=== PATIENT | female | born 1990 | race Caucasian/White ===

== ENCOUNTER 2020-01-24 15:50 | Emergency (ER) | payer MEDICAID, SELFPAY ==
--- NOTE | 2020-01-24 | XR_ITS ---
EXAMINATION: XR FINGER, RIGHT CLINICAL INFORMATION: Pain and deformity of the third digit after trauma COMPARISON: None TECHNIQUE: 3 views of the right third finger. FINDINGS: The bones and soft tissues are normal. No fracture. Alignment is anatomic. Joint spaces are maintained. XR/XR finger RT min 2V IMPRESSION: Normal finger radiographs.
[2020-01-24 17:11] VITALS: BP 123/85; PULSE 91; RESP 16; TEMP 37.1; O2SAT 98; BMI 40.2
--- NOTE | 2020-01-24 17:12 | ED.EXTPRO ---
HPI - Extremity Problem General Chief complaint: Extremity Injury, Upper Stated complaint: finger injury Time Seen by Provider: 01/24/20 17:12 Source: family Mode of arrival: ambulatory Limitations: no limitations History of Present Illness HPI Narrative: Patient injured her finger 1 week ago still with pain right 2nd and 3rd digit Complaint: extremity pain Onset (ago): week(s) Pain Consistency: intermittent Related Data Previous Rx's Medication Instructions Recorded naproxen [Naprosyn] 500 mg PO BID #20 tab 01/24/20 Allergies Allergy/AdvReac Type Severity Reaction Status Date / Time No Known Allergies Allergy Unverified 12/18/19 16:16 Review of Systems Constitutional: Constitutional: Reports no additional constitutional complaints Eyes: Eyes: Reports no additional eye complaints ENT: Denies dizziness Cardiovascular: Cardiovascular: Reports no additional cardiovascular complaints Respiratory: Respiratory: Reports as per HPI Gastrointestinal: Gastrointestinal: Reports no additional gastrointestinal complaints Genitourinary: Genitourinary: Reports no additional female genitourinary complaints Musculoskeletal: Musculoskeletal: Reports no additional musculoskeletal complaints Integumentary/Breasts: Skin/Breast: Denies rash Neurologic: Reports system reviewed and no additional complaints, except as documented, Denies dizziness and Denies Sensory deficit (Neuro) Psychiatric: Psychiatric: Denies anxiety [facility] Past Medical History Medical History PCOS (polycystic ovarian syndrome) Pre-diabetes Social History Social History Advance Directives: No Advance Directives Information Provided: No Physical Exam Vital Signs: Vital Signs: Vital Signs Temp Pulse Resp BP Pulse Ox 01/24/20 17:11 98.7 F 91 16 123/85 98 Body Mass Index 40.2 Const: Nutritional Appearance: overweight Orientation/consciousness: oriented to person Limitations: no limitations HENMT: Head: Yes normal to inspection Ears: external ears normal General nose exam: Normal external nose present Mouth: Normal oral and palatal mucosa present and oropharynx normal Throat: Yes posterior oropharynx normal Eyes: General: appearance normal, both eyes and all related structures Neck: Other: supple Neck: Yes normal visual inspection Chest: Chest palpation & inspection: normal inspection of the chest Resp: Auscultation: clear to auscultation bilaterally Cardio: Jugular venous distension: no JVD Rate: regular rate Rhythm: regular rhythm Heart sounds: S1 normal heart sound present and S2 normal heart sound present GI: Inspection: Yes normal to inspection Palpation (GI): Soft to palpation, nontender and No hepatosplenomegaly present Auscultation: normal bowel sounds : General: Yes no CVA tenderness Back/Spine/Pelvis: Back: no CVA tenderness Skin: General skin exam: no rashes or lesions noted Neuro: General: oriented to person Cranial nerves: Yes CN's II-XII intact bilaterally Motor exam (neuro): 5/5 motor strength present throughout Sensory Exam: No Sensory deficit (Neuro) Extrem: General: Yes other (slight swelling and ecchymosis to finger) Psych: Appearance: grossly normal MDM - Extremity (Nontraumatic) MDM Narrative Medical decision making narrative: patient with sprain and contusion Discharge Plan Discharge Clinical Impression: Finger sprain Qualifiers: Encounter type: initial encounter Finger: ring finger Sprain of finger site: interphalangeal joint Laterality: right Qualified Code(s): S63.634A - Sprain of interphalangeal joint of right ring finger, initial encounter Patient Disposition: Home, Self-Care Instructions: Finger Sprain (ED) Prescriptions: New naproxen [Naprosyn] 500 mg tablet 500 mg PO BID Qty: 20 RF: 0
== END 2020-01-24 18:17 | disposition home or self-care (01) ==
PROVIDERS: Emergency Provider Emergency Medicine; PCP Internal Medicine
DX: S63.634A Sprain of interphalangeal joint of right ring finger, initial encounter (principal); M79.644 Pain in right finger(s); X58.XXXA Exposure to other specified factors, initial encounter; Y93.9 Activity, unspecified; Y92.9 Unspecified place or not applicable; Y99.9 Unspecified external cause status
CPT/HCPCS: 73140; 99283; 99284

== ENCOUNTER 2020-05-22 09:01 | Outpatient (REF) | payer MEDICAID, SELFPAY ==
[2020-05-22 09:58] LABS: Estimated Average Glucose 108 mg/dL; Hemoglobin A1c % 5.4 %
[2020-05-22 10:19] LABS: Alanine Aminotransferase 53 U/L (0-31); Albumin Level 3.9 g/dL (3.5-5.0); Alkaline Phosphatase 134 U/L (39-117); Anion Gap 16 (12-20); Aspartate Amino Transferase 55 U/L (5-31); Bilirubin Total 0.6 mg/dL (0.0-1.0); Blood Urea Nitrogen 9 mg/dL (9-16); Calcium 10.1 mg/dL (8.4-10.2); Carbon Dioxide 24 mmol/L (22-29); Chloride 103 mmol/L (96-108); Estimated Glomerular Filt Rate > 60; Glucose Random 84 mg/dL (60-115); Potassium 4.8 mmol/L (3.3-5.1); Sodium 138 mmol/L (135-145); Total Protein 7.7 g/dL (6.5-8.0)
== END 2020-05-22 09:02 | disposition home or self-care (01) ==
LOC: HO.LAB 09:01
PROVIDERS: PCP Internal Medicine; Visit Provider Internal Medicine
DX: E66.01 Morbid (severe) obesity due to excess calories (principal); J02.9 Acute pharyngitis, unspecified; R74.01 Elevation of levels of liver transaminase levels; Z68.37 Body mass index [BMI] 37.0-37.9, adult
CPT/HCPCS: 36415; 80053; 83036

== ENCOUNTER 2021-04-19 15:07 | Outpatient (REF) | payer MEDICAID, SELFPAY ==
[2021-04-19 15:57] LABS: Binax Internal Control QC Valid; Binax Now Covid-19 Ag Positive (Negative)
== END 2021-04-19 15:08 | disposition home or self-care (01) ==
LOC: HO.LAB 15:07
PROVIDERS: Visit Provider Internal Medicine
DX: Z20.822 Contact with and (suspected) exposure to COVID-19 (principal)
CPT/HCPCS: C9803

== ENCOUNTER 2021-05-06 14:36 | Outpatient (REF) | payer MEDICAID, SELFPAY ==
[2021-05-06 15:07] LABS: COVID-19 Test Negative (Negative); IDNOW Serial# 16C4AD1C
== END 2021-05-06 14:37 | disposition home or self-care (01) ==
LOC: HO.LAB 14:36
PROVIDERS: Visit Provider Internal Medicine
DX: Z20.822 Contact with and (suspected) exposure to COVID-19 (principal)
CPT/HCPCS: 87635; C9803

== ENCOUNTER 2021-05-27 09:17 | Outpatient (REF) | payer MEDICAID, SELFPAY ==
[2021-05-27 09:44] LABS: MANUAL DIFF FLAG NO
[2021-05-27 10:00] LABS: Basophils Percent Auto 0.3 % (0-2); Eosinophils Absolute Auto 0.1 X10*3/uL (0.0-0.4); Eosinophils Percent Auto 0.7 % (0-4); Hematocrit 44.1 % (37.0-47.0); Hemoglobin 14.4 g/dl (12.0-16.0); Imm Gran Abs Auto 0.02 X10*3/uL (0.00-0.03); Imm Gran Pct Auto 0.2 % (0.0-0.4); Lymphocytes Absolute Auto 3.7 X10*3/uL (1.2-4.9); Lymphocytes Percent Auto 35.6 % (20-40); Mean Corpuscular HGB Conc 32.7 g/dl (31.0-35.0); Mean Corpuscular Hemoglobin 28.7 pg (27.0-33.0); Mean Platelet Volume 10.7 fL (9.4-12.3); Monocytes Absolute Auto 0.7 X10*3/uL (0.1-1.2); Monocytes Percent Auto 6.2 % (2-11); Platelet Count 511 X10*3/uL (160-400); Red Blood Count 5.01 X10*6/uL (4.20-5.50); Red Cell Distribution Width 13.2 % (11.0-16.0); White Blood Count 10.5 X10*3/uL (4.8-10.8)
[2021-05-27 10:16] LABS: Estimated Average Glucose 111 mg/dL; Hemoglobin A1c % 5.5 %
[2021-05-27 10:25] LABS: Alanine Aminotransferase 227 U/L (0-31); Albumin Level 4.1 g/dL (3.5-5.0); Alkaline Phosphatase 166 U/L (39-117); Anion Gap 16 (12-20); Aspartate Amino Transferase 242 U/L (5-31); Bilirubin Total 0.8 mg/dL (0.0-1.0); Blood Urea Nitrogen 9 mg/dL (9-16); Calcium 10.8 mg/dL (8.4-10.2); Carbon Dioxide 24 mmol/L (22-29); Chloride 103 mmol/L (96-108); Estimated Glomerular Filt Rate > 60; Glucose Random 91 mg/dL (60-115); Potassium 4.4 mmol/L (3.3-5.1); Sodium 139 mmol/L (135-145); Total Protein 7.8 g/dL (6.5-8.0)
== END 2021-05-27 09:18 | disposition home or self-care (01) ==
LOC: HO.LAB 09:17
PROVIDERS: PCP Internal Medicine; Visit Provider Internal Medicine
DX: Z00.00 Encounter for general adult medical examination without abnormal findings (principal); Z13.31 Encounter for screening for depression; E28.2 Polycystic ovarian syndrome; R74.01 Elevation of levels of liver transaminase levels
CPT/HCPCS: 36415; 80053; 83036; 85025

== ENCOUNTER 2021-05-30 15:27 | Outpatient (REF) | payer MEDICAID, SELFPAY ==
[2021-05-30 16:37] LABS: Ferritin 79 ng/mL (10-122)
[2021-05-31 04:55] LABS: HBS Num1 0.59 mIU/mL (0-7.99); HBc Num1 0.08 S/CO (0.00-0.79); Hepatitis B Core Antibody Nonreactive (Nonreactive); ~HepC Num1 0.06 S/CO (0.00-0.79); ~Hepatitis B Surface Antibody NONREACTIVE (Nonreactive); ~Hepatitis C Antibody Nonreactive (Nonreactive)
[2021-05-31 04:59] LABS: HBsAGNum1 0.21 S/CO (0.00-0.99); Hepatitis B Surface Antigen Negative (Negative)
[2021-06-01 04:06] LABS: Hepatitis A Antibody IgM 0.22 Index (0-0.79); ~Hepatitis A Antibody IgM Nonreactive (Nonreactive)
[2021-06-01 13:06] LABS: Anti Nuclear Antibody Screen NEGATIVE (NEGATIVE)
[2021-06-01 13:37] LABS: Ceruloplasmin 51 mg/dL (18-53)
== END 2021-05-30 15:28 | disposition home or self-care (01) ==
LOC: HO.LAB 15:27
PROVIDERS: PCP Internal Medicine; Visit Provider Internal Medicine
DX: E66.9 Obesity, unspecified (principal); R74.01 Elevation of levels of liver transaminase levels
CPT/HCPCS: 36415; 82390; 82728; 86038; 86039; 86704; 86706; 86709; 86803; 87340

== ENCOUNTER 2021-09-14 15:20 | Outpatient (REF) | payer MEDICAID, SELFPAY ==
[2021-09-14 15:41] LABS: MANUAL DIFF FLAG NO
[2021-09-14 15:48] LABS: Basophils Percent Auto 0.3 % (0-2); Eosinophils Absolute Auto 0.1 X10*3/uL (0.0-0.4); Eosinophils Percent Auto 1.1 % (0-4); Hematocrit 40.2 % (37.0-47.0); Hemoglobin 13.2 g/dl (12.0-16.0); Imm Gran Abs Auto 0.04 X10*3/uL (0.00-0.03); Imm Gran Pct Auto 0.3 % (0.0-0.4); Lymphocytes Absolute Auto 4.5 X10*3/uL (1.2-4.9); Lymphocytes Percent Auto 36.5 % (20-40); Mean Corpuscular HGB Conc 32.8 g/dl (31.0-35.0); Mean Corpuscular Hemoglobin 28.6 pg (27.0-33.0); Mean Corpuscular Volume 87.2 fL (80.0-98.0); Mean Platelet Volume 10.5 fL (9.4-12.3); Monocytes Absolute Auto 0.8 X10*3/uL (0.1-1.2); Monocytes Percent Auto 6.4 % (2-11); Neutrophils Absolute Auto 6.8 x10*3/uL (2.0-8.3); Neutrophils Percent Auto 55.4 % (45-73); Platelet Count 463 X10*3/uL (160-400); Red Blood Count 4.61 X10*6/uL (4.20-5.50); Red Cell Distribution Width 13.1 % (11.0-16.0); White Blood Count 12.3 X10*3/uL (4.8-10.8)
[2021-09-14 16:00] LABS: INTERNATIONAL NORM RATIO 0.9 (0.9-1.1); Prothrombin Time 10.3 SEC (9.9-13.0)
[2021-09-14 16:35] LABS: Alanine Aminotransferase 101 U/L (0-31); Albumin Level 3.9 g/dL (3.5-5.0); Alkaline Phosphatase 127 U/L (39-117); Aspartate Amino Transferase 96 U/L (5-31); Bilirubin Direct < 0.2 mg/dL (0.0-0.5); Bilirubin Total 0.3 mg/dL (0.0-1.0); Total Protein 7.4 g/dL (6.5-8.0)
[2021-09-16 15:33] LABS: Alpha 1 Anti-trypsin 228 mg/dL (83-199)
[2021-09-19 17:10] LABS: Mitochondrial Antibodies NEGATIVE (NEGATIVE)
[2021-09-20 00:16] LABS: FIB-ALT 85 U/L (6-29); FIB-Alpha-2-Macroglobulin 277 mg/dL (106-279); FIB-Apolipoprotein A1 202 mg/dL (101-198); FIB-GGT 49 U/L (3-40); FIB-Haptoglobin 261 mg/dL (43-212); FIB-Total Bilirubin 0.3 mg/dL (0.2-1.2); Liver Fibrosis Score 0.06; Liver Fibrosis Stage F0; Nec Inflam Act Grade A1-A2; Nec Inflam Act Score 0.41
[2021-09-20 23:26] LABS: Smooth Muscle Antibody <20 U (<20)
== END 2021-09-14 15:21 | disposition home or self-care (01) ==
LOC: HO.LAB 15:20
PROVIDERS: PCP Internal Medicine; Visit Provider Internal Medicine
DX: R94.5 Abnormal results of liver function studies (principal); K76.0 Fatty (change of) liver, not elsewhere classified
CPT/HCPCS: 36415; 80076; 81596; 82103; 85025; 85610; 86015; 86255; 86256

== ENCOUNTER 2021-10-27 13:05 | Outpatient (REF) | payer MEDICAID, SELFPAY ==
--- NOTE | ~2021-10-27 | US_ITS ---
EXAMINATION: US COMPLETE ABDOMEN WITH LIVER ELASTOGRAPHY CLINICAL INFORMATION: Elevated liver function tests COMPARISON: November 2019 abdominal ultrasound TECHNIQUE: Real-time imaging of the abdominal viscera. Noninvasive ultrasound liver fibrosis assessment is performed using Tiff ElastPQ point quantification shear wave elastography (2D-SWE) with a C5-2 MHz transducer. Multiple elastography samples are obtained. FINDINGS: PANCREAS: The visualized pancreatic head and body are normal in appearance. The remainder of the pancreas is obscured from visualization by the overlying bowel gas. ABDOMINAL AORTA: The proximal, middle, and distal aortic segments are normal in caliber. INFERIOR VENA CAVA: Visualized portions are normal. LIVER: Liver echotexture is increased. There is a 1.51 x 1.4 cm peripheral hypoechoic area in the right lobe of the liver. There is a second 1.1 x 0.9 x 1.2 cm hypoechoic area in the central right lobe of the liver. The liver is slightly enlarged. The liver is normal in contour. No intrahepatic biliary duct dilatation. The right lobe measures 19 cm in length. The left lobe measures 11 cm in length. Portal flow is normal/hepatopedal Shear wave liver elastography median stiffness is 1.05 m/s (reference: normal median stiffness is 1.3 m/s or less). IQR/median stiffness to assess sampling precision is 0.22 (reference: good quality data set is IQR/median stiffness of 0.15 or less). GALLBLADDER: Normal. The gallbladder is physiologically distended without evidence of stones, sludge, polyps, wall thickening or pericholecystic fluid. COMMON BILE DUCT: Normal in caliber measuring 0.3 cm in diameter. RIGHT KIDNEY: Normal. No hydronephrosis. No renal calculi or focal parenchymal lesions. The kidney measures 10.7 cm in maximum dimension. LEFT KIDNEY: Normal. No hydronephrosis. No renal calculi or focal parenchymal lesions. The kidney measures 10.7 cm in maximum dimension. SPLEEN: Normal. The spleen measures 10 cm in maximum dimension. FREE FLUID: None. US/US abdomen comp w elastography IMPRESSION: 1. Impression: Slightly enlarged echogenic liver. 2 hypoechoic areas, question representing atypical appearance of fatty infiltration versus true liver lesions. These were not appreciated on prior exam November 2019. This could be best characterized with liver MRI. 2. Liver elastography: Limited due to sampling error. REFERENCE: Society of Radiologists in Ultrasound Liver Stiffness Thresholds (2020): LIVER STIFFNESS THRESHOLDS: *Liver Stiffness equal or less than 1.3 m/s: High probability of being normal. *Liver Stiffness less than 1.7 m/s: In the absence of other known clinical signs, rules out compensated advanced chronic liver disease. *Liver Stiffness 1.7-2.1 m/s: Suggestive of compensated advanced chronic liver disease but need further test for confirmation. *Liver Stiffness over 2.1 m/s: Rules in compensated advanced chronic liver disease. *Liver Stiffness over 2.4 m/s: Suggestive of clinically significant portal hypertension. QUALITY OF DATA SET: *IQR/Median value equal or less than 0.15 implies a quality data set. *IQR/Median value over 0.15 implies a poor quality data set. SIGNIFICANT CHANGE FROM PRIOR EXAM: Significant change if liver stiffness measurement is 10% or greater from prior exam. OTHER CONSIDERATIONS: The stage of liver fibrosis may be overestimated in the setting of acute hepatitis, liver inflammation, elevated liver function tests, hepatic vascular congestion, obstructive cholestasis, non-fasting state, and infiltrative diseases such as amyloidosis and lymphoma. In some patients with NAFLD, the liver stiffness thresholds for compensated advanced chronic liver disease may be lower. In causes other than viral hepatitis and NAFLD, liver stiffness thresholds are not well established.
== END 2021-10-27 13:06 | disposition home or self-care (01) ==
LOC: HO.US 13:05
PROVIDERS: Visit Provider Internal Medicine
DX: R94.5 Abnormal results of liver function studies (principal)
CPT/HCPCS: 76705; 76981

== ENCOUNTER 2022-01-31 11:21 | Outpatient (REF) | payer MEDICAID, SELFPAY ==
--- NOTE | ~2022-01-31 | MR_ITS ---
EXAMINATION: MR ABDOMEN WITHOUT AND WITH CONTRAST CLINICAL INFORMATION: Elevated liver function tests. Abnormal liver ultrasound COMPARISON: Ultrasound 10/27/2021 TECHNIQUE: MR abdomen was performed without and with use of 10 mL intravenous Gadavist gadolinium contrast. Postcontrast images are performed in multiphase dynamic sequences. Imaging was performed in 3 planes. FINDINGS: LUNG BASES: The visualized lung bases are unremarkable. LIVER, GALLBLADDER, AND BILIARY TREE: The liver is enlarged measuring 22 cm craniocaudal. There is diffuse loss of signal on opposed phase gradient echo T1-weighted images consistent with diffuse hepatic steatosis. There are 2 regions of focal fatty sparing in segment 5 of the liver measuring 1.3 cm in series 5 image 25/37 and 1.3 cm in image 26, likely accounting for the findings on prior ultrasound. The more anterior lesion has patchy arterial phase hyperenhancement, series 100 image 78/120. It fades in conspicuity but remains hyperenhancing even on delayed postcontrast images. There is subtle bright T2 signal on T2 fat-saturated series 7 image 23/37 but no T2 abnormality on nonfat saturated T2 images. The more medial lesion has no associated abnormal enhancement or T2 signal. No additional liver lesions seen. No biliary ductal dilatation. The gallbladder is unremarkable with no evidence of gallbladder wall thickening, or obvious pericholecystic inflammatory changes. PANCREAS: Unremarkable. SPLEEN: Normal. ADRENAL GLANDS: Normal. KIDNEYS AND URETERS: The kidneys are normal in size, shape, and enhance symmetrically. No hydronephrosis. No perinephric stranding. GASTROINTESTINAL TRACT: No bowel obstruction. No ascites or fluid collection. ABDOMINAL WALL: No significant hernia is appreciated. LYMPH NODES: No lymphadenopathy. VASCULAR: Unremarkable. OSSEOUS STRUCTURES: Marrow signal normal. MR/MR abdomen wo/w con IMPRESSION: A background of severe diffuse hepatic steatosis, 2 focal liver lesions, each 1.3 cm in diameter, are seen in segment 5 of the right lobe of liver. One has no associated abnormal enhancement or T2 signal and is consistent with focal fatty sparing. The other is seen along the periphery of the liver and has arterial phase hyperenhancement that persists on later phases and perhaps subtle T2 signal. This is not the expected appearance of a cyst or hemangioma. It could represent a perfusion abnormality with concomitant focal fatty sparing. An arterial enhancing mass such as focal nodular hyperplasia or less likely an adenoma are possible as well. Consider 6 month follow-up MRI to confirm stability. Consider utilizing Eovist at that time to assess if the lesion is of hepatocyte origin.
[2022-01-31 13:11] LABS: Alanine Aminotransferase 66 U/L (0-31); Albumin Level 4.2 g/dL (3.5-5.0); Alkaline Phosphatase 159 U/L (39-117); Aspartate Amino Transferase 75 U/L (5-31); Bilirubin Direct 0.3 mg/dL (0.0-0.5); Bilirubin Total 0.4 mg/dL (0.0-1.0); Blood Urea Nitrogen 8 mg/dL (9-16); Estimated Glomerular Filt Rate > 60
[2022-02-01 13:47] LABS: Alpha Fetoprotein 0.8 ng/mL
== END 2022-01-31 11:22 | disposition home or self-care (01) ==
LOC: HO.MRI 11:21
PROVIDERS: Visit Provider Internal Medicine
DX: R79.89 Other specified abnormal findings of blood chemistry (principal); R93.2 Abnormal findings on diagnostic imaging of liver and biliary tract
CPT/HCPCS: 36415; 74183; 80076; 82105; 82378; 82565; 84520; A9585

== ENCOUNTER 2022-04-08 08:16 | Outpatient (REF) | payer MEDICAID, SELFPAY ==
[2022-04-08 08:37] LABS: MANUAL DIFF FLAG NO
[2022-04-08 09:34] LABS: Basophils Percent Auto 0.3 % (0-2); Eosinophils Percent Auto 0.3 % (0-4); Hematocrit 42.4 % (37.0-47.0); Hemoglobin 13.6 g/dl (12.0-16.0); Imm Gran Abs Auto 0.03 X10*3/uL (0.00-0.03); Imm Gran Pct Auto 0.3 % (0.0-0.4); Lymphocytes Absolute Auto 4.4 X10*3/uL (1.2-4.9); Lymphocytes Percent Auto 38.3 % (20-40); Mean Corpuscular HGB Conc 32.1 g/dl (31.0-35.0); Mean Corpuscular Hemoglobin 28.5 pg (27.0-33.0); Mean Corpuscular Volume 88.9 fL (80.0-98.0); Monocytes Absolute Auto 0.7 X10*3/uL (0.1-1.2); Neutrophils Absolute Auto 6.3 x10*3/uL (2.0-8.3); Neutrophils Percent Auto 54.8 % (45-73); Platelet Count 494 X10*3/uL (160-400); Red Blood Count 4.77 X10*6/uL (4.20-5.50); Red Cell Distribution Width 12.5 % (11.0-16.0); White Blood Count 11.6 X10*3/uL (4.8-10.8)
[2022-04-08 09:37] LABS: INTERNATIONAL NORM RATIO 0.9 (0.9-1.1); Prothrombin Time 10.3 SEC (10.0-13.1)
[2022-04-08 09:39] LABS: Partial Thromboplastin Time 26.1 SEC (26.0-36.4)
[2022-04-08 10:18] LABS: Alanine Aminotransferase 49 U/L (0-31); Albumin Level 4.1 g/dL (3.5-5.0); Alkaline Phosphatase 164 U/L (39-117); Aspartate Amino Transferase 49 U/L (5-31); Bilirubin Direct 0.3 mg/dL (0.0-0.5); Bilirubin Total 0.7 mg/dL (0.0-1.0); Total Protein 7.7 g/dL (6.5-8.0)
== END 2022-04-08 08:17 | disposition home or self-care (01) ==
LOC: HO.LAB 08:16
PROVIDERS: PCP Internal Medicine; Visit Provider Internal Medicine
DX: R94.5 Abnormal results of liver function studies (principal); K76.0 Fatty (change of) liver, not elsewhere classified
CPT/HCPCS: 36415; 80076; 85025; 85610; 85730

== ENCOUNTER 2022-04-17 08:35 | Day surgery (SDC) | payer MEDICAID, SELFPAY ==
[2022-04-17] VITALS (10 sets, daily range): BP systolic 106–129; BP diastolic 62–84; PULSE 89–108; RESP 16–18; TEMP 36.4–37.2; O2SAT 94–98; BMI 38.5
--- NOTE | ~2022-04-17 | US_ITS ---
EXAMINATION: ULTRASOUND LIVER BIOPSY CLINICAL INFORMATION: Elevated liver enzymes. COMPARISON: None TECHNIQUE: Following explaining ultrasound-guided liver biopsy procedure, benefits and risk to the patient and patient's mother, a written consent was obtained from the patient. Patient was placed supine and preliminary ultrasound imaging was performed. An optimal site was selected along the right anterolateral subcostal region and marked on the skin with a marker. The marked site was cleaned and draped in the usual sterile manner with 2% chlorhexidine solution and a sterile drape. 1% lidocaine was injected puncture site. Through a small skin incision a 20-gauge long guide needle was advanced into the right hepatic lobe and 3 pass core biopsy performed with the biopsy gun. Postprocedure the guide needle was withdrawn and complete hemostasis achieved at puncture site. Sterile dressing applied at puncture site. Conscious sedation was given during the exam and patient monitored for 15 minutes by the IR nurse and radiologist. FINDINGS: On preliminary ultrasound imaging there is diffuse hepatic steatosis without focal lesion. Ultrasound guided 3 core biopsies were performed of the liver without immediate complications. US/US biopsy liver IMPRESSION: Successful ultrasound-guided core biopsy of the liver was obtained.
[2022-04-17 09:16] LABS: MANUAL DIFF FLAG NO
[2022-04-17 09:20] LABS: Basophils Percent Auto 0.3 % (0-2); Eosinophils Absolute Auto 0.1 X10*3/uL (0.0-0.4); Eosinophils Percent Auto 0.5 % (0-4); Hemoglobin 13.5 g/dl (12.0-16.0); Imm Gran Abs Auto 0.04 X10*3/uL (0.00-0.03); Imm Gran Pct Auto 0.3 % (0.0-0.4); Lymphocytes Absolute Auto 3.9 X10*3/uL (1.2-4.9); Mean Corpuscular HGB Conc 32.9 g/dl (31.0-35.0); Mean Platelet Volume 10.1 fL (9.4-12.3); Monocytes Absolute Auto 0.6 X10*3/uL (0.1-1.2); Monocytes Percent Auto 5.4 % (2-11); Neutrophils Absolute Auto 7.2 x10*3/uL (2.0-8.3); Neutrophils Percent Auto 60.5 % (45-73); Platelet Count 501 X10*3/uL (160-400); Red Blood Count 4.66 X10*6/uL (4.20-5.50); Red Cell Distribution Width 12.6 % (11.0-16.0); White Blood Count 11.9 X10*3/uL (4.8-10.8)
[2022-04-17 09:27] LABS: INTERNATIONAL NORM RATIO 0.9 (0.9-1.1); Prothrombin Time 10.2 SEC (10.0-13.1)
[2022-04-17 09:30] LABS: Partial Thromboplastin Time 32.9 SEC (26.0-36.4)
== END 2022-04-17 14:30 | disposition home or self-care (01) ==
PROVIDERS: PCP Internal Medicine; Visit Provider Radiology Diagnostic Radiology
DX: R74.8 Abnormal levels of other serum enzymes (principal); K75.81 Nonalcoholic steatohepatitis (NASH); K74.00 Hepatic fibrosis, unspecified; J45.909 Unspecified asthma, uncomplicated; R73.03 Prediabetes; E28.2 Polycystic ovarian syndrome
CPT/HCPCS: 36415; 47000; 76942; 85025; 85610; 85730; 88307; 88313; 99152; J2250; J3010

== ENCOUNTER 2022-05-13 08:36 | Outpatient (REF) | payer MEDICAID, SELFPAY ==
[2022-05-13 08:58] LABS: MANUAL DIFF FLAG NO
[2022-05-13 09:19] LABS: Basophils Absolute Auto 0.1 X10*3/uL (0.0-0.2); Basophils Percent Auto 0.5 % (0-2); Eosinophils Percent Auto 0.4 % (0-4); Hematocrit 42.8 % (37.0-47.0); Hemoglobin 13.9 g/dl (12.0-16.0); Imm Gran Abs Auto 0.04 X10*3/uL (0.00-0.03); Imm Gran Pct Auto 0.4 % (0.0-0.4); Lymphocytes Absolute Auto 3.7 X10*3/uL (1.2-4.9); Lymphocytes Percent Auto 34.8 % (20-40); Mean Corpuscular HGB Conc 32.5 g/dl (31.0-35.0); Mean Corpuscular Hemoglobin 28.5 pg (27.0-33.0); Mean Corpuscular Volume 87.9 fL (80.0-98.0); Mean Platelet Volume 10.6 fL (9.4-12.3); Monocytes Absolute Auto 0.6 X10*3/uL (0.1-1.2); Monocytes Percent Auto 5.2 % (2-11); Neutrophils Absolute Auto 6.3 x10*3/uL (2.0-8.3); Neutrophils Percent Auto 58.7 % (45-73); Platelet Count 500 X10*3/uL (160-400); Red Blood Count 4.87 X10*6/uL (4.20-5.50); Red Cell Distribution Width 12.4 % (11.0-16.0); White Blood Count 10.7 X10*3/uL (4.8-10.8)
[2022-05-13 09:44] LABS: Alanine Aminotransferase 39 U/L (0-31); Alkaline Phosphatase 140 U/L (39-117); Anion Gap 17 (12-20); Aspartate Amino Transferase 43 U/L (5-31); Bilirubin Total 0.8 mg/dL (0.0-1.0); Blood Urea Nitrogen 9 mg/dL (9-16); Carbon Dioxide 23 mmol/L (22-29); Chloride 105 mmol/L (96-108); Cholesterol 217 mg/dL; Estimated Glomerular Filt Rate > 60; Glucose Random 89 mg/dL (60-115); HDL Cholesterol 59 mg/dL; LDL Cholesterol Calculated 118 mg/dl; Potassium 4.7 mmol/L (3.3-5.1); Sodium 140 mmol/L (135-145); Total Protein 7.5 g/dL (6.5-8.0); Triglycerides 204 mg/dL
== END 2022-05-13 08:37 | disposition home or self-care (01) ==
LOC: HO.LAB 08:36
PROVIDERS: PCP Internal Medicine; Visit Provider Internal Medicine
DX: E66.9 Obesity, unspecified (principal); M25.571 Pain in right ankle and joints of right foot; R74.01 Elevation of levels of liver transaminase levels; R07.0 Pain in throat
CPT/HCPCS: 36415; 80053; 80061; 85025

== ENCOUNTER 2022-08-18 12:47 | Outpatient (REF) | payer MEDICAID, SELFPAY ==
--- NOTE | ~2022-08-18 | MR_ITS ---
EXAMINATION: MR ABDOMEN WITHOUT AND WITH CONTRAST CLINICAL INFORMATION: Elevated liver function tests. Fatty liver. Follow-up abnormal MRI COMPARISON: Previous abdominal MRI January 2022 and abdominal ultrasound most recent September 2021 TECHNIQUE: MR abdomen was performed without and with use of 10 mL intravenous EOVIST contrast. Postcontrast images are performed in multiphase dynamic sequences. Imaging was performed in 3 planes. FINDINGS: LUNG BASES: The visualized lung bases are unremarkable. LIVER, GALLBLADDER, AND BILIARY TREE: The liver is slightly enlarged. The liver loses signal on out of phase sequences suggestive of fatty infiltration. There are 2 areas that do not lose signal on out of phase sequences suggestive suggestive of focal fatty sparing in the right lobe measuring 1.2 cm axial image 23 series 5 that is unchanged and new area measuring up to 2 x 4 cm axial image 27 series 5 that is triangular in shape. These are normal in signal on other sequences and do not demonstrate abnormal enhancement. Areas are suggestive of focal fatty sparing. There is a third area/lesion in the right lobe of the liver measuring 1.3 cm that is stable. This does not lose signal with respect to the remainder of the liver on out of phase sequences for example axial image 21 series 5, is slightly high signal on T2-weighted sequences and demonstrates early patchy arterial phase enhancement axial image 78 series 100. This fades gradually on later postcontrast sequences but remains slightly enhanced with respect to the remainder of the liver following EOVIST IV contrast on delayed sequences for example coronal reconstructed image 35 series 9. This is similar in size, signal and enhancement characteristics to previous exam January 2022 and is characteristic of focal nodular hyperplasia The gallbladder is normal. There is no biliary duct dilatation. PANCREAS: Unremarkable. SPLEEN: Normal. ADRENAL GLANDS: Normal. KIDNEYS AND URETERS: The kidneys are normal in size, shape, and enhance symmetrically. No hydronephrosis. No perinephric stranding. GASTROINTESTINAL TRACT: No bowel obstruction. No ascites or fluid collection. ABDOMINAL WALL: No significant hernia is appreciated. LYMPH NODES: No lymphadenopathy. VASCULAR: Unremarkable. Small umbilical hernia containing fat. OSSEOUS STRUCTURES: Marrow signal normal. Loss of bright T2 disc signal at L5-S1. MR/MR abdomen wo/w con IMPRESSION: Enlarged fatty liver. Stable area of focal fatty sparing in the right lobe and new larger triangular-shaped area in the inferior right lobe. Stable 1.2 cm lesion in the anterior segment of the right lobe consistent with benign focal nodular hyperplasia.
[2022-08-18] MEDS: Gadoxetate Disodium 10 ML VIAL IVPUSH (13:58)
== END 2022-08-18 12:48 | disposition home or self-care (01) ==
LOC: HO.MRI 12:47
PROVIDERS: PCP Internal Medicine; Visit Provider Internal Medicine
DX: R94.5 Abnormal results of liver function studies (principal); K76.0 Fatty (change of) liver, not elsewhere classified; R93.2 Abnormal findings on diagnostic imaging of liver and biliary tract
CPT/HCPCS: 74183; A9581

== ENCOUNTER 2022-10-17 13:55 | Outpatient (REF) | payer MEDICAID, SELFPAY ==
[2022-10-17 14:27] LABS: MANUAL DIFF FLAG NO
[2022-10-17 15:19] LABS: Basophils Absolute Auto 0.1 X10*3/uL (0.0-0.2); Basophils Percent Auto 0.6 % (0-2); Eosinophils Absolute Auto 0.1 X10*3/uL (0.0-0.4); Eosinophils Percent Auto 0.5 % (0-4); Hematocrit 40.8 % (37.0-47.0); Hemoglobin 13.2 g/dl (12.0-16.0); Imm Gran Abs Auto 0.04 X10*3/uL (0.00-0.03); Imm Gran Pct Auto 0.3 % (0.0-0.4); Lymphocytes Absolute Auto 4.5 X10*3/uL (1.2-4.9); Lymphocytes Percent Auto 38.2 % (20-40); Mean Corpuscular HGB Conc 32.4 g/dl (31.0-35.0); Mean Corpuscular Hemoglobin 28.4 pg (27.0-33.0); Mean Corpuscular Volume 87.7 fL (80.0-98.0); Mean Platelet Volume 10.9 fL (9.4-12.3); Monocytes Absolute Auto 0.7 X10*3/uL (0.1-1.2); Monocytes Percent Auto 5.5 % (2-11); Neutrophils Absolute Auto 6.5 x10*3/uL (2.0-8.3); Neutrophils Percent Auto 54.9 % (45-73); Platelet Count 479 X10*3/uL (160-400); Red Blood Count 4.65 X10*6/uL (4.20-5.50); Red Cell Distribution Width 12.6 % (11.0-16.0); White Blood Count 11.9 X10*3/uL (4.8-10.8)
== END 2022-10-17 13:56 | disposition home or self-care (01) ==
LOC: HO.LAB 13:55
PROVIDERS: PCP Internal Medicine; Visit Provider Internal Medicine Medical Oncology
DX: D45 Polycythemia vera (principal); D75.839 Thrombocytosis, unspecified
CPT/HCPCS: 36415; 81219; 81270; 81279; 81339; 85025

== ENCOUNTER 2022-12-01 10:09 | Emergency (ER) | payer MEDICAID, SELFPAY ==
[2022-12-01 10:12] VITALS: BP 152/95; PULSE 110; RESP 16; TEMP 36.8; O2SAT 99; BMI 36.6
[2022-12-01 10:29] LABS: IDNOW Serial# 08D9AD1C
[2022-12-01 10:30] LABS: Strep A Nucleic Acid Negative (Negative)
[2022-12-01 10:38] LABS: COVID-19 Test Negative (Negative); IDNOW Serial# BCCEAD1C
--- NOTE | 2022-12-01 10:46 | ED_ITS ---
HPI - URI/Sore Throat General Chief Complaint: Upper Respiratory Symptoms Stated Complaint: sore throat , nausea Time Seen by Provider: 12/01/22 10:37 Source: patient Mode of arrival: ambulatory Limitations: no limitations History of Present Illness HPI Narrative: 32-year-old female presents to the ER for evaluation of sore throat, itchy eyes, nasal congestion this started yesterday along with nausea and vomiting that started today. No known sick got attacks. No abdominal pain, shortness of breath, chest pain. She took a COVID test at home and was negative. She tried [id number] cold and flu medications yesterday along with allergy medications yesterday with some improvement in her symptoms. No fever but she has had chills. MD elicited complaint: sore throat, nasal congestion and other ( Nausea vomiting) Pertinent past history: seasonal allergies Onset (ago): day(s) (1) Consistency: progressively worsening Severity: moderate Description of mucous: clear Able to tolerate fluids by mouth: Yes Exacerbating factors: changing head position and supine positioning Relieving factors: OTC cold medicine Associated symptoms: nasal congestion, sore throat, nausea and vomiting Treatments prior to arrival: none Related Data Previous Rx's Medication Instructions Recorded naproxen 500 mg tablet (Naprosyn) 500 mg PO BID #20 tabs 01/24/20 Allergies Allergy/AdvReac Type Severity Reaction Status Date / Time No Known Allergies Allergy Unverified 12/18/19 16:16 Review of Systems Review of Systems: Yes all other systems are reviewed and are negative [facility] Past Medical History Medical History PCOS (polycystic ovarian syndrome) Pre-diabetes Social History Social History Alcohol intake: never Advance Directives: No Advance Directives Information Provided: Yes Physical Exam Vital Signs: Vital Signs: Last Vital Signs Temp 98.3 F 12/01/22 10:12 Pulse 110 H 12/01/22 10:12 Resp 16 12/01/22 10:12 BP 152/95 H 12/01/22 10:12 Pulse Ox 99 12/01/22 10:12 O2 Del Method Room Air 12/01/22 10:12 BMI result Body Mass Index 36.6 Appearance: Alert. Oriented X3. No acute distress. Head: normocephalic, atraumatic. Eyes: Pupils equal, round and reactive to light. ENT: Pharynx normal. No tonsillar swelling or exudate. Normal Tms bilaterally Neck: Normal inspection. Neck supple. No LAD CVS: Normal heart rate and rhythm. Pulses normal. Respiratory: No respiratory distress. Breath sounds normal. Abdomen: Soft and nontender. +BS x4 Skin: Skin warm and dry. Normal skin color. Normal skin turgor. No rashes. Extremities: No lower extremity edema. No joint swelling. Neuro/psych: Oriented X 3. Grossly nonfocal. Medical Decision Making Medical Decision Making [facility] Narrative: 32-year-old female presenting to the ER for evaluation of sore throat, itchy, watery eyes, nasal congestion and 1 episode of nausea vomiting today. Symptoms most likely viral in etiology. She is negative for COVID negative for strep throat. Her physical exam is unremarkable. Her vital signs are stable. Patient was counseled on probable viral diagnosis along with symptomatic management. We discussed return precautions. She is stable for discharge home. Differential Diagnosis Differential Diagnoses: The differential diagnosis associated with the presentation includes strep, covid, flu, rsv, other viral syndrome, bronchitis, pneumonia, no evidence of peritonsillar abcsess or retropharyngeal abscess Lab Data [facility] Lab Attestation statement: I reviewed the patient's lab results. Labs: Lab Results 12/01/22 12/01/22 Range/Units 10:15 10:15 COVID-19 (LIGIA) Negative (Negative) COVID-19 Clin Com See Note S. pyogenes GrpA JIMMIE Negative (Negative) Independent Historian Clinical information obtained from an independent historian. History obtained from or confirmed by: Parent External Record Review External record reviewed: Prior outpatient labs Prescription Management I considered prescription management with: Antibiotic Critical Care Time Critical Care Time Critical Care Time: No Discharge Plan Discharge Clinical Impression: Viral infection Patient Disposition: Home, Self-Care Instructions: Viral Syndrome (ED) Additional Instructions: You tested negative for COVID and Strep throat today. Your symptoms most likely due to viral illness. Treatment is supportive care. Rest and drink plenty of fluids. Stick to a bland diet where not feeling well. Take [id number] cold and flu medications as needed for your symptoms. Follow-up with your doctor as needed. If you develop new or worsening symptoms call 911 or come back to the ER for further evaluation. Prescriptions: No Action naproxen [Naprosyn] 500 mg tablet 500 mg PO BID Qty: 20 0RF Interventions: ED Discharge Assessment Last Done: 12/01/22 11:38 Discharge Date/Time: 12/01/22 11:39
== END 2022-12-01 11:39 | disposition home or self-care (01) ==
PROVIDERS: Emergency Provider Emergency Medicine; PCP Internal Medicine
DX: J02.8 Acute pharyngitis due to other specified organisms (principal); R11.2 Nausea with vomiting, unspecified; Z20.822 Contact with and (suspected) exposure to COVID-19; Z20.828 Contact with and (suspected) exposure to other viral communicable diseases
CPT/HCPCS: 87635; 87651; 99282; 99283

== ENCOUNTER 2023-01-27 09:19 | Outpatient (REF) | payer MEDICAID, SELFPAY ==
[2023-01-27 10:32] LABS: Alanine Aminotransferase 35 U/L (0-31); Albumin Level 3.7 g/dL (3.5-5.0); Alkaline Phosphatase 138 U/L (39-117); Aspartate Amino Transferase 50 U/L (5-31); Bilirubin Direct 0.2 mg/dL (0.0-0.5); Bilirubin Total 0.6 mg/dL (0.0-1.0); Total Protein 7.6 g/dL (6.5-8.0)
== END 2023-01-27 09:20 | disposition home or self-care (01) ==
LOC: HO.LAB 09:19
PROVIDERS: PCP Internal Medicine; Visit Provider Internal Medicine
DX: R94.5 Abnormal results of liver function studies (principal); K76.0 Fatty (change of) liver, not elsewhere classified
CPT/HCPCS: 36415; 80076

== ENCOUNTER 2023-02-26 15:06 | Outpatient (REF) | payer MEDICAID, SELFPAY ==
[2023-02-26 15:21] LABS: MANUAL DIFF FLAG NO
[2023-02-26 16:28] LABS: Basophils Absolute Auto 0.1 X10*3/uL (0.0-0.2); Basophils Percent Auto 0.5 % (0-2); Eosinophils Absolute Auto 0.1 X10*3/uL (0.0-0.4); Eosinophils Percent Auto 0.5 % (0-4); Hematocrit 43.2 % (37.0-47.0); Imm Gran Abs Auto 0.03 X10*3/uL (0.00-0.03); Imm Gran Pct Auto 0.2 % (0.0-0.4); Lymphocytes Absolute Auto 4.7 X10*3/uL (1.2-4.9); Lymphocytes Percent Auto 37.4 % (20-40); Mean Corpuscular HGB Conc 32.4 g/dl (31.0-35.0); Mean Corpuscular Hemoglobin 28.3 pg (27.0-33.0); Mean Corpuscular Volume 87.3 fL (80.0-98.0); Mean Platelet Volume 11.2 fL (9.4-12.3); Monocytes Absolute Auto 0.6 X10*3/uL (0.1-1.2); Monocytes Percent Auto 5.1 % (2-11); Neutrophils Percent Auto 56.3 % (45-73); Platelet Count 521 X10*3/uL (160-400); Red Blood Count 4.95 X10*6/uL (4.20-5.50); Red Cell Distribution Width 13.1 % (11.0-16.0); White Blood Count 12.5 X10*3/uL (4.8-10.8)
== END 2023-02-26 15:07 | disposition home or self-care (01) ==
LOC: HO.LAB 15:06
PROVIDERS: PCP Internal Medicine Medical Oncology; Visit Provider Internal Medicine Medical Oncology
DX: D45 Polycythemia vera (principal); D47.3 Essential (hemorrhagic) thrombocythemia
CPT/HCPCS: 36415; 85025

== ENCOUNTER 2023-04-27 15:31 | Outpatient (REF) | payer MEDICAID, SELFPAY ==
[2023-04-27 17:55] LABS: Basophils Percent Auto 0.3 % (0-2); Eosinophils Absolute Auto 0.1 X10*3/uL (0.0-0.4); Eosinophils Percent Auto 0.7 % (0-4); Hematocrit 41.5 % (37.0-47.0); Hemoglobin 13.7 g/dl (12.0-16.0); Imm Gran Abs Auto 0.05 X10*3/uL (0.00-0.03); Imm Gran Pct Auto 0.4 % (0.0-0.4); Lymphocytes Absolute Auto 5.4 X10*3/uL (1.2-4.9); Lymphocytes Percent Auto 40.9 % (20-40); MANUAL DIFF FLAG SCAN; Mean Corpuscular Hemoglobin 28.3 pg (27.0-33.0); Mean Corpuscular Volume 85.7 fL (80.0-98.0); Mean Platelet Volume 12.5 fL (9.4-12.3); Monocytes Absolute Auto 0.7 X10*3/uL (0.1-1.2); Monocytes Percent Auto 5.5 % (2-11); Neutrophils Absolute Auto 6.9 x10*3/uL (2.0-8.3); Neutrophils Percent Auto 52.2 % (45-73); Red Blood Count 4.84 X10*6/uL (4.20-5.50); Red Cell Distribution Width 13.1 % (11.0-16.0); SCAN SMEAR FLAG 1; White Blood Count 13.2 X10*3/uL (4.8-10.8)
[2023-04-27 18:20] LABS: Alanine Aminotransferase 64 U/L (0-31); Albumin Level 3.8 g/dL (3.5-5.0); Alkaline Phosphatase 136 U/L (39-117); Anion Gap 21 (12-20); Aspartate Amino Transferase 65 U/L (5-31); Bilirubin Total 0.2 mg/dL (0.0-1.0); Blood Urea Nitrogen 16 mg/dL (9-16); Calcium 10.1 mg/dL (8.4-10.2); Carbon Dioxide 24 mmol/L (22-29); Chloride 102 mmol/L (96-108); Estimated Glomerular Filt Rate > 60; Glucose Random 91 mg/dL (60-115); Potassium 3.6 mmol/L (3.3-5.1); Sodium 143 mmol/L (135-145); Total Protein 7.9 g/dL (6.5-8.0)
[2023-04-27 18:24] LABS: Platelet Count 219 X10*3/uL (160-400); SLIDE REVIEW VERIFIED
== END 2023-04-27 15:32 | disposition home or self-care (01) ==
LOC: HO.LAB 15:31
PROVIDERS: PCP Internal Medicine; Visit Provider Internal Medicine Medical Oncology
DX: Q02 Microcephaly (principal)
CPT/HCPCS: 36415; 80053; 85025

== ENCOUNTER 2023-06-14 11:10 | Outpatient (AMB) | payer MEDICAID, SELFPAY ==
--- NOTE | 2023-06-14 11:20 | A.OFFVIS_ITS ---
Intake Vital Signs 06/14/23 11:25 Height 5 ft 2 in Weight 220 lb BMI 40.2 BP 122/70 Intake Visit Reasons: PCOS Coronary Clinical Specialist Required: No Information Interpreted: clinical only Clerical Supervisor: Clerical Supervisor Present Allergies No Known Allergies Allergy (Unverified 06/14/23 11:21) Is last menstrual period known: Yes Last menstrual period: 05/28/23 Do you need a note to return to daycare/school/sports/work: No HPI PCOS HPI Details Patient is here for a new control systems designer visit accompanied by her mother who shared a lot of her history. Her mother states that her daughter is developmentally delayed and has a family independence case manager through the [employer] [facility] who insisted on her having an appointment in a control systems designer practice for her Pap smear and exam. The patient's primary care provider is the same as the mother's Dr. Bess, who she said offered and was definitely able to do a pelvic exam and control systems designer but she says the the family independence case manager insisted that she have a separate appointment at control systems designer. The patient has been cared for by her PCC for quite some time previous to that her mother shared that she had been diagnosed with PCOS when she was a teenager and we had very sporadic periods and was prescribed control pills at that time and has been on them ever since and her PCC prescribe some for her and they serve her well. The patient on inquiry, shook her head emphatically that she has never been sexually active. And she is a bit nervous about the exam and just wants to see all of the things that I am going to be using during the visit. [facility] Medical History (Updated 06/14/23 @ 13:02 by Echo Massey CNM) Pre-diabetes PCOS (polycystic ovarian syndrome) Social History Alcohol intake: never Female Reproductive History Menstrual Age of Menarche: 11 Duration of menses: 3-5 days Date of last menstrual period: 05/28/23 control method: pills Total pregnancies: 0 Full term: 0 History of abnormal pap smear: No (no previous pap) Physical Exam Vital Signs: Last Vital Signs BP 122/70 06/14/23 11:25 BMI result Body Mass Index 40.2 Const General: cooperative, healthy appearing, comfortable, no acute distress, well developed and alert Nutritional Appearance: average body habitus Orientation/consciousness: patient oriented x3 Limitations: no limitations and other limitations (Has a speech limitation, developmental lead delayed with microcephaly per m) HEENT Head: Yes normocephalic Neck Neck: Yes normal visual inspection Chest Chest palpation & inspection: normal inspection of the chest Breast/axilla inspection: normal inspection of the breasts and normal inspection of the axillae Breast/axilla palpation: normal palpation of the breasts and normal palpation of the axillae Resp Effort & Inspection: normal respiratory effort GI Inspection: Yes normal to inspection, No Abdominal wall edema and No distended Palpation (GI): Soft to palpation and nontender General: Yes bladder normal to palpation External Female Exam: normal external appearance and normal appearance of the urethra Speculum Exam - Vagina: normal appearance of the vagina, normal palpation and normal vaginal discharge Speculum Exam - Cervix: normal appearance of the cervix, normal palpation and nontender Bimanual exam- vagina & uterus: normal bimanual exam, normal palpation, uterine size normal, bladder normal to palpation, consistency normal, normal palpation, uterine mobility normal, uterine shape normal, No Cervical tenderness present, non-tender and no cervical motion tenderness Bimanual Exam- Adnexa, other: normal adnexae, no masses, normal and No adnexal tenderness Neuro General: patient oriented x3 Assessment & Plan Assessment & Plan (1) Well woman exam with routine gynecological exam: Code(s): Z01.419 - Encounter for gynecological examination (general) (routine) without abnormal findings (2) PCOS (polycystic ovarian syndrome): Comment: Has been on OCPs since diagnosis by pediatric endocrinology at [facility]. continuing on them managed by [facility] Code(s): E28.2 - Polycystic ovarian syndrome (3) Developmental delay, moderate: Code(s): R62.50 - Unspecified lack of expected normal physiological development in childhood (4) Cervical cancer screening: Code(s): Z12.4 - Encounter for screening for malignant neoplasm of cervix (5) Microcephalic: Comment: with Developmental delay per mother Code(s): Q02 - Microcephaly Plan -----Discussed in this visit the following: healthy balanced diet, regular and consistent exercise, getting recommended health screens, doing the best she can for her particular health concerns, kegel exercises, pap smear screening and followup recommendations, mammography screening and SBE, normal changes in cycles in her life stage--- . First Pap and pelvic done cultures deferred as patient and mother very clear that she has never had sexual activity and she had no concerns. Patient mother states she is well managed by her PCC Dr. Bess with her control pills and she wants to continue with that plan discussed that Pap smears in her age group would be every 5 years but she may return as she needs to. Orders: Orders Pap Smear Today Z01.419 - Encounter for gynecological examination (general) (routine) without abnormal findings Coding Level of Care Code New Pt Prev Care 18-39yr([id number] Diagnoses Well woman exam with routine gynecological exam Z01.419 PCOS (polycystic ovarian syndrome) E28.2 Developmental delay, moderate R62.50 Cervical cancer screening Z12.4 Microcephalic Q02
[2023-06-14 11:25] VITALS: BP 122/70; BMI 40.2
== END 2023-06-14 12:36 | disposition home or self-care (01) ==
PROVIDERS: PCP Internal Medicine; Visit Provider Advanced Practice Midwife
DX: Z01.419 Encounter for gynecological examination (general) (routine) without abnormal findings (principal); E28.2 Polycystic ovarian syndrome; R62.50 Unspecified lack of expected normal physiological development in childhood; Z12.4 Encounter for screening for malignant neoplasm of cervix; Q02 Microcephaly
CPT/HCPCS: 99385

== ENCOUNTER 2023-06-14 11:10 | Outpatient (REF) | payer MEDICAID, SELFPAY | END 2023-06-14 11:11 | disposition home or self-care (01) | LOC: HO.LAB 11:10 | PROVIDERS: PCP Internal Medicine; Visit Provider Advanced Practice Midwife | DX: Z01.419 Encounter for gynecological examination (general) (routine) without abnormal findings (principal); E28.2 Polycystic ovarian syndrome; R62.50 Unspecified lack of expected normal physiological development in childhood; Q02 Microcephaly | CPT/HCPCS: 88142; 99385 ==

== ENCOUNTER 2023-08-18 09:23 | Outpatient (REF) | payer MEDICAID, SELFPAY ==
[2023-08-18 09:37] LABS: MANUAL DIFF FLAG NO
[2023-08-18 10:26] LABS: Basophils Absolute Auto 0.1 X10*3/uL (0.0-0.2); Basophils Percent Auto 0.5 % (0-2); Eosinophils Absolute Auto 0.1 X10*3/uL (0.0-0.4); Eosinophils Percent Auto 0.9 % (0-4); Hematocrit 43.6 % (37.0-47.0); Hemoglobin 14.2 g/dl (12.0-16.0); Imm Gran Abs Auto 0.02 X10*3/uL (0.00-0.03); Imm Gran Pct Auto 0.2 % (0.0-0.4); Lymphocytes Absolute Auto 3.5 X10*3/uL (1.2-4.9); Lymphocytes Percent Auto 35.8 % (20-40); Mean Corpuscular HGB Conc 32.6 g/dl (31.0-35.0); Mean Corpuscular Hemoglobin 28.1 pg (27.0-33.0); Mean Corpuscular Volume 86.2 fL (80.0-98.0); Mean Platelet Volume 12.9 fL (9.4-12.3); Monocytes Absolute Auto 0.6 X10*3/uL (0.1-1.2); Monocytes Percent Auto 6.5 % (2-11); Neutrophils Absolute Auto 5.4 x10*3/uL (2.0-8.3); Neutrophils Percent Auto 56.1 % (45-73); Platelet Count 213 X10*3/uL (160-400); Red Blood Count 5.06 X10*6/uL (4.20-5.50); Red Cell Distribution Width 13.2 % (11.0-16.0); White Blood Count 9.7 X10*3/uL (4.8-10.8)
[2023-08-18 11:15] LABS: Alanine Aminotransferase 95 U/L (0-31); Alkaline Phosphatase 142 U/L (39-117); Aspartate Amino Transferase 117 U/L (5-31); Bilirubin Direct 0.2 mg/dL (0.0-0.5); Bilirubin Total 0.6 mg/dL (0.0-1.0)
== END 2023-08-18 09:24 | disposition home or self-care (01) ==
LOC: HO.LAB 09:23
PROVIDERS: PCP Internal Medicine; Visit Provider Internal Medicine
DX: R94.5 Abnormal results of liver function studies (principal); K76.0 Fatty (change of) liver, not elsewhere classified; Q02 Microcephaly; E78.5 Hyperlipidemia, unspecified
CPT/HCPCS: 36415; 80076; 85025

== ENCOUNTER 2023-10-02 13:37 | Outpatient (REF) | payer MEDICAID, SELFPAY ==
[2023-10-02 14:38] LABS: Alanine Aminotransferase 17 U/L (0-31); Albumin Level 3.8 g/dL (3.5-5.0); Alkaline Phosphatase 124 U/L (39-117); Aspartate Amino Transferase 19 U/L (5-31); Bilirubin Direct 0.1 mg/dL (0.0-0.5); Bilirubin Total 0.3 mg/dL (0.0-1.0); Blood Urea Nitrogen 8 mg/dL (9-16); Estimated Glomerular Filt Rate > 60; Total Protein 7.7 g/dL (6.5-8.0)
[2023-10-03 13:09] LABS: Alpha Fetoprotein 0.6 ng/mL
== END 2023-10-02 13:38 | disposition home or self-care (01) ==
LOC: HO.LAB 13:37
PROVIDERS: PCP Internal Medicine; Visit Provider Internal Medicine
DX: K76.0 Fatty (change of) liver, not elsewhere classified (principal); R94.5 Abnormal results of liver function studies; R93.2 Abnormal findings on diagnostic imaging of liver and biliary tract
CPT/HCPCS: 36415; 80076; 82105; 82565; 84520

== ENCOUNTER 2023-10-03 14:27 | Outpatient (REF) | payer MEDICAID, SELFPAY ==
--- NOTE | ~2023-10-03 | MR_ITS ---
EXAMINATION: MR ABDOMEN WITHOUT AND WITH CONTRAST CLINICAL INFORMATION: Hepatic steatosis. Elevated LFTs. COMPARISON: 08/18/2022 and 01/31/2022 TECHNIQUE: MR abdomen was performed without and with use of 10 mL intravenous Gadavist gadolinium contrast. Postcontrast images are performed in multiphase dynamic sequences. Imaging was performed in 3 planes. FINDINGS: LUNG BASES: No pleural or pericardial effusion. LIVER, GALLBLADDER, AND BILIARY TREE: The liver measures 21.7 cm in sagittal dimension. Hepatic steatosis. The previously demonstrated 1.3 cm lesion in the right hepatic lobe suggestive of focal nodular hyperplasia is not conspicuous on the current study. No biliary ductal dilatation. The gallbladder is contracted. PANCREAS: No ductal dilatation. SPLEEN: Not enlarged. ADRENAL GLANDS: No adrenal mass. KIDNEYS AND URETERS: The kidneys are normal in size, shape, and enhance symmetrically. No hydronephrosis. No perinephric stranding. GASTROINTESTINAL TRACT: No bowel obstruction. No ascites or fluid collection. LYMPH NODES: No bulky lymphadenopathy. VASCULAR: Normal caliber abdominal aorta. MR/MR abdomen wo/w con IMPRESSION: Hepatomegaly and hepatic steatosis. Of note previously demonstrated 1.3 cm lesion in the right hepatic lobe characteristic of focal nodular hyperplasia is not conspicuous on the current study.
[2023-10-03] MEDS: gadobutroL 10 ML VIAL IVPUSH (15:57)
== END 2023-10-03 14:28 | disposition home or self-care (01) ==
LOC: HO.MRI 14:27
PROVIDERS: PCP Internal Medicine; Visit Provider Internal Medicine
DX: K76.0 Fatty (change of) liver, not elsewhere classified (principal); R94.5 Abnormal results of liver function studies; R93.2 Abnormal findings on diagnostic imaging of liver and biliary tract
CPT/HCPCS: 74183; A9585

== ENCOUNTER 2023-12-08 09:09 | Outpatient (REF) | payer MEDICAID, SELFPAY ==
[2023-12-08 09:28] LABS: MANUAL DIFF FLAG NO
[2023-12-08 10:17] LABS: Basophils Absolute Auto 0.1 X10*3/uL (0.0-0.2); Basophils Percent Auto 0.4 % (0-2); Eosinophils Absolute Auto 0.1 X10*3/uL (0.0-0.4); Eosinophils Percent Auto 0.8 % (0-4); Hematocrit 42.1 % (37.0-47.0); Hemoglobin 13.9 g/dl (12.0-16.0); Imm Gran Abs Auto 0.03 X10*3/uL (0.00-0.03); Imm Gran Pct Auto 0.3 % (0.0-0.4); Lymphocytes Absolute Auto 4.4 X10*3/uL (1.2-4.9); Lymphocytes Percent Auto 39.7 % (20-40); Mean Corpuscular Hemoglobin 28.7 pg (27.0-33.0); Mean Corpuscular Volume 86.8 fL (80.0-98.0); Mean Platelet Volume 12.5 fL (9.4-12.3); Monocytes Absolute Auto 0.6 X10*3/uL (0.1-1.2); Monocytes Percent Auto 5.3 % (2-11); Neutrophils Percent Auto 53.5 % (45-73); Platelet Count 197 X10*3/uL (160-400); Red Blood Count 4.85 X10*6/uL (4.20-5.50); Red Cell Distribution Width 13.4 % (11.0-16.0); White Blood Count 11.2 X10*3/uL (4.8-10.8)
[2023-12-08 11:02] LABS: Alanine Aminotransferase 55 U/L (0-31); Albumin Level 3.9 g/dL (3.5-5.0); Alkaline Phosphatase 138 U/L (39-117); Anion Gap 15 (12-20); Aspartate Amino Transferase 53 U/L (5-31); Bilirubin Total 0.6 mg/dL (0.0-1.0); Blood Urea Nitrogen 11 mg/dL (9-16); Calcium 10.1 mg/dL (8.4-10.2); Carbon Dioxide 24 mmol/L (22-29); Chloride 106 mmol/L (96-108); Estimated Glomerular Filt Rate > 60; Glucose Random 100 mg/dL (60-115); Potassium 3.8 mmol/L (3.3-5.1); Sodium 141 mmol/L (135-145); Total Protein 7.7 g/dL (6.5-8.0)
== END 2023-12-08 09:10 | disposition home or self-care (01) ==
LOC: HO.LAB 09:09
PROVIDERS: PCP Internal Medicine; Visit Provider Internal Medicine Medical Oncology
DX: Q02 Microcephaly (principal)
CPT/HCPCS: 36415; 80053; 85025

== ENCOUNTER 2023-12-23 18:35 | Emergency (ER) | payer MEDICAID, SELFPAY ==
--- NOTE | ~2023-12-23 | XR_ITS ---
EXAMINATION: RIGHT ANKLE, RIGHT FOOT CLINICAL INFORMATION: Ankle and foot pain COMPARISON: None available. TECHNIQUE: 3 views right ankle, 3 views right foot FINDINGS: No significant bone, joint or soft tissue abnormality is seen. XR/XR foot RT 2V IMPRESSION: Negative radiographs of the right ankle and foot. Electronically signed by: Ceasar Solorzano MD 12/23/2023 07:48 PM EDT RP
--- NOTE | ~2023-12-23 | XR_ITS ---
EXAMINATION: RIGHT ANKLE, RIGHT FOOT CLINICAL INFORMATION: Ankle and foot pain COMPARISON: None available. TECHNIQUE: 3 views right ankle, 3 views right foot FINDINGS: No significant bone, joint or soft tissue abnormality is seen. XR/XR ankle RT 2V IMPRESSION: Negative radiographs of the right ankle and foot. Electronically signed by: Ceasar Solorzano MD 12/23/2023 07:48 PM EDT RP
[2023-12-23 18:39] VITALS: BP 142/85; PULSE 93; RESP 18; TEMP 36.2; O2SAT 94; BMI 39.4
--- NOTE | 2023-12-23 18:48 | ED.GENADULT ---
HPI - General Adult General Chief complaint: Extremity Problem Stated complaint: RT ankle pain Time Seen by Provider: 12/23/23 19:05 Source: patient, family, RN notes reviewed and old records reviewed Mode of arrival: ambulatory Limitations: no limitations History of Present Illness ED Provider: Gisele WHEELER narrative: 33-year-old female with past medical history significant for developmental delay, PCOS presents for evaluation of right ankle pain. Patient denies any falls or injury. She reports right ankle pain that she describes as the front of her ankle for the last month and a half She does report walking a lot. She denies any pain to her foot or calf Denies any swelling to the area. Denies any redness, fevers, chills Her pain is an 11/09 Related Data Home Medications ?Medication ?Instructions ?Recorded ?Confirmed anagrelide 0.5 mg capsule 0.5 mg PO Q12H 06/14/23 aspirin 81 mg capsule 81 mg PO DAILY 06/14/23 metformin 750 mg tablet,extended 750 mg PO BID 06/14/23 release 24 hr Previous Rx's ?Medication ?Instructions ?Recorded ibuprofen 600 mg tablet 600 mg PO QID PRN pain #20 tabs 12/23/23 Allergies Allergy/AdvReac Type Severity Reaction Status Date / Time No Known Allergies Allergy Verified 12/23/23 18:41 Review of Systems Constitutional: Constitutional: Denies body ache(s), Denies chills and Denies headache(s) Eyes: Eyes: Denies blurry vision ENT: Denies headache(s) Cardiovascular: Cardiovascular: Denies chest pain and Denies dyspnea Respiratory: Respiratory: Denies cough and Denies dyspnea Gastrointestinal: Gastrointestinal: Denies abdominal pain Musculoskeletal: Musculoskeletal: Denies back pain, Reports arthralgias, Denies joint swelling and Denies limited range of motion Integumentary/Breasts: Skin/Breast: Denies rash Neurologic: Denies headache(s) [facility] Past Medical History Medical History (Updated 12/24/23 @ 00:01 by Lilliam Williamson) Pre-diabetes PCOS (polycystic ovarian syndrome) Social History Social History Alcohol intake: never Advance Directives: No Advance Directives Information Provided: No Physical Exam ED Vital Signs: Vital Signs - 24 hr 12/23/23 18:39 12/23/23 20:20 Temperature 97.2 F 97.2 F Pulse Rate 93 93 Respiratory Rate 18 18 Blood Pressure 142/85 H 142/85 H Pulse Oximetry 94 94 Oxygen Delivery Method Room Air Room Air BMI result Body Mass Index 39.4 Const General: healthy appearing, comfortable, no acute distress, alert and awake Nutritional Appearance: well nourished Orientation/consciousness: patient oriented x3 HENMT Head: Yes normocephalic and Yes atraumatic Eyes Eyelids: Yes eyelids normal Conjunctivae: conjunctivae normal Sclerae: sclerae normal Corneas: corneas normal Pupils: Equal, round and reactive pupils present EOM: EOMs intact bilaterally Neck Neck: Yes full ROM Resp Effort & Inspection: normal respiratory effort, able to speak in complete sentences and not labored GI Inspection: No distended Palpation (GI): Soft to palpation, not firm, nontender, no guarding and not rigid Skin General skin exam: elasticity normal Neuro General: patient oriented x3 Cranial nerves: Yes Equal, round and reactive pupils present and Yes Bilaterally intact EOM present Cognition (Neuro): normal cognition Extrem Other: There is no visual or palpable deformity to the right ankle. There is no edema, no erythema, no increased warmth. There is no calf tenderness, there is no tenderness to the foot. The patient does have global subjective tenderness to the right ankle. Course Course Course Narrative: RME: Done by ZARA Weems. patient presents to the ED for right ankle/foot pain. Patient denies any trauma. Lower extremities negative for swelling, pitting edema, or calf pain. X-ray ordered Medications Administered Discontinued Medications Generic Name Dose Route Start Last Admin Trade Name Quocq PRN Reason Stop Dose Admin Ibuprofen 600 mg 12/23/23 19:46 12/23/23 19:53 Ibuprofen 600 Mg Tablet PO 12/23/23 19:47 600 mg ONCE ONE Administration Medical Decision Making Medical Decision Making MDM Narrative: 33-year-old female presents for evaluation of atraumatic right ankle pain. Her physical exam is reassuring, she is ambulatory, her pain started 1 month ago. Denies any leg or foot swelling. She has no calf tenderness, no palpable cords. I have a low suspicion for DVT. There is no evidence of infection. She denies any traumatic injuries. X-ray show no significant osseous abnormalities. Will treat the patient with ibuprofen for symptomatic acre Differential Diagnosis Differential Diagnoses: The differential diagnosis associated with the presentation includes Ankle sprain Ankle fracture Dislocation Contusion Gout less likely Independent Interpretation I performed an independent interpretation of an: Plain X-Ray (No obvious fracture of the right ankle or foot) Radiology Impression Discussion of test interpretation with radiology: I have reviewed the radiologist's reading. Radiologist Impression: FINDINGS: No significant bone, joint or soft tissue abnormality is seen. XR/XR ankle RT 2V IMPRESSION: Negative radiographs of the right ankle and foot. Discharge Plan Discharge Clinical Impression: Acute right ankle pain Patient Disposition: Home, Self-Care Instructions: Arthralgia (ED) Additional Instructions: Your x-ray did not show any fracture or significant arthritic changes to the right ankle or foot. You may have an ankle sprain. Use ibuprofen 60 mg every 6 hours for the next 5 days Take with food to prevent heartburn Follow-up with your primary doctor, return for new or worsening symptoms Prescriptions: New ibuprofen 600 mg tablet 600 mg PO QID PRN (Reason: pain) Qty: 20 0RF No Action metformin 750 mg tablet extended release 24 hr 750 mg PO BID anagrelide 0.5 mg capsule 0.5 mg PO Q12H aspirin 81 mg capsule 81 mg PO DAILY Interventions: ED Discharge Assessment Last Done: 12/23/23 20:20 Discharge Date/Time: 12/23/23 20:21 Print Language: Croatian
[2023-12-23] MEDS: Ibuprofen 600 MG TABLET PO (19:53)
[2023-12-23 20:20] VITALS: BP 142/85; PULSE 93; RESP 18; TEMP 36.2; O2SAT 94
== END 2023-12-23 20:21 | disposition home or self-care (01) ==
PROVIDERS: Emergency Provider Emergency Medicine; PCP Internal Medicine
DX: M25.571 Pain in right ankle and joints of right foot (principal)
CPT/HCPCS: 73600; 73620; 99283

== ENCOUNTER 2024-02-16 09:05 | Outpatient (REF) | payer MEDICAID, SELFPAY ==
[2024-02-16 11:23] LABS: Alanine Aminotransferase 21 U/L (0-31); Albumin Level 3.9 g/dL (3.5-5.0); Alkaline Phosphatase 131 U/L (39-117); Aspartate Amino Transferase 21 U/L (5-31); Bilirubin Direct 0.2 mg/dL (0.0-0.5); Bilirubin Total 0.5 mg/dL (0.0-1.0); Total Protein 7.8 g/dL (6.5-8.0)
== END 2024-02-16 09:06 | disposition home or self-care (01) ==
LOC: HO.LAB 09:05
PROVIDERS: PCP Internal Medicine; Visit Provider Internal Medicine
DX: K76.0 Fatty (change of) liver, not elsewhere classified (principal); R94.5 Abnormal results of liver function studies; R93.2 Abnormal findings on diagnostic imaging of liver and biliary tract
CPT/HCPCS: 36415; 80076

== ENCOUNTER 2024-02-16 09:46 | Emergency (ER) | payer MEDICAID, SELFPAY ==
--- NOTE | ~2024-02-16 | XR_ITS ---
EXAMINATION: XR ANKLE, LEFT CLINICAL INFORMATION: Left ankle pain. COMPARISON: Left ankle radiographs dated 07/05/2010. TECHNIQUE: AP, lateral, and mortise views of the left ankle. FINDINGS: No fracture. Alignment is anatomic. No erosions. Joint spaces are maintained. Soft tissues are normal. XR/XR ankle LT min 3V IMPRESSION: Unremarkable examination. Electronically signed by: Lucien Choi MD 02/16/2024 10:56 AM ANNIKA
[2024-02-16 09:52] VITALS: BP 124/73; PULSE 106; RESP 20; TEMP 36.8; O2SAT 97; BMI 39.6
--- NOTE | 2024-02-16 11:13 | ED_ITS ---
HPI - Extremity Problem General Chief complaint: Extremity Problem Stated complaint: L ankle sprain ? Time Seen by Provider: 02/16/24 11:12 Source: patient and RN notes reviewed Mode of arrival: ambulatory Limitations: no limitations History of Present Illness ED Provider: Padmini De Dios PA-C HPI Narrative: This is a 33-year-old female, with a history of PCOS and developmental delay, who presents emergency department with complaints of left ankle pain x2 days. Patient states that while she was walking, she misstepped and inverted her left ankle. She denies hearing a crack or pop at that time. She was able to bear weight on the ankle. She states that she has some soreness in the ankle however has still been able to walk on it. She tried Naprosyn which provided her with some relief. She denies falling to the ground or hitting her head. Denies previous injury to this ankle in the past. No other complaints or concerns at this time. MD Complaint: extremity pain and joint pain Pain Consistency: constant Location: left and lower extremity Quality: aching Radiation: none Relieving factors: nothing Associated symptoms: denies other symptoms Related Data Home Medications ?Medication ?Instructions ?Recorded ?Confirmed anagrelide 0.5 mg capsule 0.5 mg PO Q12H 06/14/23 aspirin 81 mg capsule 81 mg PO DAILY 06/14/23 metformin 750 mg tablet,extended 750 mg PO BID 06/14/23 release 24 hr Previous Rx's ?Medication ?Instructions ?Recorded ibuprofen 600 mg tablet 600 mg PO QID PRN pain #20 tabs 12/23/23 Allergies Allergy/AdvReac Type Severity Reaction Status Date / Time No Known Allergies Allergy Verified 02/16/24 09:53 Review of Systems Review of Systems: Yes all other systems are reviewed and are negative Constitutional: Constitutional: Reports as per [facility] Past Medical History Attestation statement: The following information was validated with the patient. Medical History Pre-diabetes PCOS (polycystic ovarian syndrome) Social History Social History Alcohol intake: never Advance Directives: No Advance Directives Information Provided: Yes Physical Exam Vital Signs: Vital Signs: Last Vital Signs Temp 98 F 02/16/24 13:27 Pulse 101 H 02/16/24 13:27 Resp 16 02/16/24 13:27 BP 123/66 02/16/24 13:27 Pulse Ox 98 02/16/24 13:27 O2 Del Method Room Air 02/16/24 13:27 BMI result Body Mass Index 39.6 Const: General: cooperative, comfortable and no acute distress Orientation/consciousness: patient oriented x3 Limitations: no limitations HEENT: Head: Yes normal to inspection, Yes normocephalic and Yes atraumatic Ears: hearing grossly normal bilaterally General nose exam: Normal external nose present Face and sinus: Yes normal facial exam Mouth: Normal oral and palatal mucosa present, oropharynx normal and moist mucous membranes Throat: Yes posterior oropharynx normal Eyes: General: appearance normal, both eyes and all related structures Eyelids: Yes eyelids normal Conjunctivae: conjunctivae normal Sclerae: sclerae normal Pupils: Equal, round and reactive pupils present EOM: EOMs intact bilaterally Neck: Neck: Yes normal visual inspection, Yes full ROM and Yes no lymphadenopathy Lymphatic: no lymphadenopathy noted Chest: Chest palpation & inspection: normal inspection of the chest Resp: Effort & Inspection: normal respiratory effort and able to speak in complete sentences Auscultation: clear to auscultation bilaterally, no crackles, no rales, no rhonchi and no wheezes Cardio: Rate: regular rate Rhythm: regular rhythm Heart sounds: S1 normal heart sound present and S2 normal heart sound present GI: Inspection: Yes normal to inspection Skin: General skin exam: no rashes or lesions noted Trauma: no lacerations or abrasions Wounds: no wounds Neuro: General: patient oriented x3 and moves all extremities Cranial nerves: Yes Equal, round and reactive pupils present Extrem: Other: Left ankle with minimal edema noted to the lateral malleolus. Mild tenderness palpation along the lateral malleolus. Full range of motion of the ankle, full plantar and dorsiflexion. Strong DP pulse. No overlying bruises, skin changes or warmth. No calf tenderness. Patient able to bear weight without any antalgic gait. General: Yes normal to inspection Right upper extremity: normal to inspection Left upper extremity: normal to inspection Right lower extremity: normal to inspection Left lower extremity: normal to inspection Medical Decision Making Medical Decision Making MDM Narrative: This is a 33-year-old female who presents emergency department with complaints of left ankle pain x2 days. On arrival, patient mildly tachycardic at 106, all other vital signs within normal limits. She is speaking in full sentences under no acute distress. She has tenderness palpation along the lateral aspect of the left ankle. Differential diagnoses include fracture, sprain, strain, contusion. DVT less likely as she has no calf tenderness. X-rays were performed revealing no acute bony abnormalities. Discussed findings with patient and mother at bedside. Given strict return precautions. Also given referral to public transit specialist should she continue to have pain and symptoms in her left ankle. Patient understands agrees with plan. Patient stable for discharge Differential Diagnosis Differential Diagnoses: The differential diagnosis associated with the presentation includes See above Radiology Impression Discussion of test interpretation with radiology: I have reviewed the radiologist's reading. Radiologist Impression: EXAMINATION: XR ANKLE, LEFT CLINICAL INFORMATION: Left ankle pain. COMPARISON: Left ankle radiographs dated 07/05/2010. TECHNIQUE: AP, lateral, and mortise views of the left ankle. FINDINGS: No fracture. Alignment is anatomic. No erosions. Joint spaces are maintained. Soft tissues are normal. XR/XR ankle LT min 3V IMPRESSION: Unremarkable examination. Electronically signed by: Lucien Choi MD 02/16/2024 10:56 AM EST Dictated By: Lucien Choi MD EXAMINATION: RIGHT ANKLE, RIGHT FOOT CLINICAL INFORMATION: Ankle and foot pain COMPARISON: None available. TECHNIQUE: 3 views right ankle, 3 views right foot FINDINGS: No significant bone, joint or soft tissue abnormality is seen. XR/XR foot RT 2V IMPRESSION: Negative radiographs of the right ankle and foot. Electronically signed by: Ceasar Solorzano MD 12/23/2023 07:48 PM EDT Dictated By: Ceasar Solorzano MD Discharge Plan Discharge Clinical Impression: Sprain of ankle, left Patient Disposition: Home, Self-Care Instructions: Ankle Sprain (ED) Additional Instructions: You were seen in the emergency department due to ankle pain. Your x-ray does not show any bony abnormalities. You have a ankle sprain, it is very important that you rest, ice, elevate, and use Tony wrap as needed. Alternate between ibuprofen and Tylenol as needed for pain and symptoms. If any new or worsening symptoms occur including but not limited to worsening pain, please seek emergent care. Prescriptions: No Action ibuprofen 600 mg tablet 600 mg PO QID PRN (Reason: pain) Qty: 20 0RF metformin 750 mg tablet extended release 24 hr 750 mg PO BID anagrelide 0.5 mg capsule 0.5 mg PO Q12H aspirin 81 mg capsule 81 mg PO DAILY Interventions: ED Discharge Assessment Last Done: 02/16/24 13:27 Discharge Date/Time: 02/16/24 13:30 Print Language: Comoran
[2024-02-16 11:55] VITALS: BP 127/78; PULSE 94; RESP 18; TEMP 36.6; O2SAT 96
[2024-02-16 13:27] VITALS: BP 123/66; PULSE 101; RESP 16; TEMP 36.6; O2SAT 98
== END 2024-02-16 13:30 | disposition home or self-care (01) ==
PROVIDERS: Emergency Provider Emergency Medicine; PCP Internal Medicine
DX: S93.402A Sprain of unspecified ligament of left ankle, initial encounter (principal); X50.1XXA Overexertion from prolonged static or awkward postures, initial encounter; R00.0 Tachycardia, unspecified; Y93.01 Activity, walking, marching and hiking; Y92.480 Sidewalk as the place of occurrence of the external cause; Y99.9 Unspecified external cause status
CPT/HCPCS: 73610; 99283; 99284

== ENCOUNTER 2024-03-23 08:24 | Emergency (ER) | payer MEDICAID, SELFPAY ==
[2024-03-23 08:27] VITALS: BP 144/87; PULSE 100; RESP 9; TEMP 36.6; O2SAT 97; BMI 38.8
--- NOTE | 2024-03-23 08:44 | ED_ITS ---
HPI - URI/Sore Throat General Chief Complaint: Upper Respiratory Symptoms Stated Complaint: throat pain Time Seen by Provider: 03/23/24 08:43 Source: patient Mode of arrival: ambulatory Limitations: no limitations History of Present Illness ED Provider: Karen Galicia NP HPI Narrative: Patient is a 34-year-old female with past medical history of glucose intolerance, PCOS who presents emergency department with mother for evaluation. She states of the past 3 days she has been experiencing a sore throat and a dry nonproductive cough. She reports that a friend has recently been ill with similar symptoms. She is not a cigarette smoker though she does live in a house with her father who is. Denies fevers, chills, headache, dizziness, neck pain, neck stiffness, chest pain, shortness of breath, difficulty breathing, nausea, vomiting, abdominal pain, numbness or tingling of the extremities, genitourinary symptoms. Related Data Home Medications ?Medication ?Instructions ?Recorded ?Confirmed anagrelide 0.5 mg capsule 0.5 mg PO Q12H 06/14/23 aspirin 81 mg capsule 81 mg PO DAILY 06/14/23 metformin 750 mg tablet,extended 750 mg PO BID 06/14/23 release 24 hr Previous Rx's ?Medication ?Instructions ?Recorded ibuprofen 600 mg tablet 600 mg PO QID PRN pain #20 tabs 12/23/23 Allergies Allergy/AdvReac Type Severity Reaction Status Date / Time No Known Allergies Allergy Verified 03/23/24 08:29 Review of Systems Review of Systems: Yes all other systems are reviewed and are negative PMFSH Past Medical History Attestation statement: The following information was validated with the patient. Source: old records reviewed Medical History Pre-diabetes PCOS (polycystic ovarian syndrome) Social History Social History Alcohol intake: never Advance Directives: No Advance Directives Information Provided: Yes Do you have a plan to hurt others: No Plan Physical Exam Vital Signs: Vital Signs: Last Vital Signs Temp 98 F 03/23/24 08:27 Pulse 100 03/23/24 08:27 Resp 9 L 03/23/24 08:27 BP 144/87 H 03/23/24 08:27 Pulse Ox 97 03/23/24 08:27 O2 Del Method Room Air 03/23/24 08:27 BMI result Body Mass Index 38.8 Appearance: Alert.?Oriented to person, place and time. No acute distress.?Normal affect. Eyes: Pupils equal, round and reactive to light.? ENT: TM normal bilaterally. Pharynx is erythematous without hypertrophy or exudates. Uvula is midline. No trismus. No drooling. Neck: Normal inspection.? Neck supple.??No cervical adenopathy. Full range of motion CVS: Heart sounds normal. Normal heart rate and rhythm.? Pulses normal.?? Respiratory: No respiratory distress.? Lung sounds clear to auscultation bilaterally?? Abdomen: Soft and non-tender. Normoactive bowel sounds. Skin: Skin warm and dry.? Normal skin color.? ? Extremities: No lower extremity edema.? Neuro: Moves all extremities spontaneously. Sensation intact bilaterally. No motor deficits. Ambulates with normal steady gait. Medical Decision Making Medical Decision Making [facility] Narrative: Patient is a 34-year-old female with past medical history of glucose intolerance, PCOS who presents emergency department for evaluation of sore throat and cough as per HPI. COVID-19/influenza/RSV testing is negative. Group a strep testing is negative. Exam not consistent with RPA/MARINE ELECTRONICS TECHNICIAN. At this time history and physical exam not consistent with ACS/PE/pneumonia. Well-appearing, nontoxic, afebrile, no tachycardia or tachypnea/hypoxia. Speaking clear full sentences, ambulatory with steady gait. Discussed conservative treatment in cluding rest, hydration, Tylenol/ibuprofen as needed for fever and body aches, saline nasal spray, humidifier, zsxa-umd-yjbfsmq cold medication. Advised to follow-up with primary care provider as needed, discussed reasons to return back to the emergency department. All questions were answered. Patient discharged home in stable condition. Differential Diagnosis Differential Diagnoses: The differential diagnosis associated with the presentation includes ( See narrative above) Admission/Observation Consideration of admission/observation: Escalation of care including admission/observation considered ( see narrative above) Lab Data [facility] Lab Attestation statement: I reviewed the patient's lab results. ( see narrative above) Labs: Lab Results 03/23/24 03/23/24 Range/Units 08:40 08:41 Influenza Type A (PCR) NEGATIVE (Negative) Influenza Type B (PCR) NEGATIVE (Negative) RSV RNA Qual (PCR) NEGATIVE (Negative) SARS-CoV-2 RNA (RT-PCR) NEGATIVE (Negative) S. pyogenes GrpA JIMMIE Negative (Negative) Prescription Management I considered prescription management with: Pain Medication ( acetaminophen/ibuprofen) Discharge Plan Discharge Clinical Impression: Upper respiratory infection Patient Disposition: Home, Self-Care Instructions: Upper Respiratory Infection (ED), Pharyngitis (ED) Additional Instructions: Testing for strep throat, COVID, flu, and RSV were negative. Be sure to rest, stay well hydrated drinking plenty of fluids, eat small frequent meals. Tylenol/ibuprofen can be used as needed for fever/pain. Lapf-chp-aszaugw cold medications may be helpful as well for symptoms. Saline nasal spray, humidifier may be helpful for nasal congestion. Chloraseptic throat spray and throat lozenges can be helpful for the sore throat as well. You may return to the emergency department with any new or worsening symptoms or concerns. Follow-up with your primary care provider as needed. Should remain out of school/ work until symptoms have resolved and have been without a fever for 24 hours without the use of Tylenol or ibuprofen. Prescriptions: No Action ibuprofen 600 mg tablet 600 mg PO QID PRN (Reason: pain) Qty: 20 0RF metformin 750 mg tablet extended release 24 hr 750 mg PO BID anagrelide 0.5 mg capsule 0.5 mg PO Q12H aspirin 81 mg capsule 81 mg PO DAILY Referrals: Jennifer Naranjo MD [Primary Care Provider] - Print Language: Japanese
--- OUTSIDE RECORDS SUMMARY | 2024-03-23 08:46 | XMS_ITS ---
Author Organization [facility] Address [address] [place] [address] Care Team Providers Care Universal Grinder Tool Name Role Phone Laviniacastillo Jennifer Primary Care Provider Delano Cesar Unavailable [phone] ALLERGIES No Known Allergies REASON FOR VISIT Patient presents today for elevtaed lft's MEDICATIONS Medication SIG (Take, Route, Frequency, Duration) Notes Start Date End Date Status metFORMIN HCl 500 MG 1 tablet with a karan l Orally Once a day for 30 day(s) Active Drospirenone-Ethinyl Estradiol 3-0.03 MG TAKE ONE TABLET BY MOUTH EVERY DAY Oral for 28 Active Anagrelide HCl 1 MG TAKE 1 CAPSULE BY MO UTH DAILY Oral for 30 Active Ibuprofen 400 MG TAKE ONE TABLET BY M OUTH THREE TIMES A DAY Oral for 30 Active Ursodiol 500 MG 1 tablet Orally Take 1 tablet daily for 2 weeks and start using it twice a day for 30 day(s) 08/24/2023 Active Aspirin 81 81 MG 1 tablet Orally Once a day for 30 day(s) Active SOCIAL HISTORY Tobacco Use: Social History Observation Description Date Details (start date - stop date) Never Smoker NA - NA Sex Assigned At : Social History Observation Description Sex Assigned At Unknown Tobacco Use/Smoking Question Answer Notes Patient is a nonsmoker Alcohol Screen Question Answer Notes Did you have a drink contain ing alcohol in the past year? Yes How often did you have a dri nk containing alcohol in the past year? Monthly or less (1 point) How many drinks did you have on a typical day when you were drinking in the past year? 1 or 2 drinks (0 point) How often did you have 6 or more drinks on one occasion in the past year? Never (0 point) Points 1 Interpretation Negative VITAL SIGNS BMI 40.12 kg/m2 02/22/2024 Blood pressure systolic 000 mm Hg 02/22/20 24 Blood pressure diastolic 00 mm Hg 024 Height 62 in 02/22/2024 Temperature 97.5 degrees Fahrenheit 02/22/20 24 Weight 219 lb 6 oz lbs 02/22/2024 Encounters Encounter Location Date Provider Diagnosis [facility] [address] [place] [address] 02/22/2024 Delano Johnson Elevated liver function tests R94.5 and Fatty liver K76.0 ASSESSMENTS Encounter Date Diagnosis Assessment Notes Treatment Notes Treatment Clinical Notes 02/22/2024 Elevated liver function tests (ICD-10 - R94.5) Continue the Ursodiol 500 mg twice a day Eat as healthy as possible, avoid fatty foods 02/22/2024 Fatty liver (ICD-10 - K76.0) PLAN OF TREATMENT Treatment Notes Assessment Notes Elevated liver function tests Continue the Ursodiol 500 mg twice a day Eat as healthy as possible, avoid fatty foods Pending Test Test Name Order Date LIVER PROFILE 02/22/2024 Next Appt Details Follow Up: 1 Year, Reason: Provider Name:Delano Johnson , 02/24/2025 01:00:00 PM, [address], [address], [place], [address], Progress Notes * Examination Category Sub-Category Detail Notes General Examination GENERAL APPEARANCE: pleasant , well nourished, well developed, in no acute distress HEAD: EYES: sclera non-icteric EARS: NOSE: THROAT: NECK/THYROID: no cervical lymphade nopathy, neck supple HEART: S1, S2 normal CHEST: LUNGS: clear to auscultatio n bilaterally ABDOMEN: normal bowel sounds, no guarding or rigidity, no guarding or rigidity, no masses palpable, soft, nontender, nondistended NEUROLOGIC: alert and oriented SKIN: nonjaundiced, no spi gianluca angiomata EXTREMITIES: no edema PERIPHERAL PULSES: BACK: BREASTS: MUSCULOSKELETAL: MALE GENITOURINARY: LYMPH NODES: RECTAL EXAM: FEMALE GENITOURINARY: ORAL CAVITY: mucosa moist
--- OUTSIDE RECORDS SUMMARY | 2024-03-23 08:47 | XMS_ITS ---
Author Organization [facility] Address [address] [place] [address] Care Team Providers Care Investigator Vice Name Role Phone Michelleezekiel Jennifer Primary Care Provider Delano Cesar Unavailable [phone] ALLERGIES No Known Allergies REASON FOR VISIT Patient presents today for elevated lft's MEDICATIONS Medication SIG (Take, Route, Frequency, Duration) Notes Start Date End Date Status metFORMIN HCl 500 MG 1 tablet with a karan l Orally Once a day for 30 day(s) Active Drospirenone-Ethinyl Estradiol 3-0.03 MG TAKE ONE TABLET BY MOUTH EVERY DAY Oral for 28 Active Ibuprofen 400 MG TAKE ONE TABLET BY M OUTH THREE TIMES A DAY Oral for 30 Active Aspirin 81 81 MG 1 tablet [...] Answer Notes Did you have a drink containing alcohol in the p ast year? No Points 0 Interpretation Negative VITAL SIGNS BMI 38.79 kg/m2 01/24/2023 Blood pressure systolic 000 mm Hg 01/25/20 23 Blood pressure diastolic 00 mm Hg 023 Height 62 in 01/24/2023 Temperature 98.6 degrees Fahrenheit 01/25/20 23 Weight 212 lb 2 oz lbs 01/24/2023 Encounters Encounter Location Date Provider Diagnosis [facility] [address] [place] [address] 01/24/2023 Delano Johnson Elevated liver function tests R94.5 ; Fatty liver K76.0 and Abnormal MRI, liver R93.2 ASSESSMENTS Encounter Date Diagnosis Assessment Notes Treatment Notes Treatment Clinical Notes 01/24/2023 Elevated liver function tests (ICD-10 - R94.5) 01/24/2023 Fatty liver (ICD-10 - K76.0) 01/24/2023 Abnormal MRI, liver (ICD-10 - R93.2) PLAN OF TREATMENT Pending Test Test Name Order Date LIVER PROFILE 01/24/2023 Next Appt Details Follow Up: 08/2023, Reason: Provider Name:Delano Johnson , 02/24/2025 01:00:00 PM, [address], [address], [place], [address], Progress Notes * Examination Category Sub-Category Detail [...]
--- OUTSIDE RECORDS SUMMARY | 2024-03-23 08:47 | XMS_ITS ---
Author Organization [facility] Address [address] [place] [address] Care Team Providers Care Comic Illustrator Name Role Phone Laviniacastillo Jennifer Primary Care Provider Delano Cesar Unavailable [phone] ALLERGIES No Known Allergies REASON FOR VISIT Patient presents today for elevated lft's MEDICATIONS Medication SIG (Take, Route, Frequency, Duration) Notes Start Date End Date Status Anagrelide HCl 1 MG TAKE 1 CAPSULE BY MO UTH DAILY Oral for 30 Active Ibuprofen 400 MG TAKE ONE TABLET BY M OUTH THREE TIMES A DAY Oral for 30 Active Drospirenone-Ethinyl Estradiol 3-0.03 MG TAKE ONE TABLET BY MOUTH EVERY DAY Oral for 28 Active metFORMIN HCl 500 MG 1 tablet with a karan l Orally Once a day for 30 day(s) Active Aspirin 81 81 MG 1 tablet Orally Once a day for 30 day(s) Active Ursodiol 500 MG 1 tablet Orally Take 1 tablet daily for 2 weeks and start using it twice a day for 30 day(s) 08/24/2023 Active SOCIAL HISTORY Tobacco Use: Social History [...] Points 0 Interpretation Negative VITAL SIGNS BMI 40.05 kg/m2 08/24/2023 Blood pressure systolic 000 mm Hg 08/24/19 24 Blood pressure diastolic 00 mm Hg 024 Height 62 in 08/24/2023 Temperature 97.8 degrees Fahrenheit 08/24/19 Weight 219 lbs 08/24/2023 Encounters Encounter Location Date Provider Diagnosis [facility] [address] [place] [address] 08/24/2023 Delano Johnson Elevated liver function tests R94.5 ; Fatty liver K76.0 and Abnormal MRI, liver R93.2 ASSESSMENTS Encounter Date Diagnosis Assessment Notes Treatment Notes Treatment Clinical Notes 08/24/2023 Elevated liver function tests (ICD-10 - R94.5) 08/24/2023 Fatty liver (ICD-10 - K76.0) 08/24/2023 Abnormal MRI, liver (ICD-10 - R93.2) PLAN OF TREATMENT Medication Medication Name Sig Start Date Stop Date Notes Ursodiol 500 MG 1 tablet Orally Take 1 tablet daily for 2 weeks and start using it twice a day for 30 day(s) 08/24/2023 Pending Test Test Name Order Date BUN 08/24/2023 LIVER PROFILE 08/24/2023 ALPHA-FETOPROTEIN,TUMOR MARKER MRI ABD W&WO CONTRAST 08/24/2023 Creatinine 08/24/2023 Next Appt Details Follow Up: 6 Months, Reason: Provider Name:Delano Johnson , 02/24/2025 01:00:00 PM, [address], [address], [place], [address], Progress Notes * Examination Category Sub-Category Detail [...]
--- OUTSIDE RECORDS SUMMARY | 2024-03-23 08:47 | XMS_ITS ---
Author Organization Delano Vallejo III, MD Address [address] [address] Care Team Providers Care Winch Runner Name Role Phone Marcella CROCKER, [facility] Primary Care Provider Delano Crawford [phone] REASON FOR VISIT lab results Social History Sex Assigned At : Social History Observation Description Sex Assigned At Female Encounters Encounter Location Date Provider Diagnosis Delano Vallejo III, MD [address] [place] [address] [place] [address] 05/09/2023 Delano Vallejo Plan Of Treatment Next Appt Details Provider Name:Delano Vallejo, 05/02/2024 03:45:00 PM, [address] [place] [address] [place], [address], Progress Notes * ALEXIS LOVEOB:1989 (33 yo F)Acc No.[id number]:05/09/2023 Patient:?CECIL LOVE :1990???Age:33 Y???Sex:Female Address:[address] [place], [address] * true * Date:? Generated for Printi ng/Favidhig/eTransmitting on:?03/23/2024 08:47 AM EST
--- OUTSIDE RECORDS SUMMARY | 2024-03-23 08:47 | XMS_ITS | Patient Health Record ---
Author Organization [facility] Address [address] [place] [address] Care Team Providers Care Production Expert Name Role Phone Jennifer Naranjo Primary Care Provider Unavailab Delano Stapleton Unavailable [phone] ALLERGIES No Known Allergies RESULTS Component Value Reference Range Notes Complete Blood Count Auto Di ff Reviewed date:08/20/2023 09:34:17 PM Interpretation: Performing Lab:[facility], [address] [place] [phone] Notes/Report: White Blood Count 9.7 4.8-10.8 X10*3/uL Red Blood Count 5.06 4.20-5.50 X10*6/uL Hemoglobin 14.2 12.0-16.0 g/dl Hematocrit 43.6 37.0-47.0 % Mean Corpuscular Volume 86.2 80.0-98.0 fL Mean Corpuscular Hemoglobin 28.1 27.0-33.0 pg Mean Corpuscular HGB Conc 32.6 31.0-35.0 g/dl Red Cell Distribution Width 13.2 11.0-16.0 % Platelet Count 213 160-400 X10*3/uL Mean Platelet Volume 12.9 9.4-12.3 fL Neutrophils Percent Auto 56.1 45-73 % Imm Gran Pct Auto 0.2 0.0-0.4 % Lymphocytes Percent Auto 35.8 20-40 % Monocytes Percent Auto 6.5 2-11 % Eosinophils Percent Auto 0.9 0-4 % Basophils Percent Auto 0.5 0-2 % NRBC Pct Auto 0.0 0.0-0.2 /100WBC Neutrophils Absolute Auto 5.4 2.0-8.3 x10*3/u L Imm Gran Abs Auto 0.02 0.00-0.03 X10*3/uL Lymphocytes Absolute Auto 3.5 1.2-4.9 X10*3/u L Monocytes Absolute Auto 0.6 0.1-1.2 X10*3/uL Eosinophils Absolute Auto 0.1 0.0-0.4 X10*3/u L Basophils Absolute Auto 0.1 0.0-0.2 X10*3/uL NRBC Abs Auto 0.000 0.0-0.012 X10*3/uL Liver Panel Reviewed date:08/20/2023 09:34:45 PM Interpretation: Performing Lab:[facility], [address] [place] [address] Notes/Report: Bilirubin Total 0.6 0.0-1.0 mg/dL Bilirubin Direct 0.2 0.0-0.5 mg/dL Aspartate Amino Transferase 117 5-31 U/L Alanine Aminotransferase 95 0-31 U/L Total Protein 8.0 6.5-8.0 g/dL Albumin Level 4.0 3.5-5.0 g/dL Alkaline Phosphatase 142 39-117 U/L Liver Panel Reviewed date:02/22/2024 01:34:17 PM Interpretation: Performing Lab:[address] [address] Notes/Report: Bilirubin Total 0.3 0.0-1.0 mg/dL Bilirubin Direct 0.1 0.0-0.5 mg/dL Aspartate Amino Transferase 19 5-31 U/L Alanine Aminotransferase 17 0-31 U/L Total Protein 7.7 6.5-8.0 g/dL Albumin Level 3.8 3.5-5.0 g/dL Alkaline Phosphatase 124 39-117 U/L Blood Urea Nitrogen Reviewed date:10/02/2023 05:27:12 PM Interpretation: Performing Lab:[address] [address] Notes/Report: Blood Urea Nitrogen 8 9-16 mg/dL Creatinine Reviewed date:10/02/2023 05:27:22 PM Interpretation: Performing Lab:[address] [address] Notes/Report: Creatinine 0.71 0.5-1.4 mg/dL Estimated Glomerular Filt Rate > 60 NOTE: For -[place] individuals, multiply the result by 1.210. Chronic Kidney Disease: Estimated GFR < 60 mL/min/1.73m2 Severe Kidney Disease: Estimated GFR < 15 mL/min/1.73m2 Alpha Fetoprotein Reviewed date:10/03/2023 02:23:38 PM Interpretation: Performing Lab:[address] [address] Notes/Report: Alpha Fetoprotein 0.6 Reference Range: <6.1 The use of AFP as a tumor marker in females is not recommended. This test was performed using the Endy Tico chemiluminescent method. Values obtained from different assay methods cannot be used interchangeably. AFP levels, regardless of value, should not be interpreted as absolute evidence of the presence or absence of disease. THIS TEST WAS PERFORMED AT: [facility] [address] [place] [phone] MARU BENEDICT MD MR abdomen wo/w con (Not yet reviewed by provider) Interpretation: Performing Lab: Notes/Report: [address] [address] Magnetic Resonance Report Signed Patient: Cecil Giang MR#: [id number] : 1990 Acct:[id number] Age/Sex: 33 / F ADM Date: 10/03/23 Loc: HO.MRI Attending Dr: Delano Gallegos MD Ordering Physician: Delano Gallegos MD Date of Service: 10/03/23 Procedure(s): MR abdomen wo/w con Accession Number(s): [id number] cc: Jennifer Naranjo MD; Delaon Gallegos MD EXAMINATION: MR ABDOMEN WITHOUT AND WITH CONTRAST CLINICAL INFORMATION: Hepatic steatosis. Elevated LFTs. COMPARISON: 08/18/2022 and 01/31/2022 TECHNIQUE: MR abdomen was performed without and with use of 10 mL intravenous Gadavist gadolinium contrast. Postcontrast images are performed in multiphase dynamic sequences. Imaging was performed in 3 planes. FINDINGS: LUNG BASES: No pleural or pericardial effusion. LIVER, GALLBLADDER, AND BILIARY TREE: The liver measures 21.7 cm in sagittal dimension. Hepatic steatosis. The previously demonstrated 1.3 cm lesion in the right hepatic lobe suggestive of focal nodular hyperplasia is not conspicuous on the current study. No biliary ductal dilatation. The gallbladder is contracted. PANCREAS: No ductal dilatation. SPLEEN: Not enlarged. ADRENAL GLANDS: No adrenal mass. KIDNEYS AND URETERS: The kidneys are normal in size, shape, and enhance symmetrically. No hydronephrosis. No perinephric stranding. GASTROINTESTINAL TRACT: No bowel obstruction. No ascites or fluid collection. LYMPH NODES: No bulky lymphadenopathy. VASCULAR: Normal caliber abdominal aorta. MR/MR abdomen wo/w con IMPRESSION: Hepatomegaly and hepatic steatosis. Of note previously demonstrated 1.3 cm lesion in the right hepatic lobe characteristic of focal nodular hyperplasia is not conspicuous on the current study. Dictated By: Eulalio Smith MD Signed By: <Electronically signed by Eulalio Smith MD in OV> 10/31/23 0823 DD/ 1605 TD/TT: Optical Instrument Inspector: Liver Panel Reviewed date:02/16/2024 11:25:47 AM Interpretation: Performing Lab:[facility], [address] [place] [phone] Notes/Report: Bilirubin Total 0.5 0.0-1.0 mg/dL Bilirubin Direct 0.2 0.0-0.5 mg/dL Aspartate Amino Transferase 21 5-31 U/L Alanine Aminotransferase 21 0-31 U/L Total Protein 7.8 6.5-8.0 g/dL Albumin Level 3.9 3.5-5.0 g/dL Alkaline Phosphatase 131 39-117 U/L REASON FOR REFERRAL Referring Provider First Name Jennifer Referring Provider Last Name Marcella Referring Provider Speciality Internal M edicine Referred Organization [facility] Referred Provider Delano Gallegos Referred Address [address] [place] [address],[place] [address],[place], [place],[address],[place] Referred Provider Specialty Gastroentero logy General Notes Radha Lombardi 024 02:13:32 PM EDT > requested a [facility] ref from dr louis office for visit with dr gallegos om Referral Priority Routine MEDICATIONS Medication SIG (Take, Route, Frequency, Duration) [...] a day for 30 day(s) 08/24/2023 Active IMMUNIZATIONS Vaccine Route Administration Date Status Comme nts Influenza Unknown 01/18/2021 Administered Influenza Unknown 01/31/2022 Administered Influenza Unknown 12/19/2022 Administered Influenza Unknown 02/07/2024 Administered SOCIAL HISTORY Tobacco Use: Social History Observation [...] Never (0 point) Points 1 Interpretation Negative PROBLEMS Problem Type ICD Code Onset Dates Problem Status W/U Status Risk SNOMED Code Notes Problem Elevated liver function tests (R94.5) Active confirmed Elevated liver enzymes level (049792182) Problem Fatty liver (K76.0) Active confirmed Fatty liver (212520742) Problem Iron deficiency anemia due to chronic blood loss (D50.0) Active confirmed Iron deficiency anemia due to chronic blood loss (125177964) Problem Elevated liver function tests (R79.89) Active confirmed Elevated liver enzymes level (448423573) Problem Abnormal liver ultrasound (R93.2) Active confirmed Abnormal findings diagnostic imaging of liver and biliary tract (470014453) Problem Abnormal MRI, liver (R93.2) Active confirmed 153585609 VITAL SIGNS Temperature 97.5 degrees Fahrenheit 02/22/2024 Blood pressure diastolic 00 mm Hg 02/22/2024 Height 62 in 02/22/2024 Blood pressure systolic 000 mm Hg 02/22/2024 Weight 219 lb 6 oz lbs 02/22/2024 BMI 40.12 kg/m2 02/22/2024 Encounters Encounter Location Date Provider Diagnosis [facility] [address] [place] [address] 08/24/2023 Delano Gallegos Elevated liver function tests R94.5 ; Fatty liver K76.0 and Abnormal MRI, liver R93.2 [facility] [address] [place] [address] 02/22/2024 Delano Gallegos Elevated liver function tests R94.5 and Fatty liver K76.0 ASSESSMENTS Encounter Date Diagnosis Assessment Notes Treatment Notes Treatment Clinical Notes 08/24/2023 Fatty liver (ICD-10 - K76.0) 08/24/2023 Elevated liver function tests (ICD-10 - R94.5) 02/22/2024 Fatty liver (ICD-10 - K76.0) 02/22/2024 Elevated liver function tests (ICD-10 - R94.5) Continue the Ursodiol 500 mg twice a day Eat as healthy as possible, avoid fatty foods 08/24/2023 Abnormal MRI, liver (ICD-10 - R93.2) PLAN OF TREATMENT Pending Test Test Name Order Date BUN 09/24/2021 BUN 08/24/2023 BUN 07/25/2022 LIVER PROFILE 09/14/2021 LIVER PROFILE 01/24/2023 LIVER PROFILE 04/20/2022 LIVER PROFILE 02/15/2022 LIVER PROFILE 09/24/2021 LIVER PROFILE 02/22/2024 LIVER PROFILE 08/24/2023 LIVER PROFILE 07/25/2022 CEA 09/24/2021 CBC w DIFF 09/14/2021 CBC w DIFF 02/15/2022 PROTHROMBIN TIME (PT, INR) 09/14/2021 [id number] (A1A) 09/14/2021 ALPHA-FETOPROTEIN,TUMOR MARKER ALPHA-FETOPROTEIN,TUMOR MARKER MRI ABD W&WO CONTRAST 07/25/2022 MRI ABD W&WO CONTRAST 09/24/2021 MRI ABD W&WO CONTRAST 08/24/2023 US LIVER BIOPSY CORE GUIDE 02/15/2022 US ABDOMEN COMP WITH ELASTOGRAPHY 2021 Prothrombin Time INR 02/15/2022 Partial Thromboplastin Time 02/15/2022 Liver Panel 09/14/2021 Creatinine 07/25/2022 Creatinine 08/24/2023 Creatinine 09/24/2021 MR abdomen wo/w con 10/03/2023 Next Appt Details Provider Name:Delano Gallegos , 02/24/2025 01:00:00 PM, [address], [address], [place], [address], Insurance Providers Payer Name Payer Address Payer Phone Subscriber Number Group Number Insured Name Patient Relationship to Insured Coverage Start Date Coverage End Date MED[employer] [place] [address] [place] [phone] [id number] DIANACECIL STANFORD Self - patient is the insured MEDICAL (GENERAL) HISTORY Medical History History ICD Code Asthma Prediabetes Denies [place],CVA,renal disease Elevated liver tests due to presumed fatty liver. In May of 2021 she had negative hepatitis serologies, normal ceruloplasmin, normal ferritin level, and negative KRISS. She is having the remainder of her liver w/u in summer 2021, including a liver ultrasound. The remainder of her liver workup was negative including autoimmune studies, alpha-1 antitrypsin level, and a normal ferritin level. Her abdominal ultrasound and MRI of the abdomen were negative for any sign of cirrhosis, splenomegaly, ascites, nor varices. The liver elastography was normal on the ultrasound. There were questionable liver lesions but they were ultimately felt to represent changes from probable fatty liver. A CEA level and alpha-fetoprotein level were normal. She was started on Ursodiol in 08/2023 with normalization of her liver enzymes. Microencephaly with cognitiv e delays, but able to sign consent for herself, etc Hyperlipidemia Obesity Liver biopsy in April revealed a mild to moderate steatohepatitis and mild fibrosis, stage I MRI of liver in January of 2022 revealed two 1.3 cm liver lesions that were felt to be benign although the radiologist recommended a followup scan in 6 months with Eovist contrast Elevated platelet count that is followed by Dr. Vallejo. She was started on a low-dose aspirin for that. Surgical History Surgery Date(Month/Year) Fractured legs @ 18 months---just had to be set---no hardware
--- OUTSIDE RECORDS SUMMARY | 2024-03-23 08:47 | XMS_ITS ---
Author Organization Delano Vallejo III, MD Address [address] [place] [address] Care Team Providers Care Cathode Ray Tube Salvage Processor Name Role Phone Marcella CROCKER, [facility] Primary Care Provider Delano Crawford [phone] Allergies Allergen (clinical drug ingredient) Drug/Non Drug [...] Date Provider Diagnosis Delano Vallejo III, MD [address] [place] [address] [place] [address] 08/28/2023 Delano Vallejo Microcephaly Q02 ; Thrombocytosis [...] She will remain under the care of ORTHODONTIST ASSISTANT. 08/28/2023 Mild cognitive impairment of uncertain or [...] 4 Months, Reason: OV Provider Name:Delano Vallejo, 05/02/2024 03:45:00 PM, [address] [place] [address] DR, [place] [address], [place], [address], Progress Notes * COLTONALEXIS WASHINGTONOB:1989 (33 yo F)Acc No.[id number]:08/28/2023 Progress Notes Patient:?CECIL GIANG Provider:?Delano Vallejo MD :1990???Age:33 Y???Sex:Female D ate:08/28/2023 Address:[address] [place] [address] , [address] Pcp:Jennifer Naranjo MD Subjective: * Chief Complaints: * ???ThrombocytosisPolycystic ovarian syndromeCognitive impairmentHyperthyroid * HPI: ???COVID-19 Screening:? 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 She has been compliant with the anagrelide. Her platelet count is in the normal range. No change in his therapy was made. Continue followup was arranged. Blood work that was done August 18, 2023 showed white count 9.7, hematocrit 43.6 platelets 213, neutrophils 56% lymphocytes, 36%. ?Questions?Have you experienced fever, chills, cough, sore throat, shortness of breath, difficulty breathing, muscle aches, loss of taste or smell??No ?Have you been exposed to the virus within the last 10 days??No ?Have you travelled internationally in the last 10 days??No ?Have you been exposed to COVID-19 in the past??Yes * ROS:?General/Constitutional:?pain?only normal aches and pains.?Chills?denies.?Fatigue?admits.?Fever?denies.?ENT:?Decreased hearing?denies.?Respiratory:?Cough?denies.?Cardiovascular:?Chest pain with exertion?denies.?Dyspnea on exertion?denies.?Shortness of breath?denies.?Gastrointestinal:?Constipation?occasional.?Decreased appetite?denies.?Diarrhea?denies.?Heartburn?denies.?Nausea?denies.?Rectal bleeding?denies.?Vomiting?denies.?Hematology:?bruising?denies.?petechiae?denies.?Swollen glands?none have been noted.?Genitourinary:?Frequent urination?a small amount.?Musculoskeletal:?Muscle aches?denies.?Painful joints?denies.?Sciatica?denies.?Weakness?denies.?Skin:?Itching?denies.?Rash?denies.?Skin lesion(s)?denies.?Neurologic:?Difficulty speaking?denies.?Dizziness?denies.?Headache?denies.?Low back pain?denies.?Psychiatric:?Depressed mood?denies.? * Medical History:? * Surgical History:?Bx liver 0 04/2022 * Hospitalization/Major Diagno stic Procedure:?Denies Past Hospitalization * Family History:?Father: mariely johnson, diagnosed with DM, Hyperlipidemia, HTN.?Mother: alive, anemia, diagnosed with Hyperlipidemia, HTN.?2 brother(s) , 1 sister(s) . .? Sister had breast cancer. * Social History:?Tobacco Use:?Tobacco Use/Smoking?Patient is a?nonsmoker ?Additional Findings: Tobacco Non-User?Aggressive non-smoker * Medications:?TakingDrospiren one-Ethinyl Estradiol 3-0.03 MG Tablet TAKE ONE TABLET [...] reviewed and reconciled with the patient * Allergies:?No Known Drug All ergyno[Allergies Verified] Objective: * Vitals:?Ht: 5 ft 2 in, Wt: 2 17, BMI:39.69, BP: 147/94, HR: 99, Temp: 97.2, Wt- k.43. * Examination: ???General Examination: ?GENERAL APPEARANCE:?pleasant, well nourished, well developed, in no acute distress, calm and relaxed , overweight , woman.?HEAD:?atraumatic, normocephalic.?EYES:?eomi, perrla, anicteric, conjugate.?EARS:?normal.?NOSE:?septum intact.?ORAL CAVITY:?normal, unremarkable.?NECK/THYROID:?no jugular venous distention, no carotid bruit, thyroid normal.?LYMPH NODES:?no enlarged lymph nodes,spleen normal.?SKIN:?no suspicious lesions, anicteric.?HEART:?no clicks, gallops, murmurs, or rubs, regular rhythm, S1, S2 normal, no s3, or vascular bruits.?LUNGS:?clear to auscultation .?BREASTS:?not examined.?ABDOMEN:?centripital obesity.?RECTAL EXAM:?not examined.?MUSCULOSKELETAL:?extremities unremarkable, no clubbing, cyanosis or edema.?PERIPHERAL PULSES:?normal.?NEUROLOGIC:?alert and oriented, cranial nerves 2-12 grossly intact, deep tendon reflexes 2+ symmetrical, motor strength normal upper and lower extremities, sensory exam intact.?PSYCH:?alert, oriented, Delayed development.? Assessment: * Assessment: 1.?Microcephaly - Q02 (Prima ry), Informed consent was obtained from the patient as well as from the mother for the use of anagrelide.?2.?Thrombocytosis - D47.3, Her platelets are now normal at 213,000 with 1 mg of anagrelide daily. She has had no side effects and the medication will be continued unchanged.?3.?Polycystic ovarian syndrome - E28.2, She will remain under the care of ORTHODONTIST ASSISTANT.?4.?Mild cognitive impairment of uncertain or unknown etiology - G31.84, She was pleasant and seems to understand the discussion. Her change in her regimen other than the aspirin was needed?5.?Asthma - J45.909, She had no wheezing today and felt well.? Plan: * Treatment: 2.?Others? Continue Drospirenone-Ethinyl Estradiol Tablet, 3-0.03 MG, TAKE ONE TABLET BY MOUTH EVERY DAY, Oral;?Continue Flovent HFA Aerosol, 110 MCG/ACT, INHALE 1 PUFF TWICE DAILY., Inhalation;?Continue Ibuprofen Tablet, 400 MG, TAKE ONE TABLET BY MOUTH THREE TIMES A DAY, Oral;?Continue Ventolin HFA Aerosol Solution, 108 (90 Base) MCG/ACT, INHALE TWO PUFFS BY MOUTH FOUR TIMES A DAY NEEDED FOR ASTHMA, Inhalation;?Continue metFORMIN HCl ER Tablet Extended Release 24 Hour, 750 MG, TAKE ONE TABLET BY MOUTH TWICE A DAY, Oral.?? * Procedure Codes:? * Preventive Medicine:? ??Counseling:?Care goal follow-up plan:?Counseling for abnormal BMI given?Yes ?Above Normal BMI Follow-up?Dietary management education, guidance, and counseling, Dietary needs education, Exercise promotion: strength training, Exercise promotion: stretching, Feeding regime, Giving encouragement to exercise, Lifestyle education regarding diet, Nutrition / feeding management, Nutrition therapy, Prescribed activity/exercise education, Prescribed diet education, Prescribed dietary intake, Special diet education, Weight monitoring , Intervention, Order not done: Medical or Other reason not done ???). * Follow Up:?4 Months (Reason: OV) * Images: * Sign off status: Completed true * Provider:?Delano Vallejo MD Date:?08/01 Generated for Anuradha garvey/Gordon/eTkulwindersmitting on:?03/23/2024 08:47 AM EST History and Physical Notes * HPI (History of Present Illness) Category Sub-Category Detail Notes COVID-19 Screening Questions Have you had any new onset fever, chills, cough, congestion, sore throat, shortness of breath, muscle aches?: No Have you been exposed to the virus withi n the last 10 days?: No Have you travelled internationally in [facility] last 10 days?: No Have [...]
--- OUTSIDE RECORDS SUMMARY | 2024-03-23 08:47 | XMS_ITS ---
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 12/31/2023 Mild cognitive impairment of uncertain or [...] 400 MG TAKE ONE TABLET BY M OUT THREE TIMES A DAY Oral Pending Test Test Name Order Date PROFILE, RANDOM (COMPREHENSIVE METABOLIC ) 12/31/2023 CBC WITH AUTO DIFF 12/31/2023 Next Appt Details Follow Up: 4 Months, Reason: OV Provider Name:Delano Vallejo, 05/02/2024 03:45:00 PM, [address] [place] [address], [facility] [address], [place], [address], Progress Notes * ALEXIS GIANGOB:1989 (33 yo F)Acc No.[id number]:12/31/2023 Progress Notes Patient:?CECIL GIANG Provider:?Delano Vallejo MD :1990???Age:33 Y???Sex:Female D ate:12/31/2023 Address:[address] [place] [address] , [address] [id number] Pcp:Jennifer Naranjo MD Subjective: * Chief Complaints: * ???ThrombocytosisPolycystic ovarian syndromeAsthmaHypothyroidismHyperlipidemiaMicrocephaly * HPI: ???COVID-19 Screening:?r ankle sprain one obuprorfen.? He returns for management of her elevated platelet count.? Since her last visit she has sprained her right ankle and is taking ibuprofen.? Examination of the ankle showed no serious abnormality and it was healing.? Her blood work is available and was reviewed with her and her mother.? The platelet count is in the mid normal range and no change in her medications was needed. ?Questions?Have you experienced fever, chills, cough, sore [...] pain with exertion?denies.?Dyspnea on exertion?denies.?Shortness of breath?denies.?Gastrointestinal:?Constipation?occasional.?Decreased appetite?denies.?Diarrhea?denies.?Heartburn?occasional.?Nausea?denies.?Rectal bleeding?denies.?Vomiting?denies.?Hematology:?bruising?denies.?petechiae?denies.?Swollen glands?none have been noted.?Genitourinary:?Frequent urination?denies.?Musculoskeletal:?Muscle aches?denies.?Painful joints?denies.?Sciatica?denies.?Weakness?denies.?Skin:?Itching?denies.?Rash?denies.?Skin lesion(s)?denies.?Neurologic:?Difficulty speaking?denies.?Dizziness?denies.?Headache?denies.?Low back pain?denies.?Psychiatric:?Depressed mood?denies.? * Medical History:? * Surgical History:?Bx liver 0 04/2022 * Hospitalization/Major Diagno stic Procedure:?Denies Past Hospitalization * Family History:?Father: mariely johnson, diagnosed with HTN, Hyperlipidemia, DM.?Mother: alive, anemia, diagnosed with HTN, Hyperlipidemia.?2 brother(s) , 1 sister(s) . .? Sister [...] MG Capsule 1 capsule Orally daily Taking Drospirenone-Ethinyl Estradiol 3-0.03 MG Tablet TAKE ONE [...] Vitals:?Ht: 5 ft 2 in, Wt: 2 13, BMI:38.95, BP: 108/80, HR: 86, Temp: 97.0, Wt- k.62. * ???Past Orders: Lab:Comprehensive Met. Panel * Collection Date 12/08/2023 04/27/2023 Collection Time 09:27 AM 03:45 PM Order Date 12/08/2023 04/27/2023 Sodium 141 (Ref Range: 135-145 mmol/L) 143 (Ref Range: 135-145 mmol/L) Bilirubin Total 0.6 (Ref Range: 0.0-1.0 mg/dL) 0.2 (Ref Range: 0.0-1.0 mg/dL) Aspartate Amino Transferase 53?H (Ref Range: 5-31 U/L) 65?H (Ref Range: 5-31 U/L) Alanine Aminotransferase 55?H (Ref Range: 0-31 U/L) 64?H (Ref Range: 0-31 U/L) Total Protein 7.7 (Ref Range: 6.5-8.0 g/dL) 7.9 (Ref Range: 6.5-8.0 g/dL) Albumin Level 3.9 (Ref Range: 3.5-5.0 g/dL) 3.8 (Ref Range: 3.5-5.0 g/dL) Alkaline Phosphatase 138?H (Ref Range: 39-117 U/L) 136?H (Ref Range: 39-117 U/L) Potassium 3.8 (Ref Range: 3.3-5.1 mmol/L) 3.6 (Ref Range: 3.3-5.1 mmol/L) Chloride 106 (Ref Range: 96-108 mmol/L) 102 (Ref Range: 96-108 mmol/L) Carbon Dioxide 24 (Ref Range: 22-29 mmol/L) 24 (Ref Range: 22-29 mmol/L) Anion Gap 15 (Ref Range: 12-20) 21?H (Ref Range: 12-20) Blood Urea Nitrogen 11 [...] Date 12/08/2023 04/27/2023 02/26/2023 White Blood Count 11.2?H (Ref Range: 4.8-10.8 X10*3/uL) 13.2?H (Ref Range: 4.8-10.8 X10*3/uL) 12.5?H (Ref Range: 4.8-10.8 X10*3/uL) Red Blood Count [...] 160-400 X10*3/uL) 219 (Ref Range: 160-400 X10*3/uL) 521?H (Ref Range: 160-400 X10*3/uL) Mean Platelet Volume 12.5?H (Ref Range: 9.4-12.3 fL) 12.5?H (Ref Range: 9.4-12.3 fL) 11.2 (Ref Range: 9.4-12.3 fL) Neutrophils Percent Auto 53.5 (Ref Range: 45-73 %) 52.2 (Ref Range: 45-73 %) 56.3 (Ref Range: 45-73 %) Imm Gran Pct Auto 0.3 (Ref Range: 0.0-0.4 %) 0.4 (Ref Range: 0.0-0.4 %) 0.2 (Ref Range: 0.0-0.4 %) Lymphocytes Percent Auto 39.7 (Ref Range: 20-40 %) 40.9?H (Ref Range: 20-40 %) 37.4 (Ref Range: [...] Abs Auto 0.03 (Ref Range: 0.00-0.03 X10*3/uL) 0.05?H (Ref Range: 0.00-0.03 X10*3/uL) 0.03 (Ref Range: 0.00-0.03 X10*3/uL) Lymphocytes Absolute Auto 4.4 (Ref Range: 1.2-4.9 X10*3/uL) 5.4?H (Ref Range: 1.2-4.9 X10*3/uL) 4.7 (Ref Range: [...] 0.000 (Ref Range: 0.0-0.012 X10*3/uL) * Examination: ???General Examination: ?GENERAL APPEARANCE:?pleasant, well nourished, well developed, in no acute distress, calm and relaxed, obese, woman.?HEAD:?atraumatic, normocephalic.?EYES:?eomi, perrla, anicteric, conjugate.?EARS:?normal.?NOSE:?septum intact.?ORAL CAVITY:?normal, unremarkable.?NECK/THYROID:?no jugular venous distention, no carotid bruit, thyroid normal.?LYMPH NODES:?no enlarged lymph nodes,spleen normal.?SKIN:?no suspicious lesions, anicteric.?HEART:?no clicks, gallops, murmurs, or rubs, regular rhythm, S1, S2 normal, no s3, or vascular bruits.?LUNGS:?clear to auscultation .?BREASTS:??no masses palpable bilaterally.?ABDOMEN:?bowel sounds normal, no ascites, no organomegaly, no mass, centripital obesity.?RECTAL EXAM:?not examined.?MUSCULOSKELETAL:?extremities unremarkable, no clubbing, cyanosis or edema.?PERIPHERAL PULSES:?normal.?NEUROLOGIC:?alert and oriented, cranial nerves 2-12 grossly intact, deep tendon reflexes 2+ symmetrical, motor strength normal upper and lower extremities, sensory exam intact.?PSYCH:?alert, oriented, speech clear, cooperative with exam, Learning disability.? Assessment: * Assessment: 1.?Thrombocytosis - D47.3 (P rimary)???Notes :Her platelets are now normal with 1 mg of anagrelide daily. She has had no side effects and the medication will be continued unchanged.???2.?Microcephaly - Q02???Notes :Informed consent was obtained from the patient as well as from the mother for the use of anagrelide.???3.?Polycystic ovarian syndrome - E28.2???Notes :She will remain under the care of HYPO SPLASHER.???4.?Mild cognitive impairment of uncertain or unknown etiology - G31.84???Notes :She was pleasant and seems to understand the discussion. Her change in her regimen other than the aspirin was needed???5.?Asthma - J45.909???Notes :She had no wheezing today and felt well.??? Plan: * Treatment: 2.?Others? Continue Drospirenone-Ethinyl Estradiol [...] or Other reason not done * Follow Up:?4 Months (Reason: OV) * Images: * Sign off status: Completed true * Provider:?Delano Vallejo MD Date:?12/03 Generated for Anuradha garvey/Gordon/Jahitting on:?03/23/2024 08:46 AM EST History and Physical Notes * HPI (History of Present Illness) Category Sub-Category Detail Notes COVID-19 Screening Questions Have you had any new onset fever, chills, cough, congestion, sore throat, shortness of breath, muscle aches?: No Have you been exposed to the virus with n the last 10 days?: No Have you travelled internationally in smallpox hospital last 10 days?: No Have you [...]
--- OUTSIDE RECORDS SUMMARY | 2024-03-23 08:47 | XMS_ITS | Patient Health Record ---
Author Organization Delano Vallejo III, MD Address [address] [place] [address] Care Team Providers Care Vp Analytics Name Role Phone Marcella CROCKER, [facility] Primary Care Provider Delano Crawford [phone] Allergies Allergen (clinical drug ingredient) Drug/Non Drug Allergy documented on EMR Reaction Allergy Type Onset Date Status No Known Drug Allergy Unknown Drug Allergy Active Results Component Value Reference Range Notes Complete Blood Count Auto Di ff Reviewed date:04/28/2023 02:54:32 PM Interpretation: Performing Lab:[facility], [address] [place] [phone] Notes/Report: White Blood Count 13.2 4.8-10.8 X10*3/uL Red Blood Count 4.84 4.20-5.50 X10*6/uL Hemoglobin 13.7 12.0-16.0 g/dl Hematocrit 41.5 37.0-47.0 % Mean Corpuscular Volume 85.7 80.0-98.0 fL Mean Corpuscular Hemoglobin 28.3 27.0-33.0 pg Mean Corpuscular HGB Conc 33.0 31.0-35.0 g/dl Red Cell Distribution Width 13.1 11.0-16.0 % Platelet Count 219 160-400 X10*3/uL VERIFIED VIA SLIDE VERIFIED VIA SLIDE Mean Platelet Volume 12.5 9.4-12.3 fL Neutrophils Percent Auto 52.2 45-73 % Imm Gran Pct Auto 0.4 0.0-0.4 % Lymphocytes Percent Auto 40.9 20-40 % Monocytes Percent Auto 5.5 2-11 % Eosinophils Percent Auto 0.7 0-4 % Basophils Percent Auto 0.3 0-2 % NRBC Pct Auto 0.0 0.0-0.2 /100WBC Neutrophils Absolute Auto 6.9 2.0-8.3 x10*3/u L Imm Gran Abs Auto 0.05 0.00-0.03 X10*3/uL Lymphocytes Absolute Auto 5.4 1.2-4.9 X10*3/ uL Monocytes Absolute Auto 0.7 0.1-1.2 X10*3/uL Eosinophils Absolute Auto 0.1 0.0-0.4 X10*3/u L Basophils Absolute Auto 0.0 0.0-0.2 X10*3/uL NRBC Abs Auto 0.000 0.0-0.012 X10*3/uL White Blood Count 13.2 4.8-10.8 X10*3/uL Red Blood Count 4.84 4.20-5.50 X10*6/uL Hemoglobin 13.7 12.0-16.0 g/dl Hematocrit 41.5 37.0-47.0 % Mean Corpuscular Volume 85.7 80.0-98.0 fL Mean Corpuscular Hemoglobin 28.3 27.0-33.0 pg Mean Corpuscular HGB Conc 33.0 31.0-35.0 g/dl Red Cell Distribution Width 13.1 11.0-16.0 % Platelet Count 219 160-400 X10*3/uL VERIFIED VIA SLIDE VERIFIED VIA SLIDE Mean Platelet Volume 12.5 9.4-12.3 fL Neutrophils Percent Auto 52.2 45-73 % Imm Gran Pct Auto 0.4 0.0-0.4 % Lymphocytes Percent Auto 40.9 20-40 % Monocytes Percent Auto 5.5 2-11 % Eosinophils Percent Auto 0.7 0-4 % Basophils Percent Auto 0.3 0-2 % NRBC Pct Auto 0.0 0.0-0.2 /100WBC Neutrophils Absolute Auto 6.9 2.0-8.3 x10*3/u L Imm Gran Abs Auto 0.05 0.00-0.03 X10*3/uL Lymphocytes Absolute Auto 5.4 1.2-4.9 X10*3/u L Monocytes Absolute Auto 0.7 0.1-1.2 X10*3/uL Eosinophils Absolute Auto 0.1 0.0-0.4 X10*3/u L Basophils Absolute Auto 0.0 0.0-0.2 X10*3/uL NRBC Abs Auto 0.000 0.0-0.012 X10*3/uL CORRECTED REPORT CORRECTED REPORT Comprehensive Met. Panel Reviewed date:04/28/2023 02:54:32 PM Interpretation: Performing Lab:[facility], [address] [place] [phone] Notes/Report: Sodium 143 135-145 mmol/L Potassium 3.6 3.3-5.1 mmol/L Chloride 102 96-108 mmol/L Carbon Dioxide 24 22-29 mmol/L Anion Gap 21 12-20 Blood Urea Nitrogen 16 9-16 mg/dL Creatinine 0.94 0.5-1.4 mg/dL Estimated Glomerular Filt Rate > 60 NOTE: For -Canadian individuals, multiply the result by 1.210. Chronic Kidney Disease: Estimated GFR < 60 mL/min/1.73m2 Severe Kidney Disease: Estimated GFR < 15 mL/min/1.73m2 Glucose Random 91 60-115 mg/dL Calcium 10.1 8.4-10.2 mg/dL Bilirubin Total 0.2 0.0-1.0 mg/dL Aspartate Amino Transferase 65 5-31 U/L Alanine Aminotransferase 64 0-31 U/L Total Protein 7.9 6.5-8.0 g/dL Albumin Level 3.8 3.5-5.0 g/dL Alkaline Phosphatase 136 39-117 U/L SLIDE REVIEW Reviewed date:04/28/2023 02:54:32 PM Interpretation: Performing Lab:[facility], [address] [place] [phone] Notes/Report: SLIDE REVIEW VERIFIED Complete Blood Count Auto Di ff Reviewed date:12/31/2023 06:06:48 AM Interpretation: Performing Lab:[facility], [address] [place] [phone] Notes/Report: White Blood Count 11.2 4.8-10.8 X10*3/uL Red Blood Count 4.85 4.20-5.50 X10*6/uL Hemoglobin 13.9 12.0-16.0 g/dl Hematocrit 42.1 37.0-47.0 % Mean Corpuscular Volume 86.8 80.0-98.0 fL Mean Corpuscular Hemoglobin 28.7 27.0-33.0 pg Mean Corpuscular HGB Conc 33.0 31.0-35.0 g/dl Red Cell Distribution Width 13.4 11.0-16.0 % Platelet Count 197 160-400 X10*3/uL Mean Platelet Volume 12.5 9.4-12.3 fL Neutrophils Percent Auto 53.5 45-73 % Imm Gran Pct Auto 0.3 0.0-0.4 % Lymphocytes Percent Auto 39.7 20-40 % Monocytes Percent Auto 5.3 2-11 % Eosinophils Percent Auto 0.8 0-4 % Basophils Percent Auto 0.4 0-2 % NRBC Pct Auto 0.0 0.0-0.2 /100WBC Neutrophils Absolute Auto 6.0 2.0-8.3 x10*3/u L Imm Gran Abs Auto 0.03 0.00-0.03 X10*3/uL Lymphocytes Absolute Auto 4.4 1.2-4.9 X10*3/u L Monocytes Absolute Auto 0.6 0.1-1.2 X10*3/uL Eosinophils Absolute Auto 0.1 0.0-0.4 X10*3/u L Basophils Absolute Auto 0.1 0.0-0.2 X10*3/uL NRBC Abs Auto 0.000 0.0-0.012 X10*3/uL Comprehensive Met. Panel Reviewed date:12/31/2023 06:06:49 AM Interpretation: Performing Lab:[facility], [address] [place] [phone] Notes/Report: Sodium 141 135-145 mmol/L Potassium 3.8 3.3-5.1 mmol/L Chloride 106 96-108 mmol/L Carbon Dioxide 24 22-29 mmol/L Anion Gap 15 12-20 Blood Urea Nitrogen 11 9-16 mg/dL Creatinine 0.77 0.5-1.4 mg/dL Estimated Glomerular Filt Rate > 60 NOTE: For -Canadian individuals, multiply the result by 1.210. Chronic Kidney Disease: Estimated GFR < 60 mL/min/1.73m2 Severe Kidney Disease: Estimated GFR < 15 mL/min/1.73m2 Glucose Random 100 60-115 mg/dL Calcium 10.1 8.4-10.2 mg/dL Bilirubin Total 0.6 0.0-1.0 mg/dL Aspartate Amino Transferase 53 5-31 U/L Alanine Aminotransferase 55 0-31 U/L Total Protein 7.7 6.5-8.0 g/dL Albumin Level 3.9 3.5-5.0 g/dL Alkaline Phosphatase 138 39-117 U/L Reason For Referral No Information Medications Medication SIG (Take, Route, Frequency, Duration) Notes Start Date End Date Status Ursodiol 500 MG TAKE 1 TABLET BY FLO TH DAILY FOR 2 WEEKS, AND THEN START USING IT TWICE A DAY. Oral Active Aspir-81 Active Ventolin HFA 108 (90 Base) MCG/ACT INHALE TWO PUFFS BY MOUTH FOUR TIMES A DAY NEEDED FOR ASTHMA Inhalation Active metFORMIN HCl ER 750 MG TAKE ONE TABLET BY MOUTH TWICE A DAY Oral Active Flovent HFA 110 MCG/ACT INHALE 1 PUFF TW ICE DAILY. Inhalation Active Ibuprofen 400 MG TAKE ONE TABLET BY M OUTH THREE TIMES A DAY Oral Active Anagrelide HCl 1 MG TAKE 1 CAPSULE BY MO UTH DAILY for 30 Active Drospirenone-Ethinyl Estradiol 3-0.03 MG TAKE ONE TABLET BY MOUTH EVERY DAY Oral Active Social History Tobacco Use: Social History Observation Description Date Details (start date - stop date) Never Smoker NA - NA Sex Assigned At : Social History Observation Description Sex Assigned At Female Tobacco Use/Smoking Question Answer Notes Patient is a nonsmoker Additional Findings: Tobacco Non-User Aggressive non-smoker Alcohol Screen Question Answer Notes Did you have a drink containing alcohol in the p ast year? No Points 0 Interpretation Negative Problems Problem Type SNOMED Code ICD Code Onset Dates Problem Status W/U Status Risk Notes Problem Obesity (082252786) Obesity (E66.9) Active confirmed I recomm end that she undergo aggressive weight loss with diet restriction fat calories, oriented, straight speech. Problem Asthma (114119507) Asthma (J45.909) Active confirmed She had no wheezing today and felt well. Problem Thrombocytosis (7514006) Thrombocytosis (D47.3) Active confirmed Her platelets are now normal with 1 mg of anagrelide daily. She has had no side effects and the medication will be continued unchanged. Problem Polycystic ovarian syndrome (E28.2) Active confirmed She will remain under the care of PSYCHIATRIC ASSISTANT. Problem Microcephaly (3651119665) Microcephaly (Q02) Active confirmed Informed consent was obtained from the patient as well as from the mother for the use of anagrelide. Problem Hypothyroid (16797876) Hypothyroid (E03.9) Active confirmed She was continued on current medication. Problem Dyslipidemia (350254199) Dyslipidemia (E78.5) Active confirmed Her fasting lipids will be reviewed. I recommended they be checked 3 times a year. Problem Elevated liver enzymes level (401482305) Elevated liver enzymes (R74.8) Active confirmed She has had a liver biopsy and had myelofibrosis with steatosis. I have advised weight loss and careful surveillance. Problem Mild cognitive disorder (560782220) Mild cognitive impairment of uncertain or unknown etiology (G31.84) Active confirmed She was pleasant and seems to understand the discussion. Her change in her regimen other than the aspirin was needed Vital Signs Heart Rate 86 /min 12/31/2023 Temperature 97.0 degrees Fahrenheit 12/31/2023 Blood pressure diastolic 80 mm Hg 12/31/2023 Height 5 ft 2 in in 12/31/2023 Blood pressure systolic 108 mm Hg 12/31/2023 Weight 213 lbs 12/31/2023 BMI 38.95 kg/m2 12/31/2023 Encounters Encounter Location Date Provider Diagnosis Delano Vallejo III, MD [address] [place] [address] [address] [place] [phone] 04/27/2023 Delano Vallejo Microcephaly Q02 ; Thrombocytosis D47.3 ; Polycystic ovarian syndrome E28.2 ; Mild cognitive impairment of uncertain or unknown etiology G31.84 ; Asthma J45.909 and Elevated liver enzymes R74.8 Delano Vallejo III, MD [address] [place] [address] [address] [place] [phone] 08/28/2023 Delano Vallejo Microcephaly Q02 ; Thrombocytosis D47.3 ; Polycystic ovarian syndrome E28.2 ; Mild cognitive impairment of uncertain or unknown etiology G31.84 and Asthma J45.909 Delano Vallejo III, MD [address] [place] [address] [address] [place] [phone] 12/31/2023 Delano Vallejo Microcephaly Q02 ; Thrombocytosis D47.3 ; Polycystic ovarian syndrome E28.2 ; Mild cognitive impairment of uncertain or unknown etiology G31.84 and Asthma J45.909 Delano Vallejo III, MD [address] [place] [address] [address] [place] [address] 05/09/2023 Delano Vallejo Assessments Encounter Date Diagnosis (ICD Code) Assessment Notes Treat ment Notes Treatment Clinical Notes 04/27/2023 Thrombocytosis (ICD-10 - D47.3) Her platelets are now normal at 219,000 with 1 mg of anagrelide daily. She has had no side effects and the medication will be continued unchanged. 04/27/2023 Microcephaly (ICD-10 - Q02) Informed consent was obtained from the patient as well as from the mother for the use of anagrelide. 08/28/2023 Thrombocytosis (ICD-10 - D47.3) Her platelets are now normal at 213,000 with 1 mg of anagrelide daily. She has had no side effects and the medication will be continued unchanged. 08/28/2023 Microcephaly (ICD-10 - Q02) Informed consent was obtained from the patient as well as from the mother for the use of anagrelide. 12/31/2023 Thrombocytosis (ICD-10 - D47.3) Her platelets are now normal with 1 mg of anagrelide daily. She has had no side effects and the medication will be continued unchanged. 12/31/2023 Microcephaly (ICD-10 - Q02) Informed consent was obtained from the patient as well as from the mother for the use of anagrelide. 04/27/2023 Polycystic ovarian syndrome (ICD-10 - E28.2) She will remain under the care of PSYCHIATRIC ASSISTANT. 08/28/2023 Polycystic ovarian syndrome (ICD-10 - E28.2) She will remain under the care of PSYCHIATRIC ASSISTANT. 12/31/2023 Polycystic ovarian syndrome (ICD-10 - E28.2) She will remain under the care of PSYCHIATRIC ASSISTANT. 04/27/2023 Mild cognitive impairment of uncertain or unknown etiology (ICD-10 - G31.84) She was pleasant and seems to understand the discussion. Her change in her regimen other than the aspirin was needed 08/28/2023 Mild cognitive impairment of uncertain or unknown etiology (ICD-10 - G31.84) She was pleasant and seems to understand the discussion. Her change in her regimen other than the aspirin was needed 12/31/2023 Mild cognitive impairment of uncertain or unknown etiology (ICD-10 - G31.84) She was pleasant and seems to understand the discussion. Her change in her regimen other than the aspirin was needed 04/27/2023 Asthma (ICD-10 - J45.909) She had no wheezing today and felt well. 08/28/2023 Asthma (ICD-10 - J45.909) She had no wheezing today and felt well. 12/31/2023 Asthma (ICD-10 - J45.909) She had no wheezing today and felt well. 04/27/2023 Elevated liver enzymes (ICD-10 - R74.8) She has had a liver biopsy and had myelofibrosis with steatosis. I have advised weight loss and careful surveillance. Plan Of Treatment Pending Test Test Name Order Date PROFILE, RANDOM (COMPREHENSIVE METABOLIC ) 04/27/2023 PROFILE, RANDOM (COMPREHENSIVE METABOLIC ) 08/28/2023 PROFILE, RANDOM (COMPREHENSIVE METABOLIC ) 12/31/2023 CBC w DIFF 10/17/2022 CBC w DIFF 10/31/2022 JAK2 MUTATION PCR 10/17/2022 CBC WITH AUTO DIFF 12/31/2023 CBC WITH AUTO DIFF 04/27/2023 CBC WITH AUTO DIFF 08/28/2023 CBC WITH AUTO DIFF 03/02/2023 Next Appt Details Provider Name:Delano Vallejo, 05/02/2024 03:45:00 PM, [address] [place] [address] , [place], [place], [phone], Insurance Providers Payer Name Payer Address Payer Phone Subscriber Number Group Number Insured Name Patient Relationship to Insured Coverage Start Date Coverage End Date MEDICAID [address] IVA [place] [id number] CECIL BRITT Self - patient is the insured Medical (General) History Medical History History ICD Code Asthma J45.909 Elevated liver enzymes R74.8 Microcephaly Q02 Dyslipidemia E78.5 Obesity E66.9 Hypothyroid E03.9 Thrombocytosis D47.3 Surgical History Surgery Date(Month/Year) Bx liver 04/2022
[2024-03-23 09:03] LABS: IDNOW Serial# 08D9AD1C; Strep A Nucleic Acid Negative (Negative)
[2024-03-23 09:42] LABS: Influenza A PCR NEGATIVE (Negative); Influenza B PCR NEGATIVE (Negative); Resp Syncy Virus RNA Qual PCR NEGATIVE (Negative); SARS COV2 PCR INHOUSE NEGATIVE (Negative)
[2024-03-23 09:55] VITALS: BP 144/87; PULSE 100; RESP 16; TEMP 36.6; O2SAT 97
== END 2024-03-23 09:56 | disposition home or self-care (01) ==
PROVIDERS: Emergency Provider Emergency Medicine Emergency Medical Services; PCP Internal Medicine
DX: J06.9 Acute upper respiratory infection, unspecified (principal); J02.9 Acute pharyngitis, unspecified; R05.9 Cough, unspecified; Z79.899 Other long term (current) drug therapy; Z03.818 Encounter for observation for suspected exposure to other biological agents ruled out
CPT/HCPCS: 0241U; 87651; 99282; 99283

== ENCOUNTER 2024-04-14 11:32 | Outpatient (REF) | payer MEDICAID, SELFPAY ==
[2024-04-14 11:55] LABS: MANUAL DIFF FLAG NO
[2024-04-14 12:32] LABS: Basophils Percent Auto 0.3 % (0-2); Eosinophils Percent Auto 0.3 % (0-4); Hematocrit 42.2 % (37.0-47.0); Hemoglobin 13.7 g/dl (12.0-16.0); Imm Gran Abs Auto 0.07 X10*3/uL (0.00-0.03); Imm Gran Pct Auto 0.6 % (0.0-0.4); Lymphocytes Absolute Auto 4.2 X10*3/uL (1.2-4.9); Lymphocytes Percent Auto 33.4 % (20-40); Mean Corpuscular HGB Conc 32.5 g/dl (31.0-35.0); Mean Corpuscular Hemoglobin 28.1 pg (27.0-33.0); Mean Corpuscular Volume 86.7 fL (80.0-98.0); Mean Platelet Volume 12.6 fL (9.4-12.3); Monocytes Absolute Auto 0.6 X10*3/uL (0.1-1.2); Monocytes Percent Auto 4.8 % (2-11); Neutrophils Absolute Auto 7.5 x10*3/uL (2.0-8.3); Neutrophils Percent Auto 60.6 % (45-73); Platelet Count 199 X10*3/uL (160-400); Red Blood Count 4.87 X10*6/uL (4.20-5.50); Red Cell Distribution Width 13.3 % (11.0-16.0); White Blood Count 12.4 X10*3/uL (4.8-10.8)
[2024-04-14 12:39] LABS: Estimated Average Glucose 111 mg/dL; Hemoglobin A1C 128.2191 umol/L; Hemoglobin A1c % 5.5 % (<6.0); Total Hemoglobin (HGBA1C) 3525.0718 umol/L
[2024-04-14 13:07] LABS: Alanine Aminotransferase 17 U/L (0-31); Albumin Level 3.9 g/dL (3.5-5.0); Alkaline Phosphatase 122 U/L (39-117); Anion Gap 11 (12-20); Aspartate Amino Transferase 22 U/L (5-31); Bilirubin Total 0.4 mg/dL (0.0-1.0); Blood Urea Nitrogen 12 mg/dL (9-16); Calcium 9.6 mg/dL (8.4-10.2); Carbon Dioxide 26 mmol/L (22-29); Chloride 106 mmol/L (96-108); Estimated Glomerular Filt Rate > 60; Glucose Random 88 mg/dL (60-115); Potassium 4.3 mmol/L (3.3-5.1); Sodium 139 mmol/L (135-145)
[2024-04-14 13:22] LABS: TSH reflex Free T4 3.52 uIU/mL (0.32-4.0)
--- OUTSIDE RECORDS SUMMARY | 2024-04-14 13:39 | XMS_ITS | Patient Health Record ---
Author Organization [facility] Address [address] [place] [address] Care Team Providers Care Workforce Services Representative Name Role Phone Jennifer Naranjo Primary Care Provider Unavailab Delano Stapleton Unavailable [phone] ALLERGIES No Known Allergies RESULTS Component Value Reference Range Notes Complete Blood Count Auto Di ff Reviewed date:08/20/2023 09:34:17 PM Interpretation: Performing Lab:[facility], [address] [place] [phone] Notes/Report: White Blood Count 9.7 4.8-10.8 X10*3/uL [...] Panel Reviewed date:08/20/2023 09:34:45 PM Interpretation: Performing Lab:[facility], [address] [place] [address] Notes/Report: Bilirubin Total 0.6 0.0-1.0 mg/dL Bilirubin Direct 0.2 0.0-0.5 mg/dL Aspartate Amino Transferase 117 5-31 U/L Alanine Aminotransferase 95 0-31 U/L Total Protein 8.0 6.5-8.0 g/dL Albumin Level 4.0 3.5-5.0 g/dL Alkaline Phosphatase 142 39-117 U/L Liver Panel Reviewed date:02/22/2024 01:34:17 PM Interpretation: Performing Lab:[address] [address] Notes/Report: Bilirubin Total 0.3 0.0-1.0 mg/dL Bilirubin Direct 0.1 0.0-0.5 mg/dL Aspartate Amino Transferase 19 5-31 U/L Alanine Aminotransferase 17 0-31 U/L Total Protein 7.7 6.5-8.0 g/dL Albumin Level 3.8 3.5-5.0 g/dL Alkaline Phosphatase 124 39-117 U/L Blood Urea Nitrogen Reviewed date:10/02/2023 05:27:12 PM Interpretation: Performing Lab:[address] [address] Notes/Report: Blood Urea Nitrogen 8 9-16 mg/dL Creatinine Reviewed date:10/02/2023 05:27:22 PM Interpretation: Performing Lab:[address] [address] Notes/Report: Creatinine 0.71 0.5-1.4 mg/dL Estimated Glomerular Filt Rate > 60 NOTE: For -Taiwanese individuals, multiply the result by 1.210. Chronic Kidney Disease: Estimated GFR < 60 mL/min/1.73m2 Severe Kidney Disease: Estimated GFR < 15 mL/min/1.73m2 Alpha Fetoprotein Reviewed date:10/03/2023 02:23:38 PM Interpretation: Performing Lab:[address] [address] Notes/Report: Alpha Fetoprotein 0.6 Reference Range: <6.1 The use of AFP as a tumor marker in females is not recommended. This test was performed using the Endy Patterson chemiluminescent method. Values obtained from different assay methods cannot be used interchangeably. AFP levels, regardless of value, should not be interpreted as absolute evidence of the presence or absence of disease. THIS TEST WAS PERFORMED AT: [facility] [address] [place] [phone] MARU BENEDICT MD MR abdomen wo/w con (Not yet reviewed by provider) Interpretation: Performing Lab: Notes/Report: [address] [address] Magnetic Resonance Report Signed Patient: Cecil Giang MR#: [id number] : 1990 Acct:[id number] Age/Sex: 33 / F ADM Date: 10/03/23 Loc: HO.MRI Attending Dr: Delano Gallegos MD Ordering Physician: Delano Gallegos MD Date of Service: 10/03/23 Procedure(s): MR abdomen wo/w con Accession Number(s): [id number] cc: Jennifer Naranjo MD; Delano Gallegos MD EXAMINATION: MR ABDOMEN WITHOUT AND [...] in OV> 10/31/23 0823 DD/ 1605 TD/TT: Construction Flagger: Liver Panel Reviewed date:02/16/2024 11:25:47 AM Interpretation: Performing Lab:[facility], [address] [place] [address] Notes/Report: Bilirubin Total 0.5 0.0-1.0 mg/dL Bilirubin Direct 0.2 0.0-0.5 mg/dL Aspartate Amino Transferase 21 5-31 U/L Alanine Aminotransferase 21 0-31 U/L Total Protein 7.8 6.5-8.0 g/dL Albumin Level 3.9 3.5-5.0 g/dL Alkaline Phosphatase 131 39-117 U/L REASON FOR REFERRAL Referring Provider First Name Jennifer Referring Provider Last Name Marcella Referring Provider Speciality Internal M edicine Referred Organization [facility] Referred Provider Delano Gallegos Referred Address [address] [place] [address],[place] [address],[place], [place],[address],[place] Referred Provider Specialty Gastroentero logy General Notes Radha Lombardi 024 02:13:32 PM EDT > requested a [facility] ref from dr [facility] for visit with dr gallegos om Referral Priority Routine MEDICATIONS Medication SIG (Take, Route, Frequency, Duration) Notes Start Date End Date Status metFORMIN HCl 500 MG 1 tablet with a karan l Orally Once a day for 30 day(s) Active Ursodiol 500 MG 1 tablet Orally Twic e a day for 30 day(s) 04/05/2024 Active Aspirin 81 81 MG 1 tablet Orally Once a day for 30 day(s) Active Drospirenone-Ethinyl Estradiol 3-0.03 MG TAKE ONE TABLET BY MOUTH EVERY DAY Oral for 28 Active Anagrelide HCl 1 MG TAKE 1 CAPSULE BY [facility] DAILY Oral for 30 Active Ibuprofen 400 MG TAKE ONE TABLET BY [facility] THREE TIMES A DAY Oral for 30 [...] (R94.5) Active confirmed Elevated liver enzymes level (248257225) Problem Fatty liver (K76.0) Active confirmed Fatty liver (387495197) Problem Iron deficiency anemia due to chronic blood loss (D50.0) Active confirmed Iron deficiency anemia due to chronic blood loss (837571246) Problem Elevated liver function tests (R79.89) Active confirmed Elevated liver enzymes level (480403835) Problem Abnormal liver ultrasound (R93.2) Active confirmed Abnormal findings diagnostic imaging of liver and biliary tract (408638253) Problem Abnormal MRI, liver (R93.2) Active confirmed 066084956 VITAL SIGNS Temperature 97.5 degrees Fahrenheit 02/22/2024 Blood pressure diastolic 00 mm Hg 02/22/2024 Height 62 in 02/22/2024 Blood pressure systolic 000 mm Hg 02/22/2024 Weight 219 lb 6 oz lbs 02/22/2024 BMI 40.12 kg/m2 02/22/2024 Encounters Encounter Location Date Provider Diagnosis [facility] [address] [place] [address] 08/24/2023 Delano Gallegos Elevated liver function tests R94.5 ; Fatty liver K76.0 and Abnormal MRI, liver R93.2 [facility] [address] [place] [address] 02/22/2024 Delano Gallegos Elevated liver function tests R94.5 [address] Fat[address] liver [address].0 [facility] [address] [place] [address] 04/05/2024 Delano Gallegos ASSESSMENTS Encounter Date Diagnosis Assessment Notes Treatment [...] DIFF 02/15/2022 PROTHROMBIN TIME (PT, INR) 09/14/2021 CXHAQ-[id number] (A1A) 09/14/2021 ALPHA-FETOPROTEIN,TUMOR MARKER 2 ALPHA-FETOPROTEIN,TUMOR MARKER 4 MRI ABD W&WO CONTRAST 07/25/2022 MRI ABD W&WO CONTRAST 09/24/2021 MRI ABD W&WO CONTRAST 08/24/2023 US LIVER BIOPSY CORE GUIDE 02/15/2022 US ABDOMEN COMP WITH ELASTOGRAPHY 2021 Prothrombin Time INR 02/15/2022 Partial Thromboplastin Time 02/15/2022 Liver Panel 09/14/2021 Creatinine 07/25/2022 Creatinine 09/24/2021 Creatinine 08/24/2023 MR abdomen wo/w con 10/03/2023 Next Appt Details Provider Name:Delano Gallegos , 02/24/2025 01:00:00 PM, [address] [place] [address], [address], [place], [address], Insurance Providers Payer Name Payer Address Payer Phone Subscriber Number Group Number Insured Name Patient Relationship to Insured Coverage Start Date Coverage End Date MEDICAID OF [employer] [address] [place] [address] [id number] HUMBERTO ZUNIAGCECIL Self - patient is the insured MEDICAL (GENERAL) HISTORY Medical History History ICD Code Asthma Prediabetes Denies [place],CVA,renal disease Elevated liver tests due to presumed [...] etc Hyperlipidemia Obesity Liver biopsy in April 023 revealed a mild to moderate steatohepatitis and [...]
--- OUTSIDE RECORDS SUMMARY | 2024-04-14 13:39 | XMS_ITS ---
Author Organization [facility] Address [address] [place] [address] Care Team Providers Care Head And Neck Surgeon Name Role Phone Laviniacastillo Jennifer Primary Care Provider Delano Cesar Unavailable [phone] ALLERGIES No Known Allergies REASON FOR VISIT [...] 02/22/2024 Encounters Encounter Location Date Provider Diagnosis [facility] [address] [place] [address] 02/22/2024 Delano Johnson Elevated liver function tests [...] 01:00:00 PM, [address], [address], [place], [address], Progress Notes * Examination Category Sub-Category Detail [...]
--- OUTSIDE RECORDS SUMMARY | 2024-04-14 13:39 | XMS_ITS ---
Author Organization [facility] Address [address] [place] [address] Care Team Providers Care Structural Steel Erector Name Role Phone Laviniacastillo Jennifer Primary Care Provider Delano Cesar Unavailable [phone] ALLERGIES No Known Allergies REASON FOR VISIT [...] 08/24/2023 Encounters Encounter Location Date Provider Diagnosis [facility] [address] [place] [address] 08/24/2023 Delano Johnson Elevated liver function tests [...] 01:00:00 PM, [address], [address], [place], [address], Progress Notes * Examination Category Sub-Category Detail [...]
--- OUTSIDE RECORDS SUMMARY | 2024-04-14 13:40 | XMS_ITS ---
Author Organization Delano Vallejo III, MD Address [address] [place] [address] Care Team Providers Care Locker Room Attendant Name Role Phone Marcella CROCKER, [place] Primary Care Provider Delano Crawford [phone] REASON FOR VISIT lab results Social History Sex Assigned At : Social History Observation Description Sex Assigned At Female Encounters Encounter Location Date Provider Diagnosis Delano Vallejo III, MD [address] [place] [address] [place] [address] 05/09/2023 Delano Vallejo Plan Of Treatment Next Appt Details Provider Name:Delano Vallejo, 05/02/2024 03:45:00 PM, [address] [place] [address] [place], [address], Progress Notes * ALEXIS LOVEOB:1989 (33 yo F)Acc No.[id number]:05/09/2023 Patient:?CECIL LOVE :1990???Age:33 Y???Sex:Female Address:[address] [place], [address] * true * Date:? Generated for Printi ng/Favidhig/eTransmitting on:?04/14/2024 01:40 PM EST
--- OUTSIDE RECORDS SUMMARY | 2024-04-14 13:40 | XMS_ITS | Patient Health Record ---
Author Organization Delano Vallejo III, MD Address [address] [address] Care Team Providers Care Photo Lab Specialist Name Role Phone Marcella CROCKER, [facility] Primary Care Provider Delano Crawford [phone] Allergies Allergen (clinical drug ingredient) Drug/Non Drug Allergy documented on EMR Reaction Allergy Type Onset Date Status No Known Drug Allergy Unknown Drug Allergy Active Results Component Value Reference Range Notes Complete Blood Count Auto Di ff Reviewed date:04/28/2023 02:54:32 PM Interpretation: Performing Lab:[facility], [address] [place] [address] Notes/Report: White Blood Count 13.2 4.8-10.8 X10*3/uL [...] Panel Reviewed date:04/28/2023 02:54:32 PM Interpretation: Performing Lab:[facility], [address] [place] [address] Notes/Report: Sodium 143 135-145 mmol/L Potassium 3.6 3.3-5.1 mmol/L Chloride 102 96-108 mmol/L Carbon Dioxide 24 22-29 mmol/L Anion Gap 21 12-20 Blood Urea Nitrogen 16 9-16 mg/dL Creatinine 0.94 0.5-1.4 mg/dL Estimated Glomerular Filt Rate > 60 NOTE: For -Italian individuals, multiply the result by 1.210. Chronic [...] REVIEW Reviewed date:04/28/2023 02:54:32 PM Interpretation: Performing Lab:[facility], [address] [place] [address] Notes/Report: SLIDE REVIEW VERIFIED Complete Blood Count Auto Di ff Reviewed date:12/31/2023 06:06:48 AM Interpretation: Performing Lab:[facility], [address] [place] [address] Notes/Report: White Blood Count 11.2 4.8-10.8 X10*3/uL [...] Panel Reviewed date:12/31/2023 06:06:49 AM Interpretation: Performing Lab:[facility], [address] [place] [address] Notes/Report: Sodium 141 135-145 mmol/L Potassium 3.8 3.3-5.1 mmol/L Chloride 106 96-108 mmol/L Carbon Dioxide 24 22-29 mmol/L Anion Gap 15 12-20 Blood Urea Nitrogen 11 9-16 mg/dL Creatinine 0.77 0.5-1.4 mg/dL Estimated Glomerular Filt Rate > 60 NOTE: For -Italian individuals, multiply the result by 1.210. Chronic [...] Status W/U Status Risk Notes Problem Obesity (481349334) Obesity (E66.9) Active confirmed I recomm end that she undergo aggressive weight loss with diet restriction fat calories, oriented, straight speech. Problem Asthma (861486418) Asthma (J45.909) Active confirmed She had no wheezing today and felt well. Problem Thrombocytosis (1267321) Thrombocytosis (D47.3) Active confirmed Her platelets are now normal with 1 mg of anagrelide daily. She has had no side effects and the medication will be continued unchanged. Problem Polycystic ovarian syndrome (E28.2) Active confirmed She will remain under the care of RN MDS. Problem Microcephaly (7663099147) Microcephaly (Q02) Active confirmed Informed consent was obtained from the patient as well as from the mother for the use of anagrelide. Problem Hypothyroid (28209980) Hypothyroid (E03.9) Active confirmed She was continued on current medication. Problem Dyslipidemia (180323642) Dyslipidemia (E78.5) Active confirmed Her fasting lipids will be reviewed. I recommended they be checked 3 times a year. 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 I have advised weight loss and careful surveillance. Problem Mild cognitive disorder (206481008) Mild cognitive impairment of uncertain or unknown [...] Date Provider Diagnosis Delano Vallejo III, MD [address] [place] [address] [address] [place] [address] 04/27/2023 Delano Vallejo Microcephaly Q02 ; Thrombocytosis D47.3 ; Polycystic ovarian syndrome E28.2 ; Mild cognitive impairment of uncertain or unknown etiology G31.84 ; Asthma J45.909 and Elevated liver enzymes R74.8 Delano Vallejo III, MD [address] [place] [address] [address] [place] [address] 08/28/2023 Delano Vallejo Microcephaly Q02 ; Thrombocytosis D47.3 ; Polycystic ovarian syndrome E28.2 ; Mild cognitive impairment of uncertain or unknown etiology G31.84 and Asthma J45.909 Delano Vallejo III, MD [address] [place] [address] [address] [place] [address] 12/31/2023 Delano Vallejo Microcephaly Q02 ; Thrombocytosis D47.3 ; Polycystic ovarian syndrome E28.2 ; Mild cognitive impairment of uncertain or unknown etiology G31.84 and Asthma J45.909 Delano Vallejo III, MD [address] [place] [address] [address] [place] [address] 05/09/2023 Delano Vallejo Assessments Encounter Date Diagnosis [...] She will remain under the care of RN MDS. 08/28/2023 Polycystic ovarian syndrome (ICD-10 - E28.2) She will remain under the care of RN MDS. 12/31/2023 Polycystic ovarian syndrome (ICD-10 - E28.2) She will remain under the care of RN MDS. 04/27/2023 Mild cognitive impairment of uncertain or [...] Details Provider Name:Delano Vallejo, 05/02/2024 03:45:00 PM, [address] [place] [address] , [place], [place], [address], Insurance Providers Payer Name Payer Address Payer Phone Subscriber Number Group Number Insured Name Patient Relationship to Insured Coverage Start Date Coverage End Date MEDICAID [address] [place] [id number] CECIL BRITT Self - patient is the insured Medical (General) History Medical History History ICD Code Asthma J45.909 Elevated liver enzymes R74.8 Microcephaly Q02 Dyslipidemia E78.5 Obesity E66.9 Hypothyroid E03.9 Thrombocytosis D47.3 Surgical History Surgery Date(Month/Year) Bx liver 04/2022
--- OUTSIDE RECORDS SUMMARY | 2024-04-14 13:40 | XMS_ITS ---
Author Organization Delano Vallejo III, MD Address [address] [place] [address] Care Team Providers Care Bridge Ironworker Helper Name Role Phone Marcella CROCKER, [facility] Primary Care Provider Delano Crawford [phone] Allergies Allergen (clinical drug ingredient) Drug/Non Drug [...] Date Provider Diagnosis Delano Vallejo III, MD [address] [place] [address] [place] [address] 12/31/2023 Delano Vallejo Microcephaly Q02 ; Thrombocytosis [...] She will remain under the care of PARADI TENDER. 12/31/2023 Mild cognitive impairment of uncertain or [...] OV Provider Name:Delano Vallejo, 05/02/2024 03:45:00 PM, [address] [place] [address], [facility] [address], [place], [address], Progress Notes * ALEXIS GIANGOB:1989 (33 yo F)Acc No.[id number]:12/31/2023 Progress Notes Patient:?CECIL GIANG Provider:?Delano Vallejo MD :1990???Age:33 Y???Sex:Female D ate:12/31/2023 Address:[address] [place] [address] , [address] [id number] Pcp:Jennifer Naranjo MD Subjective: * Chief Complaints: [...] :She will remain under the care of PARADI TENDER.???4.?Mild cognitive impairment of uncertain or unknown etiology [...] Vallejo MD Date:?12/03 Generated for Anuradha garvey/Gordon/Jahitting on:?04/14/2024 01:39 PM EST History and Physical Notes * HPI (History of Present Illness) Category Sub-Category Detail Notes COVID-19 Screening Questions Have you had any new onset fever, chills, cough, congestion, sore throat, shortness of breath, muscle aches?: No Have you been exposed to the virus with n the last 10 days?: No Have you travelled internationally in [facility] last 10 days?: No Have you been [...]
--- OUTSIDE RECORDS SUMMARY | 2024-04-14 13:40 | XMS_ITS ---
Author Organization Delano Vallejo III, MD Address [address] [place] [address] Care Team Providers Care Russet Repairer Name Role Phone Marcella CROCKER, [facility] Primary Care Provider Delano Crawford [phone] Allergies Allergen (clinical drug ingredient) Drug/Non Drug [...] Date Provider Diagnosis Delano Vallejo III, MD [address] [place] [address] [place] [address] 08/28/2023 Delano Vallejo Microcephaly Q02 ; Thrombocytosis [...] She will remain under the care of BIOMETRICS HEAD. 08/28/2023 Mild cognitive impairment of uncertain or [...] OV Provider Name:Delano Vallejo, 05/02/2024 03:45:00 PM, [address] [place] [address] [address], [place] [address], [place], [address], Progress Notes * COLTONALEXIS WASHINGTONOB:1989 (33 yo F)Acc No.[id number]:08/28/2023 Progress Notes Patient:?CECIL GIANG Provider:?Delano Vallejo MD :1990???Age:33 Y???Sex:Female D ate:08/28/2023 Address:[address] [place] [address] , [address] Pcp:Jennifer Naranjo MD Subjective: * Chief Complaints: [...] She will remain under the care of BIOMETRICS HEAD.?4.?Mild cognitive impairment of uncertain or unknown etiology [...] Vallejo MD Date:?08/01 Generated for Anuradha garvey/Gordon/eTkulwindersmitting on:?04/14/2024 01:39 PM EST History and Physical Notes * HPI (History of Present Illness) Category Sub-Category Detail Notes COVID-19 Screening Questions Have you had any new onset fever, chills, cough, congestion, sore throat, shortness of breath, muscle aches?: No Have you been exposed to the virus withi n the last 10 days?: No Have you travelled internationally in [facility] last 10 days?: No Have you [...]
== END 2024-04-14 11:33 | disposition home or self-care (01) ==
LOC: HO.LAB 11:32
PROVIDERS: PCP Internal Medicine; Visit Provider Internal Medicine
DX: Z00.00 Encounter for general adult medical examination without abnormal findings (principal); D75.838 Other thrombocytosis; E28.2 Polycystic ovarian syndrome; E66.9 Obesity, unspecified; R74.01 Elevation of levels of liver transaminase levels
CPT/HCPCS: 36415; 80053; 83036; 84443; 85025

== ENCOUNTER 2024-04-26 08:10 | Outpatient (REF) | payer MEDICAID, SELFPAY ==
[2024-04-26 08:21] LABS: MANUAL DIFF FLAG NO
[2024-04-26 08:42] LABS: Basophils Absolute Auto 0.1 X10*3/uL (0.0-0.2); Basophils Percent Auto 0.6 % (0-2); Eosinophils Absolute Auto 0.1 X10*3/uL (0.0-0.4); Eosinophils Percent Auto 0.8 % (0-4); Hematocrit 42.8 % (37.0-47.0); Imm Gran Abs Auto 0.04 X10*3/uL (0.00-0.03); Imm Gran Pct Auto 0.3 % (0.0-0.4); Lymphocytes Absolute Auto 4.4 X10*3/uL (1.2-4.9); Mean Corpuscular HGB Conc 32.7 g/dl (31.0-35.0); Mean Corpuscular Hemoglobin 28.6 pg (27.0-33.0); Mean Corpuscular Volume 87.3 fL (80.0-98.0); Mean Platelet Volume 12.7 fL (9.4-12.3); Monocytes Absolute Auto 0.8 X10*3/uL (0.1-1.2); Monocytes Percent Auto 6.5 % (2-11); Neutrophils Absolute Auto 7.1 x10*3/uL (2.0-8.3); Neutrophils Percent Auto 56.8 % (45-73); Platelet Count 169 X10*3/uL (160-400); Red Cell Distribution Width 13.2 % (11.0-16.0); White Blood Count 12.6 X10*3/uL (4.8-10.8)
[2024-04-26 09:14] LABS: Alanine Aminotransferase 38 U/L (0-31); Albumin Level 3.9 g/dL (3.5-5.0); Alkaline Phosphatase 128 U/L (39-117); Anion Gap 13 (12-20); Aspartate Amino Transferase 46 U/L (5-31); Bilirubin Total 0.6 mg/dL (0.0-1.0); Blood Urea Nitrogen 13 mg/dL (9-16); Calcium 9.8 mg/dL (8.4-10.2); Carbon Dioxide 24 mmol/L (22-29); Chloride 107 mmol/L (96-108); Estimated Glomerular Filt Rate > 60; Glucose Random 98 mg/dL (60-115); Potassium 4.2 mmol/L (3.3-5.1); Sodium 140 mmol/L (135-145)
== END 2024-04-26 08:11 | disposition home or self-care (01) ==
LOC: HO.LAB 08:10
PROVIDERS: PCP Internal Medicine; Visit Provider Internal Medicine Medical Oncology
DX: Q02 Microcephaly (principal)
CPT/HCPCS: 36415; 80053; 85025

== ENCOUNTER 2024-07-05 09:34 | Outpatient (REF) | payer MEDICAID, SELFPAY ==
--- OUTSIDE RECORDS SUMMARY | 2024-07-05 09:36 | XMS_ITS | Patient Health Record ---
Author Organization Delano Vallejo III, MD Address [address] [place] [address] Care Team Providers Care Commercial Illustrator Name Role Phone Marcella CROCKER, [facility] Primary Care Provider Delano Crawford [phone] Allergies Allergen (clinical drug ingredient) Drug/Non Drug Allergy documented on EMR Reaction Allergy Type Onset Date Status No Known Drug Allergy Unknown Drug Allergy Active Results Component Value Reference Range Notes Complete Blood Count Auto Di ff Reviewed date:12/31/2023 06:06:48 AM Interpretation: Performing Lab:[facility], [address] [place] [id number] Notes/Report: White Blood Count 11.2 4.8-10.8 X10*3/uL [...] Panel Reviewed date:12/31/2023 06:06:49 AM Interpretation: Performing Lab:[address] [phone] Notes/Report: Sodium 141 135-145 mmol/L Potassium 3.8 3.3-5.1 mmol/L Chloride 106 96-108 mmol/L Carbon Dioxide 24 22-29 mmol/L Anion Gap 15 12-20 Blood Urea Nitrogen 11 9-16 mg/dL Creatinine 0.77 0.5-1.4 mg/dL Estimated Glomerular Filt Rate > 60 NOTE: For -Cymro individuals, multiply the result by 1.210. Chronic Kidney Disease: Estimated GFR < 60 mL/min/1.73m2 Severe Kidney Disease: Estimated GFR < 15 mL/min/1.73m2 Glucose Random 100 60-115 mg/dL Calcium 10.1 8.4-10.2 mg/dL Bilirubin Total 0.6 0.0-1.0 mg/dL Aspartate Amino Transferase 53 5-31 U/L Alanine Aminotransferase 55 0-31 U/L Total Protein 7.7 6.5-8.0 g/dL Albumin Level 3.9 3.5-5.0 g/dL Alkaline Phosphatase 138 39-117 U/L Complete Blood Count Auto Di ff Reviewed date:04/27/2024 04:42:22 PM Interpretation: Performing Lab:[facility], [address] [place] [phone] Notes/Report: White Blood Count 12.6 4.8-10.8 X10*3/uL Red Blood Count 4.90 4.20-5.50 X10*6/uL Hemoglobin 14.0 12.0-16.0 g/dl Hematocrit 42.8 37.0-47.0 % Mean Corpuscular Volume 87.3 80.0-98.0 fL Mean Corpuscular Hemoglobin 28.6 27.0-33.0 pg Mean Corpuscular HGB Conc 32.7 31.0-35.0 g/dl Red Cell Distribution Width 13.2 11.0-16.0 % Platelet Count 169 160-400 X10*3/uL Mean Platelet Volume 12.7 9.4-12.3 fL Neutrophils Percent Auto 56.8 45-73 % Imm Gran Pct Auto 0.3 0.0-0.4 % Lymphocytes Percent Auto 35.0 20-40 % Monocytes Percent Auto 6.5 2-11 % Eosinophils Percent Auto 0.8 0-4 % Basophils Percent Auto 0.6 0-2 % NRBC Pct Auto 0.0 0.0-0.2 /100WBC Neutrophils Absolute Auto 7.1 2.0-8.3 x10*3/u L Imm Gran Abs Auto 0.04 0.00-0.03 X10*3/uL Lymphocytes Absolute Auto 4.4 1.2-4.9 X10*3/u L Monocytes Absolute Auto 0.8 0.1-1.2 X10*3/uL Eosinophils Absolute Auto 0.1 0.0-0.4 X10*3/u L Basophils Absolute Auto 0.1 0.0-0.2 X10*3/uL NRBC Abs Auto 0.000 0.0-0.012 X10*3/uL Comprehensive Met. Panel Reviewed date:04/27/2024 04:42:22 PM Interpretation: Performing Lab:[facility], [address] [place] [phone] Notes/Report: Sodium 140 135-145 mmol/L Potassium 4.2 3.3-5.1 mmol/L Chloride 107 96-108 mmol/L Carbon Dioxide 24 22-29 mmol/L Anion Gap 13 12-20 Blood Urea Nitrogen 13 9-16 mg/dL Creatinine 0.68 0.5-1.4 mg/dL Estimated Glomerular Filt Rate > 60 Chronic Kidney Disease: Estimated GFR < 60 mL/min/1.73m2 Severe Kidney Disease: Estimated GFR < 15 mL/min/1.73m2 Glucose Random 98 60-115 mg/dL Calcium 9.8 8.4-10.2 mg/dL Bilirubin Total 0.6 0.0-1.0 mg/dL Aspartate Amino Transferase 46 5-31 U/L Alanine Aminotransferase 38 0-31 U/L Total Protein 8.0 6.5-8.0 g/dL Albumin Level 3.9 3.5-5.0 g/dL Alkaline Phosphatase 128 39-117 U/L Reason For Referral No Information [...] BY MOUTH TWICE A DAY Oral Active Aspir-81 Active Ursodiol 500 MG TAKE 1 TABLET BY FLO DAILY FOR 2 WEEKS, AND THEN START USING IT TWICE A DAY. Oral Active Social History Tobacco Use: Social [...] Problem Status W/U Status Risk Notes Problem Asthma (216426420) Asthma (J45.909) Active confirmed She had no wheezing today and felt well. Problem Thrombocytosis (8635661) Thrombocytosis (D47.3) Active confirmed Her platelets are now normal with 1 mg of anagrelide daily. She has had no side effects and the medication will be continued unchanged. Problem Polycystic ovary syndrome (disorder) (825964084) Polycystic ovarian syndrome (E28.2) Active confirmed She will remain under the care of AGRICULTURAL INSPECTOR. Problem Microcephaly (1307121117) Microcephaly (Q02) Active confirmed No changes in her neurologic or psychiatric status have been noted. She is awake and alert, pleasant, friendly antireticuli n. Problem Hypothyroid (25484755) Hypothyroid (E03.9) Active confirmed She has been compliant with her medication. Thyroid function test have been ordered and will be done periodically . Problem Dyslipidemia (023176532) Dyslipidemia (E78.5) Active confirmed Her fasting lipids will be reviewed. I recommended they be checked 3 times a year. Problem 345722657 Morbid obesity (E66.01) Active confirmed She has gained 10 pounds. Her body mass index is now slightly over 40. She falls into the morbidly obese range. We have discussed diet and nutrition. She and her mother will consider a referral to the weight loss program at [facility]. Problem Elevated liver enzymes level (953748989) Elevated liver enzymes (R74.8) Active confirmed There remains slight elevation of the enzymes but there generally improving. They will be observed without treatment at this time. Problem 4596144 Thrombocytosis (D75.839) Active confirmed Her platelet count remains over 169,000. She will continue anagrelide at the current dose to prevent thrombosis. Problem Mild cognitive disorder (227960436) Mild cognitive impairment of uncertain or unknown etiology (G31.84) Active confirmed She was pleasant and seems to understand the discussion. Her change in her regimen other than the aspirin was needed Vital Signs Heart Rate 80 /min 05/02/2024 Temperature 96.9 degrees Fahrenheit 05/02/2024 Blood pressure diastolic 85 mm Hg 05/02/2024 Height 5 ft 2 in in 05/02/2024 Blood pressure systolic 116 mm Hg 05/02/2024 Weight 223 lbs 05/02/2024 BMI 40.78 kg/m2 05/02/2024 Encounters Encounter Location Date Provider Diagnosis Delano Vallejo III, MD [address] [place] [address] [address] [place] [address] 08/28/2023 Delano Vallejo Microcephaly Q02 ; Thrombocytosis D47.3 ; Polycystic ovarian syndrome E28.2 ; Mild cognitive impairment of uncertain or unknown etiology G31.84 and Asthma J45.909 Delano Vallejo III, MD [address] [place] [address] [address] [place] [address] 12/31/2023 Delano Vallejo Microcephaly Q02 ; Thrombocytosis D47.3 ; Polycystic ovarian syndrome E28.2 ; Mild cognitive impairment of uncertain or unknown etiology G31.84 and Asthma J45.909 Delano Vallejo III, MD [address] [place] [address] [address] [place] [address] 05/02/2024 Delano Vallejo Morbid obesity E66.0 1 ; Thrombocytosis D75.839 ; Microcephaly Q02 ; Elevated liver enzymes R74.8 ; Hypothyroid E03.9 ; Mild cognitive impairment of uncertain or unknown etiology G31.84 and Polycystic ovarian syndrome E28.2 Assessments Encounter Date Diagnosis (ICD Code) Assessment Notes Treat ment Notes Treatment Clinical Notes 08/28/2023 Thrombocytosis (ICD-10 - D47.3) Her platelets [...] the mother for the use of anagrelide. 05/02/2024 Morbid obesity (ICD-10 - E66.01) She has gained 10 pounds. Her body mass index is now slightly over 40. She falls into the morbidly obese range. We have discussed diet and nutrition. She and her mother will consider a referral to the weight loss program at [facility]. 05/02/2024 Thrombocytosis (ICD-10 - D75.839) Her platelet count remains over 169,000. She will continue anagrelide at the current dose to prevent thrombosis. 08/28/2023 Polycystic ovarian syndrome (ICD-10 - E28.2) She will remain under the care of AGRICULTURAL INSPECTOR. 12/31/2023 Polycystic ovarian syndrome (ICD-10 - E28.2) She will remain under the care of AGRICULTURAL INSPECTOR. 05/02/2024 Microcephaly (ICD-10 - Q02) No changes in her neurologic or psychiatric status have been noted. She is awake and alert, pleasant, friendly antireticulin. 08/28/2023 Mild cognitive impairment of uncertain or [...] other than the aspirin was needed 05/02/2024 Elevated liver enzymes (ICD-10 - R74.8) There remains slight elevation of the enzymes but there generally improving. They will be observed without treatment at this time. 08/28/2023 Asthma (ICD-10 - J45.909) She had no wheezing today and felt well. 12/31/2023 Asthma (ICD-10 - J45.909) She had no wheezing today and felt well. 05/02/2024 Hypothyroid (ICD-10 - E03.9) She has [...] She will remain under the care of AGRICULTURAL INSPECTOR. Plan Of Treatment Pending Test Test Name Order Date PROFILE, RANDOM (COMPREHENSIVE METABOLIC ) 05/02/2024 PROFILE, RANDOM (COMPREHENSIVE METABOLIC ) 08/28/2023 PROFILE, RANDOM (COMPREHENSIVE METABOLIC ) 12/31/2023 PROFILE, RANDOM (COMPREHENSIVE METABOLIC ) 04/27/2023 TSH (THYROID STIMULATING HORMONE) 2024 CBC w DIFF 10/17/2022 CBC w DIFF 10/31/2022 JAK2 MUTATION PCR 10/17/2022 CBC WITH AUTO DIFF 04/27/2023 CBC WITH AUTO DIFF 05/02/2024 CBC WITH AUTO DIFF 08/28/2023 CBC WITH AUTO DIFF 03/02/2023 CBC WITH AUTO DIFF 12/31/2023 Free T4 (Free Thyroxine) 05/02/2024 Next Appt Details Provider Name:Delano Vallejo, 08/01/2024 04:00:00 PM, [address] [place] [address] [address], [address], [place], [address], Insurance Providers Payer Name Payer Address Payer Phone Subscriber Number Group Number Insured Name Patient Relationship to Insured Coverage Start Date Coverage End Date [employer] [place] [address] [place], [place] [id number] CECIL BRITT Self - patient is the insured Medical (General) History Medical History History ICD Code Asthma J45.909 Elevated liver enzymes R74.8 Microcephaly Q02 Dyslipidemia E78.5 Obesity E66.9 Hypothyroid E03.9 Thrombocytosis D47.3 Surgical History Surgery Date(Month/Year) Bx liver 04/2022
--- OUTSIDE RECORDS SUMMARY | 2024-07-05 09:37 | XMS_ITS ---
Author Organization Delano Vallejo III, MD Address [address] [place] [address] Care Team Providers Care Linotyper Name Role Phone Marcella CROCKER, [facility] Primary Care Provider Delano Crawford [phone] Allergies Allergen (clinical drug ingredient) Drug/Non Drug [...] Date Provider Diagnosis Delano Vallejo III, MD [address] [place] [address] [place] [address] 12/31/2023 Delano Vallejo Microcephaly Q02 ; Thrombocytosis [...] She will remain under the care of TAX EVALUATOR. 12/31/2023 Mild cognitive impairment of uncertain or [...] 4 Months, Reason: OV Provider Name:Delano Vallejo, 08/01/2024 04:00:00 PM, [address] [place] [address], [facility] [address], [place], [address], Progress Notes * ALEXIS GIANGOB:1989 (33 yo F)Acc No.[id number]:12/31/2023 Progress Notes Patient:?CECIL GIANG Provider:?Delano Vallejo MD :1990???Age:33 Y???Sex:Female D ate:12/31/2023 Address:[address] [place] [address] , [address] [facility] Pcp:Jennifer Naranjo MD Subjective: * Chief Complaints: [...] :She will remain under the care of TAX EVALUATOR.???4.?Mild cognitive impairment of uncertain or unknown etiology [...] Vallejo MD Date:?12/03 Generated for Anuradha garvey/Gordon/Jahitting on:?07/05/2024 09:36 AM EDT History and Physical Notes * HPI (History of Present Illness) Category Sub-Category Detail Notes COVID-19 Screening Questions Have you had any new onset fever, chills, cough, congestion, sore throat, shortness of breath, muscle aches?: No Have you been exposed to the virus with n the last 10 days?: No Have you travelled internationally in last 10 days?: No Have you been [...]
--- OUTSIDE RECORDS SUMMARY | 2024-07-05 09:37 | XMS_ITS ---
Author Organization [facility] Address [address] [place] [address] Care Team Providers Care Inclusion Internship Name Role Phone Laviniacastillo Jennifer Primary Care Provider Delano Cesar Unavailable [phone] Allergies No Known Allergies REASON FOR VISIT Patient presents today for elevated lft's Medications Medication SIG (Take, Route, Frequency, Duration) [...] a day for 30 day(s) 08/24/2023 Active Social History Tobacco Use: Social History Observation Description Date Details (start date - stop date) Never Smoker NA - NA Tobacco Use/Smoking Question Answer Notes Patient is a nonsmoker Alcohol Screen Question Answer Notes Did you have a drink containing alcohol in the p ast year? No Points 0 Interpretation Negative Section Notes: She is a nonsmoker and does not use any alcohol. Vital Signs Temperature 97.8 degrees Fahrenheit 08/24/19 24 Blood pressure systolic 000 mm Hg 08/24/19 24 Blood pressure diastolic 00 mm Hg 024 Height 62 in 08/24/2023 Weight 219 lbs 08/24/2023 BMI 40.05 kg/m2 08/24/2023 Encounters Encounter Location Date Provider Diagnosis [facility] [address] [place] [address] 08/24/2023 Delano Johnson Elevated liver function tests R94.5 ; Fatty liver K76.0 and Abnormal MRI, liver R93.2 Assessments Encounter Date Diagnosis (ICD Code) Assessment Notes Treatment Notes Treatment Clinical Notes Section Notes 08/24/2023 Elevated liver function tests (ICD-10 - R94.5) Overall, Cecil appears well and is not having any worrisome signs or symptoms to suggest progressive liver disease. Nonetheless, I am concerned about her rising LFTs as compared to last year's values. We did review that her fatty liver is certainly related to her diet and weight. Obviously, the best thing for this would be to have her eat healthy and carefully but given the circumstances that may not be completely feasible. At this point I recommended that we put her on a trial of some ursodiol just to see if we can lower the LFTs and minimize inflammation from the fatty liver so as to hopefully decrease risk of any progressive liver damage. I shall check a liver profile in October and December to follow things on the ursodiol and then see her in January for a followup visit. I did encourage her and her mother to try to eat healthy and to lose some weight. I shall also schedule her for a followup MRI of the liver given the underlying fatty liver and questionable lesions seen on July of 2022's MRI. I shall also check an alpha-fetoprotein level. Cecil and her mother seemed comfortable with this plan. Thank you again for allowing me to participate in Cecil's care. I shall continue to keep you advised of her progress. 08/24/2023 Fatty liver (ICD-10 - K76.0) Overall, Cecil appears well and is not having any worrisome signs or symptoms to suggest progressive liver disease. Nonetheless, I am concerned about her rising LFTs as compared to last year's values. We did review that her fatty liver is certainly related to her diet and weight. Obviously, the best thing for this would be to have her eat healthy and carefully but given the circumstances that may not be completely feasible. At this point I recommended that we put her on a trial of some ursodiol just to see if we can lower the LFTs and minimize inflammation from the fatty liver so as to hopefully decrease risk of any progressive liver damage. I shall check a liver profile in October and December to follow things on the ursodiol and then see her in January for a followup visit. I did encourage her and her mother to try to eat healthy and to lose some weight. I shall also schedule her for a followup MRI of the liver given the underlying fatty liver and questionable lesions seen on July of 2022's MRI. I shall also check an alpha-fetoprotein level. Cecil and her mother seemed comfortable with this plan. Thank you again for allowing me to participate in Cecil's care. I shall continue to keep you advised of her progress. 08/24/2023 Abnormal MRI, liver (ICD-10 - R93.2) Overall, Cecil appears well and is not having any worrisome signs or symptoms to suggest progressive liver disease. Nonetheless, I am concerned about her rising LFTs as compared to last year's values. We did review that her fatty liver is certainly related to her diet and weight. Obviously, the best thing for this would be to have her eat healthy and carefully but given the circumstances that may not be completely feasible. At this point I recommended that we put her on a trial of some ursodiol just to see if we can lower the LFTs and minimize inflammation from the fatty liver so as to hopefully decrease risk of any progressive liver damage. I shall check a liver profile in October and December to follow things on the ursodiol and then see her in January for a followup visit. I did encourage her and her mother to try to eat healthy and to lose some weight. I shall also schedule her for a followup MRI of the liver given the underlying fatty liver and questionable lesions seen on July of 2022's MRI. I shall also check an alpha-fetoprotein level. Cecil and her mother seemed comfortable with this plan. Thank you again for allowing me to participate in Cecil's care. I shall continue to keep you advised of her progress. Plan Of Treatment Medication Medication Name Sig [...] Follow Up: 6 Months, Reason: Provider Name:Delano Fernandes Alex , 02/24/2025 01:00:00 PM, [address], [address], [place], [address], Progress Notes * ALEXIS LOVEOB:1989 (33 yo F)Acc No.[id number]:08/24/2023 Progress Notes Patient:?CECIL LOVE Provider:?Delano Johnson MD :1990???Age:33 Y???Sex:Female D ate:08/24/2023 Address:[address] [place], [place] [id number] Pcp:Jennifer Naranjo Subjective: * Chief Complaints: * ???Patient presents today fo r elevated lft's * HPI: ???incontinence:? I saw Cecil in followup today in regard to her underlying history of fatty liver, elevated LFTs, and abnormal MRI of the liver. She is accompanied by her mother. ?I last saw Cecil in December 2022. Since that time she has reportedly been feeling well. She does have occasional right-sided upper abdominal discomfort but no other particular abdominal pains. She has not had any signs of jaundice, nausea, nor vomiting. There has been no reported diarrhea nor any signs of bleeding. She has not been able to really stick to any type of healthy diet and has gained at least 5- 10 pounds since she was here last. There has been no reported anorexia, pruritus, increasing abdominal girth, edema, Nor any fatigue. ?Her laboratories from July revealed a normal CBC with platelet count. However, her liver profile did show elevations with an AST of 117 and ALT of 95, as compared to an AST of 50 and ALT of 35 last December. * ROS:?General/Constitutional:?Change in appetite?denies.?Chills?denies.?Fatigue?denies.?Ophthalmologic:?Comments?all negative.?ENT:?Comments?all negative.?Respiratory:?hemoptysis?denies.?Cough?denies.?Cardiovascular:?Chest pain?denies.?Orthopnea?denies.?Gastrointestinal:?Comments?See HPI for details.?Genitourinary:?Hematuria?denies.?Dysuria?denies.?Musculoskeletal:?Painful joints?denies.?Weakness?denies.?Skin:?Itching?denies.?Rash?denies.?Neurologic:?Headache?denies.?Seizures?denies.?Psychiatric:?Comments?all negative.? * Medical History:? * Surgical History:?Fractured legs @ 18 months---just had to be set---no hardware * Hospitalization/Major Diagno stic Procedure:?No Hospitalization History. * Family History:?Father: mariely johnson, diagnosed with Diabetes, HTN (hypertension).?Mother: alive, diagnosed with HTN (hypertension).?Maternal Grand Father: diagnosed with Diabetes.?Paternal uncle: diagnosed with Diabetes.? No family history of colon cancer or liver disease. * Social History:?Tobacco Use:?Tobacco Use/Smoking?Patient is a?nonsmoker.?Drugs/Alcohol:?Alcohol Screen?Did you have a drink containing alcohol in the past year??No,?Points?0,?Interpretation?Negative.?Miscellaneous:?Marital status: Single. 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 ???She is a nonsmoker and does not use any alcohol. * Medications:?TakingAspirin 8 1 81 MG Tablet Delayed Release 1 tablet Orally Once a daymetFORMIN HCl 500 MG Tablet 1 tablet with a meal Orally Once a dayDrospirenone-Ethinyl Estradiol 3-0.03 MG Tablet TAKE ONE TABLET BY MOUTH EVERY DAY Oral Ibuprofen 400 MG Tablet TAKE ONE TABLET BY MOUTH THREE TIMES A DAY Oral Anagrelide HCl 1 MG Capsule TAKE 1 CAPSULE BY MOUTH DAILY Oral Medication List reviewed and reconciled with the patientTaking Aspirin 81 81 MG Tablet Delayed Release 1 tablet Orally Once a dayTaking metFORMIN HCl 500 MG Tablet 1 tablet with a meal Orally Once a dayTaking Drospirenone-Ethinyl Estradiol 3-0.03 MG Tablet TAKE ONE TABLET BY MOUTH EVERY DAY Oral Taking Ibuprofen 400 MG Tablet TAKE ONE TABLET BY MOUTH THREE TIMES A DAY Oral Taking Anagrelide HCl 1 MG Capsule TAKE 1 CAPSULE BY MOUTH DAILY Oral Medication List reviewed and reconciled with the patient * Allergies:?N.K.D.A.yes[Aller gies Verified] Objective: * Vitals:?Wt: 219 lbs, Ht: 62 in, BMI:40.05 Index, BP: 000/00 mm Hg, Temp: 97.8. * Examination: ???General Examination: ?GENERAL APPEARANCE:?pleasant, well nourished, well developed, in no acute distress.?EYES:?sclera non-icteric.?ORAL CAVITY:?mucosa moist.?NECK/THYROID:?no cervical lymphadenopathy, neck supple.?SKIN:?nonjaundiced, no spider angiomata.?HEART:?S1, S2 normal.?LUNGS:?clear to auscultation bilaterally.?ABDOMEN:?normal bowel sounds, no guarding or rigidity, no guarding or rigidity, no masses palpable, soft, nontender, nondistended.?EXTREMITIES:?no edema.?NEUROLOGIC:?alert and oriented.? Assessment: * Assessment: 1.?Fatty liver - K76.0 (Prim antionette)?2.?Elevated liver function tests - R94.5?3.?Abnormal MRI, liver - R93.2? Overall, Cecil appears well and is not having any worrisome signs or symptoms to suggest progressive liver disease. Nonetheless, I am concerned about her rising LFTs as compared to last year's values. We did review that her fatty liver is certainly related to her diet and weight. Obviously, the best thing for this would be to have her eat healthy and carefully but given the circumstances that may not be completely feasible. At this point I recommended that we put her on a trial of some ursodiol just to see if we can lower the LFTs and minimize inflammation from the fatty liver so as to hopefully decrease risk of any progressive liver damage. I shall check a liver profile in October and December to follow things on the ursodiol and then see her in January for a followup visit. I did encourage her and her mother to try to eat healthy and to lose some weight. I shall also schedule her for a followup MRI of the liver given the underlying fatty liver and questionable lesions seen on July of 2022's MRI. I shall also check an alpha-fetoprotein level. Cecil and her mother seemed comfortable with this plan. Thank you again for allowing me to participate in Cecil's care. I shall continue to keep you advised of her progress. Plan: * Treatment: ?LAB: ALPHA-FETOPROTEIN,TUMOR MARKER ?LAB: Creatinine ?Imaging: MRI ABD W&WO CONTRAST* Ref # [id number] 308/26/2 -08/26/24Colon,Stephanie 08/28/2023 09:33:20 AM EDT >order faxed w/ ref for scheduling * 2.?Elevated liver function tests?LAB: BUN ?LAB: LIVER PROFILE* Do the liver profile lab in 11/2023 and 01/2024 ?LAB: ALPHA-FETOPROTEIN,TUMOR MARKER ?LAB: Creatinine ?Imaging: MRI ABD W&WO CONTRAST* Ref # [id number] 308/26/2 -08/26/24Colon,Stephanie 08/28/2023 09:33:20 AM EDT >order faxed w/ ref for scheduling * 3.?Abnormal MRI, liver?LAB: BUN ?LAB: LIVER PROFILE* Do the liver profile lab in 11/2023 and 01/2024 ?LAB: ALPHA-FETOPROTEIN,TUMOR MARKER ?LAB: Creatinine ?Imaging: MRI ABD W&WO CONTRAST* Ref # [id number] 3vis 4-08/26/24Stephanie Khan 08/28/2023 09:33:20 AM EDT >order faxed w/ ref for scheduling * * Procedure Codes:?1036F TOBAC CO NON-[id number] BP SCR NOT PRFRM REC REASON NOS * Preventive Medicine:? ??Counseling:?Care goal follow-up plan:?Above Normal BMI Follow-up?Giving encouragement to exercise,?BMI management provided?Yes.? * Follow Up:?6 Months * * Sign off status: Completed true * Provider:?Delano Johnson MD Date:? 024 Generated for Printi ng/Syedg/eTransmitting on:?07/05/2024 09:36 AM EDT History and Physical Notes * HPI (History of Present Illness) Category Sub-Category Detail Notes Category Not es incontinence I saw Cecil in followup today in regard to her underlying history of fatty liver, elevated LFTs, and abnormal MRI of the liver. She is accompanied by her mother. I last saw Cecil in December 2022. Since that time she has reportedly been feeling well. She does have occasional right-sided upper abdominal discomfort but no other particular abdominal pains. She has not had any signs of jaundice, nausea, nor vomiting. There has been no reported diarrhea nor any signs of bleeding. She has not been able to really stick to any type of healthy diet and has gained at least 5-10 pounds since she was here last. There has been no reported anorexia, pruritus, increasing abdominal girth, edema, Nor any fatigue. Her laboratories from July revealed a normal CBC with platelet count. However, her liver profile did show elevations with an AST of 117 and ALT of 95, as compared to an AST of 50 and ALT of 35 last December. Examination Category Sub-Category Detail Notes Category Not es General Examination GENERAL APPEARANCE: pleasant , well [...]
--- OUTSIDE RECORDS SUMMARY | 2024-07-05 09:37 | XMS_ITS | Patient Health Record ---
Author Organization [facility] Address [address] [place] [address] Care Team Providers Care Ship Captain Name Role Phone Jennifer Naranjo Primary Care Provider Unavailab Delano Stapleton Unavailable [phone] Allergies No Known Allergies Results Component Value Reference Range Notes Complete Blood Count Auto Di ff Reviewed date:08/20/2023 09:34:17 PM Interpretation: Performing Lab:[facility], [address] [place] [phone] Notes/Report: White Blood Count 9.7 4.8-10.8 X10*3/uL [...] Panel Reviewed date:08/20/2023 09:34:45 PM Interpretation: Performing Lab:[facility], [address] [place] [phone] Notes/Report: Bilirubin Total 0.6 0.0-1.0 mg/dL Bilirubin Direct 0.2 0.0-0.5 mg/dL Aspartate Amino Transferase 117 5-31 U/L Alanine Aminotransferase 95 0-31 U/L Total Protein 8.0 6.5-8.0 g/dL Albumin Level 4.0 3.5-5.0 g/dL Alkaline Phosphatase 142 39-117 U/L Liver Panel Reviewed date:02/22/2024 01:34:17 PM Interpretation: Performing Lab:[address] [address] Notes/Report: Bilirubin Total 0.3 0.0-1.0 mg/dL Bilirubin Direct 0.1 0.0-0.5 mg/dL Aspartate Amino Transferase 19 5-31 U/L Alanine Aminotransferase 17 0-31 U/L Total Protein 7.7 6.5-8.0 g/dL Albumin Level 3.8 3.5-5.0 g/dL Alkaline Phosphatase 124 39-117 U/L Blood Urea Nitrogen Reviewed date:10/02/2023 05:27:12 PM Interpretation: Performing Lab:[address] [address] Notes/Report: Blood Urea Nitrogen 8 9-16 mg/dL Creatinine Reviewed date:10/02/2023 05:27:22 PM Interpretation: Performing Lab:[address] [address] Notes/Report: Creatinine 0.71 0.5-1.4 mg/dL Estimated Glomerular Filt Rate > 60 NOTE: For -Cambodian individuals, multiply the result by 1.210. Chronic Kidney Disease: Estimated GFR < 60 mL/min/1.73m2 Severe Kidney Disease: Estimated GFR < 15 mL/min/1.73m2 Alpha Fetoprotein Reviewed date:10/03/2023 02:23:38 PM Interpretation: Performing Lab:[address] [address] Notes/Report: Alpha Fetoprotein 0.6 Reference Range: <6.1 [...] of disease. THIS TEST WAS PERFORMED AT: [facility] [address] [place] [phone] MARU BENEDICT MD MR abdomen wo/w con (Not yet reviewed by provider) Interpretation: Performing Lab: Notes/Report: [address] [address] Magnetic Resonance Report Signed Patient: Cecil Giang MR#: [id number] : 1990 Acct:[id number] Age/Sex: 33 / F ADM Date: 10/03/23 Loc: HO.MRI Attending Dr: Delano Gallegos MD Ordering Physician: Delano Gallegos MD Date of Service: 10/03/23 Procedure(s): MR abdomen wo/w con Accession Number(s): [id number] cc: Jennifer Naranjo MD; Delano Gallegos MD [...] in OV> 10/31/23 0823 DD/ 1605 TD/TT: Gang Boss: [place] [address] Magnetic Resonance Report Signed Patient: Cecil Giang MR#: [id number] : 1990 Acct:[id number] Age/Sex: 33 / F ADM Date: 10/03/23 Loc: HO.MRI Attending Dr: Delano Gallegos MD Ordering Physician: Delano Gallegos MD Date of Service: 10/03/23 Procedure(s): MR abd omen wo/w con Accession Number(s): [id number] cc: Jennifer Naranjo MD; Delano Gallegos MD EXAMINATION: MR ABDOMEN WITHOUT A ND WITH CONTRAST CLINICAL INFORMATION: Hepatic steatosis. Elevated LFTs. COMPARISON: 08/18/2022 and 01/31/2022 TECHNIQUE: MR abdomen was perfo rmed without and with use of 10 mL intravenous Gadavist gadolinium contrast. Postcontrast images are performed in multiphase dynamic sequences. Imaging was performed in 3 planes. FINDINGS: LUNG BASES: No pleur al or pericardial effusion. LIVER, GALLBLADDER, AND BILIARY TREE: The liver measures 21.7 cm in sagittal dimension. Hepatic steatosis. The previously demonstrated 1.3 cm lesion in the rig ht hepatic lobe suggestive of focal nodular hyperplasia is not conspicuous on the current study. No biliary ductal dilatation. The gallbladder is contracted. PANCREAS: No ductal dilatation. SPLEEN: Not enlarged. ADRENAL GLANDS: No adrenal mass. KIDNEYS AND URETERS: The kidneys are normal in size, shape, and enhance symmetrically. No hydronephrosis. No perinephric stranding. GASTROINTESTINAL TRA CT: No bowel obstruction. No ascites or fluid collection. LYMPH NODES: No bulk y lymphadenopathy. VASCULAR: Normal christi iber abdominal aorta. M R/MR abdomen wo/w con IMPRESSION: Hepatomegaly and hep atic steatosis. Of note previously demonstrated 1.3 cm lesion in the rig ht hepatic lobe characteristic of focal nodular hyperplasia is not conspicuous on the current study. Dictated By: Eulalio Smith MD Signed By: <Electronically signed by Eulalio Smith MD in OV> 10/31/23 0823 DD/ 1605 TD/TT: Gang Boss: Liver Panel Reviewed date:02/16/2024 11:25:47 AM Interpretation: Performing Lab:[facility], [address] [place] [phone] Notes/Report: Bilirubin Total 0.5 0.0-1.0 mg/dL Bilirubin Direct 0.2 0.0-0.5 mg/dL Aspartate Amino Transferase 21 5-31 U/L Alanine Aminotransferase 21 0-31 U/L Total Protein 7.8 6.5-8.0 g/dL Albumin Level 3.9 3.5-5.0 g/dL Alkaline Phosphatase 131 39-117 U/L Reason For Referral Referring Provider First Name Jennifer Referring Provider Last Name Marcella Referring Provider Speciality Internal M edicine Referred Organization [facility] Referred Provider Delano Gallegos Referred Address [address] [place] [address],[place] [address],[place], [place],[address],[place] Referred Provider Specialty Gastroentero logy General Notes Radha Lombardi 024 02:13:32 PM EDT > requested a SSN Funding ref from dr louis office for visit with dr gallegos om Referral Priority Routine Medications Medication SIG (Take, Route, Frequency, Duration) [...] a day for 30 day(s) 08/24/2023 Active Immunizations Vaccine Route Administration Date Status Comme nts Influenza Unknown 01/18/2021 Administered Influenza Unknown 01/31/2022 Administered Influenza Unknown 12/19/2022 Administered Influenza Unknown 02/07/2024 Administered Social History Tobacco Use: Social History Observation [...] Never (0 point) Points 1 Interpretation Negative Section Notes: She is a nonsmoker and does not use any alcohol. She is a nonsmoker and does not use any alcohol. She is a nonsmoker and does not use any alcohol. She is a nonsmoker and does not use any alcohol. She is a nonsmoker and does not use any alcohol. Problems Problem Type SNOMED Code ICD Code Onset Dates Problem Status W/U Status Risk Notes Problem Elevated liver enzymes level (102366714) Elevated liver function tests (R79.89) Active confirmed Problem Fatty liver (111935129) Fatty liver (K76.0) Active confirmed Problem Iron deficiency anemia due to chronic blood loss (797761183) Iron deficiency anemia due to chronic blood loss (D50.0) Active confirmed Problem Abnormal findings diagnostic imaging of liver and biliary tract (732143759) Abnormal liver ultrasound (R93.2) Active confirmed Problem 875116402 Abnormal MRI, liver (R93.2) Active confirmed Problem Elevated liver enzymes level (708379986) Elevated liver function tests (R94.5) Active confirmed Vital Signs Temperature 97.5 degrees Fahrenheit 02/22/2024 Blood pressure diastolic 00 mm Hg 02/22/2024 Height 62 in 02/22/2024 Blood pressure systolic 000 mm Hg 02/22/2024 Weight 219 lb 6 oz lbs 02/22/2024 BMI 40.12 kg/m2 02/22/2024 Encounters Encounter Location Date Provider Diagnosis [facility] [address] [place] [address] 08/24/2023 Delano Gallegos Elevated liver function tests R94.5 ; Fatty liver K76.0 and Abnormal MRI, liver R93.2 [facility] [address] [place] [phone] 02/22/2024 Delano Gallegos Elevated liver function tests R94.5 and Fatty liver K76.0 [facility] [address] [place] [phone] 04/05/2024 Delano Gallegos Assessments Encounter Date Diagnosis (ICD Code) Assessment Notes Treatment Notes Treatment Clinical Notes Section Notes 08/24/2023 Fatty liver (ICD-10 - K76.0) Overall, [...] keep you advised of her progress. 08/24/2023 Elevated liver function tests (ICD-10 - [...] to keep you advised of her progress. 02/22/2024 Fatty liver (ICD-10 - K76.0) Overall, Cecil appears quite well. She does not have any symptoms nor show any signs of progressive liver disease at this time. The normalization of her liver profile on the Ursodiol is also quite encouraging. We did review all of her studies over the past 6 months. At this time I advised her to continue the current regimen of the ursodiol as it does seem to be helping in regard to her previously elevated liver tests. We did review that obviously trying to lose weight and eating a healthy diet will help with the fatty liver as well. At this point I don't think any other intervention is required and I advised her to simply continue the ursodiol at 500 mg b.i.d.. I will plan to see her in 1 year for followup office visit. I have given her a lab slip to check a liver profile every 6 months between now and then. I did advise her and her mother to call if she has any problems or questions that I can be of assistance with in the interim. Cecil and her mother were comfortable with this plan. Thank you again for allowing me to participate in Cecil's care. I shall continue to keep you advised of her progress. 02/22/2024 Elevated liver function tests (ICD-10 - R94.5) Continue the Ursodiol 500 mg twice a day Eat as healthy as possible, avoid fatty foods Overall, Cecil appears quite well. She does not have any symptoms nor show any signs of progressive liver disease at this time. The normalization of her liver profile on the Ursodiol is also quite encouraging. We did review all of her studies over the past 6 months. At this time I advised her to continue the current regimen of the ursodiol as it does seem to be helping in regard to her previously elevated liver tests. We did review that obviously trying to lose weight and eating a healthy diet will help with the fatty liver as well. At this point I don't think any other intervention is required and I advised her to simply continue the ursodiol at 500 mg b.i.d.. I will plan to see her in 1 year for followup office visit. I have given her a lab slip to check a liver profile every 6 months between now and then. I did advise her and her mother to call if she has any problems or questions that I can be of assistance with in the interim. Cecil and her mother were comfortable with this plan. Thank you again [...] advised of her progress. Plan Of Treatment Pending Test Test Name Order Date BUN 07/25/2022 BUN 08/24/2023 BUN 09/24/2021 LIVER PROFILE 09/24/2021 LIVER PROFILE 04/20/2022 LIVER PROFILE 09/14/2021 LIVER PROFILE 01/24/2023 LIVER PROFILE 02/15/2022 LIVER PROFILE 02/22/2024 LIVER PROFILE 07/25/2022 LIVER PROFILE 08/24/2023 CEA 09/24/2021 CBC w DIFF 09/14/2021 CBC w DIFF 02/15/2022 PROTHROMBIN TIME (PT, INR) 09/14/2021 [id number] (A1A) 09/14/2021 ALPHA-FETOPROTEIN,TUMOR MARKER 2 ALPHA-FETOPROTEIN,TUMOR MARKER MRI ABD W&WO CONTRAST 08/24/2023 MRI ABD W&WO CONTRAST 09/24/2021 MRI ABD W&WO CONTRAST 07/25/2022 US LIVER BIOPSY CORE GUIDE 02/15/2022 US ABDOMEN COMP WITH ELASTOGRAPHY 2021 Prothrombin Time INR 02/15/2022 Partial Thromboplastin Time 02/15/2022 Liver Panel 09/14/2021 Creatinine 07/25/2022 Creatinine 08/24/2023 Creatinine 09/24/2021 MR abdomen wo/w con 10/03/2023 Next Appt Details Provider Name:Delano Gallegos , 02/24/2025 01:00:00 PM, [address] [place] [address], [address], [place], [address], Insurance Providers Payer Name Payer Address Payer Phone Subscriber Number Group Number Insured Name Patient Relationship to Insured Coverage Start Date Coverage End Date [email or web address] [address] [place] [phone] [id number] CECIL BRITT Self - patient is the insured Medical (General) History Medical History History ICD Code Asthma Prediabetes Denies NM,CVA,renal disease Elevated liver tests due to presumed [...]
--- OUTSIDE RECORDS SUMMARY | 2024-07-05 09:37 | XMS_ITS ---
Author Organization Delano Vallejo III, MD Address [address] [place] [address] Care Team Providers Care Veterinary Livestock Inspector Name Role Phone Marcella CROCKER, [facility] Primary Care Provider Delano Crawford [phone] Allergies Allergen (clinical drug ingredient) Drug/Non Drug [...] Problem Status W/U Status Risk Notes Problem 811005268 Morbid obesity (E66.01) Active confirmed She has gained 10 pounds. Her body mass index is now slightly over 40. She falls into the morbidly obese range. We have discussed diet and nutrition. She and her mother will consider a referral to the weight loss program at [facility]. Problem 1983921 Thrombocytosis (D75.839) Active confirmed Her platelet count remains over 169,000. She will continue anagrelide at the current dose to prevent thrombosis. Vital Signs Temperature 96.9 degrees Fahrenheit 05/02/19 25 Blood pressure systolic 116 mm Hg 05/02/19 25 Blood pressure diastolic 85 mm Hg 025 Heart Rate 80 /min 05/02/2024 Height 5 ft 2 in in 05/02/2024 Weight 223 lbs 05/02/2024 BMI 40.78 kg/m2 05/02/2024 Encounters Encounter Location Date Provider Diagnosis Delano Vallejo III, MD [address] [place] [address] [place] [address] 05/02/2024 Delano Vallejo Morbid obesity E66.0 1 [...] to the weight loss program at [facility]. 05/02/2024 Thrombocytosis (ICD-10 - D75.839) Her [...] She will remain under the care of COVERAGE SPECIALIST. Plan Of Treatment Medication Medication Name Sig [...] 3 Months, Reason: OV Provider Name:Delano Vallejo, 08/01/2024 04:00:00 PM, [address] [place] [address] DR, [place] [address], [place], [address], Progress Notes * ALEXIS GIANGOB:1989 (34 yo F)Acc No.[id number]:05/02/2024 Progress Notes Patient:?CECIL GIANG Provider:?Delano Vallejo MD :1990???Age:34 Y???Sex:Female D ate:05/02/2024 Address:[address] [place] [address] , [address] [id number] Pcp:Jennifer Naranjo MD Subjective: * Chief Complaints: * ???Essential thrombocytosisP olycystic ovarian syndromeCognitive impairmentHypothyroidismDyslipidemia * HPI: ???COVID-19 Screening:? She returns to the office for a scheduled visit to manage her medical issues.? She has had no new medical complaints or problems or allergies.? She has been compliant with all of her medications.? She comes to the office today with her mother who is her caregiver.? Her vital signs were stable.? No new problems were detected.? Current therapy was continued without change. ?Questions?Have you had any new onset fever, chills, cough, congestion, sore throat, shortness of breath, muscle aches??No * ROS:?General/Constitutional:?pain?only normal aches and pains.?Chills?denies.?Fatigue?admits.?Fever?denies.?ENT:?Decreased hearing?denies.?Respiratory:?Cough?denies.?Cardiovascular:?Chest pain with exertion?denies.?Dyspnea on exertion?denies.?Shortness of breath?denies.?Gastrointestinal:?Constipation?occasional.?Decreased appetite?denies.?Diarrhea?denies.?Heartburn?denies.?Nausea?denies.?Rectal bleeding?denies.?Vomiting?denies.?Hematology:?bruising?denies.?petechiae?denies.?Swollen glands?none have been noted.?Genitourinary:?Frequent urination?at night.?Musculoskeletal:?Muscle aches?denies.?Painful joints?denies.?Sciatica?denies.?Weakness?denies.?Skin:?Itching?denies.?Rash?denies.?Skin lesion(s)?denies.?Neurologic:?Difficulty speaking?denies.?Dizziness?denies.?Headache?denies.?Low back pain?denies.?Psychiatric:?Depressed mood?denies.? [...] and reconciled with the patientTaking Drospirenone-Ethinyl Estradiol 3- 0.03 MG Tablet TAKE ONE TABLET BY MOUTH [...] Vitals:?Ht: 5 ft 2 in, Wt: 2 23, BMI:40.78, BP: 116/85, HR: 80, Temp: 96.9, Wt- k.15. * ???Past Orders: Lab:Complete Blood Count Aut o Diff * Collection Date 04/26/2024 12/08/2023 04/27/2023 Collection Time 08:20 AM 09:27 AM 03:45 PM Order Date 04/26/2024 12/08/2023 04/27/2023 White Blood Count 12.6?H (Ref Range: 4.8-10.8 X10*3/uL) 11.2?H (Ref Range: 4.8-10.8 X10*3/uL) 13.2?H (Ref Range: 4.8-10.8 X10*3/uL) Red Blood Count [...] (Ref Range: 160-400 X10*3/uL) Mean Platelet Volume 12.7?H (Ref Range: 9.4-12.3 fL) 12.5?H (Ref Range: 9.4-12.3 fL) 12.5?H (Ref Range: 9.4-12.3 fL) Neutrophils Percent Auto 56.8 (Ref Range: 45-73 %) 53.5 (Ref Range: 45-73 %) 52.2 (Ref Range: 45-73 %) Imm Gran Pct Auto 0.3 (Ref Range: 0.0-0.4 %) 0.3 (Ref Range: 0.0-0.4 %) 0.4 (Ref Range: 0.0-0.4 %) Lymphocytes Percent Auto 35.0 (Ref Range: 20-40 %) 39.7 (Ref Range: 20-40 %) 40.9?H (Ref Range: 20-40 %) Monocytes Percent Auto [...] Range: 2.0-8.3 x10*3/uL) Imm Gran Abs Auto 0.04?H (Ref Range: 0.00-0.03 X10*3/uL) 0.03 (Ref Range: 0.00-0.03 X10*3/uL) 0.05?H (Ref Range: 0.00-0.03 X10*3/uL) Lymphocytes Absolute Auto 4.4 (Ref Range: 1.2-4.9 X10*3/uL) 4.4 (Ref Range: 1.2-4.9 X10*3/uL) 5.4?H (Ref Range: 1.2-4.9 X10*3/uL) Monocytes Absolute Auto [...] (Ref Range: 0.0-1.0 mg/dL) Aspartate Amino Transferase 46?H (Ref Range: 5-31 U/L) 53?H (Ref Range: 5-31 U/L) 65?H (Ref Range: 5-31 U/L) Alanine Aminotransferase 38?H (Ref Range: 0-31 U/L) 55?H (Ref Range: 0-31 U/L) 64?H (Ref Range: 0-31 U/L) Total Protein 8.0 (Ref Range: 6.5-8.0 g/dL) 7.7 (Ref Range: 6.5-8.0 g/dL) 7.9 (Ref Range: 6.5-8.0 g/dL) Albumin Level 3.9 (Ref Range: 3.5-5.0 g/dL) 3.9 (Ref Range: 3.5-5.0 g/dL) 3.8 (Ref Range: 3.5-5.0 g/dL) Alkaline Phosphatase 128?H (Ref Range: 39-117 U/L) 138?H (Ref Range: 39-117 U/L) 136?H (Ref Range: 39-117 U/L) Potassium 4.2 (Ref Range: 3.3-5.1 mmol/L) 3.8 (Ref Range: 3.3-5.1 mmol/L) 3.6 (Ref Range: 3.3-5.1 mmol/L) Chloride 107 (Ref Range: 96-108 mmol/L) 106 (Ref Range: 96-108 mmol/L) 102 (Ref Range: 96-108 mmol/L) Carbon Dioxide 24 (Ref Range: 22-29 mmol/L) 24 (Ref Range: 22-29 mmol/L) 24 (Ref Range: 22-29 mmol/L) Anion Gap 13 (Ref Range: 12-20) 15 (Ref Range: 12-20) 21?H (Ref Range: 12-20) Blood Urea Nitrogen 13 [...] 10.1 (Ref Range: 8.4-10.2 mg/dL) * Examination: ???General Examination: ?GENERAL APPEARANCE:?pleasant, well nourished, well developed, in no acute distress, calm and relaxed, morbidly obese, woman.?HEAD:?atraumatic, normocephalic.?EYES:?eomi, perrla, anicteric, conjugate.?EARS:?normal.?NOSE:?septum intact.?ORAL CAVITY:?normal, unremarkable.?NECK/THYROID:?no jugular venous distention, no carotid bruit, thyroid normal.?LYMPH NODES:?no enlarged lymph nodes,spleen normal.?SKIN:?no suspicious lesions, anicteric.?HEART:?no clicks, gallops, murmurs, or rubs, regular rhythm, S1, S2 normal, no s3, or vascular bruits.?LUNGS:?clear to auscultation .?BREASTS:?Not examined.?ABDOMEN:?bowel sounds normal, no ascites, no organomegaly, no mass, morbid obesity.?RECTAL EXAM:?not examined.?MUSCULOSKELETAL:?extremities unremarkable, no clubbing, cyanosis or edema.?PERIPHERAL PULSES:?normal.?NEUROLOGIC:?alert and oriented, cranial nerves 2-12 grossly intact, deep tendon reflexes 2+ symmetrical, motor strength normal upper and lower extremities, sensory exam intact, Moderate cognitive impairment.?PSYCH:?alert, oriented, Moderate cognitive impairment.? Assessment: * Assessment: 1.?Thrombocytosis - D75.839 (Primary)???Notes :Her platelet count remains over 169,000. She will continue anagrelide at the current dose? to prevent thrombosis.???2.?Morbid obesity - E66.01???Notes :She has gained 10 pounds.? Her body mass index is now slightly over 40.? She falls into the morbidly obese range.? We have discussed diet and nutrition.? She and her mother will consider a referral to the weight loss program at [facility].???3.?Microcephaly - Q02???Notes :No changes in her neurologic or psychiatric status have been noted.? She is awake and alert, pleasant, friendly antireticulin.???4.?Elevated liver enzymes - R74.8???Notes :There remains slight elevation of the enzymes but there generally improving.? They will be observed without treatment at this time.???5.?Hypothyroid - E03.9???Notes :She has been compliant with her medication.? Thyroid function test have been ordered and will be done periodically.???6.?Mild cognitive impairment of uncertain or unknown etiology - G31.84???Notes :She was pleasant and seems to understand the discussion. Her change in her regimen other than the aspirin was needed???7.?Polycystic ovarian syndrome - E28.2???Notes :She will remain under the care of [facility].??? Plan: * Treatment: 2.?Elevated liver enzymes?LAB: PROFILE, RANDOM (COMPREHENSIVE METABOLIC) ?LAB: TSH (THYROID STIMULATING HORMONE) ?LAB: CBC WITH AUTO DIFF ?LAB: Free T4 (Free Thyroxine) 3.?Hypothyroid?LAB: PROFILE, RANDOM (COMPREHENSIVE METABOLIC) ?LAB: TSH (THYROID STIMULATING HORMONE) ?LAB: CBC WITH AUTO DIFF ?LAB: Free T4 (Free Thyroxine) 4.?Others? Continue Drospirenone-Ethinyl Estradiol Tablet, 3-0.03 MG, TAKE [...] or Other reason not done * Follow Up:?3 Months (Reason: OV) * Images: * Sign off status: Completed true * Provider:?Delano Vallejo MD Date:?04/04 Generated for Printi ng/Faxing/eTransmitting on:?07/05/2024 09:37 AM EDT History and Physical Notes * [...]
--- OUTSIDE RECORDS SUMMARY | 2024-07-05 09:37 | XMS_ITS ---
Author Organization [facility] Address [address] [place] [address] Care Team Providers Care Reptile Keeper Name Role Phone Jennifer Naranjo Primary Care Provider Unavailab Delano Stapleton [phone] REASON FOR VISIT Ursodiol Rx Medications Medication SIG (Take, Route, Fr equency, Duration) Notes Start Date End Date Status Ursodiol 500 MG 1 tablet Orally Twic e a day for 30 day(s) 04/05/2024 Active Encounters Encounter Location Date Provider Diagnosis [facility] [address] [place] [address] 04/05/2024 Delano Johnson Plan Of Treatment Medication Medication Name Sig Start Date Stop Date Notes Ursodiol 500 MG 1 tablet Orally Twice a day for 30 day(s) 04/05/2024 Next Appt Details Provider Name:Delano Johnson , 02/24/2025 01:00:00 PM, [address] [place] [address], [address], [place], [address], Progress Notes * ALEXIS LOVEOB:1989 (34 yo F)Acc No.[id number]:04/05/2024 Patient:?CECIL LOVE :1990???Age:34 Y???Sex:Female Address:[address] , [place], [address] * Refills? Start Ursodiol Tablet, 500 MG, Orally, 60 Tablet, 1 tablet, Twice a day, 30 day(s), Refills=11 * true * Date:? Generated for Anuradha garvey/Gordon/[place] on:?07/05/2024 09:37 AM EDT
--- OUTSIDE RECORDS SUMMARY | 2024-07-05 09:37 | XMS_ITS ---
Author Organization Delano Vallejo III, MD Address [address] [place] [address] Care Team Providers Care Academic Support Specialist Name Role Phone Marcella CROCKER, [facility] Primary Care Provider Delano Crawford [phone] Allergies Allergen (clinical drug ingredient) Drug/Non Drug [...] Date Provider Diagnosis Delano Vallejo III, MD [address] [place] [address] [place] [address] 08/28/2023 Delano Vallejo Microcephaly Q02 ; Thrombocytosis [...] She will remain under the care of HIGH SCHOOL VICE PRINCIPAL. 08/28/2023 Mild cognitive impairment of uncertain or [...] OV Provider Name:Delano Vallejo, 08/01/2024 04:00:00 PM, [address] [place] [address] DR, [place] [address], [place], [address], Progress Notes * COLTONALEXIS WASHINGTONOB:1989 (33 yo F)Acc No.[id number]:08/28/2023 Progress Notes Patient:?CECIL GIANG Provider:?Delano Vallejo MD :1990???Age:33 Y???Sex:Female D ate:08/28/2023 Address:[address] [place] [address] , [address] Pcp:Jennifer Naranjo MD Subjective: * Chief Complaints: [...] She will remain under the care of HIGH SCHOOL VICE PRINCIPAL.?4.?Mild cognitive impairment of uncertain or unknown etiology [...] Vallejo MD Date:?08/01 Generated for Anuradha garvey/Gordon/eTkulwindersmitting on:?07/05/2024 09:36 AM EDT History and Physical Notes * HPI (History of Present Illness) Category Sub-Category Detail Notes COVID-19 Screening Questions Have you had any new onset fever, chills, cough, congestion, sore throat, shortness of breath, muscle aches?: No Have you been exposed to the virus withi n the last 10 days?: No Have you travelled internationally in [facility] last 10 days?: No Have you [...]
--- OUTSIDE RECORDS SUMMARY | 2024-07-05 09:37 | XMS_ITS ---
Author Organization [facility] Address [address] [place] [address] Care Team Providers Care Cover Assembler Name Role Phone Laviniacastillo Jennifer Primary Care Provider Delano Cesar Unavailable [phone] Allergies No Known Allergies REASON FOR VISIT Patient presents today for elevtaed lft's Medications Medication SIG (Take, Route, Frequency, [...] Once a day for 30 day(s) Active Social History Tobacco Use: Social History [...] not use any alcohol. Vital Signs Temperature 97.5 degrees Fahrenheit 02/22/20 24 Blood pressure systolic 000 mm Hg 02/22/20 24 Blood pressure diastolic 00 mm Hg 024 Height 62 in 02/22/2024 Weight 219 lb 6 oz lbs 02/22/2024 BMI 40.12 kg/m2 02/22/2024 Encounters Encounter Location Date Provider Diagnosis [facility] [address] [place] [address] 02/22/2024 Delano Johnson Elevated liver function tests R94.5 and Fatty liver K76.0 Assessments Encounter Date Diagnosis (ICD Code) Assessment Notes Treatment Notes Treatment Clinical Notes Section Notes 02/22/2024 Elevated liver function tests (ICD-10 [...] advised of her progress. Plan Of Treatment Treatment Notes Assessment Notes Elevated liver function tests Continue the Ursodiol 500 mg twice a day Eat as healthy as possible, avoid fatty foods Pending Test Test Name Order Date LIVER PROFILE 02/22/2024 Next Appt Details Follow Up: 1 Year, Reason: Provider Name:Delano Johnson , 02/24/2025 01:00:00 PM, [address] [place] [address], [address], [place], [address], Progress Notes * ALEXIS LOVEOB:1989 (33 yo F)Acc No.[id number]:02/22/2024 Progress Notes Patient:?CECIL LOVE Provider:?Delano Johnson MD :1990???Age:33 Y???Sex:Female D ate:02/22/2024 Address:[address] [place] [address] Pcp:Jennifer Naranjo Subjective: * Chief Complaints: * ???Patient presents today fo r elevtaed lft's * HPI: ???incontinence:? I saw Cecil in followup today in regard to her underlying history of fatty liver and elevated LFTs. She was accompanied by her mother. ?Since I last saw Cecil in July she did start her ursodiol and is presently on a regimen of 500 mg b.i.d.. She has been tolerating that and has been compliant with it. She has had no issues with jaundice, pruritus, significant fatigue, increasing abdominal girth, nor edema. She enjoys a good appetite and denies any significant heartburn or dysphagia. She denies any abdominal pain, fevers, nor unintentional weight loss. She describes her bowel movements have been regular and without any signs of bleeding. ?Her laboratories on the ursodiol have basically normalized and have remained stable. Other than very minimal elevations of her alkaline phosphatase, the remainder of her liver profile was normal in September and January. Prior to the initiation of the ursodiol the AST was 117 and ALT was 95 back in July. ?She did have a followup MRI of the liver in September which did not reveal any definitive lesion in the liver as had been suggested on the previous scan. There was no sign of any cirrhosis, splenomegaly, nor ascites. * ROS:?General/Constitutional:?Change in appetite?denies.?Chills?denies.?Fatigue?denies.?Ophthalmologic:?Comments?all negative.?ENT:?Comments?all negative.?Respiratory:?hemoptysis?denies.?Cough?denies.?Cardiovascular:?Chest pain?denies.?Orthopnea?denies.?Gastrointestinal:?Comments?See [...] a drink containing alcohol in the past year??Yes,?How often did you have a drink containing alcohol in the past year??Monthly or less (1 point), How many drinks did you have on a typical day when you were drinking in the past year??1 or 2 drinks (0 point),?How often did you have 6 or more drinks on one occasion in the past year??Never (0 point),?Points?1,?Interpretation?Negative.?Miscellaneous:?Marital status: Single. 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 * Examination: ???General Examination: ?GENERAL APPEARANCE:?pleasant, well nourished, well developed, in no acute distress.?EYES:?sclera non-icteric.?ORAL CAVITY:?mucosa moist.?NECK/THYROID:?no cervical lymphadenopathy, neck supple.?SKIN:?nonjaundiced, no spider angiomata.?HEART:?S1, S2 normal.?LUNGS:?clear to auscultation bilaterally.?ABDOMEN:?normal bowel sounds, no guarding or rigidity, no guarding or rigidity, no masses palpable, soft, nontender, nondistended.?EXTREMITIES:?no edema.?NEUROLOGIC:?alert and oriented.? Assessment: * Assessment: 1.?Fatty liver - K76.0 (Prim antionette)?2.?Elevated liver function tests - R94.5? Overall, Cecil appears quit e well. She does not have any symptoms [...] advised of her progress. Plan: * Treatment: 2.?Elevated liver function tests?LAB: LIVER PROFILE* Every 6 months starting on Notes: Continue the Ursodiol 500 mg twice a day Eat as healthy as possible, avoid fatty foods?? * Procedure Codes:?1036F TOBAC CO NON-[id number] BP SCR NOT PRFRM REC REASON NOS * Preventive Medicine:? ??Counseling:?Care goal follow-up plan:?Above Normal BMI Follow-up?Giving encouragement to exercise,?BMI management provided?Yes.? * Follow Up:?1 Year * * Sign off status: Completed true * Provider:?Delano Johnson MD Date:? 024 Generated for Anuradha garvey/Gordon/Jahitting on:?07/05/2024 09:37 AM EDT History and Physical Notes * HPI (History of Present Illness) Category Sub-Category Detail Notes Category Not es incontinence I saw Cecil in followup today in regard to her underlying history of fatty liver and elevated LFTs. She was accompanied by her mother. Since I last saw Cecil in July she did start her ursodiol and is presently on a regimen of 500 mg b.i.d.. She has been tolerating that and has been compliant with it. She has had no issues with jaundice, pruritus, significant fatigue, increasing abdominal girth, nor edema. She enjoys a good appetite and denies any significant heartburn or dysphagia. She denies any abdominal pain, fevers, nor unintentional weight loss. She describes her bowel movements have been regular and without any signs of bleeding. Her laboratories on the ursodiol have basically normalized and have remained stable. Other than very minimal elevations of her alkaline phosphatase, the remainder of her liver profile was normal in September and January. Prior to the initiation of the ursodiol the AST was 117 and ALT was 95 back in July. She did have a followup MRI of the liver in September which did not reveal any definitive lesion in the liver as had been suggested on the previous scan. There was no sign of any cirrhosis, splenomegaly, nor ascites. Examination Category Sub-Category Detail Notes Category Not [...]
[2024-07-05 10:58] LABS: Alanine Aminotransferase 20 U/L (0-31); Albumin Level 3.7 g/dL (3.5-5.0); Alkaline Phosphatase 112 U/L (39-117); Aspartate Amino Transferase 21 U/L (5-31); Bilirubin Direct 0.2 mg/dL (0.0-0.5); Bilirubin Total 0.5 mg/dL (0.0-1.0); Total Protein 7.4 g/dL (6.5-8.0)
== END 2024-07-05 09:35 | disposition home or self-care (01) ==
LOC: HO.LAB 09:34
PROVIDERS: PCP Internal Medicine; Visit Provider Internal Medicine
DX: R94.5 Abnormal results of liver function studies (principal); K76.0 Fatty (change of) liver, not elsewhere classified
CPT/HCPCS: 36415; 80076

== ENCOUNTER 2024-07-23 15:17 | Outpatient (REF) | payer MEDICAID, SELFPAY ==
[2024-07-23 15:30] LABS: MANUAL DIFF FLAG NO
[2024-07-23 15:47] LABS: Basophils Absolute Auto 0.1 X10*3/uL (0.0-0.2); Basophils Percent Auto 0.4 % (0-2); Eosinophils Absolute Auto 0.1 X10*3/uL (0.0-0.4); Eosinophils Percent Auto 0.4 % (0-4); Hematocrit 38.4 % (37.0-47.0); Hemoglobin 12.5 g/dl (12.0-16.0); Imm Gran Abs Auto 0.05 X10*3/uL (0.00-0.03); Imm Gran Pct Auto 0.4 % (0.0-0.4); Lymphocytes Absolute Auto 4.5 X10*3/uL (1.2-4.9); Lymphocytes Percent Auto 32.4 % (20-40); Mean Corpuscular HGB Conc 32.6 g/dl (31.0-35.0); Mean Corpuscular Hemoglobin 28.2 pg (27.0-33.0); Mean Corpuscular Volume 86.5 fL (80.0-98.0); Mean Platelet Volume 12.3 fL (9.4-12.3); Monocytes Absolute Auto 0.8 X10*3/uL (0.1-1.2); Monocytes Percent Auto 6.1 % (2-11); Neutrophils Absolute Auto 8.3 x10*3/uL (2.0-8.3); Neutrophils Percent Auto 60.3 % (45-73); Platelet Count 265 X10*3/uL (160-400); Red Blood Count 4.44 X10*6/uL (4.20-5.50); Red Cell Distribution Width 13.3 % (11.0-16.0); White Blood Count 13.7 X10*3/uL (4.8-10.8)
[2024-07-23 16:06] LABS: Alanine Aminotransferase 21 U/L (0-31); Albumin Level 3.7 g/dL (3.5-5.0); Anion Gap 15 (12-20); Aspartate Amino Transferase 15 U/L (5-31); Bilirubin Total 0.3 mg/dL (0.0-1.0); Blood Urea Nitrogen 10 mg/dL (9-16); Calcium 9.5 mg/dL (8.4-10.2); Carbon Dioxide 25 mmol/L (22-29); Chloride 105 mmol/L (96-108); Estimated Glomerular Filt Rate > 60; Glucose Random 98 mg/dL (60-115); Potassium 3.7 mmol/L (3.3-5.1); Sodium 141 mmol/L (135-145); Total Protein 7.2 g/dL (6.5-8.0)
[2024-07-23 16:23] LABS: Alkaline Phosphatase 115 U/L (39-117)
[2024-07-23 16:27] LABS: T4 Thyroxine 11.2 ug/dL (4.5-12.0); Thyroid Stimulating Hormone 2.33 uIU/mL (0.32-4.0)
--- OUTSIDE RECORDS SUMMARY | 2024-07-23 18:01 | XMS_ITS | Patient Health Record ---
Author Organization Delano Vallejo III, MD Address [address] [place] [address] Care Team Providers Care Blanket Maker Name Role Phone Marcella CROCKER, [facility] Primary Care Provider Delano Crawford [phone] Allergies Allergen (clinical drug ingredient) Drug/Non Drug Allergy documented on EMR Reaction Allergy Type Onset Date Status No Known Drug Allergy Unknown Drug Allergy Active Results Component Value Reference Range Notes Complete Blood Count Auto Di ff Reviewed date:12/31/2023 06:06:48 AM Interpretation: Performing Lab:[facility], [address] [place] [address] Notes/Report: White Blood Count 11.2 4.8-10.8 X10*3/uL [...] Reviewed date:12/31/2023 06:06:49 AM Interpretation: Performing Lab:[address] [address] Notes/Report: Sodium 141 135-145 mmol/L Potassium 3.8 3.3-5.1 mmol/L Chloride 106 96-108 mmol/L Carbon Dioxide 24 22-29 mmol/L Anion Gap 15 12-20 Blood Urea Nitrogen 11 9-16 mg/dL Creatinine 0.77 0.5-1.4 mg/dL Estimated Glomerular Filt Rate > 60 NOTE: For -Jamaican individuals, multiply the result by 1.210. Chronic [...] ff Reviewed date:04/27/2024 04:42:22 PM Interpretation: Performing Lab:[facility], [address] [place] [phone] Notes/Report: White Blood Count 12.6 4.8-10.8 X10*3/uL [...] Panel Reviewed date:04/27/2024 04:42:22 PM Interpretation: Performing Lab:[facility], [address] [place] [phone] Notes/Report: Sodium 140 135-145 mmol/L Potassium 4.2 [...] 3.5-5.0 g/dL Alkaline Phosphatase 128 39-117 U/L Complete Blood Count Auto Di ff (Not yet reviewed by provider) Interpretation: Performing Lab:[facility], [address] [place] [address] Notes/Report: White Blood Count 13.7 4.8-10.8 X10*3/uL Red Blood Count 4.44 4.20-5.50 X10*6/uL Hemoglobin 12.5 12.0-16.0 g/dl Hematocrit 38.4 37.0-47.0 % Mean Corpuscular Volume 86.5 80.0-98.0 fL Mean Corpuscular Hemoglobin 28.2 27.0-33.0 pg Mean Corpuscular HGB Conc 32.6 31.0-35.0 g/dl Red Cell Distribution Width 13.3 11.0-16.0 % Platelet Count 265 160-400 X10*3/uL Mean Platelet Volume 12.3 9.4-12.3 fL Neutrophils Percent Auto 60.3 45-73 % Imm Gran Pct Auto 0.4 0.0-0.4 % Lymphocytes Percent Auto 32.4 20-40 % Monocytes Percent Auto 6.1 2-11 % Eosinophils Percent Auto 0.4 0-4 % Basophils Percent Auto 0.4 0-2 % NRBC Pct Auto 0.0 0.0-0.2 /100WBC Neutrophils Absolute Auto 8.3 2.0-8.3 x10*3/u L Imm Gran Abs Auto 0.05 0.00-0.03 X10*3/uL Lymphocytes Absolute Auto 4.5 1.2-4.9 X10*3/u L Monocytes Absolute Auto 0.8 0.1-1.2 X10*3/uL Eosinophils Absolute Auto 0.1 0.0-0.4 X10*3/u L Basophils Absolute Auto 0.1 0.0-0.2 X10*3/uL NRBC Abs Auto 0.000 0.0-0.012 X10*3/uL Comprehensive Met. Panel (No t yet reviewed by provider) Interpretation: Performing Lab:[facility], [address] [place] [phone] Notes/Report: Sodium 141 135-145 mmol/L Potassium 3.7 3.3-5.1 mmol/L Chloride 105 96-108 mmol/L Carbon Dioxide 25 22-29 mmol/L Anion Gap 15 12-20 Blood Urea Nitrogen 10 9-16 mg/dL Creatinine 0.72 0.5-1.4 mg/dL Estimated Glomerular Filt Rate > 60 Chronic Kidney Disease: Estimated GFR < 60 mL/min/1.73m2 Severe Kidney Disease: Estimated GFR < 15 mL/min/1.73m2 Glucose Random 98 60-115 mg/dL Calcium 9.5 8.4-10.2 mg/dL Bilirubin Total 0.3 0.0-1.0 mg/dL Aspartate Amino Transferase 15 5-31 U/L Alanine Aminotransferase 21 0-31 U/L Total Protein 7.2 6.5-8.0 g/dL Albumin Level 3.7 3.5-5.0 g/dL Alkaline Phosphatase 115 39-117 U/L T4 Thyroxine (Not yet review ed by provider) Interpretation: Performing Lab:[facility], [address] [place] [phone] Notes/Report: T4 Thyroxine 11.2 4.5-12.0 ug/dL Thyroid Stimulating Hormone (Not yet reviewed by provider) Interpretation: Performing Lab:[facility], [address] [place] [phone] Notes/Report: Thyroid Stimulating Hormone 2.33 0.32-4.0 uIU/ mL TSH 3rd Generation ([facility]) Reason For Referral No Information Medications Medication [...] Status W/U Status Risk Notes Problem Asthma (404093045) Asthma (J45.909) Active confirmed She had no wheezing today and felt well. Problem Thrombocytosis (9186535) Thrombocytosis (D47.3) Active confirmed Her platelets are now normal with 1 mg of anagrelide daily. She has had no side effects and the medication will be continued unchanged. Problem Polycystic ovary syndrome (disorder) (199198906) Polycystic ovarian syndrome (E28.2) Active confirmed She will remain under the care of DYE COLORIST DYER. Problem Microcephaly (6445712679) Microcephaly (Q02) Active confirmed No changes in her neurologic or psychiatric status have been noted. She is awake and alert, pleasant, friendly antireticuli n. Problem Hypothyroid (36191951) Hypothyroid (E03.9) Active confirmed She has been compliant with her medication. Thyroid function test have been ordered and will be done periodically . Problem Dyslipidemia (954063998) Dyslipidemia (E78.5) Active confirmed Her fasting lipids will be reviewed. I recommended they be checked 3 times a year. Problem 554548804 Morbid obesity (E66.01) Active confirmed She has gained 10 pounds. Her body mass index is now slightly over 40. She falls into the morbidly obese range. We have discussed diet and nutrition. She and her mother will consider a referral to the weight loss program at [facility]. Problem Elevated liver enzymes level (600798744) Elevated liver enzymes (R74.8) Active confirmed There remains slight elevation of the enzymes but there generally improving. They will be observed without treatment at this time. Problem 9030550 Thrombocytosis (D75.839) Active confirmed Her platelet count remains over 169,000. She will continue anagrelide at the current dose to prevent thrombosis. Problem Mild cognitive disorder (197597644) Mild cognitive impairment of uncertain or unknown [...] Date Provider Diagnosis Delano Vallejo III, MD [address] [place] [address] [address] [place] [address] 08/28/2023 Delano Vallejo Microcephaly Q02 ; Thrombocytosis D47.3 ; Polycystic ovarian syndrome E28.2 ; Mild cognitive impairment of uncertain or unknown etiology G31.84 and Asthma J45.909 Delano Vallejo III, MD [address] [place] [address] [address] [place] [address] 12/31/2023 Delano Vallejo Microcephaly Q02 ; Thrombocytosis D47.3 ; Polycystic ovarian syndrome E28.2 ; Mild cognitive impairment of uncertain or unknown etiology G31.84 and Asthma J45.909 Delano Vallejo III, MD [address] [place] [address] [address] [place] [address] 05/02/2024 Delano Vallejo Morbid obesity E66.0 1 [...] referral to the weight loss program at [facility]. 05/02/2024 Thrombocytosis (ICD-10 - D75.839) Her platelet count remains over 169,000. She will continue anagrelide at the current dose to prevent thrombosis. 08/28/2023 Polycystic ovarian syndrome (ICD-10 - E28.2) She will remain under the care of DYE COLORIST DYER. 12/31/2023 Polycystic ovarian syndrome (ICD-10 - E28.2) She will remain under the care of DYE COLORIST DYER. 05/02/2024 Microcephaly (ICD-10 - Q02) No changes [...] She will remain under the care of DYE COLORIST DYER. Plan Of Treatment Pending Test Test Name [...] DIFF 03/02/2023 CBC WITH AUTO DIFF 12/31/2023 Complete Blood Count Auto Diff Comprehensive Met. Panel 07/23/2024 Free T4 (Free Thyroxine) 05/02/2024 T4 Thyroxine 07/23/2024 Thyroid Stimulating Hormone 07/23/2024 Next Appt Details Provider Name:Delano Vallejo, 08/01/2024 04:00:00 PM, [address], [place], [address], Insurance Providers Payer Name Payer Address Payer Phone Subscriber Number Group Number Insured Name Patient Relationship to Insured Coverage Start Date Coverage End Date MEDICAID [place] [address] IVA JAMES [id number] CECIL BRITT Self - patient is the insured Medical (General) History Medical History History ICD Code Asthma J45.909 Elevated liver enzymes R74.8 Microcephaly Q02 Dyslipidemia E78.5 Obesity E66.9 Hypothyroid E03.9 Thrombocytosis D47.3 Surgical History Surgery Date(Month/Year) Bx liver 04/2022
--- OUTSIDE RECORDS SUMMARY | 2024-07-23 18:01 | XMS_ITS ---
Author Organization [facility] Address [address] [place] [address] Care Team Providers Care Legal Assistant Name Role Phone Laviniacastillo Jennifer Primary Care Provider Delano Cesar Unavailable [phone] Allergies No Known Allergies REASON FOR VISIT [...] 08/24/2023 Encounters Encounter Location Date Provider Diagnosis [facility] [address] [place] [address] 08/24/2023 Delano Johnson Elevated liver function tests [...] 01:00:00 PM, [address], [address], [place], [address], Progress Notes * ALEXIS LOVEOB:1989 (33 yo F)Acc No.[id number]:08/24/2023 Progress Notes Patient:?CECIL LOVE Provider:?Delano Johnson MD :1990???Age:33 Y???Sex:Female D ate:08/24/2023 Address:[address] [place], [place] [address] Pcp:Jennifer Naranjo Subjective: * Chief Complaints: * [...] ?Imaging: MRI ABD W&WO CONTRAST* Ref # [id number] 308/26/2 -08/26/24Colon,Stephanie 08/28/2023 09:33:20 AM EDT >order faxed w/ ref for scheduling * 2.?Elevated liver function tests?LAB: BUN ?LAB: LIVER PROFILE* Do the liver profile lab in 11/2023 and 01/2024 ?LAB: ALPHA-FETOPROTEIN,TUMOR MARKER ?LAB: Creatinine ?Imaging: MRI ABD W&WO CONTRAST* Ref # [id number] 308/26/2 -08/26/24Colon,Stephanie 08/28/2023 09:33:20 AM EDT >order faxed w/ ref for scheduling * 3.?Abnormal MRI, liver?LAB: BUN ?LAB: LIVER PROFILE* Do the liver profile lab in 11/2023 and 01/2024 ?LAB: ALPHA-FETOPROTEIN,TUMOR MARKER ?LAB: Creatinine ?Imaging: MRI ABD W&WO CONTRAST* Ref # [id number] 3vis 4-08/26/24Stephanie Khan 08/28/2023 09:33:20 AM EDT >order faxed w/ ref for scheduling * * Procedure Codes:?1036F TOBAC CO NON-[id number] BP SCR NOT PRFRM REC REASON NOS * Preventive Medicine:? ??Counseling:?Care goal follow-up plan:?Above Normal BMI Follow-up?Giving encouragement to exercise,?BMI management provided?Yes.? * Follow Up:?6 Months * * Sign off status: Completed true * Provider:?Delano Johnson MD Date:? 024 Generated for Printi ng/Syedg/eTransmitting on:?07/23/2024 06:00 PM EDT History and Physical Notes * HPI [...]
--- OUTSIDE RECORDS SUMMARY | 2024-07-23 18:02 | XMS_ITS ---
Author Organization [facility] Address [address] [place] [address] Care Team Providers Care Production Control Planner Name Role Phone Laviniacastillo Jennifer Primary Care Provider Delano Cesar Unavailable [phone] Allergies No Known Allergies REASON FOR VISIT [...] 02/22/2024 Encounters Encounter Location Date Provider Diagnosis [facility] [address] [place] [address] 02/22/2024 Delano Johnson Elevated liver function tests [...] again for allowing me to participate in Cceil's care. I shall continue to keep you [...] Provider Name:Delano Johnson , 02/24/2025 01:00:00 PM, [address] [place] [address], [address], [place], [address], Progress Notes * ALEXIS LOVEOB:1989 (33 yo F)Acc No.[id number]:02/22/2024 Progress Notes Patient:?CECIL LOVE Provider:?Delano Johnson MD :1990???Age:33 Y???Sex:Female D ate:02/22/2024 Address:[address] [place] [address] Pcp:Jennifer Naranjo Subjective: * Chief Complaints: * [...] fatty foods?? * Procedure Codes:?1036F TOBAC CO NON-[id number] BP SCR NOT PRFRM REC REASON NOS * Preventive Medicine:? ??Counseling:?Care goal follow-up plan:?Above Normal BMI Follow-up?Giving encouragement to exercise,?BMI management provided?Yes.? * Follow Up:?1 Year * * Sign off status: Completed true * Provider:?Delano Johnson MD Date:? 024 Generated for Anuradha garvey/Gordon/Jahitting on:?07/23/2024 06:02 PM EDT History and Physical Notes * [...]
--- OUTSIDE RECORDS SUMMARY | 2024-07-23 18:02 | XMS_ITS ---
Author Organization Delano Vallejo III, MD Address [address] [place] [address] Care Team Providers Care Ethnographer Name Role Phone Marcella CROCKER, [facility] Primary Care Provider Delano Crawford [phone] Allergies Allergen (clinical drug ingredient) Drug/Non Drug [...] Date Provider Diagnosis Delano Vallejo III, MD [address] [place] [address] [place] [address] 08/28/2023 Delano Vallejo Microcephaly Q02 ; Thrombocytosis [...] She will remain under the care of IMPLEMENTATION SERVICES ANALYST. 08/28/2023 Mild cognitive impairment of uncertain or [...] OV Provider Name:Delano Vallejo, 08/01/2024 04:00:00 PM, [address] [place] [address] DR, [place] [address], [place], [address], Progress Notes * COLTONALEXIS WASHINGTONOB:1989 (33 yo F)Acc No.[id number]:08/28/2023 Progress Notes Patient:?CECIL GIANG Provider:?Delano Vallejo MD :1990???Age:33 Y???Sex:Female D ate:08/28/2023 Address:[address] [place] [address] , [address] Pcp:Jennifer Naranjo MD Subjective: * Chief Complaints: [...] She will remain under the care of IMPLEMENTATION SERVICES ANALYST.?4.?Mild cognitive impairment of uncertain or unknown etiology [...] Provider:?Delano Vallejo MD Date:?08/01 Generated for Anuradha garvey/Gordon/eTransmitting on:?07/23/2024 06:01 PM EDT History and Physical Notes * HPI (History of Present Illness) Category Sub-Category Detail Notes COVID-19 Screening Questions Have you had any new onset fever, chills, cough, congestion, sore throat, shortness of breath, muscle aches?: No Have you been exposed to the virus withi n the last 10 days?: No Have you travelled internationally in [facility] last 10 days?: No Have [...]
--- OUTSIDE RECORDS SUMMARY | 2024-07-23 18:02 | XMS_ITS ---
Author Organization Delano Vallejo III, MD Address [address] [place] [address] Care Team Providers Care Manager Ct Name Role Phone Marcella CROCKER, [facility] Primary Care Provider Delano Crawford [phone] Allergies Allergen (clinical drug ingredient) Drug/Non Drug [...] Problem Status W/U Status Risk Notes Problem 049274921 Morbid obesity (E66.01) Active confirmed She has gained 10 pounds. Her body mass index is now slightly over 40. She falls into the morbidly obese range. We have discussed diet and nutrition. She and her mother will consider a referral to the weight loss program at [facility]. Problem 9092873 Thrombocytosis (D75.839) Active confirmed Her platelet count [...] Date Provider Diagnosis Delano Vallejo III, MD [address] [place] [address] [place] [address] 05/02/2024 Delano Vallejo Morbid obesity E66.0 1 [...] referral to the weight loss program at [facility]. 05/02/2024 Thrombocytosis (ICD-10 - D75.839) Her [...] She will remain under the care of APPLICATION SPEC. Plan Of Treatment Medication Medication Name Sig [...] OV Provider Name:Delano Vallejo, 08/01/2024 04:00:00 PM, [address] [place] [address] DR, [place] [address], [place], [address], Progress Notes * ALEXIS GIANGOB:1989 (34 yo F)Acc No.[id number]:05/02/2024 Progress Notes Patient:?CECIL GIANG Provider:?Delano Vallejo MD :1990???Age:34 Y???Sex:Female D ate:05/02/2024 Address:[address] [place] [address] , [address] [id number] Pcp:Jennifer Naranjo MD Subjective: * Chief Complaints: [...] referral to the weight loss program at [facility].???3.?Microcephaly - Q02???Notes :No changes in her [...] :She will remain under the care of APPLICATION SPEC.??? Plan: * Treatment: 2.?Elevated liver enzymes?LAB: PROFILE, [...] Vallejo MD Date:?04/04 Generated for Printi ng/Faxing/eTransmitting on:?07/23/2024 06:02 PM EDT History and Physical [...]
--- OUTSIDE RECORDS SUMMARY | 2024-07-23 18:02 | XMS_ITS ---
Author Organization Delano Vallejo III, MD Address [address] [place] [address] Care Team Providers Care Denture Finisher Name Role Phone Marcella CROCKER, [facility] Primary Care Provider Delano Crawford [phone] Allergies Allergen (clinical drug ingredient) Drug/Non Drug [...] Date Provider Diagnosis Delano Vallejo III, MD [address] [place] [address] [place] [address] 12/31/2023 Delano Vallejo Microcephaly Q02 ; Thrombocytosis [...] She will remain under the care of COURT INTERPRETER. 12/31/2023 Mild cognitive impairment of uncertain or [...] OV Provider Name:Delano Vallejo, 08/01/2024 04:00:00 PM, [address] [place] [address], [facility] [address], [place], [address], Progress Notes * ALEXIS GIANGOB:1989 (33 yo F)Acc No.[id number]:12/31/2023 Progress Notes Patient:?CECIL GIANG Provider:?Delano Vallejo MD :1990???Age:33 Y???Sex:Female D ate:12/31/2023 Address:[address] [place] [address] , [address] Pcp:Jennifer Naranjo MD Subjective: * Chief Complaints: [...] :She will remain under the care of COURT INTERPRETER.???4.?Mild cognitive impairment of uncertain or unknown etiology [...] Vallejo MD Date:?12/03 Generated for Anuradha garvey/Gordon/Jahitting on:?07/23/2024 06:01 PM EDT History and Physical [...]
--- OUTSIDE RECORDS SUMMARY | 2024-07-23 18:02 | XMS_ITS ---
Author Organization [facility] Address [address] [place] [address] Care Team Providers Care Locomotive Inspector Name Role Phone Jennifer Naranjo Primary Care Provider Unavailab Delano Stapleton [phone] REASON FOR VISIT Ursodiol Rx Medications Medication SIG (Take, Route, Fr equency, Duration) Notes Start Date End Date Status Ursodiol 500 MG 1 tablet Orally Twic e a day for 30 day(s) 04/05/2024 Active Encounters Encounter Location Date Provider Diagnosis [facility] [address] [place] [address] [address] [place] [address] 04/05/2024 Delano Johnson Plan Of Treatment Medication Medication Name Sig Start Date Stop Date Notes Ursodiol 500 MG 1 tablet Orally Twice a day for 30 day(s) 04/05/2024 Next Appt Details Provider Name:Delano Johnson , 02/24/2025 01:00:00 PM, [address] [place] [address], [address], [place], [address], Progress Notes * ALEXIS LOVEOB:1989 (34 yo F)Acc No.[id number]:04/05/2024 Patient:?CECIL LOVE :1990???Age:34 Y???Sex:Female Address:[address] , [place], [address] * Refills? Start Ursodiol Tablet, 500 MG, Orally, 60 Tablet, 1 tablet, Twice a day, 30 day(s), Refills=11 * true * Date:? Generated for Anuradha garvey/Gordon/[place]awnee on:?07/23/2024 06:02 PM EDT
--- OUTSIDE RECORDS SUMMARY | 2024-07-23 18:02 | XMS_ITS | Patient Health Record ---
Author Organization [facility] Address [address] [place] [address] Care Team Providers Care Pot Reliner Name Role Phone Jennifer Naranjo Primary Care Provider Unavailab Delano Stapleton Unavailable [phone] Allergies No Known Allergies Results Component Value Reference Range Notes Complete Blood Count Auto Di ff Reviewed date:08/20/2023 09:34:17 PM Interpretation: Performing Lab:[facility], [address] [place] [phone] Notes/Report: White Blood Count 9.7 4.8-10.8 X10*3/uL [...] Panel Reviewed date:08/20/2023 09:34:45 PM Interpretation: Performing Lab:[facility], [address] [place] [phone] Notes/Report: Bilirubin Total 0.6 0.0-1.0 mg/dL Bilirubin Direct 0.2 0.0-0.5 mg/dL Aspartate Amino Transferase 117 5-31 U/L Alanine Aminotransferase 95 0-31 U/L Total Protein 8.0 6.5-8.0 g/dL Albumin Level 4.0 3.5-5.0 g/dL Alkaline Phosphatase 142 39-117 U/L Liver Panel Reviewed date:02/22/2024 01:34:17 PM Interpretation: Performing Lab:[address] [address] Notes/Report: Bilirubin Total 0.3 0.0-1.0 mg/dL Bilirubin Direct 0.1 0.0-0.5 mg/dL Aspartate Amino Transferase 19 5-31 U/L Alanine Aminotransferase 17 0-31 U/L Total Protein 7.7 6.5-8.0 g/dL Albumin Level 3.8 3.5-5.0 g/dL Alkaline Phosphatase 124 39-117 U/L Blood Urea Nitrogen Reviewed date:10/02/2023 05:27:12 PM Interpretation: Performing Lab:[address] [address] Notes/Report: Blood Urea Nitrogen 8 9-16 mg/dL Creatinine Reviewed date:10/02/2023 05:27:22 PM Interpretation: Performing Lab:[address] [address] Notes/Report: Creatinine 0.71 0.5-1.4 mg/dL Estimated Glomerular Filt Rate > 60 NOTE: For -[place]guill[place] individuals, multiply the result by 1.210. Chronic Kidney Disease: Estimated GFR < 60 mL/min/1.73m2 Severe Kidney Disease: Estimated GFR < 15 mL/min/1.73m2 Alpha Fetoprotein Reviewed date:10/03/2023 02:23:38 PM Interpretation: Performing Lab:[address] [address] Notes/Report: Alpha Fetoprotein 0.6 Reference Range: <6.1 [...] of disease. THIS TEST WAS PERFORMED AT: [facility] [address] [place] [phone] MARU BENEDICT MD MR abdomen wo/w con (Not yet reviewed by provider) Interpretation: Performing Lab: Notes/Report: [address] [address] Magnetic Resonance Report Signed Patient: Cecil Giang MR#: [id number] : 1990 Acct:[id number] Age/Sex: 33 / F ADM Date: 10/03/23 Loc: HO.MRI Attending Dr: Delano Gallegos MD Ordering Physician: Delano Gallegos MD Date of Service: 10/03/23 Procedure(s): MR abdomen wo/w con Accession Number(s): [id number] cc: Jennifer Naranjo MD; Delano Gallegos MD [...] in OV> 10/31/23 0823 DD/ 1605 TD/TT: Sodder: [place] [address] Magnetic Resonance Report Signed Patient: Cecil Giang MR#: [id number] : 1990 Acct:[id number] Age/Sex: 33 / F ADM Date: 10/03/23 Loc: HO.MRI Attending Dr: Delano Gallegos MD Ordering Physician: Delano Gallegos MD Date of Service: 10/03/23 Procedure(s): MR abd omen wo/w con Accession Number(s): [id number] cc: Jennifer Naranjo MD; Delano Gallegos MD [...] in OV> 10/31/23 0823 DD/ 1605 TD/TT: Sodder: Liver Panel Reviewed date:02/16/2024 11:25:47 AM Interpretation: Performing Lab:[facility], [address] [place] [phone] Notes/Report: Bilirubin Total 0.5 0.0-1.0 mg/dL Bilirubin Direct 0.2 0.0-0.5 mg/dL Aspartate Amino Transferase 21 5-31 U/L Alanine Aminotransferase 21 0-31 U/L Total Protein 7.8 6.5-8.0 g/dL Albumin Level 3.9 3.5-5.0 g/dL Alkaline Phosphatase 131 39-117 U/L Reason For Referral Referring Provider First Name Jennifer Referring Provider Last Name Marcella Referring Provider Speciality Internal M edicine Referred Organization [facility] Referred Provider Delano Gallegos Referred Address [address] [place] [address],[place] [address],[place],[address],[place] Referred Provider Specialty Gastroentero logy General Notes Radha Lombardi 024 02:13:32 PM EDT > requested a f4samurai ref from dr louis office for visit [...] Risk Notes Problem Elevated liver enzymes level (874083687) Elevated liver function tests (R79.89) Active confirmed Problem Fatty liver (089238102) Fatty liver (K76.0) Active confirmed Problem Iron deficiency anemia due to chronic blood loss (838548784) Iron deficiency anemia due to chronic blood loss (D50.0) Active confirmed Problem Abnormal findings diagnostic imaging of liver and biliary tract (848135449) Abnormal liver ultrasound (R93.2) Active confirmed Problem 734551907 Abnormal MRI, liver (R93.2) Active confirmed Problem Elevated liver enzymes level (196385613) Elevated liver function tests (R94.5) Active confirmed Vital Signs Temperature 97.5 degrees Fahrenheit 02/22/2024 Blood pressure diastolic 00 mm Hg 02/22/2024 Height 62 in 02/22/2024 Blood pressure systolic 000 mm Hg 02/22/2024 Weight 219 lb 6 oz lbs 02/22/2024 BMI 40.12 kg/m2 02/22/2024 Encounters Encounter Location Date Provider Diagnosis [facility] [address] [place] [address] 08/24/2023 Delano Gallegos Elevated liver function tests R94.5 ; Fatty liver K76.0 and Abnormal MRI, liver R93.2 [facility] [address] [place] [address] 02/22/2024 Delano Gallegos Elevated liver function tests R94.5 and Fatty liver K76.0 [facility] [address] [place] [address] 04/05/2024 Delano Gallegos Assessments Encounter Date Diagnosis [...] Test Name Order Date BUN 09/24/2021 BUN 07/25/2022 BUN 08/24/2023 LIVER PROFILE 02/22/2024 LIVER PROFILE 07/25/2022 LIVER PROFILE 08/24/2023 LIVER PROFILE 09/24/2021 LIVER PROFILE 04/20/2022 LIVER PROFILE 09/14/2021 LIVER PROFILE 01/24/2023 LIVER PROFILE 02/15/2022 CEA 09/24/2021 CBC w DIFF 02/15/2022 CBC w DIFF 09/14/2021 PROTHROMBIN TIME (PT, INR) 09/14/2021 UOKRB-3-EUDBHDEBUUJ (A1A) 09/14/2021 ALPHA-FETOPROTEIN,TUMOR MARKER 4 ALPHA-FETOPROTEIN,TUMOR MARKER 2 MRI ABD W&WO CONTRAST 09/24/2021 MRI ABD W&WO CONTRAST 07/25/2022 MRI ABD W&WO CONTRAST 08/24/2023 US LIVER BIOPSY CORE GUIDE 02/15/2022 US ABDOMEN COMP WITH ELASTOGRAPHY 2021 Prothrombin Time INR 02/15/2022 Partial Thromboplastin Time 02/15/2022 Liver Panel 09/14/2021 Creatinine 09/24/2021 Creatinine 07/25/2022 Creatinine 08/24/2023 MR abdomen wo/w con 10/03/2023 Next Appt Details Provider Name:Delano Gallegos , 02/24/2025 01:00:00 PM, [address] [place] [address], [address], [place], [address], Insurance Providers Payer Name Payer Address Payer Phone Subscriber Number Group Number Insured Name Patient Relationship to Insured Coverage Start Date Coverage End Date [place] [address] [place] [id number] CECIL BRITT Self - patient is the insured Medical (General) History Medical History History ICD Code Asthma Prediabetes Denies [place],CVA,renal disease Elevated liver tests due to presumed [...]
== END 2024-07-23 15:18 | disposition home or self-care (01) ==
LOC: HO.LAB 15:17
PROVIDERS: PCP Internal Medicine; Visit Provider Internal Medicine Medical Oncology
DX: Q02 Microcephaly (principal); R74.8 Abnormal levels of other serum enzymes; E03.9 Hypothyroidism, unspecified; E66.9 Obesity, unspecified
CPT/HCPCS: 36415; 80053; 84436; 84443; 85025

== ENCOUNTER 2024-08-16 07:47 | Emergency (ER) | payer MEDICAID, SELFPAY ==
[2024-08-16 07:51] VITALS: BP 125/77; PULSE 95; RESP 18; TEMP 36.6; O2SAT 97; BMI 40.7
--- OUTSIDE RECORDS SUMMARY | 2024-08-16 08:15 | XMS_ITS ---
Author Organization Delano Vallejo III, MD Address [address] [place] [address] Care Team Providers Care Wedding Florist Name Role Phone Marcella CROCKER, [facility] Primary Care Provider Delano Crawford [phone] Allergies Allergen (clinical drug ingredient) Drug/Non Drug [...] Date Provider Diagnosis Delano Vallejo III, MD [address] [place] [address] [place] [address] 12/31/2023 Delano Vallejo Microcephaly Q02 ; Thrombocytosis [...] She will remain under the care of [facility]. 12/31/2023 Mild cognitive impairment of uncertain or [...] 4 Months, Reason: OV Provider Name:Delano Vallejo, 12/09/2024 04:00:00 PM, [address] [place] [address], [facility] [address], [place], [address], Progress Notes * ALEXIS GIANGOB:1989 (33 yo F)Acc No.[id number]:12/31/2023 Progress Notes Patient:?CECIL GIANG Provider:?Delano Vallejo MD :1990???Age:33 Y???Sex:Female D ate:12/31/2023 Address:[address] [place] [address] , [address] Pcp:Jennifer Naranjo MD Subjective: * Chief Complaints: [...] :She will remain under the care of [facility].???4.?Mild cognitive impairment of uncertain or unknown etiology [...] Vallejo MD Date:?12/03 Generated for Anuradha garvey/Gordon/Jahitting on:?08/16/2024 08:15 AM EDT History and Physical Notes * [...]
--- OUTSIDE RECORDS SUMMARY | 2024-08-16 08:15 | XMS_ITS ---
Author Organization Delano Vallejo III, MD Address [address] [address] Care Team Providers Care Nursery Helper Name Role Phone Marcella CROCKER, [facility] Primary Care Provider Delano Crawford [phone] Allergies Allergen (clinical drug ingredient) Drug/Non Drug [...] Problem Status W/U Status Risk Notes Problem [id number] Essential thrombocytosis (D47.3) Active confirmed The disorder is well controlled with current medication at current dose. No changes were made. She will follow-up 3 times a year. Vital Signs Temperature 97.2 degrees Fahrenheit 08/02/19 25 Blood pressure systolic 117 mm Hg 08/02/19 25 Blood pressure diastolic 78 mm Hg 025 Heart Rate 82 /min 08/01/2024 Height 5 ft 2 in in 08/01/2024 Weight 222 lbs 08/01/2024 BMI 40.6 kg/m2 08/01/2024 Encounters Encounter Location Date Provider Diagnosis Delano Vallejo III, MD [address] [place] [address] [place] [address] 08/01/2024 Delano Vallejo Microcephaly Q02 ; Essential [...] OV Provider Name:Delano Vallejo, 12/09/2024 04:00:00 PM, [address] [place] [address] DR, [place] [address], [place], [address], Progress Notes * ALEXIS LOVEOB:1989 (34 yo F)Acc No.[id number]:08/01/2024 Progress Notes Patient:?CECIL LOVE Provider:?Delano Vallejo MD :1990???Age:34 Y???Sex:Female D ate:08/01/2024 Address:[address] [place] [address] , [address] [facility] Pcp:Jennifer Naranjo MD Subjective: * Chief Complaints: * ???Essential thrombocytosisC ognitive impairmentAsthmaMicrocephalyHypothyroidMorbid obesity * HPI: ???COVID-19 Screening:? She returns for ongoing management of her elevated platelet count.? She has been taking the anagrelide without fail.? Her platelet count is now 265,000, in the middle of the normal range.? No change in the dose was made.? She was continued on the medication and will be seen 3 times a year if stable. ?Questions?Have you had any new onset fever, chills, cough, congestion, sore throat, shortness of breath, muscle aches??No * ROS:?General/Constitutional:?pain?only normal aches and pains.?Chills?denies.?Fatigue?admits.?Fever?denies.?ENT:?Decreased hearing?denies.?Respiratory:?Cough?denies.?Cardiovascular:?Chest pain with exertion?denies.?Dyspnea on exertion?denies.?Shortness of breath?denies.?Gastrointestinal:?Constipation?occasional.?Decreased appetite?denies.?Diarrhea?denies.?Heartburn?occasional.?Nausea?denies.?Rectal bleeding?denies.?Vomiting?denies.?Hematology:?bruising?denies.?petechiae?denies.?Swollen glands?none have been noted.?Genitourinary:?Frequent urination?at night.?Musculoskeletal:?Muscle aches?denies.?Painful joints?denies.?Sciatica?denies.?Weakness?denies.?Skin:?Itching?denies.?Rash?denies.?Skin lesion(s)?denies.?Neurologic:?Difficulty speaking?denies.?Dizziness?denies.?Headache?denies.?Low back pain?denies.?Psychiatric:?Depressed mood?denies.? * Medical History:? * Surgical History:?Bx liver 0 04/2022 * Hospitalization/Major Diagno stic Procedure:?Denies Past Hospitalization * Family History:?Father: mariely johnson, diagnosed with Hyperlipidemia, DM, HTN.?Mother: alive, anemia, diagnosed with HTN, Hyperlipidemia.?2 brother(s) , 1 sister(s) . .? Sister had breast cancer. * Social History:?Tobacco Use:?Tobacco Use/Smoking?Patient is a?nonsmoker ?Additional Findings: Tobacco Non-User?Aggressive non-smoker * Medications:?TakingAnagrelid e HCl 1 MG Capsule TAKE 1 CAPSULE BY MOUTH DAILY Drospirenone-Ethinyl Estradiol 3-0.03 MG Tablet TAKE ONE [...] Vitals:?Ht: 5 ft 2 in, Wt: 2 22, BMI:40.6, BP: 117/78, HR: 82, Temp: 97.2, Wt-k.7. * ???Past Orders: Lab:Complete Blood Count Aut o Diff * Collection Date 07/23/2024 04/26/2024 12/08/2023 Collection Time 03:28 PM 08:20 AM 09:27 AM Order Date 07/23/2024 04/26/2024 12/08/2023 White Blood Count 13.7?H (Ref Range: 4.8-10.8 X10*3/uL) 12.6?H (Ref Range: 4.8-10.8 X10*3/uL) 11.2?H (Ref Range: 4.8-10.8 X10*3/uL) Red Blood Count [...] Platelet Volume 12.3 (Ref Range: 9.4-12.3 fL) 12.7?H (Ref Range: 9.4-12.3 fL) 12.5?H (Ref [...] Range: 2.0-8.3 x10*3/uL) Imm Gran Abs Auto 0.05?H (Ref Range: 0.00-0.03 X10*3/uL) 0.04?H (Ref Range: 0.00-0.03 X10*3/uL) 0.03 (Ref [...] Amino Transferase 15 (Ref Range: 5-31 U/L) 46?H (Ref Range: 5-31 U/L) 53?H (Ref Range: 5-31 U/L) Alanine Aminotransferase 21 (Ref Range: 0-31 U/L) 38?H (Ref Range: 0-31 U/L) 55?H (Ref Range: 0-31 U/L) Total Protein 7.2 (Ref Range: 6.5-8.0 g/dL) 8.0 (Ref Range: 6.5-8.0 g/dL) 7.7 (Ref Range: 6.5-8.0 g/dL) Albumin Level 3.7 (Ref Range: 3.5-5.0 g/dL) 3.9 (Ref Range: 3.5-5.0 g/dL) 3.9 (Ref Range: 3.5-5.0 g/dL) Alkaline Phosphatase 115 (Ref Range: 39-117 U/L) 128?H (Ref Range: 39-117 U/L) 138?H (Ref Range: 39-117 U/L) Potassium 3.7 (Ref [...] & Time - 07/23/2024 03:28 PM)?ValueReference Range?T4 Zsdtvhaaa87.24.5-12.0 - ug/dL ???Lab:Thyroid Stimulating Hormone (Order Date - 07/23/2024) (Collection Date & Time - 07/23/2024 03:28 PM)?ValueReference Range?Thyroid Stimulating Hormone2.330.32-4.0 - uIU/mL * Examination: ???General Examination: ?GENERAL APPEARANCE:?pleasant, well [...] lower extremities, sensory exam intact, Cognitive impairment, microcephaly.?PSYCH:?alert, oriented to person and place.? Assessment: * Assessment: 1.?Essential thrombocytosis - D47.3 (Primary)???Notes :The disorder is well controlled with current medication at current dose.? No changes were made.? She will follow-up 3 times a year.???2.?Microcephaly - Q02???Notes :No changes in her neurologic or psychiatric status have been noted. She is awake and alert, pleasant, friendly antireticulin.???3.?Mild cognitive impairment of uncertain or unknown etiology - G31.84???Notes :She was pleasant and seems to understand the discussion. Her change in her regimen other than the aspirin was needed???4.?Asthma - J45.909???Notes :She had no wheezing today and felt well.???5.?Hypothyroid - E03.9???Notes :She has been compliant with her medication. Thyroid function test have been ordered and will be done periodically.??? Plan: * Treatment: 2.?Others? Continue Drospirenone-Ethinyl Estradiol [...] status: Completed true * Provider:?Delano Vallejo MD Date:?05/2024 Generated for Anuradha garvey/Gordon/eTransmitting on:?08/16/2024 08:15 AM EDT History and Physical [...]
--- OUTSIDE RECORDS SUMMARY | 2024-08-16 08:15 | XMS_ITS ---
Author Organization [facility] Address [address] [place] [address] Care Team Providers Care Laborer Road Name Role Phone Laviniacastillo Jennifer Primary Care Provider Delano Cesar Unavailable [phone] Allergies No Known Allergies REASON FOR VISIT [...] 08/24/2023 Encounters Encounter Location Date Provider Diagnosis [facility] [address] [place] [address] 08/24/2023 Delano Johnson Elevated liver function tests [...] 01:00:00 PM, [address], [address], [place], [address], Progress Notes * ALEXIS LOVEOB:1989 (33 yo F)Acc No.[id number]:08/24/2023 Progress Notes Patient:?CECIL LOVE Provider:?Delano Johnson MD :1990???Age:33 Y???Sex:Female D ate:08/24/2023 Address:[address] [place], [place] [address] Pcp:Jennifer Naranjo Subjective: * Chief Complaints: * [...] ?Imaging: MRI ABD W&WO CONTRAST* Ref # [id number] 308/26/2 -08/26/24Colon,Stephanie 08/28/2023 09:33:20 AM EDT >order faxed w/ ref for scheduling * 2.?Elevated liver function tests?LAB: BUN ?LAB: LIVER PROFILE* Do the liver profile lab in 11/2023 and 01/2024 ?LAB: ALPHA-FETOPROTEIN,TUMOR MARKER ?LAB: Creatinine ?Imaging: MRI ABD W&WO CONTRAST* Ref # [id number] 308/26/2 -08/26/24Colon,Stephanie 08/28/2023 09:33:20 AM EDT >order faxed w/ ref for scheduling * 3.?Abnormal MRI, liver?LAB: BUN ?LAB: LIVER PROFILE* Do the liver profile lab in 11/2023 and 01/2024 ?LAB: ALPHA-FETOPROTEIN,TUMOR MARKER ?LAB: Creatinine ?Imaging: MRI ABD W&WO CONTRAST* Ref # [id number] 3vis 4-08/26/24Stephanie Khan 08/28/2023 09:33:20 AM EDT >order faxed w/ ref for scheduling * * Procedure Codes:?1036F TOBAC CO [id number] BP SCR NOT PRFRM REC REASON NOS * Preventive Medicine:? ??Counseling:?Care goal follow-up plan:?Above Normal BMI Follow-up?Giving encouragement to exercise,?BMI management provided?Yes.? * Follow Up:?6 Months * * Sign off status: Completed true * Provider:?Delano Johnson MD Date:? 024 Generated for Printi ng/Syedg/eTransmitting on:?08/16/2024 08:15 AM EDT History and Physical [...]
--- OUTSIDE RECORDS SUMMARY | 2024-08-16 08:15 | XMS_ITS | Patient Health Record ---
Author Organization Delano Vallejo III, MD Address [address] [place] [address] Care Team Providers Care Diesel Service Journeyman Name Role Phone Marcella CROCKER, [facility] Primary Care Provider Delano Crawford [phone] Allergies Allergen (clinical drug ingredient) Drug/Non Drug Allergy documented on EMR Reaction Allergy Type Onset Date Status No Known Drug Allergy Unknown Drug Allergy Active Results Component Value Reference Range Notes Complete Blood Count Auto Di ff Reviewed date:12/31/2023 06:06:48 AM Interpretation: Performing Lab:[facility], [address] [place] [phone] Notes/Report: White Blood Count 11.2 4.8-10.8 X10*3/uL [...] Panel Reviewed date:12/31/2023 06:06:49 AM Interpretation: Performing Lab:[address] [address] Notes/Report: Sodium 141 135-145 mmol/L Potassium 3.8 3.3-5.1 mmol/L Chloride 106 96-108 mmol/L Carbon Dioxide 24 22-29 mmol/L Anion Gap 15 12-20 Blood Urea Nitrogen 11 9-16 mg/dL Creatinine 0.77 0.5-1.4 mg/dL Estimated Glomerular Filt Rate > 60 NOTE: For -Nigerian individuals, multiply the result by 1.210. Chronic [...] ff Reviewed date:04/27/2024 04:42:22 PM Interpretation: Performing Lab:[facility], [address] [place] [phone] Notes/Report: White Blood Count 12.6 4.8-10.8 X10*3/uL [...] Panel Reviewed date:04/27/2024 04:42:22 PM Interpretation: Performing Lab:[facility], [address] [place] [phone] Notes/Report: Sodium 140 135-145 mmol/L Potassium 4.2 [...] Complete Blood Count Auto Di ff Reviewed date:07/28/2024 01:51:16 PM Interpretation: Performing Lab:[facility], [address] [place] [phone] Notes/Report: White Blood Count 13.7 4.8-10.8 X10*3/uL [...] 0.000 0.0-0.012 X10*3/uL Comprehensive Met. Panel Reviewed date:07/28/2024 01:51:16 PM Interpretation: Performing Lab:[address] [address] Notes/Report: Sodium 141 135-145 mmol/L Potassium 3.7 [...] Alkaline Phosphatase 115 39-117 U/L T4 Thyroxine Reviewed date:07/28/2024 01:51:16 PM Interpretation: Performing Lab:[address] [address] Notes/Report: T4 Thyroxine 11.2 4.5-12.0 ug/dL Thyroid Stimulating Hormone Reviewed date:07/28/2024 01:51:16 PM Interpretation: Performing Lab:[address] [address] Notes/Report: Thyroid Stimulating Hormone 2.33 0.32-4.0 uIU/ mL TSH 3rd Generation ([facility]) Reason For Referral No Information Medications Medication SIG (Take, Route, Frequency, Duration) Notes Start Date End Date Status Drospirenone-Ethinyl Estradiol 3-0.03 MG TAKE ONE TABLET BY MOUTH EVERY DAY Oral Active Anagrelide HCl 1 MG TAKE 1 CAPSULE BY MO UTH DAILY Active Ibuprofen 400 MG TAKE ONE TABLET BY M OUTH THREE TIMES A DAY Oral Active Flovent HFA 110 MCG/ACT INHALE 1 PUFF TW ICE DAILY. Inhalation Active metFORMIN HCl ER 750 MG TAKE ONE TABLET BY MOUTH TWICE A DAY Oral Active Ventolin HFA 108 (90 Base) MCG/ACT INHALE TWO PUFFS BY MOUTH FOUR TIMES A DAY NEEDED FOR ASTHMA Inhalation Active Ursodiol 500 MG TAKE 1 TABLET BY FLO TH DAILY FOR 2 WEEKS, AND THEN START USING IT TWICE A DAY. Oral Active Aspir-81 Active Social History Tobacco Use: Social History [...] Status W/U Status Risk Notes Problem Asthma (840924238) Asthma (J45.909) Active confirmed She had no wheezing today and felt well. Problem 038927591 Essential thrombocytosis (D47.3) Active confirmed The disorder is well controlled with current medication at current dose. No changes were made. She will follow-up 3 times a year. Problem Polycystic ovary syndrome (disorder) (624265314) Polycystic ovarian syndrome (E28.2) Active confirmed She will remain under the care of WASTE MACHINE TENDER. Problem Microcephaly (3951945208) Microcephaly (Q02) Active confirmed No changes in her neurologic or psychiatric status have been noted. She is awake and alert, pleasant, friendly antireticulin . Problem Hypothyroid (E03.9) Active confirmed She has been compliant with her medication. Thyroid function test have been ordered and will be done periodically. Problem Dyslipidemia (056692208) Dyslipidemia (E78.5) Active confirmed Her fasting lipids will be reviewed. I recommended they be checked 3 times a year. Problem 156108385 Morbid obesity (E66.01) Active confirmed She has gained 10 pounds. Her body mass index is now slightly over 40. She falls into the morbidly obese range. We have discussed diet and nutrition. She and her mother will consider a referral to the weight loss program at [facility]. Problem Elevated liver enzymes level (858317109) Elevated liver enzymes (R74.8) Active confirmed There remain s slight elevation of the enzymes but there generally improving. They will be observed without treatment at this time. Problem Mild cognitive disorder (627166343) Mild cognitive impairment of uncertain or unknown etiology (G31.84) Active confirmed She was pleasant and seems to understand the discussion. Her change in her regimen other than the aspirin was needed Vital Signs Heart Rate 82 /min 08/01/2024 Temperature 97.2 degrees Fahrenheit 08/01/2024 Blood pressure diastolic 78 mm Hg 08/01/2024 Height 5 ft 2 in in 08/01/2024 Blood pressure systolic 117 mm Hg 08/01/2024 Weight 222 lbs 08/01/2024 BMI 40.6 kg/m2 08/01/2024 Encounters Encounter Location Date Provider Diagnosis Delano Vallejo III, MD [address] [place] [address] [address] [place] [address] 08/28/2023 Delano Vallejo Microcephaly Q02 ; Thrombocytosis D47.3 ; Polycystic ovarian syndrome E28.2 ; Mild cognitive impairment of uncertain or unknown etiology G31.84 and Asthma J45.909 Delano Vallejo III, MD [address] [place] [address] [address] [place] [address] 12/31/2023 Delano Vallejo Microcephaly Q02 ; Thrombocytosis D47.3 ; Polycystic ovarian syndrome E28.2 ; Mild cognitive impairment of uncertain or unknown etiology G31.84 and Asthma J45.909 Delano Vallejo III, MD [address] [place] [address] [address] [place] [address] 05/02/2024 Delano Vallejo Morbid obesity E66.0 1 ; Thrombocytosis D75.839 ; Microcephaly Q02 ; Elevated liver enzymes R74.8 ; Hypothyroid E03.9 ; Mild cognitive impairment of uncertain or unknown etiology G31.84 and Polycystic ovarian syndrome E28.2 Delano Vallejo III, MD [address] [place] [address] [address] [place] [address] 08/01/2024 Delano Vallejo Microcephaly Q02 ; Essential [...] referral to the weight loss program at [facility]. 05/02/2024 Thrombocytosis (ICD-10 - D75.839) Her platelet count remains over 169,000. She will continue anagrelide at the current dose to prevent thrombosis. 08/01/2024 Essential thrombocytosis (ICD-10 - D47.3) The disorder is well controlled with current medication at current dose. No changes were made. She will follow-up 3 times a year. 08/01/2024 Microcephaly (ICD-10 - Q02) No changes in her neurologic or psychiatric status have been noted. She is awake and alert, pleasant, friendly antireticulin. 08/28/2023 Polycystic ovarian syndrome (ICD-10 - E28.2) She will remain under the care of WASTE MACHINE TENDER. 12/31/2023 Polycystic ovarian syndrome (ICD-10 - E28.2) She will remain under the care of WASTE MACHINE TENDER. 05/02/2024 Microcephaly (ICD-10 - Q02) No changes in her neurologic or psychiatric status have been noted. She is awake and alert, pleasant, friendly antireticulin. 08/01/2024 Mild cognitive impairment of uncertain or [...] be observed without treatment at this time. 08/01/2024 Asthma (ICD-10 - J45.909) She had no wheezing today and felt well. 08/28/2023 Asthma (ICD-10 - J45.909) She had no wheezing today and felt well. 12/31/2023 Asthma (ICD-10 - J45.909) She had no wheezing today and felt well. 05/02/2024 Hypothyroid (ICD-10 - E03.9) She has been compliant with her medication. Thyroid function test have been ordered and will be done periodically. 08/01/2024 Hypothyroid (ICD-10 - E03.9) She has [...] She will remain under the care of WASTE MACHINE TENDER. Plan Of Treatment Pending Test Test Name Order Date PROFILE, RANDOM (COMPREHENSIVE METABOLIC ) 04/27/2023 PROFILE, RANDOM (COMPREHENSIVE METABOLIC ) 05/02/2024 PROFILE, RANDOM (COMPREHENSIVE METABOLIC ) 08/28/2023 PROFILE, RANDOM (COMPREHENSIVE METABOLIC ) 12/31/2023 PROFILE, RANDOM (COMPREHENSIVE METABOLIC ) 08/01/2024 TSH (THYROID STIMULATING HORMONE) 2024 CBC w DIFF 08/01/2024 CBC w DIFF 10/17/2022 CBC w DIFF 10/31/2022 JAK2 MUTATION PCR 10/17/2022 CBC WITH AUTO DIFF 04/27/2023 CBC WITH AUTO DIFF 05/02/2024 CBC WITH AUTO DIFF 08/28/2023 CBC WITH AUTO DIFF 03/02/2023 CBC WITH AUTO DIFF 12/31/2023 Free T4 (Free Thyroxine) 05/02/2024 Next Appt Details Provider Name:Delano Verane, 12/09/2024 04:00:00 PM, [address] [place] [address] DR, [address], [place], [address], Insurance Providers Payer Name Payer Address Payer Phone Subscriber Number Group Number Insured Name Patient Relationship to Insured Coverage Start Date Coverage End Date [place] [address] [place] [id number] CECIL BRITT Self - patient is the insured Medical (General) History Medical History History ICD Code Asthma J45.909 Elevated liver enzymes R74.8 Microcephaly Q02 Dyslipidemia E78.5 Obesity E66.9 Hypothyroid E03.9 Thrombocytosis D47.3 Surgical History Surgery Date(Month/Year) Bx liver 04/2022
--- OUTSIDE RECORDS SUMMARY | 2024-08-16 08:16 | XMS_ITS ---
Author Organization [facility] Address [address] [place] [address] Care Team Providers Care Regional Sales Leader Name Role Phone Laviniacastillo Jennifer Primary Care Provider Delano Cesar Unavailable [phone] Allergies No Known Allergies REASON FOR VISIT [...] 02/22/2024 Encounters Encounter Location Date Provider Diagnosis [facility] [address] [place] [address] 02/22/2024 Delano Johnson Elevated liver function tests [...] Provider Name:Delano Johnson , 02/24/2025 01:00:00 PM, [address] [place] [address], [address], [place], [address], Progress Notes * ALEXIS LOVEOB:1989 (33 yo F)Acc No.[id number]:02/22/2024 Progress Notes Patient:?CECIL LOVE Provider:?Delano Johnson MD :1990???Age:33 Y???Sex:Female D ate:02/22/2024 Address:[address] [place] [address] Pcp:Jennifer Naranjo Subjective: * Chief Complaints: * [...] fatty foods?? * Procedure Codes:?1036F TOBAC CO [id number] BP SCR NOT PRFRM REC REASON NOS * Preventive Medicine:? ??Counseling:?Care goal follow-up plan:?Above Normal BMI Follow-up?Giving encouragement to exercise,?BMI management provided?Yes.? * Follow Up:?1 Year * * Sign off status: Completed true * Provider:?Delano Johnson MD Date:? 024 Generated for Anuradha garvey/Gordon/[place] on:?08/16/2024 08:16 AM EDT History and Physical Notes * [...]
--- OUTSIDE RECORDS SUMMARY | 2024-08-16 08:16 | XMS_ITS ---
Author Organization Delano Vallejo III, MD Address [address] [address] Care Team Providers Care Community Service Officer Coordinator Name Role Phone Marcella CROCKER, [facility] Primary Care Provider Delano Crawford [phone] Allergies Allergen (clinical drug ingredient) Drug/Non Drug [...] Problem Status W/U Status Risk Notes Problem 381703305 Morbid obesity (E66.01) Active confirmed She has gained 10 pounds. Her body mass index is now slightly over 40. She falls into the morbidly obese range. We have discussed diet and nutrition. She and her mother will consider a referral to the weight loss program at [facility]. Vital Signs Temperature 96.9 degrees Fahrenheit 05/02/19 25 Blood pressure systolic 116 mm Hg 05/02/19 25 Blood pressure diastolic 85 mm Hg 025 Heart Rate 80 /min 05/02/2024 Height 5 ft 2 in in 05/02/2024 Weight 223 lbs 05/02/2024 BMI 40.78 kg/m2 05/02/2024 Encounters Encounter Location Date Provider Diagnosis Delano Vallejo III, MD [address] [place] [address] [place] [address] 05/02/2024 Delano Vallejo Morbid obesity E66.0 1 [...] referral to the weight loss program at [facility]. 05/02/2024 Thrombocytosis (ICD-10 - D75.839) Her [...] She will remain under the care of [facility]. Plan Of Treatment Medication Medication Name Sig [...] 3 Months, Reason: OV Provider Name:Delano Vallejo, 12/09/2024 04:00:00 PM, [address] [place] [address], [phone], Progress Notes * ALEXIS GIANGOB:1989 (34 yo F)Acc No.[id number]:05/02/2024 Progress Notes Patient:?CECIL GIANG Provider:?Delano Vallejo MD :1990???Age:34 Y???Sex:Female D ate:05/02/2024 Address:[address] [place], [place] [id number] Pcp:Jennifer Naranjo MD Subjective: * Chief Complaints: [...] Procedure:?Denies Past Hospitalization * Family History:?Father: mariely e, diagnosed with HTN, Hyperlipidemia, DM.?Mother: alive, anemia, [...] referral to the weight loss program at [facility].???3.?Microcephaly - Q02???Notes :No changes in her [...] :She will remain under the care of [facility].??? Plan: * Treatment: 2.?Elevated liver enzymes?LAB: PROFILE, [...] * Provider:?Delano Vallejo MD Date:?04/04 Generated for Anuradha garvey/Gordon/Jah[place] on:?08/16/2024 08:15 AM [...]
--- OUTSIDE RECORDS SUMMARY | 2024-08-16 08:17 | XMS_ITS ---
Author Organization [facility] Address [address] [place] [address] Care Team Providers Care Rn Baby Name Role Phone Jennifer Naranjo Primary Care Provider Unavailab Delano Stapleton [phone] REASON FOR VISIT Ursodiol Rx Medications Medication SIG (Take, Route, Fr equency, Duration) Notes Start Date End Date Status Ursodiol 500 MG 1 tablet Orally Twic e a day for 30 day(s) 04/05/2024 Active Encounters Encounter Location Date Provider Diagnosis [facility] [address] [place] [address] 04/05/2024 Delano Johnson Plan Of Treatment Medication Medication Name Sig Start Date Stop Date Notes Ursodiol 500 MG 1 tablet Orally Twice a day for 30 day(s) 04/05/2024 Next Appt Details Provider Name:Delano Johnson , 02/24/2025 01:00:00 PM, [address] [place] [address], [address], [place], [address], Progress Notes * ALEXIS LOVEOB:1989 (34 yo F)Acc No.[id number]:04/05/2024 Patient:?CECIL LOVE :1990???Age:34 Y???Sex:Female Address:[address] , [place], [address] * Refills? Start Ursodiol Tablet, 500 MG, Orally, 60 Tablet, 1 tablet, Twice a day, 30 day(s), Refills=11 * true * Date:? Generated for Anuradha garvey/Gordon/[place] on:?08/16/2024 08:16 AM EDT
--- OUTSIDE RECORDS SUMMARY | 2024-08-16 08:17 | XMS_ITS | Patient Health Record ---
Author Organization [facility] Address [address] [place] [address] Care Team Providers Care Assistant Produce Manager Name Role Phone Jennifer Naranjo Primary Care Provider Unavailab Delano Stapleton Unavailable [phone] Allergies No Known Allergies Results Component Value Reference Range Notes Complete Blood Count Auto Di ff Reviewed date:08/20/2023 09:34:17 PM Interpretation: Performing Lab:[facility], [address] [place] [phone] Notes/Report: White Blood Count 9.7 4.8-10.8 X10*3/uL [...] date:08/20/2023 09:34:45 PM Interpretation: Performing Lab:[facility], [address] [place] [phone] Notes/Report: Bilirubin Total 0.6 0.0-1.0 mg/dL Bilirubin Direct 0.2 0.0-0.5 mg/dL Aspartate Amino Transferase 117 5-31 U/L Alanine Aminotransferase 95 0-31 U/L Total Protein 8.0 6.5-8.0 g/dL Albumin Level 4.0 3.5-5.0 g/dL Alkaline Phosphatase 142 39-117 U/L Liver Panel Reviewed date:02/22/2024 01:34:17 PM Interpretation: Performing Lab:[address] [address] Notes/Report: Bilirubin Total 0.3 0.0-1.0 mg/dL Bilirubin Direct 0.1 0.0-0.5 mg/dL Aspartate Amino Transferase 19 5-31 U/L Alanine Aminotransferase 17 0-31 U/L Total Protein 7.7 6.5-8.0 g/dL Albumin Level 3.8 3.5-5.0 g/dL Alkaline Phosphatase 124 39-117 U/L Blood Urea Nitrogen Reviewed date:10/02/2023 05:27:12 PM Interpretation: Performing Lab:[address] [address] Notes/Report: Blood Urea Nitrogen 8 9-16 mg/dL Creatinine Reviewed date:10/02/2023 05:27:22 PM Interpretation: Performing Lab:[address] [address] Notes/Report: Creatinine 0.71 0.5-1.4 mg/dL Estimated Glomerular Filt Rate > 60 NOTE: For -Libyan individuals, multiply the result by 1.210. Chronic Kidney Disease: Estimated GFR < 60 mL/min/1.73m2 Severe Kidney Disease: Estimated GFR < 15 mL/min/1.73m2 Alpha Fetoprotein Reviewed date:10/03/2023 02:23:38 PM Interpretation: Performing Lab:[address] [address] Notes/Report: Alpha Fetoprotein 0.6 Reference Range: <6.1 [...] of disease. THIS TEST WAS PERFORMED AT: [facility] [address] [place] [phone] MARU BENEDICT MD MR abdomen wo/w con (Not yet reviewed by provider) Interpretation: Performing Lab: Notes/Report: [address] [address] Magnetic Resonance Report Signed Patient: Cecil Giang MR#: [id number] : 1990 Acct:[id number] Age/Sex: 33 / F ADM Date: 10/03/23 Loc: HO.MRI Attending Dr: Delano Gallegos MD Ordering Physician: Delano Gallegos MD Date of Service: 10/03/23 Procedure(s): MR abdomen wo/w con Accession Number(s): [id number] cc: Jennifer Naranjo MD; Delano Gallegos MD [...] in OV> 10/31/23 0823 DD/ 1605 TD/TT: Photographic Platemaker: [place] [address] Magnetic Resonance Report Signed Patient: Cecil Giang MR#: [id number] : 1990 Acct:[id number] Age/Sex: 33 / F ADM Date: 10/03/23 Loc: HO.MRI Attending Dr: Delano Gallegos MD Ordering Physician: Delano Gallegos MD Date of Service: 10/03/23 Procedure(s): MR abd omen wo/w con Accession Number(s): [id number] cc: Jennifer Naranjo MD; Delano Gallegos MD [...] in OV> 10/31/23 0823 DD/ 1605 TD/TT: Photographic Platemaker: Liver Panel Reviewed date:02/16/2024 11:25:47 AM Interpretation: Performing Lab:[facility], [address] [place] [phone] Notes/Report: Bilirubin Total 0.5 0.0-1.0 mg/dL Bilirubin Direct 0.2 0.0-0.5 mg/dL Aspartate Amino Transferase 21 5-31 U/L Alanine Aminotransferase 21 0-31 U/L Total Protein 7.8 6.5-8.0 g/dL Albumin Level 3.9 3.5-5.0 g/dL Alkaline Phosphatase 131 39-117 U/L Reason For Referral Referring Provider First Name Jennifer Referring Provider Last Name Marcella Referring Provider Speciality Internal M edicine Referred Organization [facility] Referred Provider Delano Gallegos Referred Address [address] [place] [address],[place] [address],[place], [place],[address],[place] Referred Provider Specialty Gastroentero logy General Notes Radha Lombardi 024 02:13:32 PM EDT > requested a VocalizeLocal ref from [facility] for visit [...] Risk Notes Problem Elevated liver enzymes level (487891412) Elevated liver function tests (R79.89) Active confirmed Problem Fatty liver (943947126) Fatty liver (K76.0) Active confirmed Problem Iron deficiency anemia due to chronic blood loss (625645666) Iron deficiency anemia due to chronic blood loss (D50.0) Active confirmed Problem Abnormal findings diagnostic imaging of liver and biliary tract (605756129) Abnormal liver ultrasound (R93.2) Active confirmed Problem 228884459 Abnormal MRI, liver (R93.2) Active confirmed Problem Elevated liver enzymes level (541458294) Elevated liver function tests (R94.5) Active confirmed Vital Signs Temperature 97.5 degrees Fahrenheit 02/22/2024 Blood pressure diastolic 00 mm Hg 02/22/2024 Height 62 in 02/22/2024 Blood pressure systolic 000 mm Hg 02/22/2024 Weight 219 lb 6 oz lbs 02/22/2024 BMI 40.12 kg/m2 02/22/2024 Encounters Encounter Location Date Provider Diagnosis [facility] [address] [place] [address] 08/24/2023 Delano Gallegos Elevated liver function tests R94.5 ; Fatty liver K76.0 and Abnormal MRI, liver R93.2 [facility] [address] [place] [address] 02/22/2024 Delano Gallegos Elevated liver function tests R94.5 and Fatty liver K76.0 [facility] [address] [place] [address] 04/05/2024 Delano Gallegos Assessments Encounter Date Diagnosis [...] DIFF 02/15/2022 PROTHROMBIN TIME (PT, INR) 09/14/2021 [id number] (A1A) 09/14/2021 ALPHA-FETOPROTEIN,TUMOR MARKER 2 ALPHA-FETOPROTEIN,TUMOR MARKER [...] Provider Name:Delano Gallegos , 02/24/2025 01:00:00 PM, [address] [place] [address], [address], [place], [address], Insurance Providers Payer Name Payer Address Payer Phone Subscriber Number Group Number Insured Name Patient Relationship to Insured Coverage Start Date Coverage End Date [place] [address] [place] [id number] [id number] CECIL BRITT Self - patient is the insured Medical (General) History Medical History History ICD Code Asthma Prediabetes Denies [place],CVA,renal disease Elevated liver tests due to presumed [...]
--- NOTE | 2024-08-16 08:37 | PC.NURSE ---
pt c/o left elbow pain also sore throat, cough as well.
--- NOTE | 2024-08-16 09:05 | ED_ITS ---
HPI - General Adult General Chief complaint: Extremity Problem Stated complaint: Sore throat, elbow pain Time Seen by Provider: 08/16/24 08:57 Source: patient, family (mother), RN notes reviewed and old records reviewed Mode of arrival: ambulatory History of Present Illness ED Provider: Marcelle HPI narrative: Patient is a 34-year-old female with history of microcephaly, moderate developmental delay, PCOS presenting with complaint of sore throat for the past 2 days as well as left elbow pain for the past month. Mother states siblings at home are sick with similar symptoms of cough, sore throat. Denies fevers. Patient is right hand dominant, reports intermittent left elbow pain for the past month. 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 Patient has not tried any OTC pain medications for her symptoms. Denies fall or other known trauma. Cannot note any exacerbating or relieving activities. MD complaint: sore throat, left elbow pain Related Data Home Medications ?Medication ?Instructions ?Recorded ?Confirmed anagrelide 0.5 mg capsule 0.5 mg PO Q12H 06/14/23 aspirin 81 mg capsule 81 mg PO DAILY 06/14/23 metformin 750 mg tablet,extended 750 mg PO BID 06/14/23 release 24 hr Previous Rx's ?Medication ?Instructions ?Recorded ibuprofen 600 mg tablet 600 mg PO QID PRN pain #20 tabs 12/23/23 Allergies Allergy/AdvReac Type Severity Reaction Status Date / Time No Known Allergies Allergy Verified 08/16/24 07:54 Review of Systems Review of Systems: As per HPI Yes all other systems are reviewed and are negative Constitutional: Constitutional: Reports as per HPI REPLACED BY [facility] Past Medical History Medical History Pre-diabetes PCOS (polycystic ovarian syndrome) Social History Social History Alcohol intake: never Smoked in Last 30 Days: No Use of substances other than those prescribed or required for medical reasons: No Advance Directives: No Advance Directives Information Provided: No Patient : No Physical Exam ED Vital Signs: Vital Signs - 24 hr 08/16/24 07:51 08/16/24 10:16 Temperature 98 F 97.1 F Pulse Rate 95 88 Respiratory Rate 18 18 Blood Pressure 125/77 114/76 Pulse Oximetry 97 95 Oxygen Delivery Method Room Air Room Air BMI result Body Mass Index 40.7 Vital signs have been reviewed and appear to be correct. Blood pressure normal. Heart rate normal. Respiratory rate normal. Temperature normal. Oxygen saturation normal. Const General: cooperative, healthy appearing and no acute distress Orientation/consciousness: oriented to person, oriented to place, oriented to time and patient oriented x3 Limitations: no limitations HENMT Head: Yes normocephalic and Yes atraumatic Ears: external ears normal and TM's normal bilaterally General nose exam: Normal external nose present and Normal nasal mucous membranes and turbinates present Face and sinus: Yes face symmetric Mouth: oropharynx normal and moist mucous membranes Throat: Yes posterior oropharynx normal, Yes tonsils normal, Yes uvula midline, No peritonsillar mass, No uvular edema and No cobblestoning Eyes Pupils: Equal, round and reactive pupils present Neck Neck: Yes normal visual inspection, Yes no lymphadenopathy and Yes supple Resp Effort & Inspection: normal respiratory effort and able to speak in complete sentences Auscultation: clear to auscultation bilaterally Cardio Rate: regular rate Rhythm: regular rhythm Heart sounds: S1 normal heart sound present and S2 normal heart sound present GI Palpation (GI): Soft to palpation and nontender Auscultation: normoactive bowel sounds General: Yes no CVA tenderness Back/Spine/Pelvis Back: no CVA tenderness Skin General skin exam: elasticity normal and turgor normal Neuro General: oriented to person, oriented to place, oriented to time, patient oriented x3, moves all extremities, no focal motor deficits and CN's II-XI intact bilaterally Cranial nerves: Yes Equal, round and reactive pupils present Cognition (Neuro): normal cognition Extrem General: Yes full ROM, Yes no pedal edema and Yes no calf tenderness Left upper extremity: elbow/forearm Details: normal to inspection, normal ROM and distal pulses intact; no tenderness, no swelling, no crepitus and no deformity Psych Mental Status: mental status grossly normal Affect: normal affect Thought process: Normal thought process present Medical Decision Making Medical Decision Making MDM Narrative: Patient is a 34-year-old female with history of microcephaly, moderate developmental delay, PCOS presenting with complaint of sore throat for the past 2 days as well as left elbow pain for the past month. On exam patient is awake, A+Ox3, VS WNL, afebrile, normal neurological exam without focal deficits, physical exam findings as above. Given reported symptoms and physical exam findings, initial differential includes but is not limited to strep versus viral pharyngitis, flu, COVID, left elbow strain, sprain, lateral epicondylitis. Strep and viral swabs negative. Physical exam unremarkable. Considered x-ray, however, in the absence of trauma and without bony tenderness, full ROM present, feel not indicated at this time. Results discussed with patient and mother and all questions answered. Advised patient to use Tylenol or ibuprofen as she is feeling pain. Also discussed that she can use an atgt-wij-jagvsol elbow brace especially if she is going to be volunteering and lifting heavy items. Follow up with PCP as needed. Return precautions discussed. Patient and mother verbalized understanding of and agreement with plan. Differential Diagnosis Differential Diagnoses: The differential diagnosis associated with the presentation includes As per [facility] Admission/Observation Consideration of admission/observation: Escalation of care including admission/observation considered Patient would have been admitted to the hospital had their work up had any findings where hospital admission was appropriate and their clinical presentation warranted hospital admission. Lab Data [facility] Lab Attestation statement: I reviewed the patient's lab results. as per [facility] Labs: Lab Results 08/16/24 Range/Units 08:48 Influenza Type A (PCR) NEGATIVE (Negative) Influenza Type B (PCR) NEGATIVE (Negative) RSV RNA Qual (PCR) NEGATIVE (Negative) SARS-CoV-2 RNA (RT-PCR) NEGATIVE (Negative) S. pyogenes GrpA JIMMIE Negative (Negative) Independent Historian Clinical information obtained from an independent historian. History obtained from or confirmed by: Parent (mother) External Record Review External record reviewed: Inpatient record, Office record and Outpatient record Discharge Plan Discharge Clinical Impression: Strain of elbow, left, Acute viral pharyngitis Patient Disposition: Home, Self-Care Instructions: Muscle Strain (DC), Pharyngitis (ED), Elbow Strain (ED) Additional Instructions: You were evaluated in the emergency department today for a sore throat and left elbow pain. You tested negative for strep, flu, COVID. Your sore throat is likely due to a viral illness which will resolve on its own within the next 1-2 weeks. You can use Tylenol or ibuprofen per package instructions as needed for discomfort. You can also gargle with warm salt water several times daily. You were also evaluated for left elbow pain. Your evaluation is consistent with a muscle strain. We recommend that you use an eake-ofm-bnlscgp elbow brace if you are going to be lifting heavy items. You can also use bzxp-juy-kpygwbj Tylenol or ibuprofen if you are having discomfort to your elbow. Follow up with your primary care provider as needed. Return to the emergency department with new or concerning symptoms. Prescriptions: No Action ibuprofen 600 mg tablet 600 mg PO QID PRN (Reason: pain) Qty: 20 0RF metformin 750 mg tablet extended release 24 hr 750 mg PO BID anagrelide 0.5 mg capsule 0.5 mg PO Q12H aspirin 81 mg capsule 81 mg PO DAILY Print Language: Telugu
[2024-08-16 09:06] LABS: IDNOW Serial# 58CA691E; Strep A Nucleic Acid Negative (Negative)
[2024-08-16 09:35] LABS: Influenza A PCR NEGATIVE (Negative); Influenza B PCR NEGATIVE (Negative); Resp Syncy Virus RNA Qual PCR NEGATIVE (Negative); SARS COV2 PCR INHOUSE NEGATIVE (Negative)
[2024-08-16 10:16] VITALS: BP 114/76; PULSE 88; RESP 18; TEMP 36.2; O2SAT 95
[2024-08-16 11:00] VITALS: BP 114/76; PULSE 88; RESP 18; TEMP 36.2; O2SAT 95
== END 2024-08-16 11:01 | disposition home or self-care (01) ==
PROVIDERS: Emergency Provider Emergency Medicine Emergency Medical Services; PCP Internal Medicine
DX: J02.8 Acute pharyngitis due to other specified organisms (principal); S56.912A Strain of unspecified muscles, fascia and tendons at forearm level, left arm, initial encounter; X58.XXXA Exposure to other specified factors, initial encounter; Y93.9 Activity, unspecified; Y92.9 Unspecified place or not applicable; Y99.9 Unspecified external cause status
CPT/HCPCS: 0241U; 87651; 99283; 99284

== ENCOUNTER 2024-10-03 08:58 | Emergency (ER) | payer MEDICAID, SELFPAY ==
[2024-10-03 09:02] VITALS: BP 120/60; PULSE 87; RESP 20; TEMP 36.4; O2SAT 96; BMI 26.5
--- OUTSIDE RECORDS SUMMARY | 2024-10-03 09:10 | XMS_ITS | Patient Health Record ---
Author Organization Delano Vallejo III, MD Address [address] [place] [address] Care Team Providers Care Cash Register Servicer Name Role Phone Marcella CROCKER, [facility] Primary Care Provider Delano Crawford [phone] Allergies Allergen (clinical drug ingredient) Drug/Non Drug Allergy documented on EMR Reaction Allergy Type Onset Date Status No Known Drug Allergy Unknown Drug Allergy Active Results Component Value Reference Range Notes Complete Blood Count Auto Di ff Reviewed date:12/31/2023 06:06:48 AM Interpretation: Performing Lab:[facility], [address] [place] [phone] Notes/Report: White Blood Count 11.2 4.8-10.8 X10*3/uL [...] Panel Reviewed date:12/31/2023 06:06:49 AM Interpretation: Performing Lab:[address] [phone] Notes/Report: Sodium 141 135-145 mmol/L Potassium 3.8 3.3-5.1 mmol/L Chloride 106 96-108 mmol/L Carbon Dioxide 24 22-29 mmol/L Anion Gap 15 12-20 Blood Urea Nitrogen 11 9-16 mg/dL Creatinine 0.77 0.5-1.4 mg/dL Estimated Glomerular Filt Rate > 60 NOTE: For -Togolese individuals, multiply the result by 1.210. Chronic [...] ff Reviewed date:04/27/2024 04:42:22 PM Interpretation: Performing Lab:[facility], [address] [place] [phone] Notes/Report: White Blood Count 12.6 4.8-10.8 X10*3/uL [...] Panel Reviewed date:04/27/2024 04:42:22 PM Interpretation: Performing Lab:[facility], [address] [place] [phone] Notes/Report: Sodium 140 135-145 mmol/L Potassium 4.2 [...] ff Reviewed date:07/28/2024 01:51:16 PM Interpretation: Performing Lab:[facility], [address] [place] [phone] Notes/Report: White Blood Count 13.7 4.8-10.8 X10*3/uL [...] Panel Reviewed date:07/28/2024 01:51:16 PM Interpretation: Performing Lab:[address] [phone] Notes/Report: Sodium 141 135-145 mmol/L Potassium 3.7 [...] Thyroxine Reviewed date:07/28/2024 01:51:16 PM Interpretation: Performing Lab:[address] [address] Notes/Report: T4 Thyroxine 11.2 4.5-12.0 ug/dL Thyroid Stimulating Hormone Reviewed date:07/28/2024 01:51:16 PM Interpretation: Performing Lab:[address] [address] Notes/Report: Thyroid Stimulating Hormone 2.33 0.32-4.0 uIU/ [...] Status W/U Status Risk Notes Problem Asthma (217213039) Asthma (J45.909) Active confirmed She had no wheezing today and felt well. Problem 276887178 Essential thrombocytosis (D47.3) Active confirmed The disorder is well controlled with current medication at current dose. No changes were made. She will follow-up 3 times a year. Problem Polycystic ovary syndrome (disorder) (286852839) Polycystic ovarian syndrome (E28.2) Active confirmed She will remain under the care of [facility] [employer] [facility]NA[facility]. Problem Microcephaly (2196314492) Microcephaly (Q02) Active confirmed No changes in her neurologic or psychiatric status have been noted. She is awake and alert, pleasant, friendly antireticulin . Problem Hypothyroid (88288564) Hypothyroid (E03.9) Active confirmed She has been compliant with her medication. Thyroid function test have been ordered and will be done periodically. Problem Dyslipidemia (506968620) Dyslipidemia (E78.5) Active confirmed Her fasting lipids will be reviewed. I recommended they be checked 3 times a year. Problem 239645694 Morbid obesity (E66.01) Active confirmed She has gained 10 pounds. Her body mass index is now slightly over 40. She falls into the morbidly obese range. We have discussed diet and nutrition. She and her mother will consider a referral to the weight loss program at [facility]. Problem Elevated liver enzymes level (054463645) Elevated liver enzymes (R74.8) Active confirmed There remain s slight elevation of the enzymes but there generally improving. They will be observed without treatment at this time. Problem Mild cognitive disorder (365376424) Mild cognitive impairment of uncertain or unknown [...] Provider Diagnosis Delano Vallejo III, MD [address] [place] [address] [address] [place] [address] 12/31/2023 Delano Vallejo Microcephaly Q02 ; Thrombocytosis D47.3 ; Polycystic ovarian syndrome E28.2 ; Mild cognitive impairment of uncertain or unknown etiology G31.84 and Asthma J45.909 Delano Vallejo III, MD [address] [place] [address] [address] [place] [address] 05/02/2024 Delano Vallejo Morbid obesity E66.0 1 ; Thrombocytosis D75.839 ; Microcephaly Q02 ; Elevated liver enzymes R74.8 ; Hypothyroid E03.9 ; Mild cognitive impairment of uncertain or unknown etiology G31.84 and Polycystic ovarian syndrome E28.2 Delano Vallejo III, MD [address] [place] [address] [address] [place] [address] 08/01/2024 Delano Vallejo Microcephaly Q02 ; Essential thrombocytosis D47.3 ; Mild cognitive impairment of uncertain or unknown etiology G31.84 ; Asthma J45.909 and Hypothyroid E03.9 Assessments Encounter Date Diagnosis (ICD Code) Assessment Notes Treat ment Notes Treatment Clinical Notes 12/31/2023 Thrombocytosis (ICD-10 - D47.3) Her platelets [...] referral to the weight loss program at [facility]. 05/02/2024 Thrombocytosis (ICD-10 - D75.839) Her [...] is awake and alert, pleasant, friendly antireticulin. 12/31/2023 Polycystic ovarian syndrome (ICD-10 - E28.2) She will remain under the care of [facility] [facility] MANAGER. 05/02/2024 Microcephaly (ICD-10 - Q02) No changes [...] She will remain under the care of [facility] [facility] [facility]NAGER. Plan Of Treatment Pending Test Test Name [...] DIFF 08/28/2023 CBC WITH AUTO DIFF 03/02/2023 Free T4 (Free Thyroxine) 05/02/2024 Next Appt Details Provider Name:Delano Sheffieldrne, 12/09/2024 04:00:00 PM, [address], [place], [address], Insurance Providers Payer Name Payer Address Payer Phone Subscriber Number Group Number Insured Name Patient Relationship to Insured Coverage Start Date Coverage End Date [place] [address] [place] [id number] [phone] [id number] CECIL BRITT Self - patient is the insured Medical (General) History Medical History History ICD Code Asthma J45.909 Elevated liver enzymes R74.8 Microcephaly Q02 Dyslipidemia E78.5 Obesity E66.9 Hypothyroid E03.9 Thrombocytosis D47.3 Surgical History Surgery Date(Month/Year) Bx liver 04/2022
--- OUTSIDE RECORDS SUMMARY | 2024-10-03 09:10 | XMS_ITS | Patient Health Record ---
Author Organization [facility] Address [address] [place] [address] Care Team Providers Care Hand Buffer Name Role Phone Marcella Jennifer Primary Care Provider Unavailab Delano Stapleton Unavailable [phone] Allergies No Known Allergies Results Component Value Reference Range Notes Liver Panel Reviewed date:02/16/2024 11:25:47 AM Interpretation: Performing Lab:[facility], [address] [place] [phone] Notes/Report: Bilirubin Total 0.5 0.0-1.0 mg/dL Bilirubin Direct 0.2 0.0-0.5 mg/dL Aspartate Amino Transferase 21 5-31 U/L Alanine Aminotransferase 21 0-31 U/L Total Protein 7.8 6.5-8.0 g/dL Albumin Level 3.9 3.5-5.0 g/dL Alkaline Phosphatase 131 39-117 U/L Reason For Referral Referring Provider First Name Jennifer Referring Provider Last Name Marcella Referring Provider Speciality Internal M edicine Referred Organization [facility] Referred Provider Delano Gallegos Referred Address [address],[place], [place],[address], Referred Provider Specialty Gastroentero logy General Notes Radha Lombardi 024 02:13:32 PM EDT > requested a [facility] ref from [facility] for visit [...] Risk Notes Problem Elevated liver enzymes level (449976509) Elevated liver function tests (R79.89) Active confirmed Problem Fatty liver (795985967) Fatty liver (K76.0) Active confirmed Problem Iron deficiency anemia due to chronic blood loss (321851822) Iron deficiency anemia due to chronic blood loss (D50.0) Active confirmed Problem Abnormal findings diagnostic imaging of liver and biliary tract (540134605) Abnormal liver ultrasound (R93.2) Active confirmed Problem 932810701 Abnormal MRI, liver (R93.2) Active confirmed Problem Elevated liver enzymes level (237435834) Elevated liver function tests (R94.5) Active confirmed Vital Signs Temperature 97.5 degrees Fahrenheit 02/22/2024 Blood pressure diastolic 00 mm Hg 02/22/2024 Height 62 in 02/22/2024 Blood pressure systolic 000 mm Hg 02/22/2024 Weight 219 lb 6 oz lbs 02/22/2024 BMI 40.12 kg/m2 02/22/2024 Encounters Encounter Location Date Provider Diagnosis [facility] [address] [place] [address] 02/22/2024 Delano Gallegos Elevated liver function tests R94.5 and Fatty liver K76.0 [facility] [address] [place] [address] 04/05/2024 Delano Gallegos Assessments Encounter Date Diagnosis (ICD Code) Assessment Notes Treatment Notes Treatment Clinical Notes Section Notes 02/22/2024 Fatty liver (ICD-10 - K76.0) Overall, [...] DIFF 02/15/2022 PROTHROMBIN TIME (PT, INR) 09/14/2021 [id number] (A1A) 09/14/2021 ALPHA-FETOPROTEIN,TUMOR MARKER 2 ALPHA-FETOPROTEIN,TUMOR MARKER 4 MRI ABD W&WO CONTRAST 08/24/2023 MRI ABD W&WO CONTRAST 09/24/2021 MRI ABD W&WO CONTRAST 07/25/2022 US LIVER BIOPSY CORE GUIDE 02/15/2022 US ABDOMEN COMP WITH ELASTOGRAPHY 2021 Prothrombin Time INR 02/15/2022 Partial Thromboplastin Time 02/15/2022 Liver Panel 09/14/2021 Creatinine 07/25/2022 Creatinine 08/24/2023 Creatinine 09/24/2021 MR abdomen wo/w con 10/03/2023 Next Appt Details Provider Name:Delano Gallegos , 02/24/2025 01:00:00 PM, [address], [address], [place], [address], Insurance Providers Payer Name Payer Address Payer Phone Subscriber Number Group Number Insured Name Patient Relationship to Insured Coverage Start Date Coverage End Date MEDICA[employer] [address] [place] [phone] [id number] CECIL BRITT Self - patient is the insured Medical (General) History Medical History History ICD Code Asthma Prediabetes Denies RI,CVA,renal disease Elevated liver tests due to presumed [...]
[2024-10-03] MEDS: Tetracaine HCl/PF 0.5% Oph Sol 4 ML DROPS 1 DROP EYE-RIGHT (11:10)
[2024-10-03] MEDS: Fluorescein Sodium STRIP 1 STRIP EYE-RIGHT (11:10)
--- NOTE | 2024-10-03 11:16 | ED.EYEPROB ---
HPI - Eye Problem General Chief complaint: Eye Problems Stated complaint: pink eye Time Seen by Provider: 10/03/24 10:56 Source: patient Mode of arrival: ambulatory Limitations: no limitations History of Present Illness ED Provider: ESEQUIEL EASON PA-C HPI Narrative: 34 year old female with pmhx significant for PCOS, developmental delay presents to the ED today with right eye irritation x2 days. Reports waking up with her right eye feeling itchy, scratchy, and tearful. Denies any crusting or purulent drainage. Does not recall getting anything in her eye. She does not recall scratching her eye at all. Denies any foreign body sensation. Has not used any eye drops/ facial creams/washes that may have gotten in the eye. Reports associated rhinorrhea, headache. She does not wear corrective lenses. Denies fever, chills, ear pain, hearing loss, sore throat. Related Data Home Medications ?Medication ?Instructions ?Recorded ?Confirmed anagrelide 0.5 mg capsule 0.5 mg PO Q12H 06/14/23 aspirin 81 mg capsule 81 mg PO DAILY 06/14/23 metformin 750 mg tablet,extended 750 mg PO BID 06/14/23 release 24 hr Previous Rx's ?Medication ?Instructions ?Recorded ibuprofen 600 mg tablet 600 mg PO QID PRN pain #20 tabs 12/23/23 cetirizine 0.24 % eye drops in a 1 drp ophthalmic-Right BID 1 week 10/03/24 dropperette #30 ea Allergies Allergy/AdvReac Type Severity Reaction Status Date / Time No Known Allergies Allergy Verified 10/03/24 09:04 Review of Systems Review of Systems: Yes all other systems are reviewed and are negative [facility] Past Medical History Attestation statement: The following information was validated with the patient. Source: old records reviewed and nursing notes reviewed Medical History Pre-diabetes PCOS (polycystic ovarian syndrome) Social History Social History Alcohol intake: never Advance Directives: No Advance Directives Information Provided: Yes Physical Exam Vital Signs: Vital Signs: Last Vital Signs Temp 97.6 F 10/03/24 09:02 Pulse 87 10/03/24 09:02 Resp 20 10/03/24 09:02 BP 120/60 10/03/24 09:02 Pulse Ox 96 10/03/24 09:02 O2 Del Method Room Air 10/03/24 09:02 BMI result Body Mass Index 26.5 Vital signs stable, afebrile General: Well appearing, in no acute distress. Skin: Warm, dry, intact. No rashes or lesions. Head: Normocephalic, atraumatic. EENT: Hearing is intact b/l. Moist mucous membranes.?No periorbital swelling. No enophthalmous or exopthalmous. EOMs intact without pain or entrapment. PERRLA. Positive photophobia. No obvious foreign body or abrasion. Mild conjunctival injection to right eye. No ecchymosis. No hazy cornea. Visual acuity OD 20/50, OS 20/40, bilateral 20/40. IOP OD 19, IOP OS 20. On tetracaine exam, no reuptake to suggest abrasion or fb. No ulceration. No dendritic lesions. Neck: Supple without LAD Cardiac: Chest wall symmetric. RRR Lungs: Normal respiratory effort without accessory muscle use. CTA bilaterally. No rales, rhonchi, or wheezes.? Neuro: AOx3. Normal speech. Ambulating with steady gait. Course Course Course Narrative: Exam consistent with a viral conjunctivitis. Cetirizine eyedrops sent to pharmacy. Patient has remained stable throughout ED visit today. Discussed worrisome signs and symptoms and when to return to the ED. All questions answered at this time. Patient is agreeable with disposition and stable for discharge. Medications Administered Discontinued Medications Generic Name Dose Route Start Last Admin Trade Name Krzysztof PRN Reason Stop Dose Admin Fluorescein Sodium 1 strip 10/03/24 10:56 10/03/24 11:10 Fluorescein Sodium Strip EYE-RIGHT 10/03/24 10:57 1 strip ONCE ONE Administration Tetracaine HCl 1 drop 10/03/24 10:56 10/03/24 11:10 Tetracaine Hcl/Pf 0.5% Oph Terese 4 Ml Drops EYE-RIGHT 10/03/24 10:57 1 drop ONCE ONE Administration Medical Decision Making Medical Decision Making MDM Narrative: 34 year old female with pmhx significant for PCOS, developmental delay presents to the ED today with right eye irritation x2 days. Vital signs stable. Afebrile. She is well-appearing and in no acute distress. On exam, No periorbital swelling. No enophthalmous or exopthalmous. EOMs intact without pain or entrapment. PERRLA. Positive photophobia. No obvious foreign body or abrasion. Mild conjunctival injection to right eye. No ecchymosis. No hazy cornea. Visual acuity OD 20/50, OS 20/40, bilateral 20/40. IOP OD 19, IOP OS 20. On tetracaine exam, no reuptake to suggest abrasion or fb. No ulceration. No dendritic lesions. Differential diagnosis includes corneal abrasion, corneal foreign body, viral vs allergic vs bacterial conjunctivitis. Unlikely preseptal or orbital cellulitis, acute angle closure glaucoma, iritis, keratitis, scleritis, uveitis, herpes ophthalmicus. Plan for visual acuity, tetracaine/fluorescein exam, intra-ocular pressures, disposition. Differential Diagnosis Differential Diagnoses: The differential diagnosis associated with the presentation includes As above Admission/Observation Not indicated Independent Historian Clinical information obtained from an independent historian. History obtained from or confirmed by: Parent (mom) Prescription Management I considered prescription management with: Other (Cetirizine eyedrops) Social Determinants Patient?s care significantly limited by Social Determinants of Health including: Other Social Determinant of Health Critical Care Time Critical Care Time Critical Care Time: No Discharge Plan Discharge Clinical Impression: Acute viral conjunctivitis Patient Disposition: Home, Self-Care Instructions: Conjunctivitis (ED) Additional Instructions: You were evaluated in the ED today for right eye irritation. Your exam is reassuring. There are no scratches or foreign bodies in your right eye. Your eye pressures are normal. Your symptoms are concerning for a viral conjunctivitis. Please see home instructions. I am sending eye drops to your pharmacy. Instill 1 drop into your right eye twice daily (8 hours apart) for the next week. Do not use these eye drops more than 1 week as this can cause a rebound reaction/eye redness. Apply cool compresses. Follow up with your primary care provider. Return with any new or worsening symptoms. In the case of an emergency call 911. Prescriptions: New cetirizine 0.24 % dropperette 1 drp ophthalmic-Right BID 7 Days Qty: 30 0RF No Action ibuprofen 600 mg tablet 600 mg PO QID PRN (Reason: pain) Qty: 20 0RF metformin 750 mg tablet extended release 24 hr 750 mg PO BID anagrelide 0.5 mg capsule 0.5 mg PO Q12H aspirin 81 mg capsule 81 mg PO DAILY Referrals: Jennifer Naranjo MD [Primary Care Provider, Internal Medicine] Print Language: Kyrgyz
[2024-10-03 12:12] VITALS: BP 120/60; PULSE 87; RESP 20; TEMP 36.4; O2SAT 96
== END 2024-10-03 12:13 | disposition home or self-care (01) ==
PROVIDERS: Emergency Provider Emergency Medicine Emergency Medical Services; PCP Internal Medicine
DX: B30.9 Viral conjunctivitis, unspecified (principal); H10.021 Other mucopurulent conjunctivitis, right eye; Z79.899 Other long term (current) drug therapy
CPT/HCPCS: 99283

== ENCOUNTER 2024-12-13 08:42 | Outpatient (REF) | payer MEDICAID, SELFPAY ==
--- OUTSIDE RECORDS SUMMARY | 2023-08-28 11:30 | XMS_ITS ---
Author Organization Delano Vallejo III, MD Address [address] [place] [address] Care Team Providers Care Nurse Emergency Name Role Phone Marcella CROCKER, [facility] Primary Care Provider Delano Crawford [phone] Allergies Allergen (clinical drug ingredient) Drug/Non Drug [...] Date Provider Diagnosis Delano Vallejo III, MD [address] [place] [address] [place] [address] 08/28/2023 Delano Vallejo Microcephaly Q02 ; Thrombocytosis [...] She will remain under the care of SLURRY PLANT OPERATOR. 08/28/2023 Mild cognitive impairment of uncertain or [...] Up: 4 Months, Reason: OV Provider Name:Delano Vallejo, 04/14/2025 03:30:00 PM, [address] [place] [address], [place] [address], [place], [address], Progress Notes * ALEXIS GIANGOB:1989 (33 yo F)Acc No.[id number]:08/28/2023 Progress Notes Patient: CECIL RUSSELL Provider: Brittaney Vallejo MD :1990 A ge:33 Y S ex:Female Date:08/28/2023 Address:[address] [place] [address] , [address] Pcp:Jennifer Naranjo MD Subjective: * Chief Complaints: [...] She will remain under the care of SLURRY PLANT OPERATOR. 4 . M ild cognitive impairment of [...] MD Date: 0 08/28/2023 Generated for Anuradha garvey/Gordon/[place] on: 0 12/13/2024 08:45 AM EDT History and Physical Notes * HPI (History of Present Illness) Category Sub-Category Detail Notes COVID-19 Screening Questions Have you had any new onset fever, chills, cough, congestion, sore throat, shortness of breath, muscle aches?: No Have you been exposed to the virus withi n the last 10 days?: No Have you travelled internationally in [facility] last 10 days?: No Have you [...]
--- OUTSIDE RECORDS SUMMARY | 2023-12-31 11:45 | XMS_ITS ---
Author Organization Delano Vallejo III, MD Address [address] [place] [address] Care Team Providers Care Cotton Stripper Name Role Phone Marcella CROCKER, [facility] Primary Care Provider Delano Crawford [phone] Allergies Allergen (clinical drug ingredient) Drug/Non Drug [...] non-smoker Vital Signs Temperature 97.0 degrees Fahrenheit 09/30/20 24 Blood pressure systolic 108 mm Hg 12/31/19 24 Blood pressure diastolic 80 mm Hg 024 Heart Rate 86 /min 12/31/2023 Height 5 ft 2 in in 12/31/2023 Weight 213 lbs 12/31/2023 BMI 38.95 kg/m2 12/31/2023 Encounters Encounter Location Date Provider Diagnosis Delano Vallejo III, MD [address] [place] [address] [place] [address] 12/31/2023 Delano Vallejo Microcephaly Q02 ; Thrombocytosis [...] She will remain under the care of STILL PUMP OPERATOR. 12/31/2023 Mild cognitive impairment of uncertain or [...] OV Provider Name:Delano Vallejo, 04/14/2025 03:30:00 PM, [address] [place] [address], [place] [address], [place], [address], Progress Notes * ALEXIS GIANGOB:1989 (33 yo F)Acc No.[id number]:12/31/2023 Progress Notes Patient: CECIL RUSSELL Provider: Brittaney Vallejo MD :1990 A ge:33 Y S ex:Female Date:12/31/2023 Address:[address] [place] [address] , [address] Pcp:Jennifer Naranjo MD Subjective: * Chief Complaints: [...] :She will remain under the care of STILL PUMP OPERATOR. 4 . M ild cognitive impairment [...] Vallejo MD Date: 0 12/31/2023 Generated for Ankiti ng/Syedg/eTransmitting on: 0 12/13/2024 08:45 AM EDT History and Physical Notes * HPI (History of Present Illness) Category Sub-Category Detail Notes COVID-19 Screening Questions Have you had any new onset fever, chills, cough, congestion, sore throat, shortness of breath, muscle aches?: No Have you been exposed to the virus withi n the last 10 days?: No Have you travelled internationally in [facility] last 10 days?: No Have you been [...]
--- OUTSIDE RECORDS SUMMARY | 2024-05-02 11:45 | XMS_ITS ---
Author Organization Delano Vallejo III, MD Address [address] [place] [address] Care Team Providers Care Tutor Coordinator Name Role Phone Marcella CROCKER, [facility] Primary Care Provider Delano Crawford [phone] Allergies Allergen (clinical drug ingredient) Drug/Non Drug [...] Problem Status W/U Status Risk Notes Problem [id number] Morbid obesity (E66.01) Active confirmed She has gained 10 pounds. Her body mass index is now slightly over 40. She falls into the morbidly obese range. We have discussed diet and nutrition. She and her mother will consider a referral to the weight loss program at [facility]. Vital Signs Temperature 96.9 degrees Fahrenheit 05/02/19 25 Blood pressure systolic 116 mm Hg 05/02/19 25 Blood pressure diastolic 85 mm Hg 025 Heart Rate 80 /min 05/02/2024 Height 5 ft 2 in in 05/02/2024 Weight 223 lbs 05/02/2024 BMI 40.78 kg/m2 05/02/2024 Encounters Encounter Location Date Provider Diagnosis Delano Vallejo III, MD [address] [place] [address] [place] [address] 05/02/2024 Delano Vallejo Morbid obesity E66.0 1 [...] referral to the weight loss program at [facility]. 05/02/2024 Thrombocytosis (ICD-10 - D75.839) Her platelet [...] She will remain under the care of [facility]. Plan Of Treatment Medication Medication Name Sig [...] Up: 3 Months, Reason: OV Provider Name:Delano Vallejo, 04/14/2025 03:30:00 PM, [address] [place] [address], [phone], Progress Notes * ALEXIS GIANGOB:1989 (34 yo F)Acc No.[id number]:05/02/2024 Progress Notes Patient: Lizzie ALTACECIL LYMAN Provider: Brittaney Vallejo MD :1990 A ge:34 Y S ex:Female Date:05/02/2024 Address:[address] [place], [place] [id number] Pcp:Jennifer Naranjo MD Subjective: * Chief Complaints: [...] referral to the weight loss program at [facility]. 3 . M icrocephaly - Q02 N [...] :She will remain under the care of [facility]. Plan: * Treatment: 2. E levated liver [...] 0 05/02/2024 Generated for Printi ng/Faxing/eTransmitting on: 0 12/13/2024 08:45 AM EDT History [...]
--- OUTSIDE RECORDS SUMMARY | 2024-08-01 12:00 | XMS_ITS ---
Author Organization Delano Vallejo III, MD Address [address] [place] [address] Care Team Providers Care Lozenge Dough Mixer Name Role Phone Marcella CROCKER, [facility] Primary Care Provider Delano Crawford [phone] Allergies Allergen (clinical drug ingredient) Drug/Non Drug [...] Problem Status W/U Status Risk Notes Problem [id number] Essential thrombocytosis (D47.3) Active confirmed Her blood [...] Date Provider Diagnosis Delano Vallejo III, MD [address] [place] [address] [place] [address] 08/01/2024 Delano Vallejo Microcephaly Q02 ; Essential [...] OV Provider Name:Delano Vallejo, 04/14/2025 03:30:00 PM, [address] [place] [address], [address] [place], [address], Progress Notes * ALEXIS LOVEOB:1989 (34 yo F)Acc No.[id number]:08/01/2024 Progress Notes Patient: Lizzie CECIL VALENCIA Provider: Brittaney Vallejo MD :1990 A ge:34 Y S ex:Female Date:08/01/2024 Address:[address] [place], [place] [id number] Pcp:Jennifer Naranjo MD Subjective: * Chief Complaints: [...] & Time - 07/23/2024 03:28 PM)?ValueReference Range?T4 Wlwcntqma89.24.5-12.0 - ug/dL ???Lab:Thyroid Stimulating Hormone (Order Date [...] 08/01/2024 Generated for Anuradha garvey/Gordon/Jahitting on: 0 12/13/2024 [...]
--- OUTSIDE RECORDS SUMMARY | 2024-12-09 12:00 | XMS_ITS ---
Author Organization Dleano Vallejo III, MD Address [address] [place] [address] Care Team Providers Care Engineering Tech Name Role Phone Marcella CROCKER, [facility] Primary Care Provider Delano Crawford [phone] Allergies Allergen (clinical drug ingredient) Drug/Non Drug [...] 1 MG TAKE 1 CAPSULE BY MO H DAILY Active Aspir-81 Active Ursodiol 500 MG [...] Date Provider Diagnosis Delano Vallejo III, MD [address] [place] [address] [place] [address] 12/09/2024 Delano Vallejo Microcephaly Q02 ; Essential [...] She will remain under the care of TYPING BOOKKEEPER. 12/09/2024 Asthma (ICD-10 - J45.909) She had [...] referral to the weight loss program at [facility]. Plan Of Treatment Medication Medication Name [...] Months, Reason: OV review labs Provider Name:Delano Vallejo, 04/14/2025 03:30:00 PM, [address] [place] [address] [place], [address], Progress Notes * ALEXIS GIANGOB:1989 (34 yo F)Acc No.[id number]:12/09/2024 Progress Notes Patient: Lizzie ALTACECIL LYMAN Provider: Brittaney Vallejo MD :1990 A ge:34 Y S ex:Female Date:12/09/2024 Address:[address] [place], [place] [id number] Pcp:Jennifer Naranjo MD Subjective: * Chief Complaints: [...] :She will remain under the care of TYPING BOOKKEEPER. 4 . A sthma - J45.909 N [...] referral to the weight loss program at [facility]. Plan: * Treatment: 2. M icrocephaly [...] 0 12/09/2024 Generated for Anuradha garvey/Gordon/Tracysmitting on: 12/13/2024 08:45 AM EDT History and Physical [...]
--- OUTSIDE RECORDS SUMMARY | 2024-12-13 08:45 | XMS_ITS | Patient Health Record ---
Author Organization Delano Vallejo III, MD Address [address] [place] [address] Care Team Providers Care Shipwright Name Role Phone Marcella CROCKER, [facility] Primary Care Provider Delano Crawford [phone] Allergies Allergen (clinical drug ingredient) Drug/Non Drug Allergy documented on EMR Reaction Allergy Type Onset Date Status No Known Drug Allergy Unknown Drug Allergy Active Results Component Value Reference Range Notes Complete Blood Count Auto Di ff Reviewed date:04/27/2024 04:42:22 PM Interpretation: Performing Lab:[facility], [address] [place] [address] Notes/Report: White Blood Count 12.6 4.8-10.8 X10*3/uL [...] Panel Reviewed date:04/27/2024 04:42:22 PM Interpretation: Performing Lab:[address] [address] Notes/Report: Sodium 140 135-145 mmol/L Potassium 4.2 [...] ff Reviewed date:07/28/2024 01:51:16 PM Interpretation: Performing Lab:[address] [address] Notes/Report: White Blood Count 13.7 4.8-10.8 X10*3/uL [...] Panel Reviewed date:07/28/2024 01:51:16 PM Interpretation: Performing Lab:[facility], [address] [place] [address] Notes/Report: Sodium 141 135-145 mmol/L Potassium 3.7 [...] Thyroxine Reviewed date:07/28/2024 01:51:16 PM Interpretation: Performing Lab:[facility], [address] [place] [address] Notes/Report: T4 Thyroxine 11.2 4.5-12.0 ug/dL Thyroid Stimulating Hormone Reviewed date:07/28/2024 01:51:16 PM Interpretation: Performing Lab:[facility], [address] [place] [address] Notes/Report: Thyroid Stimulating Hormone 2.33 0.32-4.0 uIU/ [...] Status W/U Status Risk Notes Problem Asthma (732215458) Asthma (J45.909) Active confirmed She had no wheezing today and felt well. Problem 992384812 Essential thrombocytosis (D47.3) Active confirmed Her blood work is pending. Her platelet count will be reviewed and if necessary her medications adjusted. Her father and she herself states that she has been compliant with her anagrelide. Problem Polycystic ovary syndrome (disorder) (584420631) Polycystic ovarian syndrome (E28.2) Active confirmed She will remain under the care of BANK OPERATIONS OFFICER. Problem Microcephaly (5652062662) Microcephaly (Q02) Active confirmed No changes in her neurologic or psychiatric status have been noted. She is awake and alert, pleasant, friendly and verbal. Problem Hypothyroid (28513813) Hypothyroid (E03.9) Active confirmed She has been compliant with her medication. Thyroid function test have been ordered and will be done periodically. Problem Dyslipidemia (428665469) Dyslipidemia (E78.5) Active confirmed Her fasting lipids will be reviewed. I recommended they be checked 3 times a year. Problem 257352396 Morbid obesity (E66.01) Active confirmed She has gained 10 pounds. Her body mass index is now slightly over 40. She falls into the morbidly obese range. We have discussed diet and nutrition. She and her mother will consider a referral to the weight loss program at [facility]. Problem Elevated liver enzymes level (369635787) Elevated liver enzymes (R74.8) Active confirmed There remain s slight elevation of the enzymes but there generally improving. They will be observed without treatment at this time. Problem Mild cognitive disorder (862786236) Mild cognitive impairment of uncertain or unknown etiology (G31.84) Active confirmed She was pleasant and seems to understand the discussion. Her change in her regimen other than the aspirin was needed Vital Signs Heart Rate 91 /min 12/09/2024 Temperature 97.1 degrees Fahrenheit 12/09/2024 Blood pressure diastolic 87 mm Hg 12/09/2024 Height 5 ft 2 in in 12/09/2024 Blood pressure systolic 133 mm Hg 12/09/2024 Weight 227 lbs 12/09/2024 BMI 41.51 kg/m2 12/09/2024 Encounters Encounter Location Date Provider Diagnosis Delano Vallejo III, MD [address] [place] [address] [address] [place] [address] 12/31/2023 Delano Vallejo Microcephaly Q02 ; Thrombocytosis D47.3 ; Polycystic ovarian syndrome E28.2 ; Mild cognitive impairment of uncertain or unknown etiology G31.84 and Asthma J45.909 Delano Vallejo III, MD [address] [place] [address] [place] [address] 05/02/2024 Delano Vallejo Morbid obesity E66.0 1 ; Thrombocytosis D75.839 ; Microcephaly Q02 ; Elevated liver enzymes R74.8 ; Hypothyroid E03.9 ; Mild cognitive impairment of uncertain or unknown etiology G31.84 and Polycystic ovarian syndrome E28.2 Delano Vallejo III, MD [address] [place] [address] [address] [place] [address] 08/01/2024 Delano Vallejo Microcephaly Q02 ; Essential thrombocytosis D47.3 ; Mild cognitive impairment of uncertain or unknown etiology G31.84 ; Asthma J45.909 and Hypothyroid E03.9 Delano Vallejo III, MD [address] [place] [address] [place] [address] 12/09/2024 Delano Vallejo Microcephaly Q02 ; Essential [...] referral to the weight loss program at [facility]. 05/02/2024 Thrombocytosis (ICD-10 - D75.839) Her [...] is awake and alert, pleasant, friendly antireticulin. 12/09/2024 Essential thrombocytosis (ICD-10 - D47.3) Her blood work is pending. Her platelet count will be reviewed and if necessary her medications adjusted. Her father and she herself states that she has been compliant with her anagrelide. 12/09/2024 Microcephaly (ICD-10 - Q02) No changes in her neurologic or psychiatric status have been noted. She is awake and alert, pleasant, friendly and verbal. 12/31/2023 Polycystic ovarian syndrome (ICD-10 - E28.2) She will remain under the care of BANK OPERATIONS OFFICER. 05/02/2024 Microcephaly (ICD-10 - Q02) No changes in her neurologic or psychiatric status have been noted. She is awake and alert, pleasant, friendly antireticulin. 08/01/2024 Mild cognitive impairment of uncertain or unknown etiology (ICD-10 - G31.84) She was pleasant and seems to understand the discussion. Her change in her regimen other than the aspirin was needed 12/09/2024 Polycystic ovarian syndrome (ICD-10 - E28.2) She will remain under the care of BANK OPERATIONS OFFICER. 12/31/2023 Mild cognitive impairment of uncertain or [...] no wheezing today and felt well. 12/09/2024 Asthma (ICD-10 - J45.909) She had [...] ordered and will be done periodically. 12/09/2024 Hypothyroid (ICD-10 - E03.9) She has been compliant with her medication. Thyroid function test have been ordered and will be done periodically. 05/02/2024 Mild cognitive impairment of uncertain or unknown etiology (ICD-10 - G31.84) She was pleasant and seems to understand the discussion. Her change in her regimen other than the aspirin was needed 12/09/2024 Morbid obesity (ICD-10 - E66.01) She has gained 10 pounds. Her body mass index is now slightly over 40. She falls into the morbidly obese range. We have discussed diet and nutrition. She and her mother will consider a referral to the weight loss program at [facility]. 05/02/2024 Polycystic ovarian syndrome (ICD-10 - E28.2) She will remain under the care of BANK OPERATIONS OFFICER. Plan Of Treatment Pending Test Test Name Order Date PROFILE, RANDOM (COMPREHENSIVE METABOLIC ) 04/27/2023 PROFILE, RANDOM (COMPREHENSIVE METABOLIC ) 05/02/2024 PROFILE, RANDOM (COMPREHENSIVE METABOLIC ) 12/09/2024 PROFILE, RANDOM (COMPREHENSIVE METABOLIC ) 08/28/2023 PROFILE, RANDOM (COMPREHENSIVE METABOLIC ) 12/31/2023 PROFILE, RANDOM (COMPREHENSIVE METABOLIC ) 08/01/2024 TSH (THYROID STIMULATING HORMONE) 2024 CBC w DIFF 08/01/2024 CBC w DIFF 10/17/2022 CBC w DIFF 12/09/2024 CBC w DIFF 10/31/2022 JAK2 MUTATION PCR 10/17/2022 CBC WITH AUTO DIFF 12/31/2023 CBC WITH AUTO DIFF 04/27/2023 CBC WITH AUTO DIFF 05/02/2024 CBC WITH AUTO DIFF 08/28/2023 CBC WITH AUTO DIFF 03/02/2023 Free T4 (Free Thyroxine) 05/02/2024 Next Appt Details Provider Name:Delano Vallejo, 04/14/2025 03:30:00 PM, [address] [place] [address] [address], [address], [place], [address], Insurance Providers Payer Name Payer Address Payer Phone Subscriber Number Group Number Insured Name Patient Relationship to Insured Coverage Start Date Coverage End Date MEDICAID [place] [address] [place] [id number] [phone] [id number] CECIL BRITT Self - patient is the insured Medical (General) History Medical History History ICD Code Asthma J45.909 Elevated liver enzymes R74.8 Microcephaly Q02 Dyslipidemia E78.5 Obesity E66.9 Hypothyroid E03.9 Thrombocytosis D47.3 Surgical History Surgery Date(Month/Year) Bx liver 04/2022
--- OUTSIDE RECORDS SUMMARY | 2024-12-13 08:46 | XMS_ITS | Patient Health Record ---
Author Organization [facility] Address [address] [place] [address] Care Team Providers Care Skin Therapist Name Role Phone Marcella Jennifer Primary Care Provider Unavailab Delano Stapleton Unavailable [phone] Allergies No Known Allergies Results Component Value Reference Range Notes Liver Panel Reviewed date:02/16/2024 11:25:47 AM Interpretation: Performing Lab:[facility], [address] [place] [address] Notes/Report: Bilirubin Total 0.5 0.0-1.0 mg/dL Bilirubin Direct 0.2 0.0-0.5 mg/dL Aspartate Amino Transferase 21 5-31 U/L Alanine Aminotransferase 21 0-31 U/L Total Protein 7.8 6.5-8.0 g/dL Albumin Level 3.9 3.5-5.0 g/dL Alkaline Phosphatase 131 39-117 U/L Reason For Referral Referring Provider First Name Jennifer Referring Provider Last Name Marcella Referring Provider Speciality Internal M edicine Referred Organization [facility] Referred Provider Delano Gallegos Referred Address [address],[place], [place],[address], Referred Provider Specialty Gastroentero logy General Notes Radha Lombardi 024 02:13:32 PM EDT > requested [facility] ref from [facility] for [...] Risk Notes Problem Elevated liver enzymes level (221744516) Elevated liver function tests (R79.89) Active confirmed Problem Fatty liver (453811532) Fatty liver (K76.0) Active confirmed Problem Iron deficiency anemia due to chronic blood loss (982645181) Iron deficiency anemia due to chronic blood loss (D50.0) Active confirmed Problem Abnormal findings diagnostic imaging of liver and biliary tract (327016723) Abnormal liver ultrasound (R93.2) Active confirmed Problem 437530704 Abnormal MRI, liver (R93.2) Active confirmed Problem Elevated liver enzymes level (482839845) Elevated liver function tests (R94.5) Active confirmed Vital Signs Temperature 97.5 degrees Fahrenheit 02/22/2024 Blood pressure diastolic 00 mm Hg 02/22/2024 Height 62 in 02/22/2024 Blood pressure systolic 000 mm Hg 02/22/2024 Weight 219 lb 6 oz lbs 02/22/2024 BMI 40.12 kg/m2 02/22/2024 Encounters Encounter Location Date Provider Diagnosis [facility] [address] [place] [address] 02/22/2024 Delano Gallegos Elevated liver function tests R94.5 and Fatty liver K76.0 [facility] [address] [place] [address] 04/05/2024 Delano Gallegos Assessments Encounter Date Diagnosis [...] DIFF 02/15/2022 PROTHROMBIN TIME (PT, INR) 09/14/2021 [id number] (A1A) 09/14/2021 ALPHA-FETOPROTEIN,TUMOR MARKER 2 ALPHA-FETOPROTEIN,TUMOR MARKER [...] Name:Delano Gallegos , 02/24/2025 01:00:00 PM, [address] [facility] [facility], [address], [place], [address], Insurance Providers Payer Name Payer Address Payer Phone Subscriber Number Group Number Insured Name Patient Relationship to Insured Coverage Start Date Coverage End Date [facility] [address] [place] [address] [id number] CECIL BRITT Self - patient is the insured Medical (General) History Medical History History ICD Code Asthma Prediabetes Denies HI,CVA,renal disease Elevated liver tests due to presumed [...]
[2024-12-13 08:50] LABS: MANUAL DIFF FLAG NO
[2024-12-13 09:52] LABS: Hematocrit 41.0 % (37.0-47.0); Hemoglobin 13.4 g/dl (12.0-16.0); Imm Gran Abs Auto 0.04 X10*3/uL (0.00-0.03); Imm Gran Pct Auto 0.3 % (0.0-0.4); Lymphocytes Absolute Auto 4.2 X10*3/uL (1.2-4.9); Mean Corpuscular HGB Conc 32.7 g/dl (31.0-35.0); Mean Corpuscular Hemoglobin 28.5 pg (27.0-33.0); Mean Corpuscular Volume 87.2 fL (80.0-98.0); NRBC Abs Auto 0.000 X10*3/uL (0.0-0.012); NRBC Pct Auto 0.0 /100WBC (0.0-0.2); Platelet Count 209 X10*3/uL (160-400); Red Blood Count 4.70 X10*6/uL (4.20-5.50); White Blood Count 12.2 X10*3/uL (4.8-10.8)
[2024-12-13 10:19] LABS: Alanine Aminotransferase 25 U/L (0-31); Albumin Level 3.9 g/dL (3.5-5.0); Alkaline Phosphatase 137 U/L (39-117); Anion Gap 15 (12-20); Aspartate Amino Transferase 26 U/L (5-31); Blood Urea Nitrogen 11 mg/dL (9-16); Calcium 9.8 mg/dL (8.4-10.2); Carbon Dioxide 23 mmol/L (22-29); Chloride 106 mmol/L (96-108); Estimated Glomerular Filt Rate > 60; Potassium 4.0 mmol/L (3.3-5.1); Sodium 140 mmol/L (135-145); Total Protein 7.6 g/dL (6.5-8.0)
== END 2024-12-13 08:43 | disposition home or self-care (01) ==
LOC: HO.LAB 08:42
PROVIDERS: PCP Internal Medicine; Visit Provider Internal Medicine Medical Oncology
DX: D47.3 Essential (hemorrhagic) thrombocythemia (principal)
CPT/HCPCS: 36415; 80053; 85025

== ENCOUNTER 2024-12-13 08:59 | Emergency (ER) | payer MEDICAID, SELFPAY ==
--- NOTE | ~2024-12-13 | XR_ITS ---
CLINICAL HISTORY: pain 4 view right wrist Comparison: None provided Findings: Bones intact. No dislocations. No significant arthritic change or erosions. No radiopaque foreign body. IMPRESSION: 1. No acute findings This document has been electronically signed by: Terry Lyn MD on 12/13/2024 09:54:50
[2024-12-13 09:15] VITALS: BP 126/62; PULSE 98; RESP 16; TEMP 36.8; O2SAT 93; BMI 41.3
--- NOTE | 2024-12-13 11:13 | ED_ITS ---
HPI - General Adult General Chief complaint: Extremity Problem Stated complaint: r hand pain Time Seen by Provider: 12/13/24 11:12 Source: patient and family (patient's mother) Mode of arrival: ambulatory Limitations: no limitations History of Present Illness ED Provider: Senait Leonardo PA-C HPI narrative: Patient is a 34 year old assigned female at with a history of developmental delay and PCOS presenting to the emergency department today with right wrist pain. Patient states that over the last day she has had right wrist pain. Patient states that she didn't do anything for it. Patient states that she has an over the counter splint that she has been using. Patient denies any other complaints at this time. Related Data Home Medications ?Medication ?Instructions ?Recorded ?Confirmed anagrelide 0.5 mg capsule 0.5 mg PO Q12H 06/14/23 aspirin 81 mg capsule 81 mg PO DAILY 06/14/23 metformin 750 mg tablet,extended 750 mg PO BID 4 release 24 hr Previous Rx's ?Medication ?Instructions ?Recorded ibuprofen 600 mg tablet 600 mg PO QID PRN pain #20 t abs 12/23/23 cetirizine 0.24 % eye drops in a 1 drp ophthalmic-Righ t BID 1 week 10/03/24 dropperette #30 ea Allergies Allergy/AdvReac Type Severity Reaction Status Date / Time No Known Allergies Allergy Verified 12/13/24 09:17 Review of Systems Constitutional: Constitutional: Reports as per HPI Eyes: Eyes: Reports as per HPI ENT: Reports as per HPI Cardiovascular: Cardiovascular: Reports as per HPI Respiratory: Respiratory: Reports as per HPI Gastrointestinal: Gastrointestinal: Reports as per HPI Genitourinary: Genitourinary: Reports as per HPI Musculoskeletal: Musculoskeletal: Reports as per HPI Integumentary/Breasts: Skin/Breast: Reports as per HPI Neurologic: Reports as per HPI Psychiatric: Psychiatric: Reports as per HPI Endocrine: Endocrine: Reports as per HPI Hematologic/Lymphatic: Hematologic/Lymphatic: Reports as per HPI Allergic/Immunologic: Allergic/Immunologic: Reports as per HPI [facility] Past Medical History Attestation statement: The following information was validated with the patient. (All information was validated with the patient's mother) Source: old records reviewed, obtained from family (patient's mother provided additional history and confirmed the history provided by the patient. ) and nursing notes reviewed Medical History Pre-diabetes PCOS (polycystic ovarian syndrome) Social History Social History Alcohol intake: never Advance Directives: No Advance Directives Information Provided: No Do you have a plan to hurt others: No Plan Physical Exam ED Vital Signs: Vital Signs - 24 hr 12/13/24 09:15 12/13/24 11:37 Temperature 98.2 F 98.2 F Pulse Rate 98 98 Respiratory Rate 16 16 Blood Pressure 126/62 126/62 Pulse Oximetry 93 93 Oxygen Delivery Method Room Air Room Air BMI result Body Mass Index 41.3 Const General: cooperative, no acute distress, alert and awake Nutritional Appearance: well nourished Orientation/consciousness: patient oriented x3 HENMT Head: Yes normal to inspection and Yes atraumatic Ears: hearing grossly normal bilaterally and external ears normal General nose exam: Normal external nose present, no nasal discharge noted and no epistaxis Face and sinus: Yes normal facial exam, No abrasion and No laceration Mouth: Normal oral and palatal mucosa present, no drooling and no muffled voice Eyes General: appearance normal, both eyes and all related structures Periorbital: periorbital findings normal Eyelids: Yes eyelids normal Conjunctivae: conjunctivae normal Pupils: Equal, round and reactive pupils present EOM: EOMs intact bilaterally Neck Neck: Yes normal visual inspection and Yes full ROM Resp Effort & Inspection: normal respiratory effort and able to speak in complete sentences Neuro General: patient oriented x3, moves all extremities and CN's II-XI intact bilaterally Cranial nerves: Yes Equal, round and reactive pupils present Cognition (Neuro): normal cognition Extrem General: Yes normal to inspection, Yes full ROM and Yes capillary refill normal Psych Appearance: grossly normal Mental Status: mental status grossly normal Affect: normal affect Attitude: cooperative Thought process: Normal thought process present Thought content: Normal thought content present Insight: Good insight present (Psych) Medical Decision Making Medical Decision Making MDM Narrative: Patient is a 34 year old assigned female at with a history of developmental delay and PCOS presenting to the emergency department today with right wrist pain. Patient's physical exam was as noted in the physical exam portion of this note. Patient's right wrist x-ray showed no acute process. I explained my physical exam findings as well as all test results to the patient and the patient's mother. I answered all questions asked by the patient and the patient's mother. I stressed the importance of the patient taking her medication as directed (either prescribed or as the over the counter packaging recommends). I stressed the importance of the patient following up with her primary care provider and the orthopedic team. I stressed the importance of the patient returning to the emergency department immediately if her symptoms were to worsen or if she were to develop any dizziness, shortness of breath, difficulty breathing, chest pain, blurry vision, loss of vision, nausea, vomiting, abdominal pain, fever, chills, back pain, or any other complaints. Patient and the patient's mother verbalized agreement and understanding with this treatment plan and discharge. Differential Diagnosis Differential Diagnoses: The differential diagnosis associated with the presentation includes Right wrist pain Right wrist strain Right wrist sprain Right wrist contusion Admission/Observation Consideration of admission/observation: Escalation of care including admission/observation considered Patient would have been admitted to the hospital had her work up had any findings where hospital admission was appropriate and her clinical presentation warranted hospital admission. Independent Interpretation I performed an independent interpretation of an: Plain X-Ray Interpretation: My interpretation is in agreement with the radiologist's impression of this imaging study. Reason for Exam: pain CLINICAL HISTORY: pain 4 view right wrist Comparison: None provided Findings: Bones intact. No dislocations. No significant arthritic change or erosions. No radiopaque foreign body. IMPRESSION: 1. No acute findings This document has been electronically signed by: Terry Lyn MD on 12/13/2024 09:54:50 Dictated By: Terry Lyn MD Signed By: Electronically signed by Terry Lyn MD 12/13/24 0955 Radiology Impression Discussion of test interpretation with radiology: I have reviewed the radiologist's reading. Independent Historian Clinical information obtained from an independent historian. History obtained from or confirmed by: Parent (patient's mother provided additional history and confirmed the history provided by the patient.) Discharge Plan Discharge Clinical Impression: Hand pain Patient Disposition: Home, Self-Care Instructions: Arthralgia (ED) Additional Instructions: Your x-ray showed no acute fracture / break. Continuing wearing the splint you already have for pain. Follow up with the orthopedic team. IF you are prescribed home medications and/or you are taking over the counter medications at home - it is very important you continue to do so as prescribed / directed unless told otherwise. Follow up with your primary care provider. Return to the emergency department immediately if your symptoms worsen or if you develop any numbness, tingling, dizziness, shortness of breath, difficulty breathing, chest pain, blurry vision, loss of vision, nausea, vomiting, abdominal pain, fever, chills, back pain, or any other complaints. Please see the information below about our Patient Portal. If you are not yet enrolled in the [facility] Patient Portal, you will receive an enrollment email invitation following your visit to any [facility] setting. You may also self-enroll in the Patient Portal by visiting our website: [email or web address] The following information is required to access the Patient Portal: - Your [facility] Medical Record Number - Your personal home email address (must match what is in your electronic medical record, Registration staff can assist with this) - Name - Date of Capabilities of the Patient Portal: - Message some providers - View upcoming appointments - Access your health summary, medical history, and visit history - View current conditions and allergies - View procedure and lab results - View your medications, including guidelines, side effects, and precautions - Complete pre-appointment questionnaires requested by your provider - Ready summary reports of your office visits and procedures To access the Patient Portal Mobile [employer], follow these directions: - Search nodila in the [employer] Store or [employer] Store - Download the Lupe - Search for [facility] - Enter your login/password Prescriptions: No Action cetirizine 0.24 % dropperette 1 drp ophthalmic-Right BID 7 Days Qty: 30 0RF ibuprofen 600 mg tablet 600 mg PO QID PRN (Reason: pain) Qty: 20 0RF metformin 750 mg tablet extended release 24 hr 750 mg PO BID anagrelide 0.5 mg capsule 0.5 mg PO Q12H aspirin 81 mg capsule 81 mg PO DAILY Referrals: [facility] [Provider Group] Referral Note: Call to establish and follow up with the orthopedic team. Jennifer Naranjo MD [Primary Care Provider, Internal Medicine] Interventions: ED Discharge Assessment Last Done: 12/13/24 11:37 Discharge Date/Time: 12/13/24 11:37 Print Language: Urdu
[2024-12-13 11:37] VITALS: BP 126/62; PULSE 98; RESP 16; TEMP 36.8; O2SAT 93
== END 2024-12-13 11:37 | disposition home or self-care (01) ==
PROVIDERS: Emergency Provider Emergency Medicine; PCP Internal Medicine
DX: M25.531 Pain in right wrist (principal); Z79.899 Other long term (current) drug therapy
CPT/HCPCS: 73100; 99282; 99283

== ENCOUNTER → 2024-12-13 09:30 | Outpatient (BNV) | payer MEDICAID, SELFPAY | PROVIDERS: PCP Internal Medicine; Visit Provider Radiology Vascular & Interventional Radiology | DX: M25.531 Pain in right wrist (principal) | CPT/HCPCS: 73100 ==

== ENCOUNTER 2024-12-30 09:11 | Outpatient (REF) | payer MEDICAID, SELFPAY ==
--- OUTSIDE RECORDS SUMMARY | 2023-08-28 11:30 | XMS_ITS ---
Author Organization Delano Vallejo III, MD Address [address] [place] [address] Care Team Providers Care Flyer Repairer Name Role Phone Marcella CROCKER, [facility] Primary Care Provider Mena Vallejo III, [...] Date Provider Diagnosis Delano Vallejo III, MD [address] [place] [address] [place] [address] 08/28/2023 Delano Vallejo Microcephaly Q02 ; Thrombocytosis [...] She will remain under the care of BALL POINTS INSPECTOR. 08/28/2023 Mild cognitive impairment of uncertain or [...] Provider Name:Delano Vallejo , 04/14/2025 03:30:00 PM, [address] [place] [address], [place] [address], [place], [address], Progress Notes * ALEXIS GIANGOB:1989 (33 yo F)Acc No.[id number]:08/28/2023 Progress Notes Patient: CECIL RUSSELL Provider: Brittaney Vallejo MD :1990 A ge:33 Y S ex:Female Date:08/28/2023 Address:[address] [place] [address] , [address] Pcp:Jennifer Naranjo MD Subjective: * Chief Complaints: [...] She will remain under the care of BALL POINTS INSPECTOR. 4 . M ild cognitive impairment of [...] 0 08/28/2023 Generated for Anuradha garvey/Gordon/[place] on: 0 12/30/2024 09:56 AM EDT History and Physical Notes * HPI (History of Present Illness) Category Sub-Category Detail Notes COVID-19 Screening Questions Have you had any new onset fever, chills, cough, congestion, sore throat, shortness of breath, muscle aches?: No Have you been exposed to the virus withi n the last 10 days?: No Have you travelled internationally in [facility] last 10 days?: No Have you been [...]
--- OUTSIDE RECORDS SUMMARY | 2023-12-31 11:45 | XMS_ITS ---
Author Organization Delano Vallejo III, MD Address [address] [place] [address] Care Team Providers Care Traffic Control Technician Name Role Phone Marcella CROCKER, [facility] Primary Care Provider Mena Vallejo [...] Date Provider Diagnosis Delano Vallejo III, MD [address] [place] [address] [place] [address] 12/31/2023 Delano Vallejo Microcephaly Q02 ; Thrombocytosis [...] She will remain under the care of FIBERLINE SUPERVISOR. 12/31/2023 Mild cognitive impairment of uncertain or [...] Provider Name:Delano Vallejo , 04/14/2025 03:30:00 PM, [address] [place] [address], [place] [address], [place], [address], Progress Notes * DIANAALEXIS AMOSOB:1989 (33 yo F)Acc No.[id number]:12/31/2023 Progress Notes Patient: CECIL RUSSELL Provider: Brittaney Vallejo MD :1990 A ge:33 Y S ex:Female Date:12/31/2023 Address:[address] [place] [address] , [address] Pcp:Jennifer Naranjo MD Subjective: * Chief Complaints: [...] :She will remain under the care of FIBERLINE SUPERVISOR. 4 . M ild cognitive impairment of [...] MD Date: 0 12/31/2023 Generated for Printi ng/Faxing/eTransmitting on: 0 12/30/2024 09:56 AM EDT History and Physical Notes * HPI (History of Present Illness) Category Sub-Category Detail Notes COVID-19 Screening Questions Have you had any new onset fever, chills, cough, congestion, sore throat, shortness of breath, muscle aches?: No Have you been exposed to the virus withi n the last 10 days?: No Have you travelled internationally in [facility] last 10 days?: No Have you [...]
--- OUTSIDE RECORDS SUMMARY | 2024-05-02 11:45 | XMS_ITS ---
Author Organization Delano Vallejo III, MD Address [address] [place] [address] Care Team Providers Care Financial Analyst Intern Name Role Phone Marcella CROCKER, [facility] Primary Care Provider Mena Vallejo III, Dr. Wick Unavailable [phone] Allergies Allergen (clinical drug ingredient) Drug/Non Drug [...] Problem Status W/U Status Risk Notes Problem [id number] Morbid obesity (E66.01) Active confirmed She has gained 10 pounds. Her body mass index is now slightly over 40. She falls into the morbidly obese range. We have discussed diet and nutrition. She and her mother will consider a referral to the weight loss program at [facility]. Vital Signs Temperature 96.9 degrees Fahrenheit 05/02/19 25 Blood pressure systolic 116 mm Hg 05/02/19 25 Blood pressure diastolic 85 mm Hg 025 Heart Rate 80 /min 05/02/2024 Height 5 ft 2 in in 05/02/2024 Weight 223 lbs 05/02/2024 BMI 40.78 kg/m2 05/02/2024 Encounters Encounter Location Date Provider Diagnosis Delano Vallejo III, MD [address] [place] [address] [place] [address] 05/02/2024 Delano Vallejo Morbid obesity E66.0 1 [...] referral to the weight loss program at [facility]. 05/02/2024 Thrombocytosis (ICD-10 - D75.839) Her platelet [...] She will remain under the care of [facility]. Plan Of Treatment Medication Medication Name Sig [...] Provider Name:Delano Vallejo , 04/14/2025 03:30:00 PM, [address] [place] [address], [address], [phone], Progress Notes * ALEXIS LOVEOB:1989 (34 yo F)Acc No.[id number]:05/02/2024 Progress Notes Patient: Lizzie ERIKCECIL Provider: Brittaney Vallejo MD :1990 A ge:34 Y S ex:Female Date:05/02/2024 Address:[address] [place], [place] [id number] Pcp:Jennifer Naranjo MD Subjective: * Chief Complaints: [...] referral to the weight loss program at [facility]. 3 . M icrocephaly - Q02 N [...] :She will remain under the care of [facility]. Plan: * Treatment: 2. E levated liver [...] 05/02/2024 Generated for Printi ng/Faxing/eTransmitting on: 0 12/30/2024 [...]
--- OUTSIDE RECORDS SUMMARY | 2024-08-01 12:00 | XMS_ITS ---
Author Organization Delano Vallejo III, MD Address [address] [place] [address] Care Team Providers Care Automotive Light Mechanic Name Role Phone Marcella CROCKER, [facility] Primary Care Provider Mnea Vallejo III, Dr. Wick Unavailable Allergies Allergen [...] Problem Status W/U Status Risk Notes Problem [id number] Essential thrombocytosis (D47.3) Active confirmed Her blood [...] Date Provider Diagnosis Delano Vallejo III, MD [address] [place] [address] [place] [address] 08/01/2024 Delano Vallejo Microcephaly Q02 ; Essential [...] Name:Delano Vallejo , 04/14/2025 03:30:00 PM, [address] [place] [address] , [address], [address], Progress Notes * ALEXIS LOVEOB:1989 (34 yo F)Acc No.[id number]:08/01/2024 Progress Notes Patient: Lizzie ALTASUZYEFRAINCECIL Provider: Brittaney Vallejo MD :1990 A ge:34 Y S ex:Female Date:08/01/2024 Address:[address] [place], [place] [id number] Pcp:Jennifer Naranjo MD Subjective: * Chief Complaints: [...] & Time - 07/23/2024 03:28 PM)?ValueReference Range?T4 Yeatpwfmu01.24.5-12.0 - ug/dL ???Lab:Thyroid Stimulating Hormone (Order Date [...] 0 08/01/2024 Generated for Anuradha garvey/Gordon/Jahitting on: 0 12/30/2024 09:56 AM EDT History [...]
--- OUTSIDE RECORDS SUMMARY | 2024-12-09 12:00 | XMS_ITS ---
Author Organization Delano Vallejo III, MD Address [address] [address] Care Team Providers Care Clinical Quality Assurance Associate Name Role Phone Marcella CROCKER, [facility] Primary Care Provider Mena Vallejo III, Dr. Wick Unavailable [phone] Allergies Allergen (clinical drug ingredient) Drug/Non Drug [...] Date Provider Diagnosis Delano Vallejo III, MD [address] [place] [address] [place] [address] 12/09/2024 Delano Vallejo Microcephaly Q02 ; Essential [...] She will remain under the care of NUTRITIONAL YEAST SUPERVISOR. 12/09/2024 Asthma (ICD-10 - J45.909) She had [...] referral to the weight loss program at [facility]. Plan Of Treatment Medication Medication Name Sig [...] Provider Name:Delano Vallejo , 04/14/2025 03:30:00 PM, [address] [place] [address] DR, [place] [address], [place], [address], Progress Notes * ALEXIS GIANGOB:1989 (34 yo F)Acc No.[id number]:12/09/2024 Progress Notes Patient: Lizzie ALTACECIL LYMAN Provider: Brittaney Vallejo MD :1990 A ge:34 Y S ex:Female Date:12/09/2024 Address:[address] [place] [address] , [address] Pcp:Jennifer Naranjo MD Subjective: * Chief Complaints: [...] :She will remain under the care of NUTRITIONAL YEAST SUPERVISOR. 4 . A sthma - J45.909 N [...] referral to the weight loss program at [facility]. Plan: * Treatment: 2. M icrocephaly Continue [...] MD Date: 0 12/09/2024 Generated for Anuradha garvey/Gordon/Jahitting on: 12/30/2024 09:56 AM EDT History and Physical [...]
--- NOTE | ~2024-12-30 | XR_ITS ---
EXAMINATION: XR HAND, RIGHT CLINICAL INFORMATION: M79.641 - Pain in right hand COMPARISON: None available. TECHNIQUE: PA, lateral, and oblique views of the right hand. FINDINGS: No fracture, dislocation, or suspicious bone lesion. Normal bone mineralization. Normal alignment. Joint spaces are preserved. No significant arthropathy. Soft tissues appear normal. XR/XR hand RT min 3V IMPRESSION: Normal right hand. Electronically signed by: Bladimir Moreno MD 12/30/2024 01:20 PM EDT
--- OUTSIDE RECORDS SUMMARY | 2024-12-30 09:56 | XMS_ITS | Patient Health Record ---
Author Organization Delano Vallejo III, MD Address [address] [address] Care Team Providers Care Telephone Service Representative Name Role Phone Marcella CROCKER, [facility] Primary Care Provider Mena Vallejo III, Dr. Wick Unavailable Allergies Allergen (clinical drug ingredient) Drug/Non Drug Allergy documented on EMR Reaction Allergy Type Onset Date Status No Known Drug Allergy Unknown Drug Allergy Active Results Component Value Reference Range Notes Complete Blood Count Auto Di ff Reviewed date:04/27/2024 04:42:22 PM Interpretation: Performing Lab:[facility], [address] [place] [phone] Notes/Report: White Blood Count 12.6 4.8-10.8 X10*3/uL [...] Panel Reviewed date:04/27/2024 04:42:22 PM Interpretation: Performing Lab:[address] [phone] Notes/Report: Sodium 140 135-145 mmol/L Potassium 4.2 [...] ff Reviewed date:07/28/2024 01:51:16 PM Interpretation: Performing Lab:[address] [phone] Notes/Report: White Blood Count 13.7 4.8-10.8 X10*3/uL [...] Panel Reviewed date:07/28/2024 01:51:16 PM Interpretation: Performing Lab:[facility], [address] [place] [phone] Notes/Report: Sodium 141 135-145 mmol/L Potassium 3.7 [...] Thyroxine Reviewed date:07/28/2024 01:51:16 PM Interpretation: Performing Lab:[address] [phone] Notes/Report: T4 Thyroxine 11.2 4.5-12.0 ug/dL Thyroid Stimulating Hormone Reviewed date:07/28/2024 01:51:16 PM Interpretation: Performing Lab:[facility], [address] [place] [phone] Notes/Report: Thyroid Stimulating Hormone 2.33 0.32-4.0 uIU/ [...] Status W/U Status Risk Notes Problem Asthma (235237332) Asthma (J45.909) Active confirmed She had no wheezing today and felt well. Problem 730884893 Essential thrombocytosis (D47.3) Active confirmed Her blood work is pending. Her platelet count will be reviewed and if necessary her medications adjusted. Her father and she herself states that she has been compliant with her anagrelide. Problem Polycystic ovary syndrome (disorder) (285469446) Polycystic ovarian syndrome (E28.2) Active confirmed She will remain under the care of [facility]. Problem Microcephaly (8534977652) Microcephaly (Q02) Active confirmed No changes in her neurologic or psychiatric status have been noted. She is awake and alert, pleasant, friendly and verbal. Problem Hypothyroid (08292652) Hypothyroid (E03.9) Active confirmed She has been compliant with her medication. Thyroid function test have been ordered and will be done periodically. Problem Dyslipidemia (904368579) Dyslipidemia (E78.5) Active confirmed Her fasting lipids will be reviewed. I recommended they be checked 3 times a year. Problem 866995732 Morbid obesity (E66.01) Active confirmed She has gained 10 pounds. Her body mass index is now slightly over 40. She falls into the morbidly obese range. We have discussed diet and nutrition. She and her mother will consider a referral to the weight loss program at [facility]. Problem Elevated liver enzymes level (578585667) Elevated liver enzymes (R74.8) Active confirmed There remain s slight elevation of the enzymes but there generally improving. They will be observed without treatment at this time. Problem Mild cognitive disorder (091451279) Mild cognitive impairment of uncertain or unknown [...] Date Provider Diagnosis Delano Vallejo III, MD [address] [place] [address] [address] [place] [phone] 12/31/2023 Delano Vallejo Microcephaly Q02 ; Thrombocytosis D47.3 ; Polycystic ovarian syndrome E28.2 ; Mild cognitive impairment of uncertain or unknown etiology G31.84 and Asthma J45.909 Delano Vallejo III, MD [address] [place] [address] [address] [place] [phone] 05/02/2024 Delano Vallejo Morbid obesity E66.0 1 ; Thrombocytosis D75.839 ; Microcephaly Q02 ; Elevated liver enzymes R74.8 ; Hypothyroid E03.9 ; Mild cognitive impairment of uncertain or unknown etiology G31.84 and Polycystic ovarian syndrome E28.2 Delano Vallejo III, MD [address] [place] [address] [address] [place] [address] 08/01/2024 Delano Vallejo Microcephaly Q02 ; Essential thrombocytosis D47.3 ; Mild cognitive impairment of uncertain or unknown etiology G31.84 ; Asthma J45.909 and Hypothyroid E03.9 Delano Vallejo III, MD [address] [place] [address] [place] [id number] 12/09/2024 Delano Vallejo Microcephaly Q02 ; Essential [...] referral to the weight loss program at [facility]. 05/02/2024 Thrombocytosis (ICD-10 - D75.839) Her [...] She will remain under the care of [facility]. 05/02/2024 Microcephaly (ICD-10 - Q02) No changes [...] She will remain under the care of [facility]. 12/31/2023 Mild cognitive impairment of uncertain or [...] referral to the weight loss program at [facility]. 05/02/2024 Polycystic ovarian syndrome (ICD-10 - E28.2) She will remain under the care of [facility]. Plan Of Treatment Pending Test Test Name Order Date PROFILE, RANDOM (COMPREHENSIVE METABOLIC ) 05/02/2024 PROFILE, RANDOM (COMPREHENSIVE METABOLIC ) 12/09/2024 PROFILE, RANDOM (COMPREHENSIVE METABOLIC ) 08/28/2023 PROFILE, RANDOM (COMPREHENSIVE METABOLIC ) 12/31/2023 PROFILE, RANDOM (COMPREHENSIVE METABOLIC ) 08/01/2024 PROFILE, RANDOM (COMPREHENSIVE METABOLIC ) 04/27/2023 TSH [...] Thyroxine) 05/02/2024 Next Appt Details Provider Name:Delano Vallejo , 04/14/2025 03:30:00 PM, [address] [place] [address] , [address], [place], [phone], Insurance Providers Payer Name Payer Address Payer Phone Subscriber Number Group Number Insured Name Patient Relationship to Insured Coverage Start Date Coverage End Date [place] [address] [place], [place] [id number] CECIL BRITT Self - patient is the insured Medical (General) History Medical History History ICD Code Asthma J45.909 Elevated liver enzymes R74.8 Microcephaly Q02 Dyslipidemia E78.5 Obesity E66.9 Hypothyroid E03.9 Thrombocytosis D47.3 Surgical History Surgery Date(Month/Year) Bx liver 04/2022
--- OUTSIDE RECORDS SUMMARY | 2024-12-30 09:57 | XMS_ITS | Patient Health Record ---
Author Organization [facility] Address [address] [place] [address] Care Team Providers Care Service Delivery Consultant Name Role Phone Marcella Jennifer Primary Care Provider Unavailab Delano Stapleton Unavailable [phone] Allergies No Known Allergies Results Component Value Reference Range Notes Liver Panel Reviewed date:02/16/2024 11:25:47 AM Interpretation: Performing Lab:[facility], [address] [place] [phone] Notes/Report: Bilirubin Total 0.5 0.0-1.0 mg/dL Bilirubin Direct 0.2 0.0-0.5 mg/dL Aspartate Amino Transferase 21 5-31 U/L Alanine Aminotransferase 21 0-31 U/L Total Protein 7.8 6.5-8.0 g/dL Albumin Level 3.9 3.5-5.0 g/dL Alkaline Phosphatase 131 39-117 U/L Reason For Referral Referring Provider First Name Jennifer Referring Provider Last Name Marcella Referring Provider Speciality Internal M edicine Referred Organization [facility] Referred Provider Delano Gallegos Referred Address [address],[place], [place],[address], Referred Provider Specialty Gastroentero logy General Notes Radha Lombardi 024 02:13:32 PM EDT > requested a [facility] ref from [facility] for [...] Risk Notes Problem Elevated liver enzymes level (859443819) Elevated liver function tests (R79.89) Active confirmed Problem Fatty liver (216479687) Fatty liver (K76.0) Active confirmed Problem Iron deficiency anemia due to chronic blood loss (515594294) Iron deficiency anemia due to chronic blood loss (D50.0) Active confirmed Problem Abnormal findings diagnostic imaging of liver and biliary tract (520105078) Abnormal liver ultrasound (R93.2) Active confirmed Problem 911893500 Abnormal MRI, liver (R93.2) Active confirmed Problem Elevated liver enzymes level (622109454) Elevated liver function tests (R94.5) Active confirmed Vital Signs Temperature 97.5 degrees Fahrenheit 02/22/2024 Blood pressure diastolic 00 mm Hg 02/22/2024 Height 62 in 02/22/2024 Blood pressure systolic 000 mm Hg 02/22/2024 Weight 219 lb 6 oz lbs 02/22/2024 BMI 40.12 kg/m2 02/22/2024 Encounters Encounter Location Date Provider Diagnosis [facility] [address] [place] [address] 02/22/2024 Delano Gallegos Elevated liver function tests R94.5 and Fatty liver K76.0 [facility] [address] [place] [address] 04/05/2024 Delano Gallegos Assessments Encounter Date Diagnosis [...] DIFF 02/15/2022 PROTHROMBIN TIME (PT, INR) 09/14/2021 [id number] (A1A) 09/14/2021 ALPHA-FETOPROTEIN,TUMOR MARKER 2 ALPHA-FETOPROTEIN,TUMOR MARKER [...] Name:Delano Gallegos , 02/24/2025 01:00:00 PM, [address] [facility] [address] [facility], [address], [place], [address], Insurance Providers Payer Name Payer Address Payer Phone Subscriber Number Group Number Insured Name Patient Relationship to Insured Coverage Start Date Coverage End Date [facility] [address] [facility] [place] [id number] CECIL BRITT Self - patient is the [...]
== END 2024-12-30 09:12 | disposition home or self-care (01) ==
LOC: HO.HOSX 09:11
DX: M65.4 Radial styloid tenosynovitis [de Quervain] (principal)
CPT/HCPCS: 73130; 99212

== ENCOUNTER 2024-12-30 12:35 | Outpatient (AMB) | payer MEDICAID, SELFPAY ==
--- NOTE | 2024-12-30 12:50 | A.OFFVIS_ITS ---
Vital Signs 12/30/24 12:51 Height 5 ft 2 in Weight 225 lb BMI 41.1 Intake Visit Reasons: E/D f/u right wrist pain Intake Note: Jaki is a 34 year old right hand dominant female, new patient, who presents today for an ED follow up after presenting to [facility] ED on complaining of Right Wrist Pain without any known injuries. Patient complains of pain on the radial aspect of the wrist radiating to the IP joint of the right thumb. She reports numbness and tingling of the right thumb and right small finger. Patient has been wearing a wrist brace she got off the shelf. She is also taking ibuprofen PRN with some relief. She denies previous injuries or surgeries to the right hand. Allergies No Known Allergies Allergy (Verified 12/30/24 12:53) HPI HPI E/D f/u right wrist pain: Details: Jaki is a 34 year old right hand dominant female, new patient, who presents today for an ED follow up after presenting to [facility] ED on complaining of Right Wrist Pain without any known injuries. Patient complains of pain on the radial aspect of the wrist radiating to the IP joint of the right thumb. She reports numbness and tingling of the right thumb and right small finger. Patient has been wearing a wrist brace she got off the shelf. She is also taking ibuprofen PRN with some relief. She denies previous injuries or surgeries to the right hand. 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 Neuro: Normal sensation of the tips of all digits of the right hand at this time Vascular: Cap refill brisk Pain: Tenderness to palpation of the right radial styloid Positive Ana Rosa test on the right No tenderness to palpation of anatomical snuffbox of the right No tenderness to palpation of the MCP or IP joint of right thumb ROM: Patient is able to make a closed fist and extend all digits of the right hand fully and without difficulty Skin: No lacerations or abrasions. General: No ecchymosis, erythema, or evidence of infection. Psych: Appears grossly normal Affect normal Attitude cooperative Results Reviewed Results Reviewed: X-rays obtained in the office today and independently reviewed by me, Roberto Villagomez PA-C, demonstrate no fracture or acute bony abnormality of the right hand or wrist. Assessment & Plan Assessment & Plan (1) De Quervain's tenosynovitis, right: Code(s): M65.4 - Radial styloid tenosynovitis [de Quervain] Category: Medical Plan 1. De Quervain tenosynovitis, right Patient is educated about this condition Patient is educated about the treatment options available At this time, patient states that due to a fear of needles and surgery, she would like to proceed with occupational therapy and bracing to see if this will provide her relief of symptoms without the need for surgical intervention OT referral placed Patient is provided with a comfort cool thumb spica splint to wear whenever her hand and wrist are particularly bothering her Patient understands this is in his amenable to this plan Follow-up as needed Orders: Orders XR hand RT min 3V Today M79.641 - Pain in right hand OT Evaluation and Treatment Today M65.4 - Radial styloid tenosynovitis [de Quervain] Coding Level of Care Code New Pt Level 3 (82196) Diagnoses De Quervain's tenosynovitis, right M65.4
[2024-12-30 12:51] VITALS: BMI 41.1
== END 2024-12-30 13:24 | disposition home or self-care (01) ==
LOC: HO.HOS 12:36
PROVIDERS: PCP Internal Medicine
DX: M65.4 Radial styloid tenosynovitis [de Quervain] (principal)
CPT/HCPCS: 99203

== ENCOUNTER → 2024-12-30 12:38 | Outpatient (BNV) | payer MEDICAID, SELFPAY | PROVIDERS: Visit Provider Radiology Diagnostic Radiology | DX: M79.641 Pain in right hand (principal) | CPT/HCPCS: 73130 ==

== ENCOUNTER 2025-02-06 15:30 | Outpatient (RCR) | payer MEDICAID, SELFPAY ==
--- NOTE | 2025-01-09 10:44 | MHC.OT.OEV ---
[facility] Office [address] [facility] [address] [facility] [phone] F: [phone] F: [phone] Occupational Therapy Evaluation Patient Name: Jaki Giang Diagnosis: (R)De Quervain's Tenosynovitis Date of Onset: Date of Surgery: Attending Provider: Roberto Villagomez Prescribed Treatment: MD Follow Up Appointment: History of Current Condition: Patient is a 35 y/o female with PMHx of moderate developmental delay who was referred to skilled OT with dx of (R)De Quervain's who reports pain for a couple of months. She reports 0/10 pain at rest and 9/10 pain stating it is a pulling/ crushing pain . She reports difficulty with holding things and FM activities. She has been wearing a Comfort Cool brace. 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 She reported her PLOF as (I)ADLs, (I) simple meal prep- parents complete IADL tasks. She enjoys walking, jewelry making. Significant Medical History: Developmental delay, moderate Precautions/Contraindications: Patient Goals: Hand Dominance: Right Observations: QuickDASH Score: Prior Level of Function and Occupation Self Care, Employment, Leisure: (I)ADLs (I)light meal prep walking, making jewelry Living Situation, Family and/or Social Support: Lives with family Current Level of Function and Occupation Self Care, Employment, Leisure: unable to perform jewelry making Sleep: She stated she will during the night due to pain occasionally Driving: Vision: Balance: Pain Assessment Pain Score: 9 Pain Scale Used: Numeric (0 - 10) Pain Location and Description: 0/10 at rest 9/10 during activity Aggravating Factors: Alleviating Factors: Tylenol Skin and Soft Tissue Assessment Skin and Soft Tissue: Comments: Nerve assessment Ulnar Nerve: Median Nerve: Radial Nerve: Comments: Sensory Assessment Temperature: Light Touch: Proprioception: Vibration: Comments: Edema Assessment Upper Extremity: Lower Extremity: Comments: Dexterity Assessment Dexterity: Comments: Special Tests Comments: Finkelstines (+) AROM(PROM) Strength Cervical Cervical Flexion: Cervical Extension: Cervical Lateral Flexion: Cervical Rotation: Comments: Shoulder Flexion: Extension: Abduction: Internal Rotation: External Rotation: Comments: WFL Flexion: Extension: Abduction: Internal Rotation: External Rotation: Comments: Elbow Flexion: Extension: Pronation: Supination: Comments: WFL Flexion: Extension: Pronation: Supination: Comments: Wrist Flexion: 76 Extension: 72 Ulnar Deviation: 20 Radial Deviation: 17 Comments: Flexion: Extension: Ulnar Deviation: Radial Deviation: Comments: Thumb Thumb CMC Flexion: Thumb MCP Flexion: 32 Thumb IP Flexion: 80 Radial Abduction: 67 Palmar Abduction: 66 [place] (Kapandji 0-10): Comments: Digits Index MCP: PIP: DIP: Long MCP: PIP: DIP: Ring MCP: PIP: DIP: Small MCP: PIP: DIP: Comments: WFL Gross Grasp: (R)26lbs., (L)38lbs. Lateral Pinch: Two-Point Pinch: Three-Jaw Saeed: Comments: Patient Education Primary Language: Boring Machine Set Up Operator Jig Required: No Current Knowledge: None Teaching Method: Demonstration Verbal Education Needs Identified on Evaluation: ADL's Disease Information Equipment Use Exercise Pain How did patient/family demonstrate learning? Family/SO verbalizes Needs reinforcement Barriers to Learning: Cannot Comprehend Readiness for Learning: Accepting Who was educated? Patient Family/other Comments: Plan of Care Assessment: Based on initial OT evaluation patient presents with pain, impaired ROM, impaired strength and impaired performance during self care tasks. Provocative Testing resulted in a (+) Ana Rosa test indicating De Quervain's of the (R)hand. Quick DASH= 40.9% indicating patient's perceived impairment of the UE during self self care tasks. Due to the documented impairments it is recommended that patient receive skilled OT intervention in order for patient to achieve her PLOF. Thank you for your referral. STG Duration: 2 weeks Short Term Goals: Patient will report 7/10 during ADL performance Patient will increase customer experience strategist strength to 30lbs. Patient will be (I) with activity modification LTG Duration: 4 weeks Ore Grader Goals: Patient will report 1/10 pain during self care tasks patient will be (I) with HEP Patient will decrease Quick DASH score to 15% Frequency and Duration: The patient will be seen 2x a week for 4 weeks Treatment Plan: Therapeutic Exercise Therapeutic Activity Home Exercise Program Splinting Neuro Re-ed Patient Education Desensitization/Sensory Re-ed Edema Control ADL Training Ultrasound NMES Iontophoresis Paraffin Fluidotherapy MHP Cold Packs Joint Mobilization Soft Tissue Mobilization Kinesiotaping Skilled OT eval and treat Electronically Signed By: Fiona Armstrong OTR/L, CLT Reviewed/agree with student documentation: Therapist: Please sign and return to therapist, Thank you for your referral.
--- NOTE | 2025-02-09 08:42 | MHC.OT.DC ---
[facility] Office [address] [phone] F: [phone] F: [phone] Occupational Therapy Discharge Note Patient Name: Jaki Giang Provider: Roberto Villagomez Diagnosis: (R)De Quervain's Tenosynovitis Date of Surgery: Date of Evaluation: 01/08/25 Date of Discharge: Treatments to Date: 8 Cancellations to Date: 0 No Shows to Date: 0 Discharge Status: Improved Function Independent with HEP Discharge Summary: Patient has made steady progress as she reports a 5/10 pain, increased her django developer strength to 44lbs. and is (I) with her HEP. Patient was offered more appointments to continue therapy however patient elected to stop therapy. She was instructed to contact [facility] should she require future services. She was a pleasure to work with, thank you for you're referral. Electronically Signed By: Fiona Armstrong OTR/L, CLT Reviewed/agree with student documentation: N/A Therapist: Please Sign and return to therapist, thank you for your referral.
== END 2025-02-09 08:43 | disposition home or self-care (01) ==
LOC: HO.OT 15:30
PROVIDERS: PCP Internal Medicine
DX: M65.4 Radial styloid tenosynovitis [de Quervain] (principal)
CPT/HCPCS: 97035; 97110; 97140; 97165; 97535

== ENCOUNTER 2025-02-21 08:41 | Outpatient (REF) | payer MEDICAID, SELFPAY ==
--- OUTSIDE RECORDS SUMMARY | 2023-08-28 10:30 | XMS_ITS ---
Author Organization Delano Vallejo III, MD Address [address] [place] [address] Care Team Providers Care Spinner Cap Frame Name Role Phone Marcella CROCKER, [facility] Primary Care Provider Mena Vallejo III, Dr. Wick Unavailable Allergies Allergen (clinical drug ingredient) Drug/Non Drug Allergy documented on EMR Reaction Allergy Type Onset Date Status No Known Drug Allergy Unknown Drug Allergy Active REASON FOR VISIT Thrombocytosis, Polycystic ovarian syndrome, Cognitive impairment, Hyperthyroid Medications Medication SIG (Take, Route, Frequency, Duration) Notes Start Date End Date Status Ursodiol 500 MG TAKE 1 TABLET BY FLO TH DAILY FOR 2 WEEKS, AND THEN START USING IT TWICE A DAY. Oral Active Drospirenone-Ethinyl Estradiol 3-0.03 MG TAKE ONE TABLET BY MOUTH EVERY DAY Oral Active Flovent HFA 110 MCG/ACT INHALE 1 PUFF TW ICE DAILY. Inhalation Active Aspir-81 Active Ibuprofen 400 MG TAKE ONE TABLET BY M OUTH THREE TIMES A DAY Oral Active Anagrelide HCl 1 MG 1 capsule Orally daily 023 Active Anagrelide HCl 1 MG 1 capsule Orally onc e a day Active Ventolin HFA 108 (90 Base) MCG/ACT INHALE TWO PUFFS BY MOUTH FOUR TIMES A DAY NEEDED FOR ASTHMA Inhalation Active metFORMIN HCl ER 750 MG TAKE ONE TABLET BY MOUTH TWICE A DAY Oral Active Social History Tobacco Use: Social History Observation Description Date Details (start date - stop date) Never Smoker NA - NA Sex Assigned At : Social History Observation Description Sex Assigned At Female Tobacco Use/Smoking Question Answer Notes Patient is a nonsmoker Additional Findings: Tobacco Non-User Aggressive non-smoker Vital Signs Temperature 97.2 degrees Fahrenheit 08/28/19 24 Blood pressure systolic 147 mm Hg 08/28/19 24 Blood pressure diastolic 94 mm Hg 024 Heart Rate 99 /min 08/28/2023 Height 5 ft 2 in in 08/28/2023 Weight 217 lbs 08/28/2023 BMI 39.69 kg/m2 08/28/2023 Encounters Encounter Location Date Provider Diagnosis Delano Vallejo III, MD [address] [place] [address] [place] [address] 08/28/2023 Delano Vallejo Microcephaly Q02 ; Thrombocytosis D47.3 ; Polycystic ovarian syndrome E28.2 ; Mild cognitive impairment of uncertain or unknown etiology G31.84 and Asthma J45.909 Assessments Encounter Date Diagnosis (ICD Code) Assessment Notes Treat ment Notes Treatment Clinical Notes 08/28/2023 Microcephaly (ICD-10 - Q02) Informed consent was obtained from the patient as well as from the mother for the use of anagrelide. 08/28/2023 Thrombocytosis (ICD-10 - D47.3) Her platelets are now normal at 213,000 with 1 mg of anagrelide daily. She has had no side effects and the medication will be continued unchanged. 08/28/2023 Polycystic ovarian syndrome (ICD-10 - E28.2) She will remain under the care of LANDS RESOURCE MANAGER. 08/28/2023 Mild cognitive impairment of uncertain or unknown etiology (ICD-10 - G31.84) She was pleasant and seems to understand the discussion. Her change in her regimen other than the aspirin was needed 08/28/2023 Asthma (ICD-10 - J45.909) She had no wheezing today and felt well. Plan Of Treatment Medication Medication Name Sig Start Date Stop Date Notes Ursodiol 500 MG TAKE 1 TABLET BY FLO TH DAILY FOR 2 WEEKS, AND THEN START USING IT TWICE A DAY. Oral Drospirenone-Ethinyl Estradiol 3-0.03 MG TAKE ONE TABLET BY MOUTH EVERY DAY Oral Flovent HFA 110 MCG/ACT INHALE 1 PUFF TW ICE DAILY. Inhalation Aspir-81 Ibuprofen 400 MG TAKE ONE TABLET BY M OUTH THREE TIMES A DAY Oral Anagrelide HCl 1 MG 1 capsule Orally daily 03/02/2023 Anagrelide HCl 1 MG 1 capsule Orally once a day Ventolin HFA 108 (90 Base) MCG/ACT INHALE TWO PUFFS BY MOUTH FOUR TIMES A DAY NEEDED FOR ASTHMA Inhalation metFORMIN HCl ER 750 MG TAKE ONE TABLET BY MOUTH TWICE A DAY Oral Pending Test Test Name Order Date PROFILE, RANDOM (COMPREHENSIVE METABOLIC ) 08/28/2023 CBC WITH AUTO DIFF 08/28/2023 Next Appt Details Follow Up: 4 Months, Reason: OV Provider Name:Delano Vallejo , 04/14/2025 03:30:00 PM, [address] [place] [address], [place] [address], [place], [address], Progress Notes * ALEXIS GIANGOB:1989 (33 yo F)Acc No.[id number]:08/28/2023 Progress Notes Patient: CECIL RUSSELL Provider: Brittaney Vallejo MD :1990 A ge:33 Y S ex:Female Date:08/28/2023 Address:[address] [place] [address] , [address] Pcp:Jennifer Naranjo MD Subjective: * Chief Complaints: * T hrombocytosisPolycystic ovarian syndromeCognitive impairmentHyperthyroid * HPI: C OVID-19 Screening: She returns to the office for 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 She has been compliant with the anagrelide. Her platelet count is in the normal range. No change in his therapy was made. Continue followup was arranged. Blood work that was done August 18, 2023 showed white count 9.7, hematocrit 43.6 platelets 213, neutrophils 56% lymphocytes, 36%. Questions H ave you experienced fever, chills, cough, sore throat, shortness of breath, difficulty breathing, muscle aches, loss of taste or smell? N o H ave you been exposed to the virus within the last 10 days? N o H ave you travelled internationally in the last 10 days? N o H ave you been exposed to COVID-19 in the past? Y es * ROS: G eneral/Constitutional: pain o nly normal aches and pains. C hills d enies.?Fatigue a dmits. F ever d enies. E NT: Decreased hearing d enies. R espiratory: Cough d enies. C ardiovascular: Chest pain with exertion d enies. D yspnea on exertion?denies. S hortness of breath d enies. G astrointestinal: Constipation o ccasional. D ecreased appetite d enies. D iarrhea d enies. H eartburn d enies. N ausea d enies. R ectal bleeding d enies. V omiting d enies. H ematology: bruising d enies. p etechiae d enies. S wollen glands n one have been noted. G enitourinary: Frequent urination a small amount. M usculoskeletal: Muscle aches d enies. P ainful joints d enies. S ciatica d enies. W eakness d enies. S kin: Itching d enies. R guero d enies. S kin lesion(s)?denies. N eurologic: Difficulty speaking d enies. D izziness d enies.?Headache d enies. L ow back pain d enies. P sychiatric: Depressed mood d enies. * Medical History: * Surgical History: B x liver 04/2022 * Hospitalization/Major Diagno stic Procedure: D enies Past Hospitalization * Family History: F ather: alive, diagnosed with DM, Hyperlipidemia, HTN. M other: alive, anemia, diagnosed with Hyperlipidemia, HTN. 2 brother(s) , 1 sister(s) . . Sister had breast cancer. * Social History: T obacco Use: T obacco Use/Smoking P atient is a n onsmoker A dditional Findings: Tobacco Non-User A ggressive non-smoker * Medications: T akingDrospirenone-Ethinyl Estradiol 3-0.03 MG Tablet TAKE ONE TABLET BY MOUTH EVERY DAY Oral Flovent HFA 110 MCG/ACT Aerosol INHALE 1 PUFF TWICE DAILY. Inhalation Ibuprofen 400 MG Tablet TAKE ONE TABLET BY MOUTH THREE TIMES A DAY Oral Ventolin HFA 108 (90 Base) MCG/ACT Aerosol Solution INHALE TWO PUFFS BY MOUTH FOUR TIMES A DAY NEEDED FOR ASTHMA Inhalation metFORMIN HCl ER 750 MG Tablet Extended Release 24 Hour TAKE ONE TABLET BY MOUTH TWICE A DAY Oral Anagrelide HCl 1 MG Capsule 1 capsule Orally dailyAspir-81 Ursodiol 500 MG Tablet TAKE 1 TABLET BY MOUTH DAILY FOR 2 WEEKS, AND THEN START USING IT TWICE A DAY. Oral Medication List reviewed and reconciled with the patientTaking Drospirenone-Ethinyl Estradiol 3-0.03 MG Tablet TAKE ONE TABLET BY MOUTH EVERY DAY Oral Taking Flovent HFA 110 MCG/ACT Aerosol INHALE 1 PUFF TWICE DAILY. Inhalation Taking Ibuprofen 400 MG Tablet TAKE ONE TABLET BY MOUTH THREE TIMES A DAY Oral Taking Ventolin HFA 108 (90 Base) MCG/ACT Aerosol Solution INHALE TWO PUFFS BY MOUTH FOUR TIMES A DAY NEEDED FOR ASTHMA Inhalation Taking metFORMIN HCl ER 750 MG Tablet Extended Release 24 Hour TAKE ONE TABLET BY MOUTH TWICE A DAY Oral Taking Anagrelide HCl 1 MG Capsule 1 capsule Orally dailyTaking Aspir-81 Taking Ursodiol 500 MG Tablet TAKE 1 TABLET BY MOUTH DAILY FOR 2 WEEKS, AND THEN START USING IT TWICE A DAY. Oral Medication List reviewed and reconciled with the patient * Allergies: N o Known Drug Allergyno[Allergies Verified] Objective: * Vitals: H t: 5 ft 2 in, Wt: 217, BMI:39.69, BP: 147/94, HR: 99, Temp: 97.2, Wt-k.43. * Examination: G eneral Examination: GENERAL APPEARANCE: p leasant, well nourished, well developed, in no acute distress, calm and relaxed , overweight , woman. HEAD: a traumatic, normocephalic. EYES: e wu, perrla, anicteric, conjugate. EARS: n ormal. NOSE: s eptum intact. ORAL CAVITY: n ormal, unremarkable. NECK/THYROID: n o jugular venous distention, no carotid bruit, thyroid normal. LYMPH NODES: n o enlarged lymph nodes,spleen normal. SKIN: n o suspicious lesions, anicteric. HEART: n o clicks, gallops, murmurs, or rubs, regular rhythm, S1, S2 normal, no s3, or vascular bruits. LUNGS: c lear to auscultation . BREASTS: n ot examined. ABDOMEN: c entripital obesity. RECTAL EXAM: n ot examined. MUSCULOSKELETAL: e xtremities unremarkable, no clubbing, cyanosis or edema. PERIPHERAL PULSES: n ormal. NEUROLOGIC: a lert and oriented, cranial nerves 2-12 grossly intact, deep tendon reflexes 2+ symmetrical, motor strength normal upper and lower extremities, sensory exam intact. PSYCH: a lert, oriented, Delayed development. ? Assessment: * Assessment: 1. M icrocephaly - Q02 (Primary), Informed consent was obtained from the patient as well as from the mother for the use of anagrelide. 2 . T hrombocytosis - D47.3, Her platelets are now normal at 213,000 with 1 mg of anagrelide daily. She has had no side effects and the medication will be continued unchanged. 3 . P olycystic ovarian syndrome - E28.2, She will remain under the care of LANDS RESOURCE MANAGER. 4 . M ild cognitive impairment of uncertain or unknown etiology - G31.84, She was pleasant and seems to understand the discussion. Her change in her regimen other than the aspirin was needed 5 . A sthma - J45.909, She had no wheezing today and felt well. Plan: * Treatment: 2. O thers Continue Drospirenone-Ethinyl Estradiol Tablet, 3-0.03 MG, TAKE ONE TABLET BY MOUTH EVERY DAY, Oral; C ontinue Flovent HFA Aerosol, 110 MCG/ACT, INHALE 1 PUFF TWICE DAILY., Inhalation; C ontinue Ibuprofen Tablet, 400 MG, TAKE ONE TABLET BY MOUTH THREE TIMES A DAY, Oral; C ontinue Ventolin HFA Aerosol Solution, 108 (90 Base) MCG/ACT, INHALE TWO PUFFS BY MOUTH FOUR TIMES A DAY NEEDED FOR ASTHMA, Inhalation; C ontinue metFORMIN HCl ER Tablet Extended Release 24 Hour, 750 MG, TAKE ONE TABLET BY MOUTH TWICE A DAY, Oral. * Procedure Codes: * Preventive Medicine: Counseling: C are goal follow-up plan: Counseling for abnormal BMI given Y es Above Normal BMI Follow-up D ietary management education, guidance, and counseling, Dietary needs education, Exercise promotion: strength training, Exercise promotion: stretching, Feeding regime, Giving encouragement to exercise, Lifestyle education regarding diet, Nutrition / feeding management, Nutrition therapy, Prescribed activity/exercise education, Prescribed diet education, Prescribed dietary intake, Special diet education, Weight monitoring , Intervention, Order not done: Medical or Other reason not done ) . * Follow Up: 4 Months (Reason: OV) * Images: * Sign off status: Completed true * Provider: Brittaney Vallejo MD Date: 0 08/28/2023 Generated for Anuradha garvey/Gordon/[place] on: 04/23/2024 08:43 AM EST History and Physical Notes * HPI (History of Present Illness) Category Sub-Category Detail Notes COVID-19 Screening Questions Have you had any new onset fever, chills, cough, congestion, sore throat, shortness of breath, muscle aches?: No Have you been exposed to the virus withi n the last 10 days?: No Have you travelled internationally in [facility] last 10 days?: No Have you been exposed to COVID-19 in the past?: Yes Examination Category Sub-Category Detail Notes General Examination GENERAL APPEARANCE: pleasant , well nourished, well developed, in no acute distress, calm and relaxed , overweight , woman HEAD: atraumatic, normocep halic EYES: eomi, perrla, anicte eriberto, conjugate EARS: normal NOSE: septum intact NECK/THYROID: no jugular venous di stention, no carotid bruit, thyroid normal HEART: no clicks, gallops, murmurs, or rubs, regular rhythm, S1, S2 normal, no s3, or vascular bruits LUNGS: clear to auscultatio n ABDOMEN: centripital obesity NEUROLOGIC: alert and oriented, cranial nerves 2-12 grossly intact, deep tendon reflexes 2+ symmetrical, motor strength normal upper and lower extremities, sensory exam intact SKIN: no suspicious lesion s, anicteric PERIPHERAL PULSES: normal BREASTS: not examined MUSCULOSKELETAL: extremities unremark able, no clubbing, cyanosis or edema LYMPH NODES: no enlarged lymph no costa,spleen normal RECTAL EXAM: not examined PSYCH: alert, oriented, Del ayed development ORAL CAVITY: normal, unremarkable
--- OUTSIDE RECORDS SUMMARY | 2023-12-31 10:45 | XMS_ITS ---
Author Organization Delano Vallejo III, MD Address [address] [place] [address] Care Team Providers Care Marketing Production Coordinator Name Role Phone Marcella CROCKER, [facility] Primary Care Provider Mena Vallejo III, Dr. Wick Unavailable [phone] Allergies Allergen (clinical drug ingredient) Drug/Non Drug Allergy documented on EMR Reaction Allergy Type Onset Date Status No Known Drug Allergy Unknown Drug Allergy Active REASON FOR VISIT Thrombocytosis, Polycystic ovarian syndrome, Asthma, Hypothyroidism, Hyperlipidemia, Microcephaly Medications Medication SIG (Take, Route, Frequency, Duration) Notes Start Date End Date Status Anagrelide HCl 1 MG 1 capsule Orally daily 023 Active Ursodiol 500 MG TAKE 1 TABLET BY FLO TH DAILY FOR 2 WEEKS, AND THEN START USING IT TWICE A DAY. Oral Active Flovent HFA 110 MCG/ACT INHALE 1 PUFF TW ICE DAILY. Inhalation Active Drospirenone-Ethinyl Estradiol 3-0.03 MG TAKE ONE TABLET BY MOUTH EVERY DAY Oral Active Aspir-81 Active Ventolin HFA 108 (90 Base) MCG/ACT INHALE TWO PUFFS BY MOUTH FOUR TIMES A DAY NEEDED FOR ASTHMA Inhalation Active metFORMIN HCl ER 750 MG TAKE ONE TABLET BY MOUTH TWICE A DAY Oral Active Ibuprofen 400 MG TAKE ONE TABLET BY M OUTH THREE TIMES A DAY Oral Active Social History Tobacco Use: Social History Observation Description Date Details (start date - stop date) Never Smoker NA - NA Sex Assigned At : Social History Observation Description Sex Assigned At Female Tobacco Use/Smoking Question Answer Notes Patient is a nonsmoker Additional Findings: Tobacco Non-User Aggressive non-smoker Vital Signs Temperature 97.0 degrees Fahrenheit 12/31/19 24 Blood pressure systolic 108 mm Hg 12/31/19 24 Blood pressure diastolic 80 mm Hg 024 Heart Rate 86 /min 12/31/2023 Height 5 ft 2 in in 12/31/2023 Weight 213 lbs 12/31/2023 BMI 38.95 kg/m2 12/31/2023 Encounters Encounter Location Date Provider Diagnosis Delano Vallejo III, MD [address] [place] [address] [place] [address] 12/31/2023 Delano Vallejo Microcephaly Q02 ; Thrombocytosis D47.3 ; Polycystic ovarian syndrome E28.2 ; Mild cognitive impairment of uncertain or unknown etiology G31.84 and Asthma J45.909 Assessments Encounter Date Diagnosis (ICD Code) Assessment Notes Treat ment Notes Treatment Clinical Notes 12/31/2023 Microcephaly (ICD-10 - Q02) Informed consent was obtained from the patient as well as from the mother for the use of anagrelide. 12/31/2023 Thrombocytosis (ICD-10 - D47.3) Her platelets are now normal with 1 mg of anagrelide daily. She has had no side effects and the medication will be continued unchanged. 12/31/2023 Polycystic ovarian syndrome (ICD-10 - E28.2) She will remain under the care of DENTAL INTERN. 12/31/2023 Mild cognitive impairment of uncertain or unknown etiology (ICD-10 - G31.84) She was pleasant and seems to understand the discussion. Her change in her regimen other than the aspirin was needed 12/31/2023 Asthma (ICD-10 - J45.909) She had no wheezing today and felt well. Plan Of Treatment Medication Medication Name Sig Start Date Stop Date Notes Anagrelide HCl 1 MG 1 capsule Orally daily 03/02/2023 Ursodiol 500 MG TAKE 1 TABLET BY FLO TH DAILY FOR 2 WEEKS, AND THEN START USING IT TWICE A DAY. Oral Flovent HFA 110 MCG/ACT INHALE 1 PUFF TW ICE DAILY. Inhalation Drospirenone-Ethinyl Estradiol 3-0.03 MG TAKE ONE TABLET BY MOUTH EVERY DAY Oral Aspir-81 Ventolin HFA 108 (90 Base) MCG/ACT INHALE TWO PUFFS BY MOUTH FOUR TIMES A DAY NEEDED FOR ASTHMA Inhalation metFORMIN HCl ER 750 MG TAKE ONE TABLET BY MOUTH TWICE A DAY Oral Ibuprofen 400 MG TAKE ONE TABLET BY M OUTH THREE TIMES A DAY Oral Pending Test Test Name Order Date PROFILE, RANDOM (COMPREHENSIVE METABOLIC ) 12/31/2023 CBC WITH AUTO DIFF 12/31/2023 Next Appt Details Follow Up: 4 Months, Reason: OV Provider Name:Delano Vallejo , 04/14/2025 03:30:00 PM, [address] [place] [address], [place] [address], [place], [address], Progress Notes * DIANAALEXIS AMOSOB:1989 (33 yo F)Acc No.[id number]:12/31/2023 Progress Notes Patient: CECIL RUSSELL Provider: Brittaney Vallejo MD :1990 A ge:33 Y S ex:Female Date:12/31/2023 Address:[address] [place] [address] , [address] Pcp:Jennifer Naranjo MD Subjective: * Chief Complaints: * T hrombocytosisPolycystic ovarian syndromeAsthmaHypothyroidismHyperlipidemiaMicrocephaly * HPI: C OVID-19 Screening: r ankle sprain one obuprorfen. He returns for management of her elevated platelet count. Since her last visit she has sprained her right ankle and is taking ibuprofen. Examination of the ankle showed no serious abnormality and it was healing. Her blood work is available and was reviewed with her and her mother. The platelet count is in the mid normal range and no change in her medications was needed. Questions H ave you experienced fever, chills, [...] enies. D iarrhea d enies. H eartburn o ccasional. N ausea d enies. R ectal bleeding d enies. V omiting d enies. H ematology: bruising d enies. p etechiae d enies. S wollen glands n one have been noted. G enitourinary: Frequent urination d enies. M usculoskeletal: Muscle aches d enies. P [...] Family History: F ather: alive, diagnosed with HTN, Hyperlipidemia, DM. M other: alive, anemia, diagnosed with HTN, Hyperlipidemia. 2 brother(s) , 1 sister(s) . . Sister had breast cancer. * Social History: T obacco Use: T obacco Use/Smoking P atient is a n onsmoker A dditional Findings: Tobacco Non-User A ggressive non-smoker * Medications: T akingDrospirenone-Ethinyl Estradiol 3-0.03 MG Tablet TAKE ONE TABLET BY MOUTH EVERY DAY Oral Flovent HFA 110 MCG/ACT Aerosol INHALE 1 PUFF TWICE DAILY. Inhalation Ibuprofen 600 MG Tablet 1 tablet with food or milk as needed Orally Twice a day Ventolin HFA 108 (90 Base) MCG/ACT Aerosol Solution INHALE TWO PUFFS BY MOUTH FOUR TIMES A DAY NEEDED FOR ASTHMA Inhalation metFORMIN HCl ER 750 MG Tablet Extended Release 24 Hour TAKE ONE TABLET BY MOUTH TWICE A DAY Oral Aspir-81 Ursodiol 500 MG Tablet TAKE 1 TABLET BY MOUTH DAILY FOR 2 WEEKS, AND THEN START USING IT TWICE A DAY. Oral Anagrelide HCl 1 MG Capsule 1 capsule Orally daily Taking Drospirenone- Ethinyl Estradiol 3-0.03 MG Tablet TAKE ONE TABLET BY MOUTH EVERY DAY Oral Taking Flovent HFA 110 MCG/ACT Aerosol INHALE 1 PUFF TWICE DAILY. Inhalation Taking Ibuprofen 600 MG Tablet 1 tablet with food or milk as needed Orally Twice a day Taking Ventolin HFA 108 (90 Base) MCG/ACT Aerosol Solution INHALE TWO PUFFS BY MOUTH FOUR TIMES A DAY NEEDED FOR ASTHMA Inhalation Taking metFORMIN HCl ER 750 MG Tablet Extended Release 24 Hour TAKE ONE TABLET BY MOUTH TWICE A DAY Oral Taking Aspir-81 Taking Ursodiol 500 MG Tablet TAKE 1 TABLET BY MOUTH DAILY FOR 2 WEEKS, AND THEN START USING IT TWICE A DAY. Oral Taking Anagrelide HCl 1 MG Capsule 1 capsule Orally daily DiscontinuedAnagrelide HCl 1 MG Capsule 1 capsule Orally once a day Medication List reviewed and reconciled with the patientDiscontinued Anagrelide HCl 1 MG Capsule 1 capsule Orally once a day Medication List reviewed and reconciled with the patient * Allergies: N o Known Drug Allergyno[Allergies Verified] Objective: * Vitals: H t: 5 ft 2 in, Wt: 213, BMI:38.95, BP: 108/80, HR: 86, Temp: 97.0, Wt-k.62. * P ast Orders: Lab:Comprehensive Met. Panel * Collection Date 12/08/2023 04/27/2023 Collection Time 09:27 AM 03:45 PM Order Date 12/08/2023 04/27/2023 Sodium 141 (Ref Range: 135-145 mmol/L) 143 (Ref Range: 135-145 mmol/L) Bilirubin Total 0.6 (Ref Range: 0.0-1.0 mg/dL) 0.2 (Ref Range: 0.0-1.0 mg/dL) Aspartate Amino Transferase 53 H (Ref Range: 5-31 U/L) 65 H (Ref Range: 5-31 U/L) Alanine Aminotransferase 55 H (Ref Range: 0-31 U/L) 64 H (Ref Range: 0-31 U/L) Total Protein 7.7 (Ref Range: 6.5-8.0 g/dL) 7.9 (Ref Range: 6.5-8.0 g/dL) Albumin Level 3.9 (Ref Range: 3.5-5.0 g/dL) 3.8 (Ref Range: 3.5-5.0 g/dL) Alkaline Phosphatase 138 H (Ref Range: 39-117 U/L) 136 H (Ref Range: 39-117 U/L) Potassium 3.8 (Ref Range: 3.3-5.1 mmol/L) 3.6 (Ref Range: 3.3-5.1 mmol/L) Chloride 106 (Ref Range: 96-108 mmol/L) 102 (Ref Range: 96-108 mmol/L) Carbon Dioxide 24 (Ref Range: 22-29 mmol/L) 24 (Ref Range: 22-29 mmol/L) Anion Gap 15 (Ref Range: 12-20) 21 H (Ref Range: 12-20) Blood Urea Nitrogen 11 (Ref Range: 9-16 mg/dL) 16 (Ref Range: 9-16 mg/dL) Creatinine 0.77 (Ref Range: 0.5-1.4 mg/dL) 0.94 (Ref Range: 0.5-1.4 mg/dL) Estimated Glomerular Filt Rate > 60 > 60 Glucose Random 100 (Ref Range: 60-115 mg/dL) 91 (Ref Range: 60-115 mg/dL) Calcium 10.1 (Ref Range: 8.4-10.2 mg/dL) 10.1 (Ref Range: 8.4-10.2 mg/dL) * Lab:Complete Blood Count Aut o Diff * Collection Date 12/08/2023 04/27/2023 02/26/2023 Collection Time 09:27 AM 03:45 PM 03:21 PM Order Date 12/08/2023 04/27/2023 02/26/2023 White Blood Count 11.2 H (Ref Range: 4.8-10.8 X10*3/uL) 13.2 H (Ref Range: 4.8-10.8 X10*3/uL) 12.5 H (Ref Range: 4.8-10.8 X10*3/uL) Red Blood Count 4.85 (Ref Range: 4.20-5.50 X10*6/uL) 4.84 (Ref Range: 4.20-5.50 X10*6/uL) 4.95 (Ref Range: 4.20-5.50 X10*6/uL) Hemoglobin 13.9 (Ref Range: 12.0-16.0 g/dl) 13.7 (Ref Range: 12.0-16.0 g/dl) 14.0 (Ref Range: 12.0-16.0 g/dl) Hematocrit 42.1 (Ref Range: 37.0-47.0 %) 41.5 (Ref Range: 37.0-47.0 %) 43.2 (Ref Range: 37.0-47.0 %) Mean Corpuscular Volume 86.8 (Ref Range: 80.0-98.0 fL) 85.7 (Ref Range: 80.0-98.0 fL) 87.3 (Ref Range: 80.0-98.0 fL) Mean Corpuscular Hemoglobin 28.7 (Ref Range: 27.0-33.0 pg) 28.3 (Ref Range: 27.0-33.0 pg) 28.3 (Ref Range: 27.0-33.0 pg) Mean Corpuscular HGB Conc 33.0 (Ref Range: 31.0-35.0 g/dl) 33.0 (Ref Range: 31.0-35.0 g/dl) 32.4 (Ref Range: 31.0-35.0 g/dl) Red Cell Distribution Width 13.4 (Ref Range: 11.0-16.0 %) 13.1 (Ref Range: 11.0-16.0 %) 13.1 (Ref Range: 11.0-16.0 %) Platelet Count 197 (Ref Range: 160-400 X10*3/uL) 219 (Ref Range: 160-400 X10*3/uL) 521 H (Ref Range: 160-400 X10*3/uL) Mean Platelet Volume 12.5 H (Ref Range: 9.4-12.3 fL) 12.5 H (Ref Range: 9.4-12.3 fL) 11.2 (Ref Range: 9.4-12.3 fL) Neutrophils Percent Auto 53.5 (Ref Range: 45-73 %) 52.2 (Ref Range: 45-73 %) 56.3 (Ref Range: 45-73 %) Imm Gran Pct Auto 0.3 (Ref Range: 0.0-0.4 %) 0.4 (Ref Range: 0.0-0.4 %) 0.2 (Ref Range: 0.0-0.4 %) Lymphocytes Percent Auto 39.7 (Ref Range: 20-40 %) 40.9 H (Ref Range: 20-40 %) 37.4 (Ref Range: 20-40 %) Monocytes Percent Auto 5.3 (Ref Range: 2-11 %) 5.5 (Ref Range: 2-11 %) 5.1 (Ref Range: 2-11 %) Eosinophils Percent Auto 0.8 (Ref Range: 0-4 %) 0.7 (Ref Range: 0-4 %) 0.5 (Ref Range: 0-4 %) Basophils Percent Auto 0.4 (Ref Range: 0-2 %) 0.3 (Ref Range: 0-2 %) 0.5 (Ref Range: 0-2 %) NRBC Pct Auto 0.0 (Ref Range: 0.0-0.2 /100WBC) 0.0 (Ref Range: 0.0-0.2 /100WBC) 0.0 (Ref Range: 0.0-0.2 /100WBC) Neutrophils Absolute Auto 6.0 (Ref Range: 2.0-8.3 x10*3/uL) 6.9 (Ref Range: 2.0-8.3 x10*3/uL) 7.0 (Ref Range: 2.0-8.3 x10*3/uL) Imm Gran Abs Auto 0.03 (Ref Range: 0.00-0.03 X10*3/uL) 0.05 H (Ref Range: 0.00-0.03 X10*3/uL) 0.03 (Ref Range: 0.00-0.03 X10*3/uL) Lymphocytes Absolute Auto 4.4 (Ref Range: 1.2-4.9 X10*3/uL) 5.4 H (Ref Range: 1.2-4.9 X10*3/uL) 4.7 (Ref Range: 1.2-4.9 X10*3/uL) Monocytes Absolute Auto 0.6 (Ref Range: 0.1-1.2 X10*3/uL) 0.7 (Ref Range: 0.1-1.2 X10*3/uL) 0.6 (Ref Range: 0.1-1.2 X10*3/uL) Eosinophils Absolute Auto 0.1 (Ref Range: 0.0-0.4 X10*3/uL) 0.1 (Ref Range: 0.0-0.4 X10*3/uL) 0.1 (Ref Range: 0.0-0.4 X10*3/uL) Basophils Absolute Auto 0.1 (Ref Range: 0.0-0.2 X10*3/uL) 0.0 (Ref Range: 0.0-0.2 X10*3/uL) 0.1 (Ref Range: 0.0-0.2 X10*3/uL) NRBC Abs Auto 0.000 (Ref Range: 0.0-0.012 X10*3/uL) 0.000 (Ref Range: 0.0-0.012 X10*3/uL) 0.000 (Ref Range: 0.0-0.012 X10*3/uL) * Examination: G eneral Examination: GENERAL APPEARANCE: p leasant, well nourished, well developed, in no acute distress, calm and relaxed, obese, woman. HEAD: a traumatic, normocephalic. EYES: e [...] LUNGS: c lear to auscultation . BREASTS: no masses palpable bilaterally. ABDOMEN: b owel sounds normal, no ascites, no organomegaly, no mass, centripital obesity. RECTAL EXAM: n ot examined. MUSCULOSKELETAL: e xtremities unremarkable, no clubbing, cyanosis or edema. PERIPHERAL PULSES: n ormal. NEUROLOGIC: a lert and oriented, cranial nerves 2-12 grossly intact, deep tendon reflexes 2+ symmetrical, motor strength normal upper and lower extremities, sensory exam intact. PSYCH: a lert, oriented, speech clear, cooperative with exam, Learning disability. Assessment: * Assessment: 1. T hrombocytosis - D47.3 (Primary) N otes :Her platelets are now normal with 1 mg of anagrelide daily. She has had no side effects and the medication will be continued unchanged. 2 . M icrocephaly - Q02 N otes :Informed consent was obtained from the patient as well as from the mother for the use of anagrelide. 3 . P olycystic ovarian syndrome - E28.2 N otes :She will remain under the care of DENTAL INTERN. 4 . M ild cognitive impairment of uncertain or unknown etiology - G31.84 ? N otes :She was pleasant and seems to understand the discussion. Her change in her regimen other than the aspirin was needed 5 . A sthma - J45.909 N otes :She had no wheezing today and felt well. [...] done: Medical or Other reason not done * Follow Up: 4 Months (Reason: OV) * Images: * Sign off status: Completed true * Provider: Brittaney Vallejo MD Date: 0 12/31/2023 Generated for Printi ng/Favidhig/eTransmitting on: 1 04/23/2024 08:43 AM EST History and Physical Notes * HPI (History of Present Illness) Category Sub-Category Detail Notes COVID-19 Screening Questions Have you had any new onset fever, chills, cough, congestion, sore throat, shortness of breath, muscle aches?: No Have you been exposed to the virus withi n the last 10 days?: No Have you travelled internationally in [facility] last 10 days?: No Have you been exposed to COVID-19 in the past?: Yes Examination Category Sub-Category Detail Notes General Examination GENERAL APPEARANCE: pleasant , well nourished, well developed, in no acute distress, calm and relaxed, obese, woman HEAD: atraumatic, normocep halic EYES: eomi, perrla, anicte eriberto, conjugate EARS: normal NOSE: septum intact NECK/THYROID: no jugular venous di stention, no carotid bruit, thyroid normal HEART: no clicks, gallops, murmurs, or rubs, regular rhythm, S1, S2 normal, no s3, or vascular bruits LUNGS: clear to auscultatio n ABDOMEN: bowel sounds normal, no ascites, no organomegaly, no mass, centripital obesity NEUROLOGIC: alert and oriented, cranial nerves 2-12 grossly intact, deep tendon reflexes 2+ symmetrical, motor strength normal upper and lower extremities, sensory exam intact SKIN: no suspicious lesion s, anicteric PERIPHERAL PULSES: normal BREASTS: no masses palpable b ilaterally MUSCULOSKELETAL: extremities unremark able, no clubbing, cyanosis or edema LYMPH NODES: no enlarged lymph no costa,spleen normal RECTAL EXAM: not examined PSYCH: alert, oriented, spe ech clear, cooperative with exam, Learning disability ORAL CAVITY: normal, unremarkable
--- OUTSIDE RECORDS SUMMARY | 2024-05-02 10:45 | XMS_ITS ---
Author Organization Delano Vallejo III, MD Address [address] [place] [address] Care Team Providers Care Change Management Consultant Name Role Phone Marcella CROCKER, [facility] Primary Care Provider Mena Vallejo III, Dr. Wick Unavailable Allergies Allergen (clinical drug ingredient) Drug/Non Drug Allergy documented on EMR Reaction Allergy Type Onset Date Status No Known Drug Allergy Unknown Drug Allergy Active REASON FOR VISIT Essential thrombocytosis, Polycystic ovarian syndrome, Cognitive impairment, Hypothyroidism, Dyslipidemia Medications Medication SIG (Take, Route, Frequency, Duration) Notes Start Date End Date Status Anagrelide HCl 1 MG TAKE 1 CAPSULE BY MO UTH DAILY Active Drospirenone-Ethinyl Estradiol 3-0.03 MG TAKE ONE TABLET BY MOUTH EVERY DAY Oral Active Flovent HFA 110 MCG/ACT INHALE 1 PUFF TW ICE DAILY. Inhalation Active Aspir-81 Active Ursodiol 500 MG TAKE 1 TABLET BY FLO DAILY FOR 2 WEEKS, AND THEN START USING IT TWICE A DAY. Oral Active Ibuprofen 400 MG TAKE ONE TABLET BY M OUTH THREE TIMES A DAY Oral Active Ventolin HFA 108 (90 Base) MCG/ACT [...] nonsmoker Additional Findings: Tobacco Non-User Aggressive non-smoker Problems Problem Type SNOMED Code ICD Code Onset Dates Problem Status W/U Status Risk Notes Problem 691885370 Morbid obesity (E66.01) Active confirmed She has gained 10 pounds. Her body mass index is now slightly over 40. She falls into the morbidly obese range. We have discussed diet and nutrition. She and her mother will consider a referral to the weight loss program at [facility]. Vital Signs Temperature 96.9 degrees Fahrenheit 05/02/19 25 Blood pressure systolic 116 mm Hg 05/02/19 25 Blood pressure diastolic 85 mm Hg 025 Heart Rate 80 /min 05/02/2024 Height 5 ft 2 in in 05/02/2024 Weight 223 lbs 05/02/2024 BMI 40.78 kg/m2 05/02/2024 Encounters Encounter Location Date Provider Diagnosis Delano Vallejo III, MD [address] [place] [address] [place] [address] 05/02/2024 Delano Vallejo Morbid obesity E66.0 1 ; Thrombocytosis D75.839 ; Microcephaly Q02 ; Elevated liver enzymes R74.8 ; Hypothyroid E03.9 ; Mild cognitive impairment of uncertain or unknown etiology G31.84 and Polycystic ovarian syndrome E28.2 Assessments Encounter Date Diagnosis (ICD Code) Assessment Notes Treat ment Notes Treatment Clinical Notes 05/02/2024 Morbid obesity (ICD-10 - E66.01) She has gained 10 pounds. Her body mass index is now slightly over 40. She falls into the morbidly obese range. We have discussed diet and nutrition. She and her mother will consider a referral to the weight loss program at [facility]. 05/02/2024 Thrombocytosis (ICD-10 - D75.839) Her platelet count remains over 169,000. She will continue anagrelide at the current dose to prevent thrombosis. 05/02/2024 Microcephaly (ICD-10 - Q02) No changes in her neurologic or psychiatric status have been noted. She is awake and alert, pleasant, friendly antireticulin. 05/02/2024 Elevated liver enzymes (ICD-10 - R74.8) There remains slight elevation of the enzymes but there generally improving. They will be observed without treatment at this time. 05/02/2024 Hypothyroid (ICD-10 - E03.9) She has been compliant with her medication. Thyroid function test have been ordered and will be done periodically. 05/02/2024 Mild cognitive impairment of uncertain or unknown etiology (ICD-10 - G31.84) She was pleasant and seems to understand the discussion. Her change in her regimen other than the aspirin was needed 05/02/2024 Polycystic ovarian syndrome (ICD-10 - E28.2) She will remain under the care of [facility]. Plan Of Treatment Medication Medication Name Sig Start Date Stop Date Notes Anagrelide HCl 1 MG TAKE 1 CAPSULE BY MOUTH DAILY Drospirenone-Ethinyl Estradiol 3-0.03 MG TAKE ONE TABLET BY MOUTH EVERY DAY Oral Flovent HFA 110 MCG/ACT INHALE 1 PUFF TW ICE DAILY. Inhalation Aspir-81 Ursodiol 500 MG TAKE 1 TABLET BY FLO TH DAILY FOR 2 WEEKS, AND THEN START USING IT TWICE A DAY. Oral Ibuprofen 400 MG TAKE ONE TABLET BY M OUTH THREE TIMES A DAY Oral Ventolin HFA 108 (90 Base) MCG/ACT INHALE TWO PUFFS BY MOUTH FOUR TIMES A DAY NEEDED FOR ASTHMA Inhalation metFORMIN HCl ER 750 MG TAKE ONE TABLET BY MOUTH TWICE A DAY Oral Pending Test Test Name Order Date PROFILE, RANDOM (COMPREHENSIVE METABOLIC ) 05/02/2024 TSH (THYROID STIMULATING HORMONE) 2024 CBC WITH AUTO DIFF 05/02/2024 Free T4 (Free Thyroxine) 05/02/2024 Next Appt Details Follow Up: 3 Months, Reason: OV Provider Name:Delano Vallejo , 04/14/2025 03:30:00 PM, [address] [place] [address], [address], [phone], Progress Notes * ALEXIS GIANGOB:1989 (34 yo F)Acc No.[id number]:05/02/2024 Progress Notes Patient: Lizzie ERIKCECIL Provider: Brittaney Vallejo MD :1990 A ge:34 Y S ex:Female Date:05/02/2024 Address:[address] [place], [place] [id number] Pcp:Jennifer Naranjo MD Subjective: * Chief Complaints: * E ssential thrombocytosisPolycystic ovarian syndromeCognitive impairmentHypothyroidismDyslipidemia * HPI: C OVID-19 Screening: She returns to the office for a scheduled visit to manage her medical issues. She has had no new medical complaints or problems or allergies. She has been compliant with all of her medications. She comes to the office today with her mother who is her caregiver. Her vital signs were stable. No new problems were detected. Current therapy was continued without change. Questions H ave you had any new onset fever, chills, cough, congestion, sore throat, shortness of breath, muscle aches? N o * ROS: G eneral/Constitutional: pain o nly [...] been noted. G enitourinary: Frequent urination a t night. M usculoskeletal: Muscle aches d enies. P [...] DAY. Oral Anagrelide HCl 1 MG Capsule TAKE 1 CAPSULE BY MOUTH DAILY Medication List reviewed and reconciled with the [...] Oral Taking Anagrelide HCl 1 MG Capsule TAKE 1 CAPSULE BY MOUTH DAILY Medication List reviewed and reconciled with the patient * Allergies: N o Known Drug Allergyno[Allergies Verified] Objective: * Vitals: H t: 5 ft 2 in, Wt: 223, BMI:40.78, BP: 116/85, HR: 80, Temp: 96.9, Wt-k.15. * P ast Orders: Lab:Complete Blood Count Aut o Diff * Collection Date 04/26/2024 12/08/2023 04/27/2023 Collection Time 08:20 AM 09:27 AM 03:45 PM Order Date 04/26/2024 12/08/2023 04/27/2023 White Blood Count 12.6 H (Ref Range: 4.8-10.8 X10*3/uL) 11.2 H (Ref Range: 4.8-10.8 X10*3/uL) 13.2 H (Ref Range: 4.8-10.8 X10*3/uL) Red Blood Count 4.90 (Ref Range: 4.20-5.50 X10*6/uL) 4.85 (Ref Range: 4.20-5.50 X10*6/uL) 4.84 (Ref Range: 4.20-5.50 X10*6/uL) Hemoglobin 14.0 (Ref Range: 12.0-16.0 g/dl) 13.9 (Ref Range: 12.0-16.0 g/dl) 13.7 (Ref Range: 12.0-16.0 g/dl) Hematocrit 42.8 (Ref Range: 37.0-47.0 %) 42.1 (Ref Range: 37.0-47.0 %) 41.5 (Ref Range: 37.0-47.0 %) Mean Corpuscular Volume 87.3 (Ref Range: 80.0-98.0 fL) 86.8 (Ref Range: 80.0-98.0 fL) 85.7 (Ref Range: 80.0-98.0 fL) Mean Corpuscular Hemoglobin 28.6 (Ref Range: 27.0-33.0 pg) 28.7 (Ref Range: 27.0-33.0 pg) 28.3 (Ref Range: 27.0-33.0 pg) Mean Corpuscular HGB Conc 32.7 (Ref Range: 31.0-35.0 g/dl) 33.0 (Ref Range: 31.0-35.0 g/dl) 33.0 (Ref Range: 31.0-35.0 g/dl) Red Cell Distribution Width 13.2 (Ref Range: 11.0-16.0 %) 13.4 (Ref Range: 11.0-16.0 %) 13.1 (Ref Range: 11.0-16.0 %) Platelet Count 169 (Ref Range: 160-400 X10*3/uL) 197 (Ref Range: 160-400 X10*3/uL) 219 (Ref Range: 160-400 X10*3/uL) Mean Platelet Volume 12.7 H (Ref Range: 9.4-12.3 fL) 12.5 H (Ref Range: 9.4-12.3 fL) 12.5 H (Ref Range: 9.4-12.3 fL) Neutrophils Percent Auto 56.8 (Ref Range: 45-73 %) 53.5 (Ref Range: 45-73 %) 52.2 (Ref Range: 45-73 %) Imm Gran Pct Auto 0.3 (Ref Range: 0.0-0.4 %) 0.3 (Ref Range: 0.0-0.4 %) 0.4 (Ref Range: 0.0-0.4 %) Lymphocytes Percent Auto 35.0 (Ref Range: 20-40 %) 39.7 (Ref Range: 20-40 %) 40.9 H (Ref Range: 20-40 %) Monocytes Percent Auto 6.5 (Ref Range: 2-11 %) 5.3 (Ref Range: 2-11 %) 5.5 (Ref Range: 2-11 %) Eosinophils Percent Auto 0.8 (Ref Range: 0-4 %) 0.8 (Ref Range: 0-4 %) 0.7 (Ref Range: 0-4 %) Basophils Percent Auto 0.6 (Ref Range: 0-2 %) 0.4 (Ref Range: 0-2 %) 0.3 (Ref Range: 0-2 %) NRBC Pct Auto 0.0 (Ref Range: 0.0-0.2 /100WBC) 0.0 (Ref Range: 0.0-0.2 /100WBC) 0.0 (Ref Range: 0.0-0.2 /100WBC) Neutrophils Absolute Auto 7.1 (Ref Range: 2.0-8.3 x10*3/uL) 6.0 (Ref Range: 2.0-8.3 x10*3/uL) 6.9 (Ref Range: 2.0-8.3 x10*3/uL) Imm Gran Abs Auto 0.04 H (Ref Range: 0.00-0.03 X10*3/uL) 0.03 (Ref Range: 0.00-0.03 X10*3/uL) 0.05 H (Ref Range: 0.00-0.03 X10*3/uL) Lymphocytes Absolute Auto 4.4 (Ref Range: 1.2-4.9 X10*3/uL) 4.4 (Ref Range: 1.2-4.9 X10*3/uL) 5.4 H (Ref Range: 1.2-4.9 X10*3/uL) Monocytes Absolute Auto 0.8 (Ref Range: 0.1-1.2 X10*3/uL) 0.6 (Ref Range: 0.1-1.2 X10*3/uL) 0.7 (Ref Range: 0.1-1.2 X10*3/uL) Eosinophils Absolute Auto 0.1 (Ref Range: 0.0-0.4 X10*3/uL) 0.1 (Ref Range: 0.0-0.4 X10*3/uL) 0.1 (Ref Range: 0.0-0.4 X10*3/uL) Basophils Absolute Auto 0.1 (Ref Range: 0.0-0.2 X10*3/uL) 0.1 (Ref Range: 0.0-0.2 X10*3/uL) 0.0 (Ref Range: 0.0-0.2 X10*3/uL) NRBC Abs Auto 0.000 (Ref Range: 0.0-0.012 X10*3/uL) 0.000 (Ref Range: 0.0-0.012 X10*3/uL) 0.000 (Ref Range: 0.0-0.012 X10*3/uL) * Lab:Comprehensive Met. Panel * Collection Date 04/26/2024 12/08/2023 04/27/2023 Collection Time 08:20 AM 09:27 AM 03:45 PM Order Date 04/26/2024 12/08/2023 04/27/2023 Sodium 140 (Ref Range: 135-145 mmol/L) 141 (Ref Range: 135-145 mmol/L) 143 (Ref Range: 135-145 mmol/L) Bilirubin Total 0.6 (Ref Range: 0.0-1.0 mg/dL) 0.6 (Ref Range: 0.0-1.0 mg/dL) 0.2 (Ref Range: 0.0-1.0 mg/dL) Aspartate Amino Transferase 46 H (Ref Range: 5-31 U/L) 53 H (Ref Range: 5-31 U/L) 65 H (Ref Range: 5-31 U/L) Alanine Aminotransferase 38 H (Ref Range: 0-31 U/L) 55 H (Ref Range: 0-31 U/L) 64 H (Ref Range: 0-31 U/L) Total Protein 8.0 (Ref Range: 6.5-8.0 g/dL) 7.7 (Ref Range: 6.5-8.0 g/dL) 7.9 (Ref Range: 6.5-8.0 g/dL) Albumin Level 3.9 (Ref Range: 3.5-5.0 g/dL) 3.9 (Ref Range: 3.5-5.0 g/dL) 3.8 (Ref Range: 3.5-5.0 g/dL) Alkaline Phosphatase 128 H (Ref Range: 39-117 U/L) 138 H (Ref Range: 39-117 U/L) 136 H (Ref Range: 39-117 U/L) Potassium 4.2 (Ref Range: 3.3-5.1 mmol/L) 3.8 (Ref Range: 3.3-5.1 mmol/L) 3.6 (Ref Range: 3.3-5.1 mmol/L) Chloride 107 (Ref Range: 96-108 mmol/L) 106 (Ref Range: 96-108 mmol/L) 102 (Ref Range: 96-108 mmol/L) Carbon Dioxide 24 (Ref Range: 22-29 mmol/L) 24 (Ref Range: 22-29 mmol/L) 24 (Ref Range: 22-29 mmol/L) Anion Gap 13 (Ref Range: 12-20) 15 (Ref Range: 12-20) 21 H (Ref Range: 12-20) Blood Urea Nitrogen 13 (Ref Range: 9-16 mg/dL) 11 (Ref Range: 9-16 mg/dL) 16 (Ref Range: 9-16 mg/dL) Creatinine 0.68 (Ref Range: 0.5-1.4 mg/dL) 0.77 (Ref Range: 0.5-1.4 mg/dL) 0.94 (Ref Range: 0.5-1.4 mg/dL) Estimated Glomerular Filt Rate > 60 > 60 > 60 Glucose Random 98 (Ref Range: 60-115 mg/dL) 100 (Ref Range: 60-115 mg/dL) 91 (Ref Range: 60-115 mg/dL) Calcium 9.8 (Ref Range: 8.4-10.2 mg/dL) 10.1 (Ref Range: 8.4-10.2 mg/dL) 10.1 (Ref Range: 8.4-10.2 mg/dL) * Examination: G eneral Examination: GENERAL APPEARANCE: p leasant, well nourished, well developed, in no acute distress, calm and relaxed, morbidly obese, woman. HEAD: a traumatic, normocephalic. EYES: [...] LUNGS: c lear to auscultation . BREASTS: N ot examined. ABDOMEN: b owel sounds normal, no ascites, no organomegaly, no mass, morbid obesity. RECTAL EXAM: n ot examined. MUSCULOSKELETAL: e xtremities unremarkable, no clubbing, cyanosis or edema. PERIPHERAL PULSES: n ormal. NEUROLOGIC: a lert and oriented, cranial nerves 2-12 grossly intact, deep tendon reflexes 2+ symmetrical, motor strength normal upper and lower extremities, sensory exam intact, Moderate cognitive impairment. PSYCH: a lert, oriented, Moderate cognitive impairment.? Assessment: * Assessment: 1. T hrombocytosis - D75.839 (Primary) N otes :Her platelet count remains over 169,000. She will continue anagrelide at the current dose to prevent thrombosis. 2 . M orbid obesity - E66.01 N otes :She has gained 10 pounds. Her body mass index is now slightly over 40. She falls into the morbidly obese range. We have discussed diet and nutrition. She and her mother will consider a referral to the weight loss program at [facility]. 3 . M icrocephaly - Q02 N otes :No changes in her neurologic or psychiatric status have been noted. She is awake and alert, pleasant, friendly antireticulin. 4 . E levated liver enzymes - R74.8 N otes :There remains slight elevation of the enzymes but there generally improving. They will be observed without treatment at this time. 5 . H ypothyroid - E03.9 N otes :She has been compliant with her medication. Thyroid function test have been ordered and will be done periodically. 6 . M ild cognitive impairment of uncertain or unknown etiology - G31.84 ? N otes :She was pleasant and seems to understand the discussion. Her change in her regimen other than the aspirin was needed 7 . P olycystic ovarian syndrome - E28.2 N otes :She will remain under the care of [facility]. Plan: * Treatment: 2. E levated liver enzymes L AB: PROFILE, RANDOM (COMPREHENSIVE METABOLIC) L AB: TSH (THYROID STIMULATING HORMONE) L AB: CBC WITH AUTO DIFF L AB: Free T4 (Free Thyroxine) 3. H ypothyroid L AB: PROFILE, RANDOM (COMPREHENSIVE METABOLIC) L AB: TSH (THYROID STIMULATING HORMONE) L AB: CBC WITH AUTO DIFF L AB: Free T4 (Free Thyroxine) 4. O thers Continue Drospirenone-Ethinyl Estradiol Tablet, 3-0.03 [...] Other reason not done * Follow Up: 3 Months (Reason: OV) * Images: * Sign off status: Completed true * Provider: Brittaney Vallejo MD Date: 0 05/02/2024 Generated for Printi ng/Faxing/eTransmitting on: 04/23/2024 08:43 AM EST History and Physical Notes * HPI (History of Present Illness) Category Sub-Category Detail Notes COVID-19 Screening Questions Have you had any new onset fever, chills, cough, congestion, sore throat, shortness of breath, muscle aches?: No Examination Category Sub-Category Detail Notes General Examination GENERAL APPEARANCE: pleasant , well nourished, well developed, in no acute distress, calm and relaxed, morbidly obese, woman HEAD: atraumatic, normocep halic EYES: eomi, perrla, anicte eriberto, conjugate EARS: normal NOSE: septum intact NECK/THYROID: no jugular venous di stention, no carotid bruit, thyroid normal HEART: no clicks, gallops, murmurs, or rubs, regular rhythm, S1, S2 normal, no s3, or vascular bruits LUNGS: clear to auscultatio n ABDOMEN: bowel sounds normal, no ascites, no organomegaly, no mass, morbid obesity NEUROLOGIC: alert and oriented, cranial nerves 2-12 grossly intact, deep tendon reflexes 2+ symmetrical, motor strength normal upper and lower extremities, sensory exam intact, Moderate cognitive impairment SKIN: no suspicious lesion s, anicteric PERIPHERAL PULSES: normal BREASTS: Not examined MUSCULOSKELETAL: extremities unremark able, no clubbing, cyanosis or edema LYMPH NODES: no enlarged lymph no costa,spleen normal RECTAL EXAM: not examined PSYCH: alert, oriented, Mod erate cognitive impairment ORAL CAVITY: normal, unremarkable
--- OUTSIDE RECORDS SUMMARY | 2024-08-01 11:00 | XMS_ITS ---
Author Organization Delano Vallejo III, MD Address [address] [place] [address] Care Team Providers Care Roller Presser Operator Name Role Phone Marcella CROCKER, [facility] Primary Care Provider Mena Vallejo III, Dr. Wick Unavailable Allergies Allergen (clinical drug ingredient) Drug/Non Drug Allergy documented on EMR Reaction Allergy Type Onset Date Status No Known Drug Allergy Unknown Drug Allergy Active REASON FOR VISIT essential thrombocytosis, Cognitive impairment, Asthma, Microcephaly, Hypothyroid, Morbid obesity Medications Medication SIG (Take, Route, Frequency, Duration) Notes Start Date End Date Status Ibuprofen 400 MG TAKE ONE TABLET BY M OUTH THREE TIMES A DAY Oral Active Flovent HFA 110 MCG/ACT INHALE 1 PUFF TW ICE DAILY. Inhalation Active metFORMIN HCl ER 750 MG TAKE ONE TABLET BY MOUTH TWICE A DAY Oral Active Ventolin HFA 108 (90 Base) MCG/ACT INHALE TWO PUFFS BY MOUTH FOUR TIMES A DAY NEEDED FOR ASTHMA Inhalation Active Aspir-81 Active Drospirenone-Ethinyl Estradiol 3-0.03 MG TAKE ONE TABLET BY MOUTH EVERY DAY Oral Active Anagrelide HCl 1 MG TAKE 1 CAPSULE BY MO UTH DAILY Active Ursodiol 500 MG TAKE 1 TABLET [...] Problem Status W/U Status Risk Notes Problem 849330355 Essential thrombocytosis (D47.3) Active confirmed Her blood work is pending. Her platelet count will be reviewed and if necessary her medications adjusted. Her father and she herself states that she has been compliant with her anagrelide. Vital Signs Temperature 97.2 degrees Fahrenheit 08/02/19 25 Blood pressure systolic 117 mm Hg 08/02/19 25 Blood pressure diastolic 78 mm Hg 025 Heart Rate 82 /min 08/01/2024 Height 5 ft 2 in in 08/01/2024 Weight 222 lbs 08/01/2024 BMI 40.6 kg/m2 08/01/2024 Encounters Encounter Location Date Provider Diagnosis Delano Vallejo III, MD [address] [place] [address] [place] [address] 08/01/2024 Delano Vallejo Microcephaly Q02 ; Essential thrombocytosis D47.3 ; Mild cognitive impairment of uncertain or unknown etiology G31.84 ; Asthma J45.909 and Hypothyroid E03.9 Assessments Encounter Date Diagnosis (ICD Code) Assessment Notes Treat ment Notes Treatment Clinical Notes 08/01/2024 Microcephaly (ICD-10 - Q02) No changes in her neurologic or psychiatric status have been noted. She is awake and alert, pleasant, friendly antireticulin. 08/01/2024 Essential thrombocytosis (ICD-10 - D47.3) The disorder is well controlled with current medication at current dose. No changes were made. She will follow-up 3 times a year. 08/01/2024 Mild cognitive impairment of uncertain or unknown etiology (ICD-10 - G31.84) She was pleasant and seems to understand the discussion. Her change in her regimen other than the aspirin was needed 08/01/2024 Asthma (ICD-10 - J45.909) She had no wheezing today and felt well. 08/01/2024 Hypothyroid (ICD-10 - E03.9) She has been compliant with her medication. Thyroid function test have been ordered and will be done periodically. Plan Of Treatment Medication Medication Name Sig Start Date Stop Date Notes Ibuprofen 400 MG TAKE ONE TABLET BY M OUTH THREE TIMES A DAY Oral Flovent HFA 110 MCG/ACT INHALE 1 PUFF TW ICE DAILY. Inhalation metFORMIN HCl ER 750 MG TAKE ONE TABLET BY MOUTH TWICE A DAY Oral Ventolin HFA 108 (90 Base) MCG/ACT INHALE TWO PUFFS BY MOUTH FOUR TIMES A DAY NEEDED FOR ASTHMA Inhalation Aspir-81 Drospirenone-Ethinyl Estradiol 3-0.03 MG TAKE ONE TABLET BY MOUTH EVERY DAY Oral Anagrelide HCl 1 MG TAKE 1 CAPSULE BY MOUTH DAILY Ursodiol 500 MG TAKE 1 TABLET BY FLO TH DAILY FOR 2 WEEKS, AND THEN START USING IT TWICE A DAY. Oral Pending Test Test Name Order Date PROFILE, RANDOM (COMPREHENSIVE METABOLIC ) 08/01/2024 CBC w DIFF 08/01/2024 Next Appt Details Follow Up: 4 Months, Reason: OV Provider Name:Delano Vallejo , 04/14/2025 03:30:00 PM, [address] [place] [address] , [address], [address], Progress Notes * ALEXIS LOVEOB:1989 (34 yo F)Acc No.[id number]:08/01/2024 Progress Notes Patient: Lizzie ALTASUZYEFRAINCECIL Provider: Brittaney Vallejo MD :1990 A ge:34 Y S ex:Female Date:08/01/2024 Address:[address] [place], [place] [id number] Pcp:Jennifer Naranjo MD Subjective: * Chief Complaints: * E ssential thrombocytosisCognitive impairmentAsthmaMicrocephalyHypothyroidMorbid obesity * HPI: C OVID-19 Screening: She returns for ongoing management of her elevated platelet count. She has been taking the anagrelide without fail. Her platelet count is now 265,000, in the middle of the normal range. No change in the dose was made. She was continued on the medication and will be seen 3 times a year if stable. Questions H ave you had any new [...] Family History: F ather: alive, diagnosed with Hyperlipidemia, DM, HTN. M other: alive, anemia, diagnosed with HTN, Hyperlipidemia. 2 brother(s) , 1 sister(s) . . Sister had breast cancer. * Social History: T obacco Use: T obacco Use/Smoking P atient is a n onsmoker A dditional Findings: Tobacco Non-User A ggressive non-smoker * Medications: T akingAnagrelide HCl 1 MG Capsule TAKE 1 CAPSULE BY MOUTH DAILY Drospirenone- Ethinyl Estradiol 3-0.03 MG Tablet TAKE [...] List reviewed and reconciled with the patientTaking Anagrelide HCl 1 MG Capsule TAKE 1 CAPSULE BY MOUTH DAILY Taking Drospirenone-Ethinyl Estradiol 3-0.03 MG Tablet TAKE [...] H t: 5 ft 2 in, Wt: 222, BMI:40.6, BP: 117/78, HR: 82, Temp: 97.2, Wt-k.7. * P ast Orders: Lab:Complete Blood Count Aut o Diff * Collection Date 07/23/2024 04/26/2024 12/08/2023 Collection Time 03:28 PM 08:20 AM 09:27 AM Order Date 07/23/2024 04/26/2024 12/08/2023 White Blood Count 13.7 H (Ref Range: 4.8-10.8 X10*3/uL) 12.6 H (Ref Range: 4.8-10.8 X10*3/uL) 11.2 H (Ref Range: 4.8-10.8 X10*3/uL) Red Blood Count 4.44 (Ref Range: 4.20-5.50 X10*6/uL) 4.90 (Ref Range: 4.20-5.50 X10*6/uL) 4.85 (Ref Range: 4.20-5.50 X10*6/uL) Hemoglobin 12.5 (Ref Range: 12.0-16.0 g/dl) 14.0 (Ref Range: 12.0-16.0 g/dl) 13.9 (Ref Range: 12.0-16.0 g/dl) Hematocrit 38.4 (Ref Range: 37.0-47.0 %) 42.8 (Ref Range: 37.0-47.0 %) 42.1 (Ref Range: 37.0-47.0 %) Mean Corpuscular Volume 86.5 (Ref Range: 80.0-98.0 fL) 87.3 (Ref Range: 80.0-98.0 fL) 86.8 (Ref Range: 80.0-98.0 fL) Mean Corpuscular Hemoglobin 28.2 (Ref Range: 27.0-33.0 pg) 28.6 (Ref Range: 27.0-33.0 pg) 28.7 (Ref Range: 27.0-33.0 pg) Mean Corpuscular HGB Conc 32.6 (Ref Range: 31.0-35.0 g/dl) 32.7 (Ref Range: 31.0-35.0 g/dl) 33.0 (Ref Range: 31.0-35.0 g/dl) Red Cell Distribution Width 13.3 (Ref Range: 11.0-16.0 %) 13.2 (Ref Range: 11.0-16.0 %) 13.4 (Ref Range: 11.0-16.0 %) Platelet Count 265 (Ref Range: 160-400 X10*3/uL) 169 (Ref Range: 160-400 X10*3/uL) 197 (Ref Range: 160-400 X10*3/uL) Mean Platelet Volume 12.3 (Ref Range: 9.4-12.3 fL) 12.7 H (Ref Range: 9.4-12.3 fL) 12.5 H (Ref Range: 9.4-12.3 fL) Neutrophils Percent Auto 60.3 (Ref Range: 45-73 %) 56.8 (Ref Range: 45-73 %) 53.5 (Ref Range: 45-73 %) Imm Gran Pct Auto 0.4 (Ref Range: 0.0-0.4 %) 0.3 (Ref Range: 0.0-0.4 %) 0.3 (Ref Range: 0.0-0.4 %) Lymphocytes Percent Auto 32.4 (Ref Range: 20-40 %) 35.0 (Ref Range: 20-40 %) 39.7 (Ref Range: 20-40 %) Monocytes Percent Auto 6.1 (Ref Range: 2-11 %) 6.5 (Ref Range: 2-11 %) 5.3 (Ref Range: 2-11 %) Eosinophils Percent Auto 0.4 (Ref Range: 0-4 %) 0.8 (Ref Range: 0-4 %) 0.8 (Ref Range: 0-4 %) Basophils Percent Auto 0.4 (Ref Range: 0-2 %) 0.6 (Ref Range: 0-2 %) 0.4 (Ref Range: 0-2 %) NRBC Pct Auto 0.0 (Ref Range: 0.0-0.2 /100WBC) 0.0 (Ref Range: 0.0-0.2 /100WBC) 0.0 (Ref Range: 0.0-0.2 /100WBC) Neutrophils Absolute Auto 8.3 (Ref Range: 2.0-8.3 x10*3/uL) 7.1 (Ref Range: 2.0-8.3 x10*3/uL) 6.0 (Ref Range: 2.0-8.3 x10*3/uL) Imm Gran Abs Auto 0.05 H (Ref Range: 0.00-0.03 X10*3/uL) 0.04 H (Ref Range: 0.00-0.03 X10*3/uL) 0.03 (Ref Range: 0.00-0.03 X10*3/uL) Lymphocytes Absolute Auto 4.5 (Ref Range: 1.2-4.9 X10*3/uL) 4.4 (Ref Range: 1.2-4.9 X10*3/uL) 4.4 (Ref Range: 1.2-4.9 X10*3/uL) Monocytes Absolute Auto 0.8 (Ref Range: 0.1-1.2 X10*3/uL) 0.8 (Ref Range: 0.1-1.2 X10*3/uL) 0.6 (Ref Range: 0.1-1.2 X10*3/uL) Eosinophils Absolute Auto 0.1 (Ref Range: 0.0-0.4 X10*3/uL) 0.1 (Ref Range: 0.0-0.4 X10*3/uL) 0.1 (Ref Range: 0.0-0.4 X10*3/uL) Basophils Absolute Auto 0.1 (Ref Range: 0.0-0.2 X10*3/uL) 0.1 (Ref Range: 0.0-0.2 X10*3/uL) 0.1 (Ref Range: 0.0-0.2 X10*3/uL) NRBC Abs Auto 0.000 (Ref Range: 0.0-0.012 X10*3/uL) 0.000 (Ref Range: 0.0-0.012 X10*3/uL) 0.000 (Ref Range: 0.0-0.012 X10*3/uL) * Lab:Comprehensive Met. Panel * Collection Date 07/23/2024 04/26/2024 12/08/2023 Collection Time 03:28 PM 08:20 AM 09:27 AM Order Date 07/23/2024 04/26/2024 12/08/2023 Sodium 141 (Ref Range: 135-145 mmol/L) 140 (Ref Range: 135-145 mmol/L) 141 (Ref Range: 135-145 mmol/L) Bilirubin Total 0.3 (Ref Range: 0.0-1.0 mg/dL) 0.6 (Ref Range: 0.0-1.0 mg/dL) 0.6 (Ref Range: 0.0-1.0 mg/dL) Aspartate Amino Transferase 15 (Ref Range: 5-31 U/L) 46 H (Ref Range: 5-31 U/L) 53 H (Ref Range: 5-31 U/L) Alanine Aminotransferase 21 (Ref Range: 0-31 U/L) 38 H (Ref Range: 0-31 U/L) 55 H (Ref Range: 0-31 U/L) Total Protein 7.2 (Ref Range: 6.5-8.0 g/dL) 8.0 (Ref Range: 6.5-8.0 g/dL) 7.7 (Ref Range: 6.5-8.0 g/dL) Albumin Level 3.7 (Ref Range: 3.5-5.0 g/dL) 3.9 (Ref Range: 3.5-5.0 g/dL) 3.9 (Ref Range: 3.5-5.0 g/dL) Alkaline Phosphatase 115 (Ref Range: 39-117 U/L) 128 H (Ref Range: 39-117 U/L) 138 H (Ref Range: 39-117 U/L) Potassium 3.7 (Ref Range: 3.3-5.1 mmol/L) 4.2 (Ref Range: 3.3-5.1 mmol/L) 3.8 (Ref Range: 3.3-5.1 mmol/L) Chloride 105 (Ref Range: 96-108 mmol/L) 107 (Ref Range: 96-108 mmol/L) 106 (Ref Range: 96-108 mmol/L) Carbon Dioxide 25 (Ref Range: 22-29 mmol/L) 24 (Ref Range: 22-29 mmol/L) 24 (Ref Range: 22-29 mmol/L) Anion Gap 15 (Ref Range: 12-20) 13 (Ref Range: 12-20) 15 (Ref Range: 12-20) Blood Urea Nitrogen 10 (Ref Range: 9-16 mg/dL) 13 (Ref Range: 9-16 mg/dL) 11 (Ref Range: 9-16 mg/dL) Creatinine 0.72 (Ref Range: 0.5-1.4 mg/dL) 0.68 (Ref Range: 0.5-1.4 mg/dL) 0.77 (Ref Range: 0.5-1.4 mg/dL) Estimated Glomerular Filt Rate > 60 > 60 > 60 Glucose Random 98 (Ref Range: 60-115 mg/dL) 98 (Ref Range: 60-115 mg/dL) 100 (Ref Range: 60-115 mg/dL) Calcium 9.5 (Ref Range: 8.4-10.2 mg/dL) 9.8 (Ref Range: 8.4-10.2 mg/dL) 10.1 (Ref Range: 8.4-10.2 mg/dL) ???Lab:T4 Thyroxine (Order Date - 07/23/2024) (Collection Date & Time - 07/23/2024 03:28 PM)?ValueReference Range?T4 Cqldcexwv65.24.5-12.0 - ug/dL ???Lab:Thyroid Stimulating Hormone (Order Date - 07/23/2024) (Collection Date & Time - 07/23/2024 03:28 PM)?ValueReference Range?Thyroid Stimulating Hormone2.330.32-4.0 - uIU/mL * Examination: G eneral Examination: GENERAL APPEARANCE: p ernestina, well nourished, well developed, in no acute [...] upper and lower extremities, sensory exam intact, Cognitive impairment, microcephaly. PSYCH: a lert, oriented to person and place. ? Assessment: * Assessment: 1. E ssential thrombocytosis - D47.3 (Primary) N otes :The disorder is well controlled with current medication at current dose. No changes were made. She will follow-up 3 times a year. 2 . M icrocephaly - Q02 N otes :No changes in her neurologic or psychiatric status have been noted. She is awake and alert, pleasant, friendly antireticulin. 3 . M ild cognitive impairment of uncertain or unknown etiology - G31.84 ? N otes :She was pleasant and seems to understand the discussion. Her change in her regimen other than the aspirin was needed 4 . A sthma - J45.909 N otes :She had no wheezing today and felt well. 5 . H ypothyroid - E03.9 N otes :She has been compliant with her medication. Thyroid function test have been ordered and will be done periodically. Plan: * Treatment: 2. O thers Continue [...] * Provider: Brittaney Vallejo MD Date: 0 08/01/2024 Generated for Anuradha garvey/Gordon/Jahitting on: 04/23/2024 08:43 AM EST History and [...] upper and lower extremities, sensory exam intact, Cognitive impairment, microcephaly SKIN: no suspicious lesion s, anicteric PERIPHERAL PULSES: normal BREASTS: Not examined MUSCULOSKELETAL: extremities unremark able, no clubbing, cyanosis or edema LYMPH NODES: no enlarged lymph no costa,spleen normal RECTAL EXAM: not examined PSYCH: alert, oriented to p erson and place ORAL CAVITY: normal, unremarkable
--- OUTSIDE RECORDS SUMMARY | 2024-12-09 11:00 | XMS_ITS ---
Author Organization Delano Vallejo III, MD Address [address] [place] [address] Care Team Providers Care Service Center Specialist Name Role Phone Marcella CROCKER, [facility] Primary Care Provider Mena Vallejo III, Dr. Wick Unavailable [phone] Allergies Allergen (clinical drug ingredient) Drug/Non Drug Allergy documented on EMR Reaction Allergy Type Onset Date Status No Known Drug Allergy Unknown Drug Allergy Active REASON FOR VISIT Essential thrombocytosis, Polycystic ovarian syndrome, Cognitive impairment, Asthma, Macrocephaly, Hypothyroid, Dyslipidemia, Morbid obesity Medications Medication SIG (Take, Route, [...] BY MOUTH TWICE A DAY Oral Active Anagrelide HCl 1 MG TAKE 1 CAPSULE BY MO UTH DAILY Active Aspir-81 Active Ursodiol 500 MG TAKE [...] Tobacco Non-User Aggressive non-smoker Vital Signs Temperature 97.1 degrees Fahrenheit 12/10/19 25 Blood pressure systolic 133 mm Hg 12/10/19 25 Blood pressure diastolic 87 mm Hg 025 Heart Rate 91 /min 12/09/2024 Height 5 ft 2 in in 12/09/2024 Weight 227 lbs 12/09/2024 BMI 41.51 kg/m2 12/09/2024 Encounters Encounter Location Date Provider Diagnosis Delano Vallejo III, MD [address] [place] [address] [place] [address] 12/09/2024 Delano Vallejo Microcephaly Q02 ; Essential thrombocytosis D47.3 ; Polycystic ovarian syndrome E28.2 ; Asthma J45.909 ; Hypothyroid E03.9 and Morbid obesity E66.01 Assessments Encounter Date Diagnosis (ICD Code) Assessment Notes Treat ment Notes Treatment Clinical Notes 12/09/2024 Microcephaly (ICD-10 - Q02) No changes in her neurologic or psychiatric status have been noted. She is awake and alert, pleasant, friendly and verbal. 12/09/2024 Essential thrombocytosis (ICD-10 - D47.3) Her blood work is pending. Her platelet count will be reviewed and if necessary her medications adjusted. Her father and she herself states that she has been compliant with her anagrelide. 12/09/2024 Polycystic ovarian syndrome (ICD-10 - E28.2) She will remain under the care of JIGGER CROWN POUNCING MACHINE OPERATOR. 12/09/2024 Asthma (ICD-10 - J45.909) She had no wheezing today and felt well. 12/09/2024 Hypothyroid (ICD-10 - E03.9) She has been compliant with her medication. Thyroid function test have been ordered and will be done periodically. 12/09/2024 Morbid obesity (ICD-10 - E66.01) She has gained 10 pounds. Her body mass index is now slightly over 40. She falls into the morbidly obese range. We have discussed diet and nutrition. She and her mother will consider a referral to the weight loss program at [facility]. Plan Of Treatment Medication Medication Name Sig Start Date Stop Date Notes Drospirenone-Ethinyl Estradiol 3-0.03 MG TAKE ONE TABLET BY MOUTH EVERY DAY Oral Flovent HFA 110 MCG/ACT INHALE 1 PUFF TW ICE DAILY. Inhalation Ibuprofen 400 MG TAKE ONE TABLET BY M OUTH THREE TIMES A DAY Oral Ventolin HFA 108 (90 Base) MCG/ACT INHALE TWO PUFFS BY MOUTH FOUR TIMES A DAY NEEDED FOR ASTHMA Inhalation metFORMIN HCl ER 750 MG TAKE ONE TABLET BY MOUTH TWICE A DAY Oral Anagrelide HCl 1 MG TAKE 1 CAPSULE BY MOUTH DAILY Aspir-81 Ursodiol 500 MG TAKE 1 TABLET BY FLO TH DAILY FOR 2 WEEKS, AND THEN START USING IT TWICE A DAY. Oral Pending Test Test Name Order Date PROFILE, RANDOM (COMPREHENSIVE METABOLIC ) 12/09/2024 CBC w DIFF 12/09/2024 Next Appt Details Follow Up: 4 Months, Reason: OV review labs Provider Name:Delano Vallejo , 04/14/2025 03:30:00 PM, [address] [place] [address] DR, [place] [address], [place], [address], Progress Notes * ALEXIS GIANGOB:1989 (34 yo F)Acc No.[id number]:12/09/2024 Progress Notes Patient: Lizzie ALTACECIL LYMAN Provider: Brittaney Vallejo MD :1990 A ge:34 Y S ex:Female Date:12/09/2024 Address:[address] [place] [address] , [address] Pcp:Jennifer Naranjo MD Subjective: * Chief Complaints: * E ssential thrombocytosisPolycystic ovarian syndromeCognitive impairmentAsthmaMacrocephalyHypothyroidDyslipidemiaMorbid obesity * HPI: C OVID-19 Screening: She returns for a scheduled visit for routine medical care. Since her last visit she has had no new medical problems. She says she feels healthy and well and seems happy. She has been compliant with all of her medications. She is up-to-date with all of her medical visits.? She was brought to the office today by her father. Her speech was clear. She has not had her blood work done silver platelet count is unavailable. She is going to have it done today or tomorrow and then follow-up by telephone. Questions H ave you had any new [...] of breath d enies. G astrointestinal: Constipation d enies. D ecreased appetite d enies.?Diarrhea d enies. H eartburn d enies. N ausea d enies. R ectal bleeding?denies. V omiting d enies. H ematology: bruising [...] H t: 5 ft 2 in, Wt: 227, BMI:41.51, BP: 133/87, HR: 91, Temp: 97.1, Wt-k.97. * Examination: G eneral Examination: GENERAL APPEARANCE: p leasant, well nourished, well developed, in no acute distress, calm and relaxed: morbidly obese: woman. HEAD: a traumatic, normocephalic. EYES: e [...] sounds normal, no ascites, no organomegaly, no mass: morbid obesity. RECTAL EXAM: n ot examined. MUSCULOSKELETAL: e xtremities unremarkable, no clubbing, cyanosis or edema. PERIPHERAL PULSES: n ormal. NEUROLOGIC: a lert and oriented, cranial nerves 2-12 grossly intact, deep tendon reflexes 2+ symmetrical, motor strength normal upper and lower extremities, sensory exam intact, Significant developmental delay and cognitive impairment. PSYCH: a lert, oriented. Assessment: * Assessment: 1. E ssential thrombocytosis - D47.3 (Primary) N otes :Her blood work is pending. Her platelet count will be reviewed and if necessary her medications adjusted. Her father and she herself states that she has been compliant with her anagrelide. 2 . M icrocephaly - Q02 N otes :No changes in her neurologic or psychiatric status have been noted. She is awake and alert, pleasant, friendly and verbal. 3 . P olycystic ovarian syndrome - E28.2 N otes :She will remain under the care of JIGGER CROWN POUNCING MACHINE OPERATOR. 4 . A sthma - J45.909 N otes :She had no wheezing today and felt well. 5 . H ypothyroid - E03.9 N otes :She has been compliant with her medication. Thyroid function test have been ordered and will be done periodically. 6 . M orbid obesity - E66.01 N otes :She has gained 10 pounds. Her body mass index is now slightly over 40. She falls into the morbidly obese range. We have discussed diet and nutrition. She and her mother will consider a referral to the weight loss program at [facility]. Plan: * Treatment: 2. M icrocephaly Continue Anagrelide HCl Capsule, 1 MG, TAKE 1 CAPSULE BY MOUTH DAILY; C ontinue Aspir-81; C ontinue Ursodiol Tablet, 500 MG, TAKE 1 TABLET BY MOUTH DAILY FOR 2 WEEKS, AND THEN START USING IT TWICE A DAY., Oral. 3. O thers Continue Drospirenone-Ethinyl Estradiol Tablet, 3-0.03 [...] done * Follow Up: 4 Months (Reason: OV review labs) * Images: * Sign off status: Completed true * Provider: Brittaney Vallejo MD Date: 0 12/09/2024 Generated for Anuradha garvey/Gordon/Tracysmitting on: 04/23/2024 08:43 AM EST History and Physical Notes * HPI (History of Present Illness) Category Sub-Category Detail Notes COVID-19 Screening Questions Have you had any new onset fever, chills, cough, congestion, sore throat, shortness of breath, muscle aches?: No Examination Category Sub-Category Detail Notes General Examination GENERAL APPEARANCE: pleasant , well nourished, well developed, in no acute distress, calm and relaxed: morbidly obese: woman HEAD: atraumatic, normocep halic EYES: eomi, perrla, anicte eriberto, conjugate EARS: normal NOSE: septum intact NECK/THYROID: no jugular venous di stention, no carotid bruit, thyroid normal HEART: no clicks, gallops, murmurs, or rubs, regular rhythm, S1, S2 normal, no s3, or vascular bruits LUNGS: clear to auscultatio n ABDOMEN: bowel sounds normal, no ascites, no organomegaly, no mass: morbid obesity NEUROLOGIC: alert and oriented, cranial nerves 2-12 grossly intact, deep tendon reflexes 2+ symmetrical, motor strength normal upper and lower extremities, sensory exam intact, Significant developmental delay and cognitive impairment SKIN: no suspicious lesion s, anicteric PERIPHERAL PULSES: normal BREASTS: Not examined MUSCULOSKELETAL: extremities unremark able, no clubbing, cyanosis or edema LYMPH NODES: no enlarged lymph no costa,spleen normal RECTAL EXAM: not examined PSYCH: alert, oriented ORAL CAVITY: normal, unremarkable
--- OUTSIDE RECORDS SUMMARY | 2025-02-21 08:43 | XMS_ITS | Patient Health Record ---
Author Organization Delano Vallejo III, MD Address [address] [place] [address] Care Team Providers Care Song And Dance Performer Name Role Phone Marcella CROCKER, [facility] Primary Care Provider Mena Vallejo III, Dr. Wick Unavailable Allergies Allergen (clinical drug ingredient) Drug/Non Drug Allergy documented on EMR Reaction Allergy Type Onset Date Status No Known Drug Allergy Unknown Drug Allergy Active Results Component Value Reference Range Notes Complete Blood Count Auto Di ff Reviewed date:04/27/2024 04:42:22 PM Interpretation: Performing Lab:[facility], [address] [place] [id number] Notes/Report: White Blood Count 12.6 4.8-10.8 X10*3/uL [...] Reviewed date:04/27/2024 04:42:22 PM Interpretation: Performing Lab:[address] [address] Notes/Report: Sodium 140 135-145 mmol/L Potassium 4.2 [...] Reviewed date:07/28/2024 01:51:16 PM Interpretation: Performing Lab:[address] [address] Notes/Report: White Blood Count 13.7 4.8-10.8 X10*3/uL [...] Panel Reviewed date:07/28/2024 01:51:16 PM Interpretation: Performing Lab:[facility], [address] [place] [address] Notes/Report: Sodium 141 135-145 mmol/L Potassium 3.7 [...] Thyroxine Reviewed date:07/28/2024 01:51:16 PM Interpretation: Performing Lab:[facility], [address] [place] [address] Notes/Report: T4 Thyroxine 11.2 4.5-12.0 ug/dL Thyroid Stimulating Hormone Reviewed date:07/28/2024 01:51:16 PM Interpretation: Performing Lab:[facility], [address] [place] [address] Notes/Report: Thyroid Stimulating Hormone 2.33 0.32-4.0 uIU/ [...] USING IT TWICE A DAY. Oral Active Anagrelide HCl 1 MG TAKE ONE CAPSULE BY MOUTH EVERY DAY for 30 Active Social History Tobacco Use: Social History [...] Status W/U Status Risk Notes Problem Asthma (115942296) Asthma (J45.909) Active confirmed She had no wheezing today and felt well. Problem 578652525 Essential thrombocytosis (D47.3) Active confirmed Her blood work is pending. Her platelet count will be reviewed and if necessary her medications adjusted. Her father and she herself states that she has been compliant with her anagrelide. Problem Polycystic ovary syndrome (disorder) (964095361) Polycystic ovarian syndrome (E28.2) Active confirmed She will remain under the care of [facility]. Problem Microcephaly (9472635606) Microcephaly (Q02) Active confirmed No changes in her neurologic or psychiatric status have been noted. She is awake and alert, pleasant, friendly and verbal. Problem Hypothyroid (59852034) Hypothyroid (E03.9) Active confirmed She has been compliant with her medication. Thyroid function test have been ordered and will be done periodically. Problem Dyslipidemia (817236482) Dyslipidemia (E78.5) Active confirmed Her fasting lipids will be reviewed. I recommended they be checked 3 times a year. Problem 014680579 Morbid obesity (E66.01) Active confirmed She has gained 10 pounds. Her body mass index is now slightly over 40. She falls into the morbidly obese range. We have discussed diet and nutrition. She and her mother will consider a referral to the weight loss program at [facility]. Problem Elevated liver enzymes level (133877229) Elevated liver enzymes (R74.8) Active confirmed There remain s slight elevation of the enzymes but there generally improving. They will be observed without treatment at this time. Problem Mild cognitive disorder (223143477) Mild cognitive impairment of uncertain or unknown [...] Date Provider Diagnosis Delano Vallejo III, MD [address] [place] [address] [place] [address] 05/02/2024 Delano Vallejo Morbid obesity E66.0 1 ; Thrombocytosis D75.839 ; Microcephaly Q02 ; Elevated liver enzymes R74.8 ; Hypothyroid E03.9 ; Mild cognitive impairment of uncertain or unknown etiology G31.84 and Polycystic ovarian syndrome E28.2 Delano Vallejo III, MD [address] [place] [address] [place] [address] 08/01/2024 Delano Vallejo Microcephaly Q02 ; Essential thrombocytosis D47.3 ; Mild cognitive impairment of uncertain or unknown etiology G31.84 ; Asthma J45.909 and Hypothyroid E03.9 Delano Vallejo III, MD [address] [place] [address] [place] [address] 12/09/2024 Delano Vallejo Microcephaly Q02 ; Essential [...] referral to the weight loss program at [facility]. 05/02/2024 Thrombocytosis (ICD-10 - D75.839) Her [...] awake and alert, pleasant, friendly and verbal. 05/02/2024 Microcephaly (ICD-10 - Q02) No changes [...] She will remain under the care of [facility]. 05/02/2024 Elevated liver enzymes (ICD-10 - R74.8) [...] referral to the weight loss program at [facility]. 05/02/2024 Polycystic ovarian syndrome (ICD-10 - E28.2) She will remain under the care of [facility]. Plan Of Treatment Pending Test Test Name [...] Thyroxine) 05/02/2024 Next Appt Details Provider Name:Delano Verane , 04/14/2025 03:30:00 PM, [address] [place] [address] [address], [place], [address], Insurance Providers Payer Name Payer Address Payer Phone Subscriber Number Group Number Insured Name Patient Relationship to Insured Coverage Start Date Coverage End Date MEDICA[place] [address] [place], [place] [id number] CECIL BRITT Self - patient is the insured Medical (General) History Medical History History ICD Code Asthma J45.909 Elevated liver enzymes R74.8 Microcephaly Q02 Dyslipidemia E78.5 Obesity E66.9 Hypothyroid E03.9 Thrombocytosis D47.3 Surgical History Surgery Date(Month/Year) Bx liver 04/2022
--- OUTSIDE RECORDS SUMMARY | 2025-02-21 08:44 | XMS_ITS | Patient Health Record ---
Author Organization [facility] Address [address] [place] [address] Care Team Providers Care Automotive Vehicle Inspector Name Role Phone Michelleezekiel Jennifer Primary Care Provider UnavailDelano Kim [phone] Allergies No Known Allergies Reason For Referral No Information Medications Medication SIG (Take, Route, Frequency, Duration) Notes Start Date End Date Status metFORMIN HCl 500 MG Tablet 1 tablet with a meal Orally Once a day; Duration: 30 day(s) Active Ursodiol 500 MG Tablet 1 tablet Orally T wice a day; Duration: 30 day(s) 04/05/2024 Active Aspirin 81 81 MG Tablet Delayed Release 1 tablet Orally Once a day; Duration: 30 day(s) Active Drospirenone-Ethinyl Estradiol 3-0.03 MG Tablet TAKE ONE TABLET BY MOUTH EVERY DAY Oral; Duration: 28 Active Anagrelide HCl 1 MG Capsule TAKE 1 CAPSULE BY MOUTH DAILY Oral; Duration: 30 Active Ibuprofen 400 MG Tablet TAKE ONE TABLET BY MOUTH THREE TIMES A DAY Oral; Duration: 30 Active Ursodiol 500 MG Tablet 1 tablet Orally T kenzie 1 tablet daily for 2 weeks and start using it twice a day; Duration: 30 day(s) 08/24/2023 Active Immunizations Vaccine Route Administration Date Status Comme nts Influenza Unknown 01/18/2021 Administered Influenza Unknown 01/31/2022 Administered Influenza Unknown 12/19/2022 Administered Influenza Unknown 02/07/2024 Administered Social History Tobacco Use: Social History Observation Description Date Details (start date - stop date) Never Smoker NA - NA Social History Drugs/Alcohol: Social Info Question Answer Notes Alcohol Screen Did you have a drink containing alcohol in the past year? Yes How often did you have a drink containing alcohol in the past year? Monthly or less (1 point) How many drinks did you have on a typical day when you were drinking in the past year? 1 or 2 drinks (0 point) How often did you have 6 or more drinks on one occasion in the past year? 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 [employer] Section Notes: She is a nonsmoker and [...] Risk Notes Problem Elevated liver enzymes level (983710651) Elevated liver function tests (R79.89) Active confirmed Problem Fatty liver (281472059) Fatty liver (K76.0) Active confirmed Problem Iron deficiency anemia due to chronic blood loss (299003799) Iron deficiency anemia due to chronic blood loss (D50.0) Active confirmed Problem Abnormal findings diagnostic imaging of liver and biliary tract (790392918) Abnormal liver ultrasound (R93.2) Active confirmed Problem Abnormal findings diagnostic imaging of liver and biliary tract (569920235) Abnormal MRI, liver (R93.2) Active confirmed Problem Elevated liver enzymes level (807832109) Elevated liver function tests (R94.5) Active confirmed Vital Signs Temperature 97.5 degrees Fahrenheit 02/22/2024 Blood pressure diastolic 00 mm Hg 02/22/2024 Height 62 in 02/22/2024 Blood pressure systolic 000 mm Hg 02/22/2024 Weight 219 lb 6 oz lbs 02/22/2024 BMI 40.12 kg/m2 02/22/2024 Encounters Encounter Location Date Provider Diagnosis [facility] [address] [place] [phone] 02/22/2024 Delano Johnson Elevated liver function tests R94.5 and Fatty liver K76.0 [facility] [address] [place] [address] 04/05/2024 Delano Alex Assessments Encounter Date Diagnosis (ICD Code) Assessment [...] BUN 09/24/2021 LIVER PROFILE 09/24/2021 LIVER PROFILE 02/22/2024 LIVER PROFILE 04/20/2022 LIVER PROFILE 08/24/2023 LIVER PROFILE 07/25/2022 LIVER PROFILE 01/24/2023 LIVER PROFILE 09/14/2021 LIVER PROFILE 02/15/2022 CEA 09/24/2021 CBC w DIFF 09/14/2021 CBC w DIFF 02/15/2022 PROTHROMBIN TIME (PT, INR) 09/14/2021 [id number] (A1A) 09/14/2021 ALPHA-FETOPROTEIN,TUMOR MARKER ALPHA-FETOPROTEIN,TUMOR MARKER MRI ABD W&WO CONTRAST 09/24/2021 MRI ABD W&WO CONTRAST 07/25/2022 MRI ABD W&WO CONTRAST 08/24/2023 US LIVER BIOPSY CORE GUIDE 02/15/2022 US ABDOMEN COMP WITH ELASTOGRAPHY 2021 Prothrombin Time INR 02/15/2022 Partial Thromboplastin Time 02/15/2022 Liver Panel 09/14/2021 Creatinine 09/24/2021 Creatinine 07/25/2022 Creatinine 08/24/2023 MR abdomen wo/w con 10/03/2023 Next Appt Details Provider Name:Delano Johnson , 02/24/2025 01:00:00 PM, [address], [address], [place], [address], Insurance Providers Payer Name Payer Address Payer Phone Subscriber Number Group Number Insured Name Patient Relationship to Insured Coverage Start Date Coverage End Date MEDICAID [employer] [facility] [address] [place] [id number] HUMBERTO ZUNIGACECIL Self - patient is the insured Medical (General) History Medical History History ICD Code Asthma Prediabetes Denies CO,CVA,renal disease Elevated liver tests due to presumed [...] platelet count that is followed by Dr. Valljeo. She was started on a low-dose aspirin for that. Surgical History Surgery Date(Month/Year) Fractured legs @ 18 months---just had to be set---no hardware
[2025-02-21 10:54] LABS: Alanine Aminotransferase 28 U/L (0-31); Albumin Level 3.9 g/dL (3.5-5.0); Alkaline Phosphatase 121 U/L (39-117); Aspartate Amino Transferase 29 U/L (5-31); Total Protein 7.3 g/dL (6.5-8.0)
== END 2025-02-21 08:42 | disposition home or self-care (01) ==
LOC: HO.LABR 08:41
PROVIDERS: PCP Internal Medicine; Visit Provider Internal Medicine
DX: K76.0 Fatty (change of) liver, not elsewhere classified (principal); R94.5 Abnormal results of liver function studies
CPT/HCPCS: 36415; 80076